=== PATIENT | female | born 1965 | race African-American/Black ===

== ENCOUNTER 2017-01-23 18:49 | Inpatient (IN) | payer OTHER ==
[~2017-01-23] VITALS: Ht 157.5 cm; Wt 108.0 kg
--- NOTE | 2017-01-23 18:51 | PHYS DOC ---
Past Medical History Past Medical History: Asthma, Cancer, COPD, CVA, Diabetes-Type II, GERD, Hypertension, [place], Other Additional Past Medical Histor: Liver Cancer treated with medication Past Surgical History: Angioplasty, Other Additional Past Surgical Histo: With stent placement Alcohol Use: None Drug Use: None Adult General Chief Complaint Chief Complaint: CHEST PAIN HPI HPI Patient is a 51 year old -Swedish Swedish female who presents with sided chest pain that goes into her neck and down her left arm. She states that she started a left leg like cramping sensation and then moved up. She states she feel short of breath over the last couple days. She states the pain is been constant nothing made it better or worse. She's been taking her ulcer relaxants and has made any difference. She states she's has a history of heart failure and had a stent approximately 3 years ago at the [facility]. She states she's very compliant with all of her medications. She states she's had a yellow productive cough over the last several days. She does smoke cigarettes. Review of Systems Review of Systems Constitutional: Denies fever or chills [] Eyes: Denies change in visual acuity, redness, or eye pain [] HENT: Denies nasal congestion or sore throat [] Respiratory: Positive for productive cough and shortness of breath. Cardiovascular: No additional information not addressed in HPI [] GI: Denies abdominal pain, nausea, vomiting, bloody stools or diarrhea [] : Denies dysuria or hematuria [] Musculoskeletal: Denies back pain or joint pain [] Integument: Denies rash or skin lesions [] Neurologic: Denies headache, focal weakness or sensory changes [] Endocrine: Denies polyuria or polydipsia [] Current Medications Current Medications Current Medications Medications (Trade) Dose Ordered Sig/Luz Maria Start Time Stop Time Status Last Admin Dose Admin Acetaminophen (Tylenol) 650 mg PRN Q6HRS PRN 01/23/17 20:45 Acetaminophen/ Hydrocodone Bitart (Lortab 5/325) 2 tab PRN Q4HRS PRN 01/23/17 20:45 Al Hydroxide/Mg Hydroxide (Mylanta Plus Xs) 30 ml PRN Q3HRS PRN 01/23/17 20:45 Aspirin (Acacia Aspirin) 325 mg 1X ONCE 01/23/17 22:00 01/23/17 22:01 Bisacodyl (Dulcolax Supp) 10 mg PRN DAILY PRN 01/23/17 20:45 Calcium Carbonate/ Glycine (Tums) 500 mg PRN Q3HRS PRN 01/23/17 20:45 Dextrose (Dextrose 50%-Water Syringe) 12.5 gm PRN Q15MIN PRN 01/23/17 20:45 Docusate Sodium (Colace) 100 mg BID 01/23/17 21:00 Enoxaparin Sodium (Lovenox 40mg Syringe) 40 mg Q24H 01/23/17 21:00 Fentanyl Citrate (Fentanyl 2ml Vial) 50 mcg PRN Q2HR PRN 01/23/17 20:45 Ibuprofen (Motrin) 400 mg PRN Q6HRS PRN 01/23/17 20:45 Insulin Aspart (NovoLOG) 0-9 UNITS TIDWMEALS 01/24/17 08:00 Ketorolac Tromethamine (Toradol) 30 mg PRN Q6HRS PRN 01/23/17 20:45 01/28/17 20:44 Lactulose 20 gm PRN Q12HR PRN 01/23/17 20:45 Magnesium Hydroxide (Milk Of Magnesia) 2,400 mg PRN Q12HR PRN 01/23/17 20:45 Morphine Sulfate 2 mg PRN Q2HR PRN 01/23/17 21:30 01/24/17 21:29 UNV Ondansetron HCl (Zofran) 4 mg PRN Q6HRS PRN 01/23/17 20:45 Oxycodone HCl (Roxicodone) 5 mg PRN Q3HRS PRN 01/23/17 20:45 Potassium Chloride 100 ml @ 100 mls/hr Q1H 01/23/17 22:00 01/24/17 01:59 Prochlorperazine (Compazine) 25 mg PRN Q12HR PRN 01/23/17 20:45 Prochlorperazine Edisylate (Compazine) 10 mg PRN Q6HRS PRN 01/23/17 20:45 Zolpidem Tartrate (Ambien) 5 mg PRN QHS PRN 01/23/17 20:45 Allergies Allergies Allergies Coded Allergies Type Severity Reaction Last Updated Verified amoxicillin Allergy Severe anaphylaxis 09/19/13 Yes iodine Allergy Severe Anaphylaxis 09/19/13 Yes shellfish derived Allergy Severe Anaphylaxis 04/09/14 Yes Physical Exam Physical Exam Constitutional: Well developed, well nourished, no acute distress, non-toxic appearance. [] HENT: Normocephalic, atraumatic, bilateral external ears normal, oropharynx moist, no oral exudates, nose normal. [] Eyes: PERRLA, EOMI, conjunctiva normal, no discharge. [] Neck: Normal range of motion, no tenderness, supple, no stridor. [] Cardiovascular:Heart rate regular rhythm, no murmur [] Lungs & Thorax: Bilateral breath sounds clear to auscultation [] Abdomen: Bowel sounds normal, soft, no tenderness, no masses, no pulsatile masses. [] Skin: Warm, dry, no erythema, no rash. [] Back: No tenderness, no CVA tenderness. [] Extremities: No tenderness, no cyanosis, no clubbing, ROM intact, no edema. [] Neurologic: Alert and oriented X 3, normal motor function, normal sensory function, no focal deficits noted. [] Psychologic: Affect normal, judgement normal, mood normal. [] Current Patient Data Vital Signs Vital Signs Date Time Temp Pulse Resp B/P (MAP) Pulse Ox O2 Delivery O2 Flow Rate FiO2 01/23/17 21:00 80 133/82 (99) 98 Room Air 01/23/17 19:01 98.3 22 98.3 Lab Values Laboratory Tests Test 01/23/17 19:45 01/23/17 20:00 White Blood Count 9.0 x10^3/uL (4.0-11.0) Red Blood Count 4.95 x10^6/uL (3.50-5.40) Hemoglobin 14.6 g/dL (12.0-15.5) Hematocrit 42.5 % (36.0-47.0) Mean Corpuscular Volume 86 fL (79-100) Mean Corpuscular Hemoglobin 29 pg (25-35) Mean Corpuscular Hemoglobin Concent 34 g/dL (31-37) Red Cell Distribution Width 15.1 % (11.5-14.5) H Platelet Count 163 x10^3/uL (140-400) Neutrophils (%) (Auto) 50 % (31-73) Lymphocytes (%) (Auto) 43 % (24-48) Monocytes (%) (Auto) 5 % (0-9) Eosinophils (%) (Auto) 1 % (0-3) Basophils (%) (Auto) 1 % (0-3) Neutrophils # (Auto) 4.5 x10^3uL (1.8-7.7) Lymphocytes # (Auto) 3.8 x10^3/uL (1.0-4.8) Monocytes # (Auto) 0.4 x10^3/uL (0.0-1.1) Eosinophils # (Auto) 0.1 x10^3/uL (0.0-0.7) Basophils # (Auto) 0.1 x10^3/uL (0.0-0.2) Prothrombin Time 13.4 SEC (11.7-14.0) Prothrombin Time INR 1.1 (0.8-1.1) Sodium Level 138 mmol/L (136-145) Potassium Level 2.6 mmol/L (3.5-5.1) *L Chloride Level 100 mmol/L (98-107) Carbon Dioxide Level 29 mmol/L (21-32) Anion Gap 9 (6-14) Blood Urea Nitrogen 14 mg/dL (7-20) Creatinine 0.8 mg/dL (0.6-1.0) Estimated GFR (Cockcroft-Gault) 90.8 Glucose Level 187 mg/dL (70-99) H Calcium Level 9.7 mg/dL (8.5-10.1) Magnesium Level 2.1 mg/dL (1.8-2.4) Total Bilirubin 0.5 mg/dL (0.2-1.0) Direct Bilirubin 0.1 mg/dL (0.0-0.2) Aspartate Amino Transferase (AST) 16 U/L (15-37) Alanine Aminotransferase (ALT) 18 U/L (14-59) Alkaline Phosphatase 96 U/L (46-116) Creatine Kinase 120 U/L (26-192) Creatine Kinase MB (Mass) 0.8 ng/mL (0.0-3.6) Creatine Kinase MB Relative Index 0.7 % (0-4) Troponin I Quantitative < 0.017 ng/mL (0.000-0.055) TR-Rkw-S-Type Natriuretic Peptide 27 pg/mL (0-124) Total Protein 7.6 g/dL (6.4-8.2) Albumin 3.9 g/dL (3.4-5.0) Lipase 399 U/L (73-393) H Urine Color Yellow Urine Clarity Clear Urine pH 5.5 Urine Specific [place] 1.015 Urine Protein Negative mg/dL (NEG-TRACE) Urine Glucose (UA) Negative mg/dL (NEG) Urine Ketones (Stick) Negative mg/dL (NEG) Urine Blood Negative (NEG) Urine Nitrite Negative (NEG) Urine Bilirubin Negative (NEG) Urine Urobilinogen Dipstick 0.2 mg/dL (0.2 mg/dL) Urine Leukocyte Esterase Small (NEG) Urine RBC 0 /HPF (0-2) Urine WBC 1-4 /HPF (0-4) Urine Squamous Epithelial Cells Occ /LPF Urine Bacteria Moderate /HPF (0-FEW) Laboratory Tests 01/23/17 19:45 Laboratory Tests 01/23/17 19:45 EKG EKG EKG shows sinus rhythm rate [address] elevations or T-wave inversions, normal axis, QTC 430 ms, as interpreted by me. Radiology/Procedures Radiology/Procedures One view chest x-ray did not show any focal consolidations, bony abnormality's or pneumothorax, as interpreted by me. Impressions: Chest pain Coronary artery disease COPD Congestive heart failure Hypokalemia Course & Med Decision Making Course & Med Decision Making Pertinent Labs and Imaging studies reviewed. (See chart for details) Patient does have hypokalemia and this is being replaced. EKG is nonacute. Chest x-ray also nonacute. Initial troponin is negative. This is atypical chest pain however she does have several risk factors with stents and CHF. We'll admit for cardiac rule out and further evaluation. Patient's being admitted to the hospitalist in stable condition at this time. Potassium is being replaced with an Mcgregor complains IV 4, magnesium level is normal. Dragon Disclaimer Dragon Disclaimer This electronic medical record was generated, in whole or in part, using a voice recognition dictation system. Departure Departure Impression: Primary Impression: Chest pain Disposition: 09 ADMITTED INPATIENT Admitting Physician: Kathleen Byers Condition: STABLE Referrals: SCOTT MCKINLEY (PCP) Problem Qualifiers Primary Impression: Chest pain Chest pain type: unspecified Qualified Codes: R07.9 - Chest pain, unspecified TYSON HARDY MD Jan 23, 2017 18:51
[2017-01-23] MEDS ORDERED: MORPHINE SULFATE 4 MG/ML DISP.SYRIN. IV/SQ PRN (19:45)
[2017-01-23 19:58] LABS: BASO # 0.1 x10^3/uL (0.0-0.2); BASO % 1 % (0-3); EOS % 1 % (0-3); HEMATOCRIT 42.5 % (36.0-47.0); HEMOGLOBIN 14.6 g/dL (12.0-15.5); LYMPH # 3.8 x10^3/uL (1.0-4.8); LYMPH % 43 % (24-48); MEAN CORPUSCULAR HEMOGLOBIN 29 pg (25-35); MEAN CORPUSCULAR HGB CONC 34 g/dL (31-37); MEAN CORPUSCULAR VOLUME 86 fL (79-100); MONO % 5 % (0-9); NEUT % 50 % (31-73); PLATELET COUNT 163 x10^3/uL (140-400); RED BLOOD COUNT 4.95 x10^6/uL (3.50-5.40); RED CELL DISTRIBUTION WIDTH 15.1 % (11.5-14.5)
[2017-01-23 20:12] LABS: INR 1.1 (0.8-1.1); PROTHROMBIN TIME PATIENT 13.4 SEC (11.7-14.0)
[2017-01-23 20:17] LABS: BILIRUBIN,URINE NEGATIVE (NEG); GLUCOSE,URINE NEGATIVE (NEG); NITRITE,URINE NEGATIVE (NEG); PH,URINE 5.5; PROTEIN,URINE NEGATIVE (NEG-TRACE); UROBILINOGEN,URINE 0.2 mg/dL (0.2 mg/dL)
[2017-01-23 20:36] LABS: BACTERIA,URINE MODERATE /HPF (0-FEW); RBC,URINE 0 /HPF (0-2); SQUAMOUS EPITHELIAL CELL,UR OCC /LPF
[2017-01-23] MEDS ORDERED: DEXTROSE 50% 25 GM / 50ML DISP.SYRIN. IV PRN (20:45)
[2017-01-23] MEDS ORDERED: MORPHINE SULFATE 4 MG/ML DISP.SYRIN. IV PRN (20:45)
[2017-01-23] MEDS ORDERED: BISACODYL 10 MG SUPP.RECT. PR PRN (20:45)
[2017-01-23] MEDS ORDERED: ONDANSETRON PF 4 MG/2 ML VIAL. IV PRN (20:45)
[2017-01-23] MEDS ORDERED: PROCHLORPERAZINE 10 MG/2 ML VIAL. IV PRN (20:45)
[2017-01-23] MEDS ORDERED: IBUPROFEN 400 MG TABLET. PO PRN (20:45)
[2017-01-23] MEDS ORDERED: MAGNESIUM HYDROXIDE 2,400 MG/30 ML ORAL.SUSP. PO PRN (20:45)
[2017-01-23] MEDS ORDERED: fentaNYL PF VIAL 100 MCG/2 ML VIAL IV PRN (20:45)
[2017-01-23] MEDS ORDERED: oxyCODONE IR 5 MG TABLET PO PRN (20:45)
[2017-01-23] MEDS ORDERED: MAG HYDROX/ALUMINUM HYD/SIMETH 30 ML ORAL.SUSP PO PRN (20:45)
[2017-01-23] MEDS ORDERED: ACETAMINOPHEN 325 MG TABLET. PO PRN (20:45)
[2017-01-23] MEDS ORDERED: LACTULOSE 20 GM/30 ML SOLUTION. PO PRN (20:45)
[2017-01-23] MEDS ORDERED: CALCIUM CARBONATE 500 MG TAB.CHEW PO PRN (20:45)
[2017-01-23] MEDS ORDERED: KETOROLAC 30 MG/ML INJ. IV PRN (20:45)
[2017-01-23] MEDS ORDERED: PROCHLORPERAZINE 25 MG SUPP.RECT. PR PRN (20:45)
[2017-01-23] MEDS ORDERED: ZOLPIDEM 5 MG TABLET. PO PRN (20:45)
--- NOTE | 2017-01-23 20:46 | PDOC1 ---
History and Physical Date of Admission Date of Admission DATE: 01/23/17 TIME: 20:39 Identification/Chief Complaint Chief Complaint left sided CP, toe pain all the way to her chest Problems: Source Source: Caregiver, Chart review, Patient History of Present Illness History of Present Illness 51 y.o MOrbidly obese AA fmela with hx cAD, indwelling stents last C 3-4 yrs ago at [facility], cards is on [facility], last here [address] Sommer for CP. Comes in bec of CP started 3 days agos he claims started from her foot and moved all checo way up to her chest, she thought/described as solitario horse. EKG ok, VS ok,. CLaims complaince with meds, Does smoke 3-4 cig a day - claims whcisushila is down than her usual, prev alcohol drinker but since dx with liver CA 17 yrs ago and advised chemo, radiation but never did and claims now she is cancer free. NOt the best historian, complains of pain everywhere, ROS is positive mostly for majority of the organ systems. SHe is DM, HTN, dyslipdimeia, not working but no leg edema and ambulates with no assistive device, She is top heavy, She describes pain as left sided, at rest 10./10 not relived by morphine,claims SOA but no diaphoresis. Past Medical History Cardiovascular: HTN, Hyperlipidemia Pulmonary: Bronchitis GI: GERD Hepatobiliary: Other (liver CA) Musculoskeletal: low back pain ENT: No pertinent hx Endocrine: Diabetes Past Surgical History Past Surgical History: Other (PCI) Family History Family History: High Cholestrol, Hypertension Social History Smoke: <1 pack per day ALCOHOL: other (quit 17 yrs ago, heavy) Current Medications Current Medications Current Medications Morphine Sulfate 2 mg PRN Q15MIN PRN IV/SQ PAIN GREATER THAN 3/10 Last administered on 01/23/17t 19:47; Start 01/23/17 at 19:45; Stop 01/24/17 at 19:44 Allergies Allergies: Coded Allergies: amoxicillin (Verified Allergy, Severe, anaphylaxis, 09/19/13) iodine (Verified Allergy, Severe, Anaphylaxis, 09/19/13) Patient allergic to Seafood shellfish derived (Verified Allergy, Severe, Anaphylaxis, 04/09/14) ROS General: YES: Fatigue, Malaise PSYCHOLOGICAL ROS: YES: Anxiety, Concentration difficultie, Depression Eyes: No Blurry vision, No Decreased vision, No Double vision, No Dry eyes, No Excessive tearing, No Eye Pain, No Itchy Eyes, No Loss of vision, No Photophobia , No Scotomata, No Uses contacts, No Uses glasses, No Other HEENT: No: Heacaches, Visual Changes, Hearing change, Nasal congestion, Nasal discharge, Oral lesions, Sinus pain, Sore Throat, Epistaxis, Sneezing, Snoring, Tinnitus, Vertigo, Vocal changes, Other ALLERGY AND IMMUNOLOGY: No: Hives, Insect Bite Sensitivity, Itchy/Watery Eyes, Nasal Congestion, Post Nasal Drip, Seasonal Allergies, Other Hematological and Lymphatic: No: Bleeding Problems, Blood Clots, Blood Transfusions, Brusing, Night Sweats, Pallor, Swollen Lymph Nodes, Other ENDOCRINE: YES: Malaise/lethargy Breast: No New/Changing Breast Lumps, No Nipple changes, No Nipple discharge, No Other Respiratory: YES: Cough, Pleuritic Pain, Shortness of breath, SOB with excertion Cardiovascular: yes Chest Pain Gastrointestinal: Yes Abdominal Pain Musculoskeletal: Yes Joint Pain Neurological: No Behavorial Changes, No Bowel/Bladder ControlChng, No Confusion , No Dizziness, No Gait Disturbance, No Headaches, No Impaired Coord/balance, No Memory Loss, No Numbness/Tingling, No Seizures, No Speech Problems, No Tremors, No Visual Changes, No Weakness, No Other Skin: No Dry Skin, No Eczema, No Hair Changes, No Lumps, No Mole Changes, No Mottling, No Nail Changes, No Pruritus, No Rash, No Skin Lesion Changes, No Other, No Acne Physical Exam General: Alert, Oriented X3, Cooperative, No acute distress HEENT: Atraumatic, PERRLA, EOMI Lungs: Clear to auscultation, Normal air movement Heart: S1S2, RRR, no thrills, no rubs Cardiovascular: S1, S2 Breasts: Normal, Rt breast nml w/o mass, Lt breast nml w/o mass, Nipples normal Abdomen: Normal bowel sounds, Soft, No tenderness, No hepatosplenomegaly, No masses Extremities: No clubbing Skin: No rashes, No breakdown, No significant lesion Neuro: Normal gait, Normal speech, Strength at 5/5 X4 ext, Normal tone, Sensation intact, Cranial nerves 3-12 NL, Reflexes 2+ Psych/Mental Status: Mental status NL, Mood NL Vitals Vitals Vital Signs Date Time Temp Pulse Resp B/P (MAP) Pulse Ox O2 Delivery O2 Flow Rate FiO2 01/23/17 19:01 98.3 77 22 128/83 (98) 98 Room Air 98.3 Labs Labs Laboratory Tests Test 01/23/17 19:45 01/23/17 20:00 White Blood Count 9.0 x10^3/uL (4.0-11.0) Red Blood Count 4.95 x10^6/uL (3.50-5.40) Hemoglobin 14.6 g/dL (12.0-15.5) Hematocrit 42.5 % (36.0-47.0) Mean Corpuscular Volume 86 fL (79-100) Mean Corpuscular Hemoglobin 29 pg (25-35) Mean Corpuscular Hemoglobin Concent 34 g/dL (31-37) Red Cell Distribution Width 15.1 % (11.5-14.5) Platelet Count 163 x10^3/uL (140-400) Neutrophils (%) (Auto) 50 % (31-73) Lymphocytes (%) (Auto) 43 % (24-48) Monocytes (%) (Auto) 5 % (0-9) Eosinophils (%) (Auto) 1 % (0-3) Basophils (%) (Auto) 1 % (0-3) Neutrophils # (Auto) 4.5 x10^3uL (1.8-7.7) Lymphocytes # (Auto) 3.8 x10^3/uL (1.0-4.8) Monocytes # (Auto) 0.4 x10^3/uL (0.0-1.1) Eosinophils # (Auto) 0.1 x10^3/uL (0.0-0.7) Basophils # (Auto) 0.1 x10^3/uL (0.0-0.2) Prothrombin Time 13.4 SEC (11.7-14.0) Prothromb Time International Ratio 1.1 (0.8-1.1) Urine Color Yellow Urine Clarity Clear Urine pH 5.5 Urine Specific [place] 1.015 Urine Protein Negative mg/dL (NEG-TRACE) Urine Glucose (UA) Negative mg/dL (NEG) Urine Ketones (Stick) Negative mg/dL (NEG) Urine Blood Negative (NEG) Urine Nitrite Negative (NEG) Urine Bilirubin Negative (NEG) Urine Urobilinogen Dipstick 0.2 mg/dL (0.2 mg/dL) Urine Leukocyte Esterase Small (NEG) Urine RBC 0 /HPF (0-2) Urine WBC 1-4 /HPF (0-4) Urine Squamous Epithelial Cells Occ /LPF Urine Bacteria Moderate /HPF (0-FEW) Laboratory Tests Test 01/23/17 19:45 01/23/17 20:00 White Blood Count 9.0 x10^3/uL (4.0-11.0) Red Blood Count 4.95 x10^6/uL (3.50-5.40) Hemoglobin 14.6 g/dL (12.0-15.5) Hematocrit 42.5 % (36.0-47.0) Mean Corpuscular Volume 86 fL (79-100) Mean Corpuscular Hemoglobin 29 pg (25-35) Mean Corpuscular Hemoglobin Concent 34 g/dL (31-37) Red Cell Distribution Width 15.1 % (11.5-14.5) Platelet Count 163 x10^3/uL (140-400) Neutrophils (%) (Auto) 50 % (31-73) Lymphocytes (%) (Auto) 43 % (24-48) Monocytes (%) (Auto) 5 % (0-9) Eosinophils (%) (Auto) 1 % (0-3) Basophils (%) (Auto) 1 % (0-3) Neutrophils # (Auto) 4.5 x10^3uL (1.8-7.7) Lymphocytes # (Auto) 3.8 x10^3/uL (1.0-4.8) Monocytes # (Auto) 0.4 x10^3/uL (0.0-1.1) Eosinophils # (Auto) 0.1 x10^3/uL (0.0-0.7) Basophils # (Auto) 0.1 x10^3/uL (0.0-0.2) Prothrombin Time 13.4 SEC (11.7-14.0) Prothromb Time International Ratio 1.1 (0.8-1.1) Urine Color Yellow Urine Clarity Clear Urine pH 5.5 Urine Specific [place] 1.015 Urine Protein Negative mg/dL (NEG-TRACE) Urine Glucose (UA) Negative mg/dL (NEG) Urine Ketones (Stick) Negative mg/dL (NEG) Urine Blood Negative (NEG) Urine Nitrite Negative (NEG) Urine Bilirubin Negative (NEG) Urine Urobilinogen Dipstick 0.2 mg/dL (0.2 mg/dL) Urine Leukocyte Esterase Small (NEG) Urine RBC 0 /HPF (0-2) Urine WBC 1-4 /HPF (0-4) Urine Squamous Epithelial Cells Occ /LPF Urine Bacteria Moderate /HPF (0-FEW) VTE Prophylaxis Ordered VTE Prophylaxis Devices: Yes VTE Pharmacological Prophylaxi: Yes Assessment/Plan Assessment/Plan 1. CP in an adult at rest, atypical, hx CAD with stents 2. DM 2 , dyslipidemia, HTN 3. Liver CA by patient account - claims now CA free 4. SMoker - few cigs 5. Ex drinker 6. Metabolic syndrome Plan: Admit [facility] consult Cycle CE Check TSH Awaiting home meds Tender to palp on abd - if persists might need further eval i,.e imaging Seen at [facility] and [facility] MATTING MACHINE OPERATORJUDIE BARTHOLOMEW MD Jan 23, 2017 20:46
[2017-01-23 20:50] LABS: ALBUMIN 3.9 g/dL (3.4-5.0); CALCIUM 9.7 mg/dL (8.5-10.1); CREATININE 0.8 mg/dL (0.6-1.0); DIRECT BILIRUBIN 0.1 mg/dL (0.0-0.2); GFR 90.8; MAGNESIUM 2.1 mg/dL (1.8-2.4); TOTAL BILIRUBIN 0.5 mg/dL (0.2-1.0); TOTAL PROTEIN 7.6 g/dL (6.4-8.2)
[2017-01-23 20:59] LABS: CKMB MASS 0.8 ng/mL (0.0-3.6)
[2017-01-23] MEDS ORDERED: ENOXAPARIN 40 MG/0.4 ML SYRINGE. SQ SCH (21:00)
[2017-01-23 21:03] LABS: POTASSIUM 2.6 mmol/L (3.5-5.1)
[2017-01-23] MEDS ORDERED: MORPHINE SULFATE 2 MG/ML DISP.SYRIN. IV PRN (21:30)
[2017-01-23] MEDS ORDERED: ASPIRIN 325 MG TABLET PO ONE (22:00)
[2017-01-23] MEDS: DOCUSATE SODIUM 100 MG CAPSULE. PO SCH (22:50)
[2017-01-23] MEDS: POTASSIUM CHLORIDE 10MEQ 100 ML IV SCH (22:53)
[2017-01-23] MEDS: HYDROcodone/APAP 5/325MG 1 TAB TABLET PO PRN (23:05)
[2017-01-23] MEDS ORDERED: HYDR25TA9 PO (23:43)
[2017-01-23] MEDS ORDERED: ISOS30TA4 PO (23:43)
[2017-01-23] MEDS ORDERED: MONT10TA9 PO (23:43)
[2017-01-23] MEDS ORDERED: TRIA1TAB3 PO (23:43)
[2017-01-23] MEDS ORDERED: LORA10TA3 PO (23:43)
[2017-01-23] MEDS ORDERED: CARV25TA2 PO (23:43)
[2017-01-23] MEDS ORDERED: HYDR25TA PO (23:43)
[2017-01-23] MEDS ORDERED: CYCL10TA2 PO (23:43)
[2017-01-23] MEDS ORDERED: POTA20TA82 PO (23:43)
[2017-01-23] MEDS ORDERED: RANI150T2 PO (23:43)
[2017-01-23] MEDS ORDERED: SIMV20TA3 PO (23:43)
[2017-01-23] MEDS ORDERED: GLYB5TAB3 PO (23:43)
[2017-01-23 23:59] VITALS: BP 119/64
[2017-01-24] MEDS: POTASSIUM CHLORIDE 10MEQ 100 ML IV SCH ×3 (00:10→02:27)
[2017-01-24 03:15] VITALS: BP 105/55
[2017-01-24 05:49] LABS: BASO % 0 % (0-3); EOS % 2 % (0-3); HEMATOCRIT 41.9 % (36.0-47.0); LYMPH # 4.7 x10^3/uL (1.0-4.8); LYMPH % 53 % (24-48); MEAN CORPUSCULAR HEMOGLOBIN 29 pg (25-35); MEAN CORPUSCULAR HGB CONC 33 g/dL (31-37); MEAN CORPUSCULAR VOLUME 87 fL (79-100); MONO % 7 % (0-9); NEUT % 38 % (31-73); PLATELET COUNT 146 x10^3/uL (140-400); RED BLOOD COUNT 4.82 x10^6/uL (3.50-5.40); RED CELL DISTRIBUTION WIDTH 15.2 % (11.5-14.5)
[2017-01-24 06:06] LABS: CALCIUM 8.9 mg/dL (8.5-10.1); CREATININE 0.9 mg/dL (0.6-1.0); GFR 79.3; POTASSIUM 3.5 mmol/L (3.5-5.1)
[2017-01-24 07:00] VITALS: BP 126/70
[2017-01-24] MEDS: INSULIN ASPART 300 UNITS/3 ML INSULN.PEN SQ SCH ×3 (08:00→16:58)
[2017-01-24] MEDS: DOCUSATE SODIUM 100 MG CAPSULE. PO SCH ×2 (08:08→21:00)
[2017-01-24] MEDS: HYDROcodone/APAP 5/325MG 1 TAB TABLET PO PRN ×3 (08:09→19:56)
--- NOTE | 2017-01-24 09:03 | RAD ---
AP chest. History: Chest pain AP view was taken of the chest. There is a left lower lobe infiltrate. A pneumonia is possible. Heart is normal in size. There is no effusion. Impression: 1. Left lower lobe infiltrate.
[2017-01-24] MEDS ORDERED: guaiFENesin DM 200MG/20MG 10 ML SYRUP PO PRN (10:15)
[2017-01-24 11:00] VITALS: BP 121/66
[2017-01-24] MEDS: ALBUTEROL SULFATE 2.5 MG/3 ML NEBU. NEB PRN ×2 (11:34→20:15)
--- NOTE | 2017-01-24 12:42 | PDOC ---
PROGRESS NOTES Chief Complaint Chief Complaint 1. CP in an adult at rest, atypical, hx CAD with stents 2. DM 2 , dyslipidemia, HTN 3. Liver CA by patient account - claims now CA free 4. SMoker - few cigs 5. Ex drinker 6. Metabolic syndrome 7. CAP History of Present Illness History of Present Illness CXR now shows: Impression: 1. Left lower lobe infiltrate. Greenish phlgem per pt NO fevers, WBC normal at 9 Still some left sided CP, narcs help but no permanent relief Swollen throat from PCN Plan: Await cards rounds Start IV levaquin MAy check for sputum cx - but usually is low yield anyways Ok for cardaic diet for now Vitals Vitals Vital Signs Date Time Temp Pulse Resp B/P (MAP) Pulse Ox O2 Delivery O2 Flow Rate FiO2 01/24/17 12:16 18 Room Air 01/24/17 11:35 97 01/24/17 11:00 97.6 60 121/66 (84) 97.6 Physical Exam General: Alert, Oriented X3, Cooperative, No acute distress Abdomen: Normal bowel sounds, Soft, No tenderness, No hepatosplenomegaly, No masses Extremities: No clubbing Skin: No rashes, No breakdown, No significant lesion Labs LABS Laboratory Tests Test 01/23/17 19:45 01/23/17 20:00 01/24/17 04:30 01/24/17 04:45 White Blood Count 9.0 x10^3/uL (4.0-11.0) 9.0 x10^3/uL (4.0-11.0) Red Blood Count 4.95 x10^6/uL (3.50-5.40) 4.82 x10^6/uL (3.50-5.40) Hemoglobin 14.6 g/dL (12.0-15.5) 14.0 g/dL (12.0-15.5) Hematocrit 42.5 % (36.0-47.0) 41.9 % (36.0-47.0) Mean Corpuscular Volume 86 fL (79-100) 87 fL (79-100) Mean Corpuscular Hemoglobin 29 pg (25-35) 29 pg (25-35) Mean Corpuscular Hemoglobin Concent 34 g/dL (31-37) 33 g/dL (31-37) Red Cell Distribution Width 15.1 % (11.5-14.5) 15.2 % (11.5-14.5) Platelet Count 163 x10^3/uL (140-400) 146 x10^3/uL (140-400) Neutrophils (%) (Auto) 50 % (31-73) 38 % (31-73) Lymphocytes (%) (Auto) 43 % (24-48) 53 % (24-48) Monocytes (%) (Auto) 5 % (0-9) 7 % (0-9) Eosinophils (%) (Auto) 1 % (0-3) 2 % (0-3) Basophils (%) (Auto) 1 % (0-3) 0 % (0-3) Neutrophils # (Auto) 4.5 x10^3uL (1.8-7.7) 3.4 x10^3uL (1.8-7.7) Lymphocytes # (Auto) 3.8 x10^3/uL (1.0-4.8) 4.7 x10^3/uL (1.0-4.8) Monocytes # (Auto) 0.4 x10^3/uL (0.0-1.1) 0.6 x10^3/uL (0.0-1.1) Eosinophils # (Auto) 0.1 x10^3/uL (0.0-0.7) 0.2 x10^3/uL (0.0-0.7) Basophils # (Auto) 0.1 x10^3/uL (0.0-0.2) 0.0 x10^3/uL (0.0-0.2) Prothrombin Time 13.4 SEC (11.7-14.0) Prothromb Time International Ratio 1.1 (0.8-1.1) Sodium Level 138 mmol/L (136-145) 141 mmol/L (136-145) Potassium Level 2.6 mmol/L (3.5-5.1) 3.5 mmol/L (3.5-5.1) Chloride Level 100 mmol/L (98-107) 104 mmol/L (98-107) Carbon Dioxide Level 29 mmol/L (21-32) 28 mmol/L (21-32) Anion Gap 9 (6-14) 9 (6-14) Blood Urea Nitrogen 14 mg/dL (7-20) 14 mg/dL (7-20) Creatinine 0.8 mg/dL (0.6-1.0) 0.9 mg/dL (0.6-1.0) Estimated GFR (Cockcroft-Gault) 90.8 79.3 Glucose Level 187 mg/dL (70-99) 98 mg/dL (70-99) Calcium Level 9.7 mg/dL (8.5-10.1) 8.9 mg/dL (8.5-10.1) Magnesium Level 2.1 mg/dL (1.8-2.4) Total Bilirubin 0.5 mg/dL (0.2-1.0) Direct Bilirubin 0.1 mg/dL (0.0-0.2) Aspartate Amino Transf (AST/SGOT) 16 U/L (15-37) Alanine Aminotransferase (ALT/SGPT) 18 U/L (14-59) Alkaline Phosphatase 96 U/L (46-116) Creatine Kinase 120 U/L (26-192) Creatine Kinase MB (Mass) 0.8 ng/mL (0.0-3.6) Creatine Kinase MB Relative Index 0.7 % (0-4) Troponin I Quantitative < 0.017 ng/mL (0.000-0.055) < 0.017 ng/mL (0.000-0.055) PH-Lgx-G-Type Natriuretic Peptide 27 pg/mL (0-124) Total Protein 7.6 g/dL (6.4-8.2) Albumin 3.9 g/dL (3.4-5.0) Lipase 399 U/L (73-393) Urine Color Yellow Urine Clarity Clear Urine pH 5.5 Urine Specific [place] 1.015 Urine Protein Negative mg/dL (NEG-TRACE) Urine Glucose (UA) Negative mg/dL (NEG) Urine Ketones (Stick) Negative mg/dL (NEG) Urine Blood Negative (NEG) Urine Nitrite Negative (NEG) Urine Bilirubin Negative (NEG) Urine Urobilinogen Dipstick 0.2 mg/dL (0.2 mg/dL) Urine Leukocyte Esterase Small (NEG) Urine RBC 0 /HPF (0-2) Urine WBC 1-4 /HPF (0-4) Urine Squamous Epithelial Cells Occ /LPF Urine Bacteria Moderate /HPF (0-FEW) Test 01/24/17 08:06 01/24/17 09:15 01/24/17 11:49 Glucose (Fingerstick) 111 mg/dL (70-99) 114 mg/dL (70-99) Troponin I Quantitative < 0.017 ng/mL (0.000-0.055) Review of Systems Review of Systems cough, cp, pleuritic pain when coughs - may try phenergan with codeine Comment Review of Relevant I have reviewed the following items geovany (where applicable) has been applied. Labs Laboratory Tests Test 01/23/17 19:45 01/23/17 20:00 01/24/17 04:30 01/24/17 04:45 White Blood Count 9.0 x10^3/uL (4.0-11.0) 9.0 x10^3/uL (4.0-11.0) Red Blood Count 4.95 x10^6/uL (3.50-5.40) 4.82 x10^6/uL (3.50-5.40) Hemoglobin 14.6 g/dL (12.0-15.5) 14.0 g/dL (12.0-15.5) Hematocrit 42.5 % (36.0-47.0) 41.9 % (36.0-47.0) Mean Corpuscular Volume 86 fL (79-100) 87 fL (79-100) Mean Corpuscular Hemoglobin 29 pg (25-35) 29 pg (25-35) Mean Corpuscular Hemoglobin Concent 34 g/dL (31-37) 33 g/dL (31-37) Red Cell Distribution Width 15.1 % (11.5-14.5) 15.2 % (11.5-14.5) Platelet Count 163 x10^3/uL (140-400) 146 x10^3/uL (140-400) Neutrophils (%) (Auto) 50 % (31-73) 38 % (31-73) Lymphocytes (%) (Auto) 43 % (24-48) 53 % (24-48) Monocytes (%) (Auto) 5 % (0-9) 7 % (0-9) Eosinophils (%) (Auto) 1 % (0-3) 2 % (0-3) Basophils (%) (Auto) 1 % (0-3) 0 % (0-3) Neutrophils # (Auto) 4.5 x10^3uL (1.8-7.7) 3.4 x10^3uL (1.8-7.7) Lymphocytes # (Auto) 3.8 x10^3/uL (1.0-4.8) 4.7 x10^3/uL (1.0-4.8) Monocytes # (Auto) 0.4 x10^3/uL (0.0-1.1) 0.6 x10^3/uL (0.0-1.1) Eosinophils # (Auto) 0.1 x10^3/uL (0.0-0.7) 0.2 x10^3/uL (0.0-0.7) Basophils # (Auto) 0.1 x10^3/uL (0.0-0.2) 0.0 x10^3/uL (0.0-0.2) Prothrombin Time 13.4 SEC (11.7-14.0) Prothromb Time International Ratio 1.1 (0.8-1.1) Sodium Level 138 mmol/L (136-145) 141 mmol/L (136-145) Potassium Level 2.6 mmol/L (3.5-5.1) 3.5 mmol/L (3.5-5.1) Chloride Level 100 mmol/L (98-107) 104 mmol/L (98-107) Carbon Dioxide Level 29 mmol/L (21-32) 28 mmol/L (21-32) Anion Gap 9 (6-14) 9 (6-14) Blood Urea Nitrogen 14 mg/dL (7-20) 14 mg/dL (7-20) Creatinine 0.8 mg/dL (0.6-1.0) 0.9 mg/dL (0.6-1.0) Estimated GFR (Cockcroft-Gault) 90.8 79.3 Glucose Level 187 mg/dL (70-99) 98 mg/dL (70-99) Calcium Level 9.7 mg/dL (8.5-10.1) 8.9 mg/dL (8.5-10.1) Magnesium Level 2.1 mg/dL (1.8-2.4) Total Bilirubin 0.5 mg/dL (0.2-1.0) Direct Bilirubin 0.1 mg/dL (0.0-0.2) Aspartate Amino Transf (AST/SGOT) 16 U/L (15-37) Alanine Aminotransferase (ALT/SGPT) 18 U/L (14-59) Alkaline Phosphatase 96 U/L (46-116) Creatine Kinase 120 U/L (26-192) Creatine Kinase MB (Mass) 0.8 ng/mL (0.0-3.6) Creatine Kinase MB Relative Index 0.7 % (0-4) Troponin I Quantitative < 0.017 ng/mL (0.000-0.055) < 0.017 ng/mL (0.000-0.055) GX-Ujh-K-Type Natriuretic Peptide 27 pg/mL (0-124) Total Protein 7.6 g/dL (6.4-8.2) Albumin 3.9 g/dL (3.4-5.0) Lipase 399 U/L (73-393) Urine Color Yellow Urine Clarity Clear Urine pH 5.5 Urine Specific [place] 1.015 Urine Protein Negative mg/dL (NEG-TRACE) Urine Glucose (UA) Negative mg/dL (NEG) Urine Ketones (Stick) Negative mg/dL (NEG) Urine Blood Negative (NEG) Urine Nitrite Negative (NEG) Urine Bilirubin Negative (NEG) Urine Urobilinogen Dipstick 0.2 mg/dL (0.2 mg/dL) Urine Leukocyte Esterase Small (NEG) Urine RBC 0 /HPF (0-2) Urine WBC 1-4 /HPF (0-4) Urine Squamous Epithelial Cells Occ /LPF Urine Bacteria Moderate /HPF (0-FEW) Test 01/24/17 08:06 01/24/17 09:15 01/24/17 11:49 Glucose (Fingerstick) 111 mg/dL (70-99) 114 mg/dL (70-99) Troponin I Quantitative < 0.017 ng/mL (0.000-0.055) Laboratory Tests Test 01/23/17 19:45 01/23/17 20:00 01/24/17 04:30 01/24/17 04:45 White Blood Count 9.0 x10^3/uL (4.0-11.0) 9.0 x10^3/uL (4.0-11.0) Red Blood Count 4.95 x10^6/uL (3.50-5.40) 4.82 x10^6/uL (3.50-5.40) Hemoglobin 14.6 g/dL (12.0-15.5) 14.0 g/dL (12.0-15.5) Hematocrit 42.5 % (36.0-47.0) 41.9 % (36.0-47.0) Mean Corpuscular Volume 86 fL (79-100) 87 fL (79-100) Mean Corpuscular Hemoglobin 29 pg (25-35) 29 pg (25-35) Mean Corpuscular Hemoglobin Concent 34 g/dL (31-37) 33 g/dL (31-37) Red Cell Distribution Width 15.1 % (11.5-14.5) 15.2 % (11.5-14.5) Platelet Count 163 x10^3/uL (140-400) 146 x10^3/uL (140-400) Neutrophils (%) (Auto) 50 % (31-73) 38 % (31-73) Lymphocytes (%) (Auto) 43 % (24-48) 53 % (24-48) Monocytes (%) (Auto) 5 % (0-9) 7 % (0-9) Eosinophils (%) (Auto) 1 % (0-3) 2 % (0-3) Basophils (%) (Auto) 1 % (0-3) 0 % (0-3) Neutrophils # (Auto) 4.5 x10^3uL (1.8-7.7) 3.4 x10^3uL (1.8-7.7) Lymphocytes # (Auto) 3.8 x10^3/uL (1.0-4.8) 4.7 x10^3/uL (1.0-4.8) Monocytes # (Auto) 0.4 x10^3/uL (0.0-1.1) 0.6 x10^3/uL (0.0-1.1) Eosinophils # (Auto) 0.1 x10^3/uL (0.0-0.7) 0.2 x10^3/uL (0.0-0.7) Basophils # (Auto) 0.1 x10^3/uL (0.0-0.2) 0.0 x10^3/uL (0.0-0.2) Prothrombin Time 13.4 SEC (11.7-14.0) Prothromb Time International Ratio 1.1 (0.8-1.1) Sodium Level 138 mmol/L (136-145) 141 mmol/L (136-145) Potassium Level 2.6 mmol/L (3.5-5.1) 3.5 mmol/L (3.5-5.1) Chloride Level 100 mmol/L (98-107) 104 mmol/L (98-107) Carbon Dioxide Level 29 mmol/L (21-32) 28 mmol/L (21-32) Anion Gap 9 (6-14) 9 (6-14) Blood Urea Nitrogen 14 mg/dL (7-20) 14 mg/dL (7-20) Creatinine 0.8 mg/dL (0.6-1.0) 0.9 mg/dL (0.6-1.0) Estimated GFR (Cockcroft-Gault) 90.8 79.3 Glucose Level 187 mg/dL (70-99) 98 mg/dL (70-99) Calcium Level 9.7 mg/dL (8.5-10.1) 8.9 mg/dL (8.5-10.1) Magnesium Level 2.1 mg/dL (1.8-2.4) Total Bilirubin 0.5 mg/dL (0.2-1.0) Direct Bilirubin 0.1 mg/dL (0.0-0.2) Aspartate Amino Transf (AST/SGOT) 16 U/L (15-37) Alanine Aminotransferase (ALT/SGPT) 18 U/L (14-59) Alkaline Phosphatase 96 U/L (46-116) Creatine Kinase 120 U/L (26-192) Creatine Kinase MB (Mass) 0.8 ng/mL (0.0-3.6) Creatine Kinase MB Relative Index 0.7 % (0-4) Troponin I Quantitative < 0.017 ng/mL (0.000-0.055) < 0.017 ng/mL (0.000-0.055) CN-Rfh-L-Type Natriuretic Peptide 27 pg/mL (0-124) Total Protein 7.6 g/dL (6.4-8.2) Albumin 3.9 g/dL (3.4-5.0) Lipase 399 U/L (73-393) Urine Color Yellow Urine Clarity Clear Urine pH 5.5 Urine Specific [place] 1.015 Urine Protein Negative mg/dL (NEG-TRACE) Urine Glucose (UA) Negative mg/dL (NEG) Urine Ketones (Stick) Negative mg/dL (NEG) Urine Blood Negative (NEG) Urine Nitrite Negative (NEG) Urine Bilirubin Negative (NEG) Urine Urobilinogen Dipstick 0.2 mg/dL (0.2 mg/dL) Urine Leukocyte Esterase Small (NEG) Urine RBC 0 /HPF (0-2) Urine WBC 1-4 /HPF (0-4) Urine Squamous Epithelial Cells Occ /LPF Urine Bacteria Moderate /HPF (0-FEW) Test 01/24/17 08:06 01/24/17 09:15 01/24/17 11:49 Glucose (Fingerstick) 111 mg/dL (70-99) 114 mg/dL (70-99) Troponin I Quantitative < 0.017 ng/mL (0.000-0.055) Microbiology 01/23/17 Urine Culture - Preliminary, Resulted 01/23/17 Urine Culture Result 1 (JESUS MANUEL) - Preliminary, Resulted Medications Current Medications Morphine Sulfate 2 mg PRN Q15MIN PRN IV/SQ PAIN GREATER THAN 3/10 Last administered on 01/23/17t 19:47; Start 01/23/17 at 19:45; Stop 01/24/17 at 19:44 Ondansetron HCl (Zofran) 4 mg PRN Q6HRS PRN IV NAUSEA/VOMITING; Start 01/23/17 at 20:45 Prochlorperazine Edisylate (Compazine) 10 mg PRN Q6HRS PRN IV NAUSEA/VOMITING; Start 01/23/17 at 20:45 Prochlorperazine (Compazine) 25 mg PRN Q12HR PRN MT NAUSEA/VOMITING; Start at 20:45 Al Hydroxide/Mg Hydroxide (Mylanta Plus Xs) 30 ml PRN Q3HRS PRN PO HEARTBURN / GAS; Start 01/23/17 at 20:45 Calcium Carbonate/ Glycine (Tums) 500 mg PRN Q3HRS PRN PO UPSET STOMACH; Start 01/23/17 at 20:45 Zolpidem Tartrate (Ambien) 5 mg PRN QHS PRN PO INSOMNIA, MAY REPEAT IN 1HR; Start 01/23/17 at 20:45 Oxycodone HCl (Roxicodone) 5 mg PRN Q3HRS PRN PO BREAKTHROUGH PAIN; Start 01/23 at 20:45 Morphine Sulfate 2 mg PRN Q2HR PRN IV PAIN Last administered on 01/24/17 04:03 ; Start 01/23/17 at 20:45 Acetaminophen/ Hydrocodone Bitart (Lortab 5/325) 1 tab PRN Q4HRS PRN PO MILD PAIN, 2ND CHOICE Last administered on 01/23/17 23:05; Start 01/23/17 at 20:45 Acetaminophen/ Hydrocodone Bitart (Lortab 5/325) 2 tab PRN Q4HRS PRN PO MODERATE PAIN, SEVERE PAIN Last administered on 01/24/17 12:16; Start 01/23/17 at 20:45 Ketorolac Tromethamine (Toradol) 30 mg PRN Q6HRS PRN IV PAIN; Start 01/23/17 at 20:45; Stop 01/28/17 at 20:44 Acetaminophen (Tylenol) 650 mg PRN Q6HRS PRN PO Headaches, Temp > 101.5F; Start 01/23/17 at 20:45 Ibuprofen (Motrin) 400 mg PRN Q6HRS PRN PO MILD PAIN; Start 01/23/17 at 20:45 Docusate Sodium (Colace) 100 mg BID PO Last administered on 01/24/17 08:08; Start 01/23/17 at 21:00 Magnesium Hydroxide (Milk Of Magnesia) 2,400 mg PRN Q12HR PRN PO CONSTIPATION; Start 01/23/17 at 20:45 Lactulose 20 gm PRN Q12HR PRN PO CONSTIPATION; Start 01/23/17 at 20:45 Bisacodyl (Dulcolax Supp) 10 mg PRN DAILY PRN MT CONSTIPATION; Start 01/23/17 at 20:45 Enoxaparin Sodium (Lovenox 40mg Syringe) 40 mg Q24H SQ Last administered on 22:58; Start 01/23/17 at 21:00 Fentanyl Citrate (Fentanyl 2ml Vial) 50 mcg PRN Q2HR PRN IV SEVERE PAIN; Start 01/23/17 at 20:45 Insulin Aspart (NovoLOG) 0-9 UNITS TIDWMEALS SQ ; Start 01/24/17 at 08:00 Dextrose (Dextrose 50%-Water Syringe) 12.5 gm PRN Q15MIN PRN IV SEE COMMENTS; Start 01/23/17 at 20:45 Morphine Sulfate 2 mg PRN Q2HR PRN IV PAIN; Start 01/23/17 at 21:30; Stop 01/24 at 21:29; Status UNV Aspirin ([place] Aspirin) 325 mg 1X ONCE PO Last administered on 01/23/17 22:49 ; Start 01/23/17 at 22:00; Stop 01/23/17 at 22:01; Status DC Potassium Chloride 100 ml @ 100 mls/hr Q1H IV Last administered on 01/24/17 02:27; Start 01/23/17 at 22:00; Stop 01/24/17 at 01:59; Status DC Levofloxacin/ Dextrose 100 ml @ 100 mls/hr Q24H IV Last administered on 12:05; Start 01/24/17 at 11:00 Guaifenesin (Robitussin Dm) 10 ml PRN Q6HRS PRN PO COUGH; Start 01/24/17 at 10: 15 Albuterol Sulfate (Ventolin Neb Soln) 2.5 mg PRN Q4HRS PRN NEB SHORTNESS OF BREATH Last administered on 01/24/17 11:34; Start 01/24/17 at 10:15 Active Scripts Active Reported Triamterene-Hctz 37.5-25 Mg Tb (Triamterene/Hydrochlorothiazid) 1 Each Tablet 1 Tab PO DAILY Cyclobenzaprine Hcl 10 Mg Tablet 1 Tab PO TID PRN Hydroxyzine Hcl 25 Mg Tablet 1 Tab PO BID Isosorbide Mononitrate Er (Isosorbide Mononitrate) 30 Mg Tab.er.24h 1 Tab PO DAILY Loratadine 10 Mg Tablet 1 Tab PO DAILY Carvedilol 25 Mg Tablet 1 Tab PO DAILY Hydrochlorothiazide Tablet (Hydrochlorothiazide) 25 Mg Tablet 1 Tab PO DAILY Simvastatin 20 Mg Tablet 1 Tab PO QHS Glyburide 5 Mg Tablet 1 Tab PO BID Potassium Chloride 20 Meq Tablet.er 20 Meq PO DAILY Montelukast Sodium Tablet (Montelukast Sodium) 10 Mg Tablet 1 Tab PO DAILY Ranitidine Hcl 150 Mg Tablet 150 Mg PO DAILY PRN Vitals/I & O Vital Sign - Last 24 Hours 01/23/17 01/23/17 01/23/17 01/23/17 19:01 19:59 20:10 21:00 Temp 98.3 98.3 Pulse 77 82 80 80 Resp 22 B/P (MAP) 128/83 (98) 135/80 (98) 128/83 (98) 133/82 (99) Pulse Ox 98 97 98 98 O2 Delivery Room Air Room Air Room Air Room Air 01/23/17 01/23/17 01/23/17 01/23/17 22:00 22:30 23:05 23:59 Temp 98.3 98.3 Pulse 71 Resp 21 B/P (MAP) 119/64 (82) Pulse Ox 98 98 92 O2 Delivery Room Air Room Air Room Air Room Air 01/23/17 01/24/17 01/24/17 01/24/17 23:59 00:24 03:15 04:03 Temp 98.0 98.0 Pulse 59 55 Resp 18 B/P (MAP) 105/55 (72) Pulse Ox 92 97 92 O2 Delivery Room Air Room Air Room Air 01/24/17 01/24/17 01/24/17 01/24/17 04:40 07:00 08:00 08:09 Temp 97.6 97.6 Pulse 60 Resp 16 16 B/P (MAP) 126/70 (88) Pulse Ox 92 91 O2 Delivery Room Air Room Air Room Air Room Air 01/24/17 01/24/17 01/24/17 01/24/17 09:31 11:00 11:35 12:16 Temp 97.6 97.6 Pulse 60 Resp 16 18 18 B/P (MAP) 121/66 (84) Pulse Ox 96 97 O2 Delivery Room Air Room Air Room Air Room Air JUDIE SOUTH MD Jan 24, 2017 12:42
--- NOTE | 2017-01-24 12:48 | EKG ---
[facility] [address] [place] [address] Test Date: 2017-01-23 Test Time: 18:53:49 Pat Name: SAVAGE MONSIVAIS Department: Room: 248 1 Gender: F [employer] Worker: : 1965 Requested By: TYSON HARDY Order Number: [id number] Reading MD: Eduardo Choi Measurements Intervals [place] Rate: 79 P: 64 GA: 166 QRS: 33 QRSD: 80 T: 42 QT: 374 QTc: 430 Interpretive Statements SINUS RHYTHM QRS(T) CONTOUR ABNORMALITY CONSIDER ANTEROLATERAL MYOCARDIAL DAMAGE RI6.01 Unconfirmed report Compared to ECG 04/09/2014 13:19:25 No significant changes Electronically Signed On 02-11-2017 10:39:33 CDT by Eduardo Choi
[2017-01-24] MEDS: PROMETH/CODEINE 6.25/10MG 5 ML SYRUP. PO SCH ×2 (14:44→21:00)
[2017-01-24 15:11] VITALS: BP 107/49
--- NOTE | 2017-01-24 15:36 | PDOC2 ---
CONSULT Date of Consult Date of Consult DATE: 01/24/17 TIME: 15:29 Reason for Consult Reason for Consult: Chest pain Referring Physician Referring Physician: Dr. Byers Identification/Chief Complaint Chief Complaint Chest pain Problems: History of Present Illness Reason for Visit: Disposition is a 51-year-old lady that is obese and has a known history of hypertension, chest pains, she is a smoker and usually goes to although she has been at this institution several times. The patient is not the best of historians and states that she had been told that she had a liver cancer some years ago but she never went for any treatments. She also has a history of some EtOH abuse but denies any current use. She comes in with a pain that she states starts at her feet and then gradually worked its way up the left side of the body up to the abdomen and then into the chest and then into the left shoulder and down the left arm. The pain is a 10 out of 10 and is not related to activity. She denies any nausea, she denies any shortness of breath. After arrival the patient has had 3 sets of troponins that have been negative and no changes in her EKG. Her lipase levels have been elevated. At the time that I examine her she states that the pain is mostly to the left side of the abdomen and the left side of the chest. Past Medical History Cardiovascular: HTN, Hyperlipidemia Pulmonary: Bronchitis GI: GERD Hepatobiliary: Other (liver CA) Musculoskeletal: low back pain ENT: No pertinent hx Endocrine: Diabetes Past Surgical History Past Surgical History: Other (PCI) Family History Family History: High Cholestrol, Hypertension Social History <1 pack per day ALCOHOL: other (quit 17 yrs ago, heavy) Current Medications Current Medications Current Medications Morphine Sulfate 2 mg PRN Q15MIN PRN IV/SQ PAIN GREATER THAN 3/10 Last administered on 01/23/17t 19:47; Start 01/23/17 at 19:45; Stop 01/24/17 at 13:17 ; Status DC Ondansetron HCl (Zofran) 4 mg PRN Q6HRS PRN IV NAUSEA/VOMITING Last administered on 01/24/17 14:45; Start 01/23/17 at 20:45 Prochlorperazine Edisylate (Compazine) 10 mg PRN Q6HRS PRN IV NAUSEA/VOMITING; Start 01/23/17 at 20:45 Prochlorperazine (Compazine) 25 mg PRN Q12HR PRN MS NAUSEA/VOMITING; Start at 20:45 Al Hydroxide/Mg Hydroxide (Mylanta Plus Xs) 30 ml PRN Q3HRS PRN PO HEARTBURN / GAS; Start 01/23/17 at 20:45 Calcium Carbonate/ Glycine (Tums) 500 mg PRN Q3HRS PRN PO UPSET STOMACH; Start 01/23/17 at 20:45 Zolpidem Tartrate (Ambien) 5 mg PRN QHS PRN PO INSOMNIA, MAY REPEAT IN 1HR; Start 01/23/17 at 20:45 Oxycodone HCl (Roxicodone) 5 mg PRN Q3HRS PRN PO BREAKTHROUGH PAIN; Start 01/23 at 20:45 Morphine Sulfate 2 mg PRN Q2HR PRN IV PAIN Last administered on 01/24/17 04:03 ; Start 01/23/17 at 20:45 Acetaminophen/ Hydrocodone Bitart (Lortab 5/325) 1 tab PRN Q4HRS PRN PO MILD PAIN, 2ND CHOICE Last administered on 01/23/17 23:05; Start 01/23/17 at 20:45 Acetaminophen/ Hydrocodone Bitart (Lortab 5/325) 2 tab PRN Q4HRS PRN PO MODERATE PAIN, SEVERE PAIN Last administered on 01/24/17 12:16; Start 01/23/17 at 20:45 Ketorolac Tromethamine (Toradol) 30 mg PRN Q6HRS PRN IV PAIN; Start 01/23/17 at 20:45; Stop 01/28/17 at 20:44 Acetaminophen (Tylenol) 650 mg PRN Q6HRS PRN PO Headaches, Temp > 101.5F; Start 01/23/17 at 20:45 Ibuprofen (Motrin) 400 mg PRN Q6HRS PRN PO MILD PAIN; Start 01/23/17 at 20:45 Docusate Sodium (Colace) 100 mg BID PO Last administered on 01/24/17 08:08; Start 01/23/17 at 21:00 Magnesium Hydroxide (Milk Of Magnesia) 2,400 mg PRN Q12HR PRN PO CONSTIPATION; Start 01/23/17 at 20:45 Lactulose 20 gm PRN Q12HR PRN PO CONSTIPATION; Start 01/23/17 at 20:45 Bisacodyl (Dulcolax Supp) 10 mg PRN DAILY PRN MS CONSTIPATION; Start 01/23/17 at 20:45 Enoxaparin Sodium (Lovenox 40mg Syringe) 40 mg Q24H SQ Last administered on 22:58; Start 01/23/17 at 21:00; Stop 01/24/17 at 13:16; Status DC Fentanyl Citrate (Fentanyl 2ml Vial) 50 mcg PRN Q2HR PRN IV SEVERE PAIN; Start 01/23/17 at 20:45 Insulin Aspart (NovoLOG) 0-9 UNITS TIDWMEALS SQ ; Start 01/24/17 at 08:00 Dextrose (Dextrose 50%-Water Syringe) 12.5 gm PRN Q15MIN PRN IV SEE COMMENTS; Start 01/23/17 at 20:45 Morphine Sulfate 2 mg PRN Q2HR PRN IV PAIN; Start 01/23/17 at 21:30; Stop 01/24 at 21:29; Status UNV Aspirin (PassportParking Aspirin) 325 mg 1X ONCE PO Last administered on 01/23/17 22:49 ; Start 01/23/17 at 22:00; Stop 01/23/17 at 22:01; Status DC Potassium Chloride 100 ml @ 100 mls/hr Q1H IV Last administered on 01/24/17 02:27; Start 01/23/17 at 22:00; Stop 01/24/17 at 01:59; Status DC Levofloxacin/ Dextrose 100 ml @ 100 mls/hr Q24H IV Last administered on 12:05; Start 01/24/17 at 11:00 Guaifenesin (Robitussin Dm) 10 ml PRN Q6HRS PRN PO COUGH; Start 01/24/17 at 10: 15; Stop 01/24/17 at 12:43; Status DC Albuterol Sulfate (Ventolin Neb Soln) 2.5 mg PRN Q4HRS PRN NEB SHORTNESS OF BREATH Last administered on 01/24/17 11:34; Start 01/24/17 at 10:15 Promethazine HCl/ Codeine (Phenergan With Codeine) 5 ml TID PO Last administered on 9/30/17at 14:44; Start 01/24/17 at 14:00 Enoxaparin Sodium (Lovenox 40mg Syringe) 40 mg BID SQ ; Start 01/24/17 at 21:00 Active Scripts Active Reported Triamterene-Hctz 37.5-25 Mg Tb (Triamterene/Hydrochlorothiazid) 1 Each Tablet 1 Tab PO DAILY Cyclobenzaprine Hcl 10 Mg Tablet 1 Tab PO TID PRN Hydroxyzine Hcl 25 Mg Tablet 1 Tab PO BID Isosorbide Mononitrate Er (Isosorbide Mononitrate) 30 Mg Tab.er.24h 1 Tab PO DAILY Loratadine 10 Mg Tablet 1 Tab PO DAILY Carvedilol 25 Mg Tablet 1 Tab PO DAILY Hydrochlorothiazide Tablet (Hydrochlorothiazide) 25 Mg Tablet 1 Tab PO DAILY Simvastatin 20 Mg Tablet 1 Tab PO QHS Glyburide 5 Mg Tablet 1 Tab PO BID Potassium Chloride 20 Meq Tablet.er 20 Meq PO DAILY Montelukast Sodium Tablet (Montelukast Sodium) 10 Mg Tablet 1 Tab PO DAILY Ranitidine Hcl 150 Mg Tablet 150 Mg PO DAILY PRN Allergies Allergies: Coded Allergies: amoxicillin (Verified Allergy, Severe, anaphylaxis, 09/19/13) iodine (Verified Allergy, Severe, Anaphylaxis, 09/19/13) Patient allergic to Seafood shellfish derived (Verified Allergy, Severe, Anaphylaxis, 04/09/14) Physical Exam General: Alert, Oriented X3 HEENT: PERRLA Lungs: Normal air movement Heart: Regular rate, Normal S1, Normal S2 Abdomen: Other (bowel sounds are present. There is mild tenderness over the epigastrium and the left upper quadrant.) Extremities: No edema Vitals VITALS Vital Signs Date Time Temp Pulse Resp B/P (MAP) Pulse Ox O2 Delivery O2 Flow Rate FiO2 01/24/17 15:22 18 94 Room Air 01/24/17 15:11 97.6 50 107/49 (68) 97.6 Labs Labs Laboratory Tests Test 01/23/17 19:45 01/23/17 20:00 01/24/17 04:30 01/24/17 04:45 White Blood Count 9.0 x10^3/uL (4.0-11.0) 9.0 x10^3/uL (4.0-11.0) Red Blood Count 4.95 x10^6/uL (3.50-5.40) 4.82 x10^6/uL (3.50-5.40) Hemoglobin 14.6 g/dL (12.0-15.5) 14.0 g/dL (12.0-15.5) Hematocrit 42.5 % (36.0-47.0) 41.9 % (36.0-47.0) Mean Corpuscular Volume 86 fL (79-100) 87 fL (79-100) Mean Corpuscular Hemoglobin 29 pg (25-35) 29 pg (25-35) Mean Corpuscular Hemoglobin Concent 34 g/dL (31-37) 33 g/dL (31-37) Red Cell Distribution Width 15.1 % (11.5-14.5) 15.2 % (11.5-14.5) Platelet Count 163 x10^3/uL (140-400) 146 x10^3/uL (140-400) Neutrophils (%) (Auto) 50 % (31-73) 38 % (31-73) Lymphocytes (%) (Auto) 43 % (24-48) 53 % (24-48) Monocytes (%) (Auto) 5 % (0-9) 7 % (0-9) Eosinophils (%) (Auto) 1 % (0-3) 2 % (0-3) Basophils (%) (Auto) 1 % (0-3) 0 % (0-3) Neutrophils # (Auto) 4.5 x10^3uL (1.8-7.7) 3.4 x10^3uL (1.8-7.7) Lymphocytes # (Auto) 3.8 x10^3/uL (1.0-4.8) 4.7 x10^3/uL (1.0-4.8) Monocytes # (Auto) 0.4 x10^3/uL (0.0-1.1) 0.6 x10^3/uL (0.0-1.1) Eosinophils # (Auto) 0.1 x10^3/uL (0.0-0.7) 0.2 x10^3/uL (0.0-0.7) Basophils # (Auto) 0.1 x10^3/uL (0.0-0.2) 0.0 x10^3/uL (0.0-0.2) Prothrombin Time 13.4 SEC (11.7-14.0) Prothromb Time International Ratio 1.1 (0.8-1.1) Sodium Level 138 mmol/L (136-145) 141 mmol/L (136-145) Potassium Level 2.6 mmol/L (3.5-5.1) 3.5 mmol/L (3.5-5.1) Chloride Level 100 mmol/L (98-107) 104 mmol/L (98-107) Carbon Dioxide Level 29 mmol/L (21-32) 28 mmol/L (21-32) Anion Gap 9 (6-14) 9 (6-14) Blood Urea Nitrogen 14 mg/dL (7-20) 14 mg/dL (7-20) Creatinine 0.8 mg/dL (0.6-1.0) 0.9 mg/dL (0.6-1.0) Estimated GFR (Cockcroft-Gault) 90.8 79.3 Glucose Level 187 mg/dL (70-99) 98 mg/dL (70-99) Calcium Level 9.7 mg/dL (8.5-10.1) 8.9 mg/dL (8.5-10.1) Magnesium Level 2.1 mg/dL (1.8-2.4) Total Bilirubin 0.5 mg/dL (0.2-1.0) Direct Bilirubin 0.1 mg/dL (0.0-0.2) Aspartate Amino Transf (AST/SGOT) 16 U/L (15-37) Alanine Aminotransferase (ALT/SGPT) 18 U/L (14-59) Alkaline Phosphatase 96 U/L (46-116) Creatine Kinase 120 U/L (26-192) Creatine Kinase MB (Mass) 0.8 ng/mL (0.0-3.6) Creatine Kinase MB Relative Index 0.7 % (0-4) Troponin I Quantitative < 0.017 ng/mL (0.000-0.055) < 0.017 ng/mL (0.000-0.055) RH-Fpq-J-Type Natriuretic Peptide 27 pg/mL (0-124) Total Protein 7.6 g/dL (6.4-8.2) Albumin 3.9 g/dL (3.4-5.0) Lipase 399 U/L (73-393) Urine Color Yellow Urine Clarity Clear Urine pH 5.5 Urine Specific [place] 1.015 Urine Protein Negative mg/dL (NEG-TRACE) Urine Glucose (UA) Negative mg/dL (NEG) Urine Ketones (Stick) Negative mg/dL (NEG) Urine Blood Negative (NEG) Urine Nitrite Negative (NEG) Urine Bilirubin Negative (NEG) Urine Urobilinogen Dipstick 0.2 mg/dL (0.2 mg/dL) Urine Leukocyte Esterase Small (NEG) Urine RBC 0 /HPF (0-2) Urine WBC 1-4 /HPF (0-4) Urine Squamous Epithelial Cells Occ /LPF Urine Bacteria Moderate /HPF (0-FEW) Test 01/24/17 08:06 01/24/17 09:15 01/24/17 11:49 Glucose (Fingerstick) 111 mg/dL (70-99) 114 mg/dL (70-99) Troponin I Quantitative < 0.017 ng/mL (0.000-0.055) Laboratory Tests Test 01/23/17 19:45 01/23/17 20:00 01/24/17 04:30 01/24/17 04:45 White Blood Count 9.0 x10^3/uL (4.0-11.0) 9.0 x10^3/uL (4.0-11.0) Red Blood Count 4.95 x10^6/uL (3.50-5.40) 4.82 x10^6/uL (3.50-5.40) Hemoglobin 14.6 g/dL (12.0-15.5) 14.0 g/dL (12.0-15.5) Hematocrit 42.5 % (36.0-47.0) 41.9 % (36.0-47.0) Mean Corpuscular Volume 86 fL (79-100) 87 fL (79-100) Mean Corpuscular Hemoglobin 29 pg (25-35) 29 pg (25-35) Mean Corpuscular Hemoglobin Concent 34 g/dL (31-37) 33 g/dL (31-37) Red Cell Distribution Width 15.1 % (11.5-14.5) 15.2 % (11.5-14.5) Platelet Count 163 x10^3/uL (140-400) 146 x10^3/uL (140-400) Neutrophils (%) (Auto) 50 % (31-73) 38 % (31-73) Lymphocytes (%) (Auto) 43 % (24-48) 53 % (24-48) Monocytes (%) (Auto) 5 % (0-9) 7 % (0-9) Eosinophils (%) (Auto) 1 % (0-3) 2 % (0-3) Basophils (%) (Auto) 1 % (0-3) 0 % (0-3) Neutrophils # (Auto) 4.5 x10^3uL (1.8-7.7) 3.4 x10^3uL (1.8-7.7) Lymphocytes # (Auto) 3.8 x10^3/uL (1.0-4.8) 4.7 x10^3/uL (1.0-4.8) Monocytes # (Auto) 0.4 x10^3/uL (0.0-1.1) 0.6 x10^3/uL (0.0-1.1) Eosinophils # (Auto) 0.1 x10^3/uL (0.0-0.7) 0.2 x10^3/uL (0.0-0.7) Basophils # (Auto) 0.1 x10^3/uL (0.0-0.2) 0.0 x10^3/uL (0.0-0.2) Prothrombin Time 13.4 SEC (11.7-14.0) Prothromb Time International Ratio 1.1 (0.8-1.1) Sodium Level 138 mmol/L (136-145) 141 mmol/L (136-145) Potassium Level 2.6 mmol/L (3.5-5.1) 3.5 mmol/L (3.5-5.1) Chloride Level 100 mmol/L (98-107) 104 mmol/L (98-107) Carbon Dioxide Level 29 mmol/L (21-32) 28 mmol/L (21-32) Anion Gap 9 (6-14) 9 (6-14) Blood Urea Nitrogen 14 mg/dL (7-20) 14 mg/dL (7-20) Creatinine 0.8 mg/dL (0.6-1.0) 0.9 mg/dL (0.6-1.0) Estimated GFR (Cockcroft-Gault) 90.8 79.3 Glucose Level 187 mg/dL (70-99) 98 mg/dL (70-99) Calcium Level 9.7 mg/dL (8.5-10.1) 8.9 mg/dL (8.5-10.1) Magnesium Level 2.1 mg/dL (1.8-2.4) Total Bilirubin 0.5 mg/dL (0.2-1.0) Direct Bilirubin 0.1 mg/dL (0.0-0.2) Aspartate Amino Transf (AST/SGOT) 16 U/L (15-37) Alanine Aminotransferase (ALT/SGPT) 18 U/L (14-59) Alkaline Phosphatase 96 U/L (46-116) Creatine Kinase 120 U/L (26-192) Creatine Kinase MB (Mass) 0.8 ng/mL (0.0-3.6) Creatine Kinase MB Relative Index 0.7 % (0-4) Troponin I Quantitative < 0.017 ng/mL (0.000-0.055) < 0.017 ng/mL (0.000-0.055) NS-Kgh-V-Type Natriuretic Peptide 27 pg/mL (0-124) Total Protein 7.6 g/dL (6.4-8.2) Albumin 3.9 g/dL (3.4-5.0) Lipase 399 U/L (73-393) Urine Color Yellow Urine Clarity Clear Urine pH 5.5 Urine Specific [place] 1.015 Urine Protein Negative mg/dL (NEG-TRACE) Urine Glucose (UA) Negative mg/dL (NEG) Urine Ketones (Stick) Negative mg/dL (NEG) Urine Blood Negative (NEG) Urine Nitrite Negative (NEG) Urine Bilirubin Negative (NEG) Urine Urobilinogen Dipstick 0.2 mg/dL (0.2 mg/dL) Urine Leukocyte Esterase Small (NEG) Urine RBC 0 /HPF (0-2) Urine WBC 1-4 /HPF (0-4) Urine Squamous Epithelial Cells Occ /LPF Urine Bacteria Moderate /HPF (0-FEW) Test 01/24/17 08:06 01/24/17 09:15 01/24/17 11:49 Glucose (Fingerstick) 111 mg/dL (70-99) 114 mg/dL (70-99) Troponin I Quantitative < 0.017 ng/mL (0.000-0.055) Assessment/Plan Assessment/Plan This patient's symptoms do not appear to be cardiac in nature. She may have a pancreatitis and her history of a liver cancer may need to be reevaluated. So far all of the enzymes cardiac-posada have been negative. I think that she needs a noncardiac workup. Thank you very much for asking me to participate in the care of this patient. JASSON LOCK MD Jan 24, 2017 15:36
[2017-01-24 19:45] VITALS: BP 131/72
[2017-01-24] MEDS ORDERED: ENOXAPARIN 40 MG/0.4 ML SYRINGE. SQ SCH (21:00)
== END 2017-01-24 21:00 | disposition left against medical advice (07) | DRG 194 ==
LOC: ER 18:49 → 2 SOUTH 20:50
PROVIDERS: ADMIT Internal Medicine; ATTEND Internal Medicine
DX: J18.9 Pneumonia, unspecified organism (principal); Z68.41 Body mass index [BMI] 40.0-44.9, adult; E88.81 Metabolic syndrome and other insulin resistance; I25.2 Old myocardial infarction; J44.9 Chronic obstructive pulmonary disease, unspecified; E66.01 Morbid (severe) obesity due to excess calories; E11.9 Type 2 diabetes mellitus without complications; F17.210 Nicotine dependence, cigarettes, uncomplicated; E78.5 Hyperlipidemia, unspecified; K21.9 Gastro-esophageal reflux disease without esophagitis; I25.10 Atherosclerotic heart disease of native coronary artery without angina pectoris; F10.10 Alcohol abuse, uncomplicated; I10 Essential (primary) hypertension; Z53.21 Procedure and treatment not carried out due to patient leaving prior to being seen by health care provider; Z86.73 Personal history of transient ischemic attack (TIA), and cerebral infarction without residual deficits; Z85.05 Personal history of malignant neoplasm of liver; Z82.49 Family history of ischemic heart disease and other diseases of the circulatory system; Z88.0 Allergy status to penicillin; Z91.041 Radiographic dye allergy status; Z91.013 Allergy to seafood; Z95.5 Presence of coronary angioplasty implant and graft
CPT/HCPCS: 36415; 71010; 80048; 80076; 81001; 82553; 82962; 83690; 83735; 83880; 84132; 84484; 85025; 85610; 87086; 87186; 93005; 94640; 96374; J1650; J1815; J1956; J2270; J2405; J3480; J7613; 99285-25

== ENCOUNTER 2017-01-28 01:13 | Emergency (ER) | payer OTHER ==
[~2017-01-28] VITALS: Ht 157.5 cm; Wt 105.2 kg
[~2017-01-28 01:13] MED LIST: CARV25TA2 PO; CYCL10TA2 PO; GLYB5TAB3 PO; HYDR25TA PO; HYDR25TA9 PO; ISOS30TA4 PO; LORA10TA3 PO; MONT10TA9 PO; POTA20TA82 PO; RANI150T2 PO; SIMV20TA3 PO; TRIA1TAB3 PO
[2017-01-28 02:22] LABS: BASO % 0 % (0-3); EOS % 2 % (0-3); HEMATOCRIT 40.8 % (36.0-47.0); HEMOGLOBIN 13.8 g/dL (12.0-15.5); LYMPH # 4.6 x10^3/uL (1.0-4.8); LYMPH % 51 % (24-48); MEAN CORPUSCULAR HEMOGLOBIN 29 pg (25-35); MEAN CORPUSCULAR HGB CONC 34 g/dL (31-37); MEAN CORPUSCULAR VOLUME 87 fL (79-100); MONO % 6 % (0-9); NEUT % 40 % (31-73); PLATELET COUNT 166 x10^3/uL (140-400)
--- NOTE | 2017-01-28 02:24 | PHYS DOC ---
Past Medical History Past Medical History: Asthma, Cancer, COPD, CVA, Diabetes-Type II, GERD, Heart Disease, Hypertension, ID, Pneumonia, Other Additional Past Medical Histor: Liver Cancer treated with medication Past Surgical History: Angioplasty, Tubal ligation, Other Additional Past Surgical Histo: With stent placement Alcohol Use: None Additional Information: alcohol free for 11 years Drug Use: None Adult General Chief Complaint Chief Complaint: CHEST PAIN [facility] HPI Patient is a 51 year old female who presents with chest pain similar to previous episodes. Patient describes the pain as being diffuse and is reproducible with movement and palpation. Patient denies any radiation of pain, denies any associated symptoms. Patient denies any neck pain, back pain, abdominal pain, extremity pain or swelling of the extremities. Patient does not describe any shortness of air. Review of Systems Review of Systems Constitutional: Denies fever or chills [] Eyes: Denies change in visual acuity, redness, or eye pain [] HENT: Denies nasal congestion or sore throat. No neck pain Respiratory: Denies cough or shortness of breath [] Cardiovascular: No additional information not addressed in HPI [] GI: Denies abdominal pain, nausea, vomiting : Denies dysuria or hematuria [] Musculoskeletal: Denies back pain or joint pain. No swelling Integument: Denies rash or skin lesions [] Neurologic: Denies headache, focal weakness or sensory changes [] Current Medications Current Medications Current Medications Medications (Trade) Dose Ordered Sig/Luz Maria Start Time Stop Time Status Last Admin Dose Admin Acetaminophen/ Codeine Phosphate (Tylenol #3) 1 tab 1X ONCE 01/28/17 04:30 01/28/17 04:31 DC 01/28/17 04:28 1 TAB Allergies Allergies Allergies Coded Allergies Type Severity Reaction Last Updated Verified Penicillins Allergy Severe 01/28/17 Yes amoxicillin Allergy Severe anaphylaxis 09/19/13 Yes iodine Allergy Severe Anaphylaxis 09/19/13 Yes shellfish derived Allergy Severe Anaphylaxis 04/09/14 Yes Physical Exam Physical Exam Constitutional: Well developed, well nourished, no acute distress, non-toxic appearance. [] HENT: Normocephalic, atraumatic, oropharynx moist, no oral exudates, nose normal. [] Eyes: EOMI, conjunctiva normal, no discharge. [] Neck: Normal range of motion, no tenderness, supple, no stridor. No JVD, no LAD Cardiovascular:Heart rate regular rhythm, no murmur, equal pulses, normal perfusion. Point palpation across the chest reproduces symptoms in its entirety Lungs & Thorax: Bilateral breath sounds clear to auscultation, no tachypnea Abdomen: Bowel sounds normal, soft, no tenderness, no masses, no pulsatile masses. [] Skin: Warm, dry, no erythema, no rash. [] Back: No tenderness, no CVA tenderness. [] Extremities: No tenderness, no cyanosis, no DVT, ROM intact, no edema. [] Neurologic: Alert and oriented X 3, normal motor function, no focal deficits noted. [] Psychologic: Affect normal, judgement normal, mood normal. [] Current Patient Data Vital Signs Vital Signs Date Time Temp Pulse Resp B/P (MAP) Pulse Ox O2 Delivery O2 Flow Rate FiO2 01/28/17 04:28 16 95 01/28/17 04:19 62 110/61 (77) Room Air 01/28/17 01:25 97.6 97.6 Lab Values Laboratory Tests Test 01/28/17 01:54 White Blood Count 9.0 x10^3/uL (4.0-11.0) Red Blood Count 4.70 x10^6/uL (3.50-5.40) Hemoglobin 13.8 g/dL (12.0-15.5) Hematocrit 40.8 % (36.0-47.0) Mean Corpuscular Volume 87 fL (79-100) Mean Corpuscular Hemoglobin 29 pg (25-35) Mean Corpuscular Hemoglobin Concent 34 g/dL (31-37) Red Cell Distribution Width 15.0 % (11.5-14.5) H Platelet Count 166 x10^3/uL (140-400) Neutrophils (%) (Auto) 40 % (31-73) Lymphocytes (%) (Auto) 51 % (24-48) H Monocytes (%) (Auto) 6 % (0-9) Eosinophils (%) (Auto) 2 % (0-3) Basophils (%) (Auto) 0 % (0-3) Neutrophils # (Auto) 3.6 x10^3uL (1.8-7.7) Lymphocytes # (Auto) 4.6 x10^3/uL (1.0-4.8) Monocytes # (Auto) 0.6 x10^3/uL (0.0-1.1) Eosinophils # (Auto) 0.2 x10^3/uL (0.0-0.7) Basophils # (Auto) 0.0 x10^3/uL (0.0-0.2) Segmented Neutrophils % 49 % (35-66) Lymphocytes % 47 % (24-48) Atypical Lymphocytes % (Manual) 1 % (0-0) H Monocytes % 2 % (0-10) Eosinophils % 1 % (0-5) Platelet Estimate Adequate (ADEQUATE) Sodium Level 141 mmol/L (136-145) Potassium Level 3.3 mmol/L (3.5-5.1) L Chloride Level 105 mmol/L (98-107) Carbon Dioxide Level 28 mmol/L (21-32) Anion Gap 8 (6-14) Blood Urea Nitrogen 12 mg/dL (7-20) Creatinine 1.0 mg/dL (0.6-1.0) Estimated GFR (Cockcroft-Gault) 70.2 Glucose Level 120 mg/dL (70-99) H Calcium Level 9.1 mg/dL (8.5-10.1) Troponin I Quantitative < 0.017 ng/mL (0.000-0.055) Laboratory Tests 01/28/17 01:54 Laboratory Tests 01/28/17 01:54 EKG EKG 0122 sinus rhythm, 72, no STEMI[] Radiology/Procedures Radiology/Procedures CXR: some pulmonary congestion o/w unremarkable[] Course & Med Decision Making Course & Med Decision Making Pertinent Labs and Imaging studies reviewed. (See chart for details) 0509 istat troponin is negative, pt in nad, agrees to follow up as directed [] Dragon Disclaimer Dragon Disclaimer This electronic medical record was generated, in whole or in part, using a voice recognition dictation system. Departure Departure Impression: Primary Impression: Chest wall pain Disposition: HOME, SELF-CARE Condition: STABLE Referrals: NO PCP (PCP) Please follow-up with your doctor for recheck and reevaluation in one to 2 days , you may also follow-up at one of the clinics in the list provided to you. Patient Instructions: Chest Pain (Nonspecific), Chest Wall Pain Scripts Acetaminophen (Acetaminophen) 325 Mg Capsule 325 MG PO QID for 5 Days, #20 CAP Prov: Myra TANG MD 01/28/17 Myra TANG MD Jan 28, 2017 02:24
[2017-01-28 02:32] LABS: CALCIUM 9.1 mg/dL (8.5-10.1); GFR 70.2; POTASSIUM 3.3 mmol/L (3.5-5.1)
[2017-01-28 03:19] LABS: % EOS 1 % (0-5); PLT ESTIMATE ADEQUATE (ADEQUATE)
[2017-01-28] MEDS: ACETAMINOPHEN/CODEINE 300/30MG TABLET. PO ONE (04:28)
[2017-01-28] MEDS ORDERED: ACET325C PO (05:15)
[2017-01-28 05:35] VITALS: BP 116/64
--- NOTE | 2017-01-28 06:44 | EKG ---
[facility] [address] [place] [address] Test Date: 2017-01-28 Test Time: 01:21:19 Pat Name: SAVAGE MONSIVAIS Department: Room: Gender: F [employer] Meat: : 1965 Requested By: Myra TANG Order Number: [id number] Reading MD: Measurements Intervals [place] Rate: 72 P: 66 LA: 162 QRS: 26 QRSD: 78 T: 39 QT: 422 QTc: 464 Interpretive Statements SINUS RHYTHM LEFT ATRIAL ABNORMALITY RI6.01 Unconfirmed report No previous ECG available for comparison
--- NOTE | 2017-01-28 07:26 | RAD ---
Chest x-ray Indication: Chest pain Technique: Portable AP upright chest x-ray Comparison: Previous study from 01/23/2017 Findings: Heart is normal in size. Lungs are clear. No pneumothorax or pleural effusion. Visualized bony thorax within normal limits. Impression: No acute cardiopulmonary process.
== END 2017-01-28 05:35 | disposition home or self-care (01) ==
LOC: ER 01:13
DX: R07.89 Other chest pain (principal); I11.9 Hypertensive heart disease without heart failure; J44.9 Chronic obstructive pulmonary disease, unspecified; E11.9 Type 2 diabetes mellitus without complications; K21.9 Gastro-esophageal reflux disease without esophagitis; Z86.73 Personal history of transient ischemic attack (TIA), and cerebral infarction without residual deficits; I25.2 Old myocardial infarction; Z88.0 Allergy status to penicillin; Z95.5 Presence of coronary angioplasty implant and graft; Z98.51 Tubal ligation status; Z88.1 Allergy status to other antibiotic agents; Z91.041 Radiographic dye allergy status; Z91.013 Allergy to seafood
CPT/HCPCS: 36415; 71010; 80048; 84484; 85007; 85025; 93005; 99285-25

== ENCOUNTER 2017-06-05 16:55 | Emergency (ER) | payer OTHER | END 2017-06-05 18:29 | disposition home or self-care (01) | LOC: ER 16:55 | DX: S82.892A Other fracture of left lower leg, initial encounter for closed fracture (principal); S93.602A Unspecified sprain of left foot, initial encounter; J45.909 Unspecified asthma, uncomplicated; J44.9 Chronic obstructive pulmonary disease, unspecified; K21.9 Gastro-esophageal reflux disease without esophagitis; E11.9 Type 2 diabetes mellitus without complications; I10 Essential (primary) hypertension; Z86.73 Personal history of transient ischemic attack (TIA), and cerebral infarction without residual deficits; Z88.0 Allergy status to penicillin; Z88.1 Allergy status to other antibiotic agents; Z91.041 Radiographic dye allergy status; Z91.013 Allergy to seafood; Z85.05 Personal history of malignant neoplasm of liver; W19.XXXA Unspecified fall, initial encounter; Y93.89 Activity, other specified; Y92.89 Other specified places as the place of occurrence of the external cause; Y99.8 Other external cause status | CPT/HCPCS: 73610; 73630; 99284 ==

== ENCOUNTER 2017-10-04 13:09 | Observation (INO) | payer OTHER ==
[2017-10-04 13:33] LABS: ADD MAN DIFF? NO
[2017-10-04 13:41] LABS: BASO % 1 % (0-3); EOS # 0.1 x10^3/uL (0.0-0.7); EOS % 1 % (0-3); HEMATOCRIT 37.7 % (36.0-47.0); LYMPH # 2.5 x10^3/uL (1.0-4.8); LYMPH % 30 % (24-48); MEAN CORPUSCULAR HEMOGLOBIN 29 pg (25-35); MEAN CORPUSCULAR HGB CONC 34 g/dL (31-37); MEAN CORPUSCULAR VOLUME 84 fL (79-100); MONO # 0.4 x10^3/uL (0.0-1.1); MONO % 5 % (0-9); NEUT # 5.4 x10^3uL (1.8-7.7); NEUT % 64 % (31-73); PLATELET COUNT 198 x10^3/uL (140-400); RED BLOOD COUNT 4.49 x10^6/uL (3.50-5.40); RED CELL DISTRIBUTION WIDTH 14.4 % (11.5-14.5); WHITE BLOOD COUNT 8.5 x10^3/uL (4.0-11.0)
[2017-10-04 13:48] LABS: INR 1.1 (0.8-1.1); PARTIAL THROMBOPLASTIN TIME 28 SEC (24-38); PROTHROMBIN TIME PATIENT 13.3 SEC (11.7-14.0)
[2017-10-04] MEDS: ONDANSETRON ODT 4 MG TAB.RAPDIS. PO (13:48)
[2017-10-04] MEDS: fentaNYL PF VIAL 100 MCG/2 ML VIAL IV ×2 (13:49→14:56)
[2017-10-04 13:56] LABS: ANION GAP 10 (6-14); BLOOD UREA NITROGEN 9 mg/dL (7-20); CALCIUM 9.1 mg/dL (8.5-10.1); CARBON DIOXIDE 26 mmol/L (21-32); CHLORIDE 107 mmol/L (98-107); CREATININE 0.8 mg/dL (0.6-1.0); GFR 90.8; GLUCOSE 103 mg/dL (70-99); POTASSIUM 3.7 mmol/L (3.5-5.1); SODIUM 143 mmol/L (136-145)
[2017-10-04 14:02] LABS: ALBUMIN 3.4 g/dL (3.4-5.0); ALK PHOS 104 U/L (46-116); ALT (SGPT) 21 U/L (14-59); AST (SGOT) 15 U/L (15-37); DIRECT BILIRUBIN 0.1 mg/dL (0.0-0.2); LIPASE 94 U/L (73-393); TOTAL BILIRUBIN 0.4 mg/dL (0.2-1.0); TOTAL PROTEIN 6.9 g/dL (6.4-8.2)
[2017-10-04 14:05] LABS: NT-PRO BNP 220 pg/mL (0-124)
[2017-10-04 14:17] LABS: TROPONINI < 0.017 ng/mL (0.000-0.055)
[2017-10-04] MEDS ORDERED: MORPHINE SULFATE 2 MG/ML DISP.SYRIN. IV (14:45)
[2017-10-04] MEDS ORDERED: ONDANSETRON PF 4 MG/2 ML VIAL. IV ×2 (14:45→15:45)
[2017-10-04] MEDS ORDERED: traMADol 50 MG TABLET PO (15:45)
[2017-10-04] MEDS ORDERED: hydrALAZINE 20 MG/ML VIAL. IVP (15:45)
[2017-10-04] MEDS ORDERED: NICOTINE 14MG PATCH. TD (15:45)
[2017-10-04] MEDS ORDERED: DOCUSATE SODIUM 100 MG CAPSULE. PO (15:45)
[2017-10-04] MEDS ORDERED: ALBUTEROL SULFATE 2.5 MG/3 ML NEBU. NEB (15:45)
[2017-10-04] MEDS ORDERED: ACETAMINOPHEN 325 MG TABLET. PO (15:45)
[2017-10-04] MEDS: IV NORMAL SALINE 1000ML BAG 1,000 ML IV (16:34)
[2017-10-04 16:55] LABS: POC GLUCOSE 93 mg/dL (70-99)
[2017-10-04] MEDS: INSULIN LISPRO 300 UNITS/3 ML INSULN.PEN. SQ (17:00)
[2017-10-04] MEDS: glyBURIDE 5 MG TABLET PO (17:26)
[2017-10-04] MEDS: CETIRIZINE HCL 10 MG TABLET. PO (17:26)
[2017-10-04] MEDS: POTASSIUM CHLORIDE 20 MEQ TABLET.ER. PO (17:26)
[2017-10-04] MEDS: TRIAMTERENE/HCTZ 37.5/25MG TABLET. PO (17:26)
[2017-10-04] MEDS: CARVEDILOL 12.5 MG TABLET. PO (17:27)
[2017-10-04] MEDS: ASPIRIN ENTERIC COATED 81 MG TABLET.DR. PO (17:27)
[2017-10-04] MEDS: ISOSORBIDE MONONITRATE ER 30 MG TAB.ER.24H PO (17:27)
[2017-10-04 18:25] LABS: TROPONINI < 0.017 ng/mL (0.000-0.055)
[2017-10-04] MEDS: MORPHINE SULFATE 2 MG/ML DISP.SYRIN. IV (19:16)
[2017-10-04] MEDS: IPRATRPIUM/ALBUTEROL 0.5/2.5MG 3 ML NEBU. NEB (19:44)
[2017-10-04 20:30] LABS: POC GLUCOSE 91 mg/dL (70-99)
[2017-10-04] MEDS: SIMVASTATIN 20 MG TABLET PO (20:31)
[2017-10-04] MEDS: hydrOXYzine PAMOATE 25 MG CAPSULE PO (20:31)
[2017-10-04] MEDS: MONTELUKAST SODIUM 10 MG TABLET. PO (20:31)
[2017-10-04] MEDS: ENOXAPARIN 40 MG/0.4 ML SYRINGE. SQ (20:32)
[2017-10-04] MEDS ORDERED: FAMOTIDINE 20 MG TABLET. PO (21:00)
[2017-10-04 21:13] LABS: TROPONINI < 0.017 ng/mL (0.000-0.055)
[2017-10-04] MEDS: HYDROcodone/APAP 5/325MG 1 TAB TABLET PO (21:56)
[2017-10-04 22:32] LABS: BARBITURATES NEG (NEG); BENZODIAZEPINES NEG (NEG); CANNABINOIDS POS (NEG); COCAINE NEG (NEG); METHADONE NEG (NEG); OPIATES POS (NEG); PHENCYCLIDINE NEG (NEG)
[2017-10-04 22:39] LABS: AMPHETAMINE/METHAMPHETAMINE NEG (NEG); ETHANOL, URINE NEG (NEG)
[2017-10-05] MEDS: IV NORMAL SALINE 1000ML BAG 1,000 ML IV ×2 (02:06→13:34)
[2017-10-05 05:04] LABS: ADD MAN DIFF? NO
[2017-10-05 05:11] LABS: BASO % 0 % (0-3); EOS # 0.1 x10^3/uL (0.0-0.7); EOS % 1 % (0-3); HEMATOCRIT 36.4 % (36.0-47.0); HEMOGLOBIN 12.5 g/dL (12.0-15.5); LYMPH # 1.8 x10^3/uL (1.0-4.8); LYMPH % 16 % (24-48); MEAN CORPUSCULAR HEMOGLOBIN 29 pg (25-35); MEAN CORPUSCULAR HGB CONC 34 g/dL (31-37); MEAN CORPUSCULAR VOLUME 85 fL (79-100); MONO # 0.6 x10^3/uL (0.0-1.1); MONO % 5 % (0-9); NEUT % 78 % (31-73); PLATELET COUNT 189 x10^3/uL (140-400); RED CELL DISTRIBUTION WIDTH 14.7 % (11.5-14.5); WHITE BLOOD COUNT 11.5 x10^3/uL (4.0-11.0)
[2017-10-05 05:34] LABS: ANION GAP 7 (6-14); BLOOD UREA NITROGEN 7 mg/dL (7-20); CALCIUM 8.5 mg/dL (8.5-10.1); CARBON DIOXIDE 27 mmol/L (21-32); CHLORIDE 106 mmol/L (98-107); CHOLESTEROL 125 mg/dL (0-200); CHOLESTEROL/HDL RATIO 3.6; CREATININE 0.7 mg/dL (0.6-1.0); GFR 105.9; GLUCOSE 82 mg/dL (70-99); HDLC 35 mg/dL (40-60); LDLC 59 mg/dL (0-100); NON-HDL CHOLESTEROL 90 mg/dL (0-129); POTASSIUM 3.8 mmol/L (3.5-5.1); SODIUM 140 mmol/L (136-145); TRIGLYCERIDES 153 mg/dL (0-150); VLDLC 31 mg/dL (0-40)
[2017-10-05 05:50] LABS: THYROID STIM HORMONE (TSH) 3.045 uIU/mL (0.358-3.74)
[2017-10-05] MEDS: MORPHINE SULFATE 2 MG/ML DISP.SYRIN. IV ×2 (06:34→11:42)
[2017-10-05 07:56] LABS: POC GLUCOSE 101 mg/dL (70-99)
[2017-10-05] MEDS: IPRATRPIUM/ALBUTEROL 0.5/2.5MG 3 ML NEBU. NEB ×4 (07:59→20:04)
[2017-10-05] MEDS: INSULIN LISPRO 300 UNITS/3 ML INSULN.PEN. SQ ×3 (08:00→17:00)
[2017-10-05 12:50] LABS: POC GLUCOSE 137 mg/dL (70-99)
[2017-10-05] MEDS: TRIAMTERENE/HCTZ 37.5/25MG TABLET. PO (13:20)
[2017-10-05] MEDS: ASPIRIN ENTERIC COATED 81 MG TABLET.DR. PO (13:21)
[2017-10-05] MEDS: glyBURIDE 5 MG TABLET PO ×2 (13:22→17:46)
[2017-10-05] MEDS: POTASSIUM CHLORIDE 20 MEQ TABLET.ER. PO (13:22)
[2017-10-05] MEDS: hydrOXYzine PAMOATE 25 MG CAPSULE PO ×2 (13:24→20:07)
[2017-10-05] MEDS: ISOSORBIDE MONONITRATE ER 30 MG TAB.ER.24H PO (13:24)
[2017-10-05] MEDS: CETIRIZINE HCL 10 MG TABLET. PO (13:25)
[2017-10-05] MEDS: CARVEDILOL 12.5 MG TABLET. PO ×2 (13:26→17:46)
[2017-10-05 16:11] LABS: POC GLUCOSE 139 mg/dL (70-99)
[2017-10-05 16:16] LABS: POC GLUCOSE 84 mg/dL (70-99)
[2017-10-05 17:51] LABS: POC GLUCOSE 68 mg/dL (70-99)
[2017-10-05 18:17] LABS: POC GLUCOSE 62 mg/dL (70-99)
[2017-10-05] MEDS: DEXTROSE 50% 25 GM / 50ML DISP.SYRIN. IV (18:20)
[2017-10-05 18:37] LABS: POC GLUCOSE 175 mg/dL (70-99)
[2017-10-05] MEDS: MONTELUKAST SODIUM 10 MG TABLET. PO (20:07)
[2017-10-05] MEDS: SIMVASTATIN 20 MG TABLET PO (20:07)
[2017-10-05] MEDS: ENOXAPARIN 40 MG/0.4 ML SYRINGE. SQ (20:10)
[2017-10-05 20:36] LABS: POC GLUCOSE 107 mg/dL (70-99)
[2017-10-06] MEDS: IPRATRPIUM/ALBUTEROL 0.5/2.5MG 3 ML NEBU. NEB (08:06)
[2017-10-06] MEDS ORDERED: REGADENOSON 0.4 MG/5 ML DISP.SYRIN. IV (08:30)
== END 2017-10-06 09:11 | disposition left against medical advice (07) ==
LOC: ER 13:09 → 5 NORTH 14:18
DX: R07.89 Other chest pain (principal); I11.0 Hypertensive heart disease with heart failure; I50.9 Heart failure, unspecified; I25.10 Atherosclerotic heart disease of native coronary artery without angina pectoris; J44.9 Chronic obstructive pulmonary disease, unspecified; K21.9 Gastro-esophageal reflux disease without esophagitis; E78.5 Hyperlipidemia, unspecified; E11.9 Type 2 diabetes mellitus without complications; E78.00 Pure hypercholesterolemia, unspecified; F17.210 Nicotine dependence, cigarettes, uncomplicated; Z82.49 Family history of ischemic heart disease and other diseases of the circulatory system; Z85.05 Personal history of malignant neoplasm of liver; Z86.73 Personal history of transient ischemic attack (TIA), and cerebral infarction without residual deficits; Z95.5 Presence of coronary angioplasty implant and graft
CPT/HCPCS: 36415; 71045; 73030; 80048; 80061; 80076; 80307; 82962; 83690; 83880; 84443; 84484; 85025; 85610; 85730; 93005; 93306; 94640; 94760; 96361; 96372; 96374; 96375; 96376; 99285-25; G0378; G0379; J1650; J1815; J2270; J3010; J7030; J7042; J7620; Q0162; Q0177

== ENCOUNTER 2018-06-05 14:37 | Inpatient (IN) | payer OTHER ==
[~2018-06-05] VITALS: Ht 157.5 cm; Wt 107.0 kg
[~2018-06-05 14:37] MED LIST changes: +ACET325C PO; +HYDR-2145 PO; +HYDR-3164 PO; -HYDR25TA9 PO
[2018-06-05] MEDS ORDERED: IV NORMAL SALINE 1000ML BAG 1,000 ML IV SCH (15:11)
[2018-06-05] MEDS ORDERED: MORPHINE SULFATE 4 MG/ML VIAL. IV/SQ PRN (15:15)
[2018-06-05] MEDS ORDERED: NITROGLYCERIN SUBLINGUAL 0.4 MG BOTTLE OF 25. SL PRN ×3 (15:15→19:30)
[2018-06-05] MEDS ORDERED: ASPIRIN CHEWABLE 81 MG TABLET. PO ONE (15:15)
[2018-06-05 15:23] LABS: BASO # 0.1 x10^3/uL (0.0-0.2); BASO % 1 % (0-3); EOS # 0.1 x10^3/uL (0.0-0.7); EOS % 1 % (0-3); HEMATOCRIT 43.9 % (36.0-47.0); HEMOGLOBIN 14.5 g/dL (12.0-15.5); LYMPH # 2.5 x10^3/uL (1.0-4.8); LYMPH % 37 % (24-48); MEAN CORPUSCULAR HEMOGLOBIN 28 pg (25-35); MEAN CORPUSCULAR HGB CONC 33 g/dL (31-37); MEAN CORPUSCULAR VOLUME 84 fL (79-100); MONO # 0.4 x10^3/uL (0.0-1.1); MONO % 6 % (0-9); NEUT # 3.8 x10^3uL (1.8-7.7); NEUT % 56 % (31-73); PLATELET COUNT 184 x10^3/uL (140-400); RED BLOOD COUNT 5.21 x10^6/uL (3.50-5.40); RED CELL DISTRIBUTION WIDTH 15.1 % (11.5-14.5); WHITE BLOOD COUNT 6.8 x10^3/uL (4.0-11.0)
[2018-06-05] MEDS ORDERED: ONDANSETRON PF 4 MG/2 ML VIAL. ONE (15:31)
[2018-06-05 15:55] LABS: CALCIUM 9.9 mg/dL (8.5-10.1); CREATININE 0.6 mg/dL (0.6-1.0); GFR 126.1; POTASSIUM 3.7 mmol/L (3.5-5.1)
[2018-06-05 15:59] LABS: ALBUMIN 3.7 g/dL (3.4-5.0); MAGNESIUM 2.1 mg/dL (1.8-2.4); TOTAL BILIRUBIN 0.6 mg/dL (0.2-1.0); TOTAL PROTEIN 7.5 g/dL (6.4-8.2)
[2018-06-05] MEDS ORDERED: ONDANSETRON PF 4 MG/2 ML VIAL. IV ONE (16:00)
[2018-06-05 16:17] LABS: BILIRUBIN,URINE NEGATIVE (NEG); CLARITY,URINE CLEAR; COLOR,URINE YELLOW; NITRITE,URINE NEGATIVE (NEG); PROTEIN,URINE 30 mg/dL (NEG-TRACE); UROBILINOGEN,URINE 0.2 mg/dL (0.2 mg/dL)
[2018-06-05 16:39] LABS: BACTERIA,URINE 0 /HPF (0-FEW); RBC,URINE 0 /HPF (0-2); SQUAMOUS EPITHELIAL CELL,UR MANY /LPF; WBC,URINE 0 /HPF (0-4)
--- NOTE | 2018-06-05 17:20 | PHYS DOC ---
Past Medical History Past Medical History: Asthma, Bronchitis, Cancer, CHF, COPD, CVA, Diabetes- Type II, GERD, Heart Disease, Hypertension, MS, Pneumonia, Other Additional Past Medical Histor: Liver Cancer treated with medication Past Surgical History: Angioplasty, Tubal ligation, Other Additional Past Surgical Histo: With stent placement Alcohol Use: None Drug Use: None Adult General Chief Complaint Chief Complaint: CHEST PAIN HPI HPI Patient is a 52-year-old female who presents via EMS with report of left-sided substernal chest pain that started at about 3:00 this morning. Patient states that pain has been intermittent but has gotten worse over the last couple of hours. She states that she took some nitroglycerin at home and that did help a little bit. She states the pain has returned however. She denies any nausea, vomiting or diaphoresis. Patient does indicate that she does have a history of cardiac disease. She states that otherwise nothing else improves the pain. She rates pain at a 6 out of 10. Review of Systems Review of Systems Constitutional: Denies fever or chills [] Respiratory: Denies cough or shortness of breath [] Cardiovascular: No additional information not addressed in HPI [] GI: Denies abdominal pain, nausea, vomiting or diarrhea [] Integument: Denies rash or skin lesions [] Neurologic: Denies headache, focal weakness or sensory changes [] All other systems were reviewed and found to be within normal limits, except as documented in this note. Current Medications Current Medications Current Medications Medications (Trade) Dose Ordered Sig/Luz Maria Start Time Stop Time Status Last Admin Dose Admin Aspirin (Children'S Aspirin) 324 mg 1X ONCE 06/05/18 15:15 06/05/18 15:16 DC Morphine Sulfate (Morphine Sulfate) 2 mg PRN Q15MIN PRN 06/05/18 15:15 06/06/18 00:49 DC 06/05/18 15:58 2 MG Nitroglycerin (Nitrostat) 0.4 mg PRN Q5MIN PRN 06/05/18 15:15 06/06/18 00:48 DC Ondansetron HCl (Zofran) 4 mg 1X ONCE 06/05/18 16:00 06/05/18 16:01 DC 06/05/18 15:56 4 MG Sodium Chloride 1,000 ml @ 100 mls/hr Q10H 06/05/18 15:11 06/06/18 01:11 DC 06/05/18 15:53 100 MLS/HR Allergies Allergies Allergies Coded Allergies Type Severity Reaction Last Updated Verified Penicillins Allergy Severe 01/28/17 Yes amoxicillin Allergy Severe anaphylaxis 09/19/13 Yes iodine Allergy Severe Anaphylaxis 09/19/13 Yes shellfish derived Allergy Severe Anaphylaxis 04/09/14 Yes Physical Exam Physical Exam Constitutional: Well developed, well nourished, no acute distress, non-toxic appearance. [] HENT: Normocephalic, atraumatic, bilateral external ears normal, oropharynx moist, no oral exudates, nose normal. [] Eyes: PERRLA, EOMI, conjunctiva normal, no discharge. [] Neck: Normal range of motion, no tenderness, supple, no stridor. [] Cardiovascular: Regular rate and rhythm [] Lungs & Thorax: Bilateral breath sounds clear to auscultation [] Abdomen: Bowel sounds normal, soft, no tenderness. [] Skin: Warm, dry, no erythema, no rash. [] Extremities: No tenderness, no cyanosis, no clubbing, ROM intact. [] Neurologic: Alert and oriented X 3, no focal deficits noted. [] Current Patient Data Vital Signs Vital Signs Date Time Temp Pulse Resp B/P (MAP) Pulse Ox O2 Delivery O2 Flow Rate FiO2 06/05/18 16:56 74 18 170/79 (109) 92 Room Air 06/05/18 14:37 98.4 98.4 Lab Values Laboratory Tests Test 06/05/18 15:02 06/05/18 15:47 White Blood Count 6.8 x10^3/uL (4.0-11.0) Red Blood Count 5.21 x10^6/uL (3.50-5.40) Hemoglobin 14.5 g/dL (12.0-15.5) Hematocrit 43.9 % (36.0-47.0) Mean Corpuscular Volume 84 fL (79-100) Mean Corpuscular Hemoglobin 28 pg (25-35) Mean Corpuscular Hemoglobin Concent 33 g/dL (31-37) Red Cell Distribution Width 15.1 % (11.5-14.5) H Platelet Count 184 x10^3/uL (140-400) Neutrophils (%) (Auto) 56 % (31-73) Lymphocytes (%) (Auto) 37 % (24-48) Monocytes (%) (Auto) 6 % (0-9) Eosinophils (%) (Auto) 1 % (0-3) Basophils (%) (Auto) 1 % (0-3) Neutrophils # (Auto) 3.8 x10^3uL (1.8-7.7) Lymphocytes # (Auto) 2.5 x10^3/uL (1.0-4.8) Monocytes # (Auto) 0.4 x10^3/uL (0.0-1.1) Eosinophils # (Auto) 0.1 x10^3/uL (0.0-0.7) Basophils # (Auto) 0.1 x10^3/uL (0.0-0.2) Sodium Level 142 mmol/L (136-145) Potassium Level 3.7 mmol/L (3.5-5.1) Chloride Level 107 mmol/L (98-107) Carbon Dioxide Level 30 mmol/L (21-32) Anion Gap 5 (6-14) L Blood Urea Nitrogen 10 mg/dL (7-20) Creatinine 0.6 mg/dL (0.6-1.0) Estimated GFR (Cockcroft-Gault) 126.1 BUN/Creatinine Ratio 17 (6-20) Glucose Level 105 mg/dL (70-99) H Calcium Level 9.9 mg/dL (8.5-10.1) Magnesium Level 2.1 mg/dL (1.8-2.4) Total Bilirubin 0.6 mg/dL (0.2-1.0) Aspartate Amino Transferase (AST) 21 U/L (15-37) Alanine Aminotransferase (ALT) 44 U/L (14-59) Alkaline Phosphatase 132 U/L (46-116) H Troponin I Quantitative 0.026 ng/mL (0.000-0.055) ZJ-Hml-L-Type Natriuretic Peptide 113 pg/mL (0-124) Total Protein 7.5 g/dL (6.4-8.2) Albumin 3.7 g/dL (3.4-5.0) Albumin/Globulin Ratio 1.0 (1.0-1.7) Lipase 186 U/L (73-393) Urine Collection Type Void Urine Color Yellow Urine Clarity Clear Urine pH 6.0 Urine Specific [place] 1.015 Urine Protein 30 mg/dL (NEG-TRACE) Urine Glucose (UA) Negative mg/dL (NEG) Urine Ketones (Stick) Negative mg/dL (NEG) Urine Blood Negative (NEG) Urine Nitrite Negative (NEG) Urine Bilirubin Negative (NEG) Urine Urobilinogen Dipstick 0.2 mg/dL (0.2 mg/dL) Urine Leukocyte Esterase Negative (NEG) Urine RBC 0 /HPF (0-2) Urine WBC 0 /HPF (0-4) Urine Squamous Epithelial Cells Many /LPF Urine Bacteria 0 /HPF (0-FEW) Urine Mucus Slight /LPF Laboratory Tests 06/05/18 15:02 Laboratory Tests 06/05/18 15:02 EKG EKG [] Radiology/Procedures Radiology/Procedures [] Impressions: Chest x-ray demonstrates no acute process. Course & Med Decision Making Course & Med Decision Making Pertinent Labs and Imaging studies reviewed. (See chart for details) [] Dragon Disclaimer Dragon Disclaimer This electronic medical record was generated, in whole or in part, using a voice recognition dictation system. Departure Departure Impression: Primary Impression: Chest pain Disposition: ADMITTED INPATIENT Admitting Physician: Other (Dr. Fernando) Condition: IMPROVED Referrals: ANETTE WELCH (PCP) Problem Qualifiers Primary Impression: Chest pain Chest pain type: unspecified Qualified Codes: R07.9 - Chest pain, unspecified ROSA MILTON Jr. DO Jun 05, 2018 17:20
[2018-06-05] MEDS ORDERED: ONDANSETRON PF 4 MG/2 ML VIAL. IV PRN ×2 (17:30→19:30)
[2018-06-05] MEDS ORDERED: MORPHINE SULFATE 4 MG/ML VIAL. IV PRN ×2 (17:30→19:30)
[2018-06-05] MEDS ORDERED: 0.9 % SODIUM CHLORIDE 10 ML DISP.SYRIN. IV PRN (19:30)
[2018-06-05] MEDS ORDERED: LACTULOSE 20 GM/30 ML SOLUTION. PO PRN (19:30)
[2018-06-05] MEDS ORDERED: ACETAMINOPHEN 325 MG TABLET. PO PRN (19:30)
[2018-06-05] MEDS ORDERED: ZOLPIDEM 5 MG TABLET. PO PRN (19:30)
[2018-06-05] MEDS ORDERED: CYCLOBENZAPRINE 10 MG TABLET. PO PRN (19:30)
[2018-06-05 20:20] VITALS: BP 168/84
[2018-06-05] MEDS ORDERED: FAMOTIDINE 20 MG TABLET. PO PRN (21:00)
[2018-06-05 23:10] VITALS: BP 133/65
[2018-06-05] MEDS: SIMVASTATIN 20 MG TABLET PO SCH (23:56)
[2018-06-05] MEDS: ACETAMINOPHEN 325 MG TABLET. PO SCH (23:57)
[2018-06-05] MEDS: SENNOSIDES/DOCUSATE 8.6/50MG TABLET. PO SCH (23:57)
[2018-06-05] MEDS: hydrOXYzine PAMOATE 25 MG CAPSULE PO SCH (23:58)
[2018-06-05] MEDS: MONTELUKAST SODIUM 10 MG TABLET. PO SCH (23:58)
[2018-06-06] MEDS: ENOXAPARIN 40 MG/0.4 ML SYRINGE. SQ SCH ×2 (00:05→21:00)
[2018-06-06] MEDS ORDERED: FAMOTIDINE 20 MG TABLET. PO PRN (00:30)
[2018-06-06] MEDS ORDERED: RANI300T PO (00:31)
[2018-06-06] MEDS ORDERED: OXYC-411 PO (00:31)
[2018-06-06] MEDS ORDERED: IPRA3AMP29 INH (00:31)
[2018-06-06] MEDS ORDERED: TEMA30CA PO (00:31)
[2018-06-06] MEDS ORDERED: HYDR25TA10 PO (00:31)
[2018-06-06] MEDS ORDERED: ALPR2TAB5 PO (00:31)
[2018-06-06] MEDS ORDERED: ASPI-618 PO (00:31)
[2018-06-06 03:00] VITALS: BP 129/67
[2018-06-06 07:30] VITALS: BP 164/77
[2018-06-06] MEDS: glyBURIDE 5 MG TABLET PO SCH ×2 (08:00→16:27)
[2018-06-06] MEDS: ACETAMINOPHEN 325 MG TABLET. PO SCH ×4 (09:00→22:37)
[2018-06-06 11:40] VITALS: BP 168/74
[2018-06-06] MEDS: CARVEDILOL 12.5 MG TABLET. PO SCH (12:17)
[2018-06-06] MEDS: CETIRIZINE HCL 10 MG TABLET. PO SCH (12:18)
[2018-06-06] MEDS: ISOSORBIDE MONONITRATE ER 30 MG TAB.ER.24H PO SCH (12:18)
[2018-06-06] MEDS: SENNOSIDES/DOCUSATE 8.6/50MG TABLET. PO SCH ×2 (12:18→22:35)
[2018-06-06] MEDS: TRIAMTERENE/HCTZ 37.5/25MG TABLET. PO SCH (12:18)
[2018-06-06] MEDS: hydrOXYzine PAMOATE 25 MG CAPSULE PO SCH ×2 (12:18→22:35)
[2018-06-06] MEDS: POTASSIUM CHLORIDE 20 MEQ TABLET.ER. PO SCH (12:19)
[2018-06-06] MEDS: hydroCHLOROthiazide 25 MG TABLET PO SCH (12:19)
--- NOTE | 2018-06-06 14:01 | PDOC2 ---
CONSULT Date of Consult Date of Consult DATE: 06/06/18 TIME: 13:55 Reason for Consult Reason for Consult: Chest pain, CAD Referring Physician Referring Physician: Dr. Fernando Identification/Chief Complaint Chief Complaint Chest pain Source Source: Chart review, Patient History of Present Illness Reason for Visit: The patient is a 52-year-old female who was admitted through the emergency room for several episodes of chest pain over the previous day. She describes as a pressure-like sensation. It was sometimes increased with exertion. Initial troponin has shown minimal elevation at 0.032. EKG shows no acute ischemic changes. The patient is resting more comfortably this morning. She has multiple risk factors including hypertension, hyperlipidemia and diabetes mellitus. Past Medical History Cardiovascular: CAD, HTN, Hyperlipidemia Pulmonary: Bronchitis GI: GERD Hepatobiliary: Other Musculoskeletal: low back pain, Osteoarthritis Endocrine: Diabetes Past Surgical History Past Surgical History: Other (coronary stent) Family History Family History: High Cholestrol, Hypertension Social History No ALCOHOL: social Drugs: None Current Medications Current Medications Current Medications Aspirin (Children'S Aspirin) 324 mg 1X ONCE PO ; Start 06/05/18 at 15:15; Stop 06/05/18 at 15:16; Status DC Nitroglycerin (Nitrostat) 0.4 mg PRN Q5MIN PRN SL CP RATING > 1/10; Start at 15:15; Stop 06/06/18 at 00:48; Status DC Morphine Sulfate (Morphine Sulfate) 2 mg PRN Q15MIN PRN IV/SQ PAIN GREATER THAN 3/10 Last administered on 06/05/18at 15:58; Start 06/05/18 at 15:15; Stop 02/12 at 00:49; Status DC Sodium Chloride 1,000 ml @ 100 mls/hr Q10H IV Last administered on 06/05/18at 15 :53; Start 06/05/18 at 15:11; Stop 06/06/18 at 01:11; Status DC Ondansetron HCl (Zofran) 4 mg STK-MED ONCE .ROUTE ; Start 06/05/18 at 15:31; Stop 06/05/18 at 15:33; Status DC Ondansetron HCl (Zofran) 4 mg 1X ONCE IV Last administered on 06/05/18at 15:56; Start 06/05/18 at 16:00; Stop 06/05/18 at 16:01; Status DC Ondansetron HCl (Zofran) 4 mg PRN Q8HRS PRN IV NAUSEA/VOMITING; Start 06/05/18 at 17:30; Stop 06/06/18 at 00:49; Status DC Morphine Sulfate (Morphine Sulfate) 2 mg PRN Q2HR PRN IV PAIN Last administered on 06/05/18at 19:29; Start 06/05/18 at 17:30; Stop 06/06/18 at 17:29 Nitroglycerin (Nitrostat) 0.4 mg PRN Q5MIN PRN SL CHEST PAIN; Start 06/05/18 at 17:30; Stop 06/06/18 at 00:50; Status DC Nitroglycerin (Nitrostat) 0.4 mg PRN Q5MIN PRN SL CHEST PAIN; Start 06/05/18 at 19:30 Morphine Sulfate (Morphine Sulfate) 1 mg PRN Q10MIN PRN IV CHEST PAIN; Start at 19:30 Acetaminophen (Tylenol) 650 mg PRN Q6HRS PRN PO MILD PAIN / TEMP; Start at 19:30 Ondansetron HCl (Zofran) 4 mg PRN Q6HRS PRN IV NAUSEA/VOMITING; Start 06/05/18 at 19:30 Zolpidem Tartrate (Ambien) 5 mg PRN QHS PRN PO INSOMNIA; Start 06/05/18 at 19:30 Enoxaparin Sodium (Lovenox 40mg Syringe) 40 mg Q24H SQ Last administered on 02/12at 00:05; Start 06/05/18 at 21:00 Sodium Chloride (Normal Saline Flush) 3 ml QSHIFT PRN IV AFTER MEDS AND BLOOD DRAWS; Start 06/05/18 at 19:30 Senna/Docusate Sodium (Senna Plus) 1 tab BID PO Last administered on 06/06/18at 12:18; Start 06/05/18 at 21:00 Lactulose (Lactulose) 20 gm PRN Q12HR PRN PO CONSTIPATION; Start 06/05/18 at 19: 30 Cyclobenzaprine HCl (Flexeril) 10 mg PRN TID PRN PO MUSCLE SPASMS; Start at 19:30 Glyburide (Diabeta) 5 mg BIDWMEALS PO ; Start 06/06/18 at 08:00 Hydrochlorothiazide (Hydrodiuril) 25 mg DAILY PO Last administered on 12:19; Start 06/06/18 at 09:00 Isosorbide Mononitrate (Imdur) 30 mg DAILY PO Last administered on 06/06/18 12 :18; Start 06/06/18 at 09:00 Triamterene/HCTZ (Maxzide 37.5/ 25mg) 1 tab DAILY PO Last administered on 12:18; Start 06/06/18 at 09:00 Acetaminophen (Tylenol) 325 mg QID PO Last administered on 06/06/18 12:18; Start 06/05/18 at 21:00 Carvedilol (Coreg) 25 mg DAILY PO Last administered on 06/06/18 12:17; Start 06/06/18 at 09:00 Hydroxyzine Pamoate (Vistaril) 25 mg BID PO Last administered on 06/06/18 12: 18; Start 06/05/18 at 21:00 Cetirizine HCl (ZyrTEC) 10 mg DAILY PO Last administered on 06/06/18 12:18; Start 06/06/18 at 09:00 Montelukast Sodium (Singulair) 10 mg QHS PO Last administered on 06/05/18 23:58 ; Start 06/05/18 at 21:00 Potassium Chloride (Klor-Con) 20 meq DAILYWBKFT PO Last administered on 12:19; Start 06/06/18 at 08:00 Famotidine (Pepcid) 20 mg PRN DAILY PRN PO HEARTBURN / GAS; Start 06/05/18 at 21 :00; Status Cancel Simvastatin (Zocor) 20 mg HS PO Last administered on 06/05/18 23:56; Start 06/05 at 21:00 Famotidine (Pepcid) 40 mg PRN DAILY PRN PO HEARTBURN / GAS; Start 06/06/18 at 00:30 Active Scripts Active Acetaminophen 325 Mg Capsule 325 Mg PO QID 5 Days Reported Ranitidine Hcl 300 Mg Tablet 300 Mg PO PRN DAILY PRN Duoneb 0.5-3(2.5) Mg/3 Ml (Albuterol/Ipratropium) 3 Ml Ampul.neb 3 Ml INH [id number] Lo-Dose Aspirin Ec (Aspirin) 81 Mg Tablet.dr 81 Mg PO DAILY Hydrochlorothiazide 25 Mg Tablet 1 Tab PO DAILY Alprazolam 2 Mg Tablet 1 Tab PO PRN Q8HRS PRN Temazepam 30 Mg Capsule 1 Tab PO HS Oxycodone-Acetaminophen 10-325 (Oxycodone Hcl/Acetaminophen) 1 Each Tablet 1 Tab PO PRN Q6HRS PRN Triamterene-Hctz 37.5-25 Mg Tb (Triamterene/Hydrochlorothiazid) 1 Each Tablet 1 Tab PO DAILY Cyclobenzaprine Hcl 10 Mg Tablet 1 Tab PO TID PRN Hydroxyzine Hcl 25 Mg Tablet 1 Tab PO BID Isosorbide Mononitrate Er (Isosorbide Mononitrate) 30 Mg Tab.er.24h 1 Tab PO DAILY Loratadine 10 Mg Tablet 1 Tab PO DAILY Carvedilol 25 Mg Tablet 1 Tab PO DAILY Hydrochlorothiazide Tablet (Hydrochlorothiazide) 25 Mg Tablet 1 Tab PO DAILY Simvastatin 20 Mg Tablet 1 Tab PO QHS Glyburide 5 Mg Tablet 1 Tab PO BID Potassium Chloride 20 Meq Tablet.er 20 Meq PO DAILY Montelukast Sodium Tablet (Montelukast Sodium) 10 Mg Tablet 1 Tab PO DAILY Allergies Allergies: Coded Allergies: Penicillins (Verified Allergy, Severe, 01/28/17) amoxicillin (Verified Allergy, Severe, anaphylaxis, 09/19/13) iodine (Verified Allergy, Severe, Anaphylaxis, 09/19/13) Patient allergic to Seafood shellfish derived (Verified Allergy, Severe, Anaphylaxis, 04/09/14) ROS Respiratory: YES: SOB with excertion Cardiovascular: yes Chest Pain Physical Exam General: No acute distress HEENT: Atraumatic Lungs: Clear to auscultation Heart: Regular rate Abdomen: Normal bowel sounds Vitals VITALS Vital Signs Date Time Temp Pulse Resp B/P (MAP) Pulse Ox O2 Delivery O2 Flow Rate FiO2 06/06/18 12:18 77 168/74 06/06/18 11:40 98.1 18 98 Room Air 98.1 Labs Labs Laboratory Tests Test 06/05/18 15:02 06/05/18 15:47 06/05/18 20:30 06/05/18 20:56 White Blood Count 6.8 x10^3/uL (4.0-11.0) Red Blood Count 5.21 x10^6/uL (3.50-5.40) Hemoglobin 14.5 g/dL (12.0-15.5) Hematocrit 43.9 % (36.0-47.0) Mean Corpuscular Volume 84 fL (79-100) Mean Corpuscular Hemoglobin 28 pg (25-35) Mean Corpuscular Hemoglobin Concent 33 g/dL (31-37) Red Cell Distribution Width 15.1 % (11.5-14.5) Platelet Count 184 x10^3/uL (140-400) Neutrophils (%) (Auto) 56 % (31-73) Lymphocytes (%) (Auto) 37 % (24-48) Monocytes (%) (Auto) 6 % (0-9) Eosinophils (%) (Auto) 1 % (0-3) Basophils (%) (Auto) 1 % (0-3) Neutrophils # (Auto) 3.8 x10^3uL (1.8-7.7) Lymphocytes # (Auto) 2.5 x10^3/uL (1.0-4.8) Monocytes # (Auto) 0.4 x10^3/uL (0.0-1.1) Eosinophils # (Auto) 0.1 x10^3/uL (0.0-0.7) Basophils # (Auto) 0.1 x10^3/uL (0.0-0.2) Sodium Level 142 mmol/L (136-145) Potassium Level 3.7 mmol/L (3.5-5.1) Chloride Level 107 mmol/L (98-107) Carbon Dioxide Level 30 mmol/L (21-32) Anion Gap 5 (6-14) Blood Urea Nitrogen 10 mg/dL (7-20) Creatinine 0.6 mg/dL (0.6-1.0) Estimated GFR (Cockcroft-Gault) 126.1 BUN/Creatinine Ratio 17 (6-20) Glucose Level 105 mg/dL (70-99) Calcium Level 9.9 mg/dL (8.5-10.1) Magnesium Level 2.1 mg/dL (1.8-2.4) Total Bilirubin 0.6 mg/dL (0.2-1.0) Aspartate Amino Transf (AST/SGOT) 21 U/L (15-37) Alanine Aminotransferase (ALT/SGPT) 44 U/L (14-59) Alkaline Phosphatase 132 U/L (46-116) Troponin I Quantitative 0.026 ng/mL (0.000-0.055) 0.025 ng/mL (0.000-0.055) OA-Sev-U-Type Natriuretic Peptide 113 pg/mL (0-124) Total Protein 7.5 g/dL (6.4-8.2) Albumin 3.7 g/dL (3.4-5.0) Albumin/Globulin Ratio 1.0 (1.0-1.7) Lipase 186 U/L (73-393) Urine Collection Type Void Urine Color Yellow Urine Clarity Clear Urine pH 6.0 Urine Specific [place] 1.015 Urine Protein 30 mg/dL (NEG-TRACE) Urine Glucose (UA) Negative mg/dL (NEG) Urine Ketones (Stick) Negative mg/dL (NEG) Urine Blood Negative (NEG) Urine Nitrite Negative (NEG) Urine Bilirubin Negative (NEG) Urine Urobilinogen Dipstick 0.2 mg/dL (0.2 mg/dL) Urine Leukocyte Esterase Negative (NEG) Urine RBC 0 /HPF (0-2) Urine WBC 0 /HPF (0-4) Urine Squamous Epithelial Cells Many /LPF Urine Bacteria 0 /HPF (0-FEW) Urine Mucus Slight /LPF Glucose (Fingerstick) 94 mg/dL (70-99) Test 06/05/18 23:25 Troponin I Quantitative 0.032 ng/mL (0.000-0.055) Laboratory Tests Test 06/05/18 15:02 06/05/18 15:47 06/05/18 20:30 06/05/18 20:56 White Blood Count 6.8 x10^3/uL (4.0-11.0) Red Blood Count 5.21 x10^6/uL (3.50-5.40) Hemoglobin 14.5 g/dL (12.0-15.5) Hematocrit 43.9 % (36.0-47.0) Mean Corpuscular Volume 84 fL (79-100) Mean Corpuscular Hemoglobin 28 pg (25-35) Mean Corpuscular Hemoglobin Concent 33 g/dL (31-37) Red Cell Distribution Width 15.1 % (11.5-14.5) Platelet Count 184 x10^3/uL (140-400) Neutrophils (%) (Auto) 56 % (31-73) Lymphocytes (%) (Auto) 37 % (24-48) Monocytes (%) (Auto) 6 % (0-9) Eosinophils (%) (Auto) 1 % (0-3) Basophils (%) (Auto) 1 % (0-3) Neutrophils # (Auto) 3.8 x10^3uL (1.8-7.7) Lymphocytes # (Auto) 2.5 x10^3/uL (1.0-4.8) Monocytes # (Auto) 0.4 x10^3/uL (0.0-1.1) Eosinophils # (Auto) 0.1 x10^3/uL (0.0-0.7) Basophils # (Auto) 0.1 x10^3/uL (0.0-0.2) Sodium Level 142 mmol/L (136-145) Potassium Level 3.7 mmol/L (3.5-5.1) Chloride Level 107 mmol/L (98-107) Carbon Dioxide Level 30 mmol/L (21-32) Anion Gap 5 (6-14) Blood Urea Nitrogen 10 mg/dL (7-20) Creatinine 0.6 mg/dL (0.6-1.0) Estimated GFR (Cockcroft-Gault) 126.1 BUN/Creatinine Ratio 17 (6-20) Glucose Level 105 mg/dL (70-99) Calcium Level 9.9 mg/dL (8.5-10.1) Magnesium Level 2.1 mg/dL (1.8-2.4) Total Bilirubin 0.6 mg/dL (0.2-1.0) Aspartate Amino Transf (AST/SGOT) 21 U/L (15-37) Alanine Aminotransferase (ALT/SGPT) 44 U/L (14-59) Alkaline Phosphatase 132 U/L (46-116) Troponin I Quantitative 0.026 ng/mL (0.000-0.055) 0.025 ng/mL (0.000-0.055) ZE-Toa-E-Type Natriuretic Peptide 113 pg/mL (0-124) Total Protein 7.5 g/dL (6.4-8.2) Albumin 3.7 g/dL (3.4-5.0) Albumin/Globulin Ratio 1.0 (1.0-1.7) Lipase 186 U/L (73-393) Urine Collection Type Void Urine Color Yellow Urine Clarity Clear Urine pH 6.0 Urine Specific [place] 1.015 Urine Protein 30 mg/dL (NEG-TRACE) Urine Glucose (UA) Negative mg/dL (NEG) Urine Ketones (Stick) Negative mg/dL (NEG) Urine Blood Negative (NEG) Urine Nitrite Negative (NEG) Urine Bilirubin Negative (NEG) Urine Urobilinogen Dipstick 0.2 mg/dL (0.2 mg/dL) Urine Leukocyte Esterase Negative (NEG) Urine RBC 0 /HPF (0-2) Urine WBC 0 /HPF (0-4) Urine Squamous Epithelial Cells Many /LPF Urine Bacteria 0 /HPF (0-FEW) Urine Mucus Slight /LPF Glucose (Fingerstick) 94 mg/dL (70-99) Test 06/05/18 23:25 Troponin I Quantitative 0.032 ng/mL (0.000-0.055) Assessment/Plan Assessment/Plan 1. Chest pain. Patient's pain has resolved. She has no acute ischemic EKG changes but troponins are minimally elevated at 0.032. Will continue baseline medications percent. Will proceed with MPI testing tomorrow to exclude underlying significant coronary lesions. 2. Hypertension. Blood pressures under better control. Continue present treatment. 3. Hyperlipidemia. Continue statin medications. 4. Diabetes mellitus. As per the primary service. Thank you for allowing us to participate in the care of your patient. ANGELA BEAUCHAMP MD Jun 06, 2018 14:01
[2018-06-06 15:40] VITALS: BP 133/75
--- NOTE | 2018-06-06 15:57 | PDOC1 ---
History and Physical Date of Admission Date of Admission DATE: 06/06/18 TIME: 15:45 Identification/Chief Complaint Chief Complaint Chest pain Source Source: Chart review, Patient History of Present Illness History of Present Illness 52-year-old female who was admitted through the emergency room for several episodes of chest pain over the previous day. She describes as a pressure-like sensation. It was sometimes increased with exertion. Initial troponin has shown minimal elevation at 0.032. EKG shows no acute ischemic changes. The patient is resting more comfortably this morning. She has multiple risk factors including hypertension, hyperlipidemia and diabetes mellitus. Past Medical History Cardiovascular: CAD, HTN, Hyperlipidemia Pulmonary: Bronchitis GI: GERD Hepatobiliary: Other Musculoskeletal: low back pain, Osteoarthritis Endocrine: Diabetes Past Surgical History Past Surgical History: Other (coronary stent) Family History Family History: High Cholestrol, Hypertension Social History Smoke: No ALCOHOL: social Drugs: None Current Medications Current Medications Current Medications Aspirin (Children'S Aspirin) 324 mg 1X ONCE PO ; Start 06/05/18 at 15:15; Stop 06/05/18 at 15:16; Status DC Nitroglycerin (Nitrostat) 0.4 mg PRN Q5MIN PRN SL CP RATING > 1/10; Start at 15:15; Stop 06/06/18 at 00:48; Status DC Morphine Sulfate (Morphine Sulfate) 2 mg PRN Q15MIN PRN IV/SQ PAIN GREATER THAN 3/10 Last administered on 06/05/18at 15:58; Start 06/05/18 at 15:15; Stop 02/12 at 00:49; Status DC Sodium Chloride 1,000 ml @ 100 mls/hr Q10H IV Last administered on 06/05/18at 15 :53; Start 06/05/18 at 15:11; Stop 06/06/18 at 01:11; Status DC Ondansetron HCl (Zofran) 4 mg STK-MED ONCE .ROUTE ; Start 06/05/18 at 15:31; Stop 06/05/18 at 15:33; Status DC Ondansetron HCl (Zofran) 4 mg 1X ONCE IV Last administered on 06/05/18at 15:56; Start 06/05/18 at 16:00; Stop 06/05/18 at 16:01; Status DC Ondansetron HCl (Zofran) 4 mg PRN Q8HRS PRN IV NAUSEA/VOMITING; Start 06/05/18 at 17:30; Stop 06/06/18 at 00:49; Status DC Morphine Sulfate (Morphine Sulfate) 2 mg PRN Q2HR PRN IV PAIN Last administered on 06/05/18at 19:29; Start 06/05/18 at 17:30; Stop 06/06/18 at 17:29 Nitroglycerin (Nitrostat) 0.4 mg PRN Q5MIN PRN SL CHEST PAIN; Start 06/05/18 at 17:30; Stop 06/06/18 at 00:50; Status DC Nitroglycerin (Nitrostat) 0.4 mg PRN Q5MIN PRN SL CHEST PAIN; Start 06/05/18 at 19:30 Morphine Sulfate (Morphine Sulfate) 1 mg PRN Q10MIN PRN IV CHEST PAIN; Start at 19:30 Acetaminophen (Tylenol) 650 mg PRN Q6HRS PRN PO MILD PAIN / TEMP; Start at 19:30 Ondansetron HCl (Zofran) 4 mg PRN Q6HRS PRN IV NAUSEA/VOMITING; Start 06/05/18 at 19:30 Zolpidem Tartrate (Ambien) 5 mg PRN QHS PRN PO INSOMNIA; Start 06/05/18 at 19:30 Enoxaparin Sodium (Lovenox 40mg Syringe) 40 mg Q24H SQ Last administered on 02/12at 00:05; Start 06/05/18 at 21:00 Sodium Chloride (Normal Saline Flush) 3 ml QSHIFT PRN IV AFTER MEDS AND BLOOD DRAWS; Start 06/05/18 at 19:30 Senna/Docusate Sodium (Senna Plus) 1 tab BID PO Last administered on 06/06/18at 12:18; Start 06/05/18 at 21:00 Lactulose (Lactulose) 20 gm PRN Q12HR PRN PO CONSTIPATION; Start 06/05/18 at 19: 30 Cyclobenzaprine HCl (Flexeril) 10 mg PRN TID PRN PO MUSCLE SPASMS; Start at 19:30 Glyburide (Diabeta) 5 mg BIDWMEALS PO ; Start 06/06/18 at 08:00 Hydrochlorothiazide (Hydrodiuril) 25 mg DAILY PO Last administered on 12:19; Start 06/06/18 at 09:00 Isosorbide Mononitrate (Imdur) 30 mg DAILY PO Last administered on 06/06/18 12 :18; Start 06/06/18 at 09:00 Triamterene/HCTZ (Maxzide 37.5/ 25mg) 1 tab DAILY PO Last administered on 12:18; Start 06/06/18 at 09:00 Acetaminophen (Tylenol) 325 mg QID PO Last administered on 06/06/18 12:18; Start 06/05/18 at 21:00 Carvedilol (Coreg) 25 mg DAILY PO Last administered on 06/06/18 12:17; Start 06/06/18 at 09:00 Hydroxyzine Pamoate (Vistaril) 25 mg BID PO Last administered on 06/06/18 12: 18; Start 06/05/18 at 21:00 Cetirizine HCl (ZyrTEC) 10 mg DAILY PO Last administered on 06/06/18 12:18; Start 06/06/18 at 09:00 Montelukast Sodium (Singulair) 10 mg QHS PO Last administered on 06/05/18 23:58 ; Start 06/05/18 at 21:00 Potassium Chloride (Klor-Con) 20 meq DAILYWBKFT PO Last administered on 12:19; Start 06/06/18 at 08:00 Famotidine (Pepcid) 20 mg PRN DAILY PRN PO HEARTBURN / GAS; Start 06/05/18 at 21 :00; Status Cancel Simvastatin (Zocor) 20 mg HS PO Last administered on 06/05/18 23:56; Start 06/05 at 21:00 Famotidine (Pepcid) 40 mg PRN DAILY PRN PO HEARTBURN / GAS; Start 06/06/18 at 00:30 Active Scripts Active Acetaminophen 325 Mg Capsule 325 Mg PO QID 5 Days Reported Ranitidine Hcl 300 Mg Tablet 300 Mg PO PRN DAILY PRN Duoneb 0.5-3(2.5) Mg/3 Ml (Albuterol/Ipratropium) 3 Ml Ampul.neb 3 Ml INH [id number] Lo-Dose Aspirin Ec (Aspirin) 81 Mg Tablet.dr 81 Mg PO DAILY Hydrochlorothiazide 25 Mg Tablet 1 Tab PO DAILY Alprazolam 2 Mg Tablet 1 Tab PO PRN Q8HRS PRN Temazepam 30 Mg Capsule 1 Tab PO HS Oxycodone-Acetaminophen 10-325 (Oxycodone Hcl/Acetaminophen) 1 Each Tablet 1 Tab PO PRN Q6HRS PRN Triamterene-Hctz 37.5-25 Mg Tb (Triamterene/Hydrochlorothiazid) 1 Each Tablet 1 Tab PO DAILY Cyclobenzaprine Hcl 10 Mg Tablet 1 Tab PO TID PRN Hydroxyzine Hcl 25 Mg Tablet 1 Tab PO BID Isosorbide Mononitrate Er (Isosorbide Mononitrate) 30 Mg Tab.er.24h 1 Tab PO DAILY Loratadine 10 Mg Tablet 1 Tab PO DAILY Carvedilol 25 Mg Tablet 1 Tab PO DAILY Hydrochlorothiazide Tablet (Hydrochlorothiazide) 25 Mg Tablet 1 Tab PO DAILY Simvastatin 20 Mg Tablet 1 Tab PO QHS Glyburide 5 Mg Tablet 1 Tab PO BID Potassium Chloride 20 Meq Tablet.er 20 Meq PO DAILY Montelukast Sodium Tablet (Montelukast Sodium) 10 Mg Tablet 1 Tab PO DAILY Allergies Allergies: Coded Allergies: Penicillins (Verified Allergy, Severe, 01/28/17) amoxicillin (Verified Allergy, Severe, anaphylaxis, 09/19/13) iodine (Verified Allergy, Severe, Anaphylaxis, 09/19/13) Patient allergic to Seafood shellfish derived (Verified Allergy, Severe, Anaphylaxis, 04/09/14) ROS General: YES: Fatigue, Malaise; No: Chills, Night Sweats, Appetite, Other PSYCHOLOGICAL ROS: No: Anxiety, Behavioral Disorder, Concentration difficultie , Decreased libido, Depression, Disorientation, Hallucinations, Hostility, Irritablity, Memory difficulties, Mood Swings, Obsessive thoughts, Physical abuse, Sexual abuse, Sleep disturbances, Suicidal ideation, Other Eyes: No Blurry vision, No Decreased vision, No Double vision, No Dry eyes, No Excessive tearing, No Eye Pain, No Itchy Eyes, No Loss of vision, No Photophobia , No Scotomata, No Uses contacts, No Uses glasses, No Other HEENT: No: Heacaches, Visual Changes, Hearing change, Nasal congestion, Nasal discharge, Oral lesions, Sinus pain, Sore Throat, Epistaxis, Sneezing, Snoring, Tinnitus, Vertigo, Vocal changes, Other ALLERGY AND IMMUNOLOGY: No: Hives, Insect Bite Sensitivity, Itchy/Watery Eyes, Nasal Congestion, Post Nasal Drip, Seasonal Allergies, Other Hematological and Lymphatic: No: Bleeding Problems, Blood Clots, Blood Transfusions, Brusing, Night Sweats, Pallor, Swollen Lymph Nodes, Other ENDOCRINE: No: Breast Changes, Galactorrhea, Hair Pattern Changes, Hot Flashes , Malaise/lethargy, Mood Swings, Palpitations, Polydipsia/polyuria, Skin Changes , Temperature Intolerance, Unexpected Weight Changes, Other Breast: No New/Changing Breast Lumps, No Nipple changes, No Nipple discharge, No Other Respiratory: YES: Shortness of breath; No: Cough, Hemoptysis, Orthopnea, Pleuritic Pain, SOB with excertion, Sputum Changes, Stridor, Tachypnea, Wheezing, Other Cardiovascular: yes Chest Pain; No Palpitations, No Orthopnea, No Paroxysmal Noc. Dyspnea, No Edema, No Lt Headedness, No Other Gastrointestinal: Yes Nausea; No Vomiting, No Abdominal Pain, No Diarrhea, No Constipation, No Melena, No Hematochezia, No Other Genitourinary: No Dysuria, No Frequency, No Incontinence, No Hematuria, No Retention, No Discharge, No Urgency, No Pain, No Flank Pain, No Other, No , No , No , No , No , No , No Musculoskeletal: No Gait Disturbance, No Joint Pain, No Joint Stiffness, No Joint Swelling, No Muscle Pain, No Muscular Weakness, No Pain In:, No Swelling In:, No Other Neurological: No Behavorial Changes, No Bowel/Bladder ControlChng, No Confusion , No Dizziness, No Gait Disturbance, No Headaches, No Impaired Coord/balance, No Memory Loss, No Numbness/Tingling, No Seizures, No Speech Problems, No Tremors, No Visual Changes, No Weakness, No Other Skin: No Dry Skin, No Eczema, No Hair Changes, No Lumps, No Mole Changes, No Mottling, No Nail Changes, No Pruritus, No Rash, No Skin Lesion Changes, No Other, No Acne Physical Exam General: Alert, Oriented X3, Cooperative, No acute distress HEENT: Atraumatic, PERRLA, EOMI, Mucous membr. moist/pink Heart: S1S2, RRR, no gallops, no murmurs Abdomen: Normal bowel sounds, Soft, No tenderness, No hepatosplenomegaly, No masses Rectal Exam: not examined Extremities: No clubbing, No cyanosis, No edema, Normal pulses, No tenderness/ swelling Skin: No rashes, No breakdown, No significant lesion Neuro: Normal gait, Normal speech, Strength at 5/5 X4 ext, Normal tone, Sensation intact, Cranial nerves 3-12 NL, Reflexes 2+ Psych/Mental Status: Mental status NL, Mood NL Vitals Vitals Vital Signs Date Time Temp Pulse Resp B/P (MAP) Pulse Ox O2 Delivery O2 Flow Rate FiO2 06/06/18 12:18 77 168/74 06/06/18 11:40 98.1 18 98 Room Air 98.1 Labs Labs Laboratory Tests Test 06/05/18 15:02 06/05/18 15:47 06/05/18 20:30 06/05/18 20:56 White Blood Count 6.8 x10^3/uL (4.0-11.0) Red Blood Count 5.21 x10^6/uL (3.50-5.40) Hemoglobin 14.5 g/dL (12.0-15.5) Hematocrit 43.9 % (36.0-47.0) Mean Corpuscular Volume 84 fL (79-100) Mean Corpuscular Hemoglobin 28 pg (25-35) Mean Corpuscular Hemoglobin Concent 33 g/dL (31-37) Red Cell Distribution Width 15.1 % (11.5-14.5) Platelet Count 184 x10^3/uL (140-400) Neutrophils (%) (Auto) 56 % (31-73) Lymphocytes (%) (Auto) 37 % (24-48) Monocytes (%) (Auto) 6 % (0-9) Eosinophils (%) (Auto) 1 % (0-3) Basophils (%) (Auto) 1 % (0-3) Neutrophils # (Auto) 3.8 x10^3uL (1.8-7.7) Lymphocytes # (Auto) 2.5 x10^3/uL (1.0-4.8) Monocytes # (Auto) 0.4 x10^3/uL (0.0-1.1) Eosinophils # (Auto) 0.1 x10^3/uL (0.0-0.7) Basophils # (Auto) 0.1 x10^3/uL (0.0-0.2) Sodium Level 142 mmol/L (136-145) Potassium Level 3.7 mmol/L (3.5-5.1) Chloride Level 107 mmol/L (98-107) Carbon Dioxide Level 30 mmol/L (21-32) Anion Gap 5 (6-14) Blood Urea Nitrogen 10 mg/dL (7-20) Creatinine 0.6 mg/dL (0.6-1.0) Estimated GFR (Cockcroft-Gault) 126.1 BUN/Creatinine Ratio 17 (6-20) Glucose Level 105 mg/dL (70-99) Calcium Level 9.9 mg/dL (8.5-10.1) Magnesium Level 2.1 mg/dL (1.8-2.4) Total Bilirubin 0.6 mg/dL (0.2-1.0) Aspartate Amino Transf (AST/SGOT) 21 U/L (15-37) Alanine Aminotransferase (ALT/SGPT) 44 U/L (14-59) Alkaline Phosphatase 132 U/L (46-116) Troponin I Quantitative 0.026 ng/mL (0.000-0.055) 0.025 ng/mL (0.000-0.055) BH-Aql-K-Type Natriuretic Peptide 113 pg/mL (0-124) Total Protein 7.5 g/dL (6.4-8.2) Albumin 3.7 g/dL (3.4-5.0) Albumin/Globulin Ratio 1.0 (1.0-1.7) Lipase 186 U/L (73-393) Urine Collection Type Void Urine Color Yellow Urine Clarity Clear Urine pH 6.0 Urine Specific [place] 1.015 Urine Protein 30 mg/dL (NEG-TRACE) Urine Glucose (UA) Negative mg/dL (NEG) Urine Ketones (Stick) Negative mg/dL (NEG) Urine Blood Negative (NEG) Urine Nitrite Negative (NEG) Urine Bilirubin Negative (NEG) Urine Urobilinogen Dipstick 0.2 mg/dL (0.2 mg/dL) Urine Leukocyte Esterase Negative (NEG) Urine RBC 0 /HPF (0-2) Urine WBC 0 /HPF (0-4) Urine Squamous Epithelial Cells Many /LPF Urine Bacteria 0 /HPF (0-FEW) Urine Mucus Slight /LPF Glucose (Fingerstick) 94 mg/dL (70-99) Test 06/05/18 23:25 Troponin I Quantitative 0.032 ng/mL (0.000-0.055) Laboratory Tests Test 06/05/18 15:47 06/05/18 20:30 06/05/18 20:56 06/05/18 23:25 Urine Collection Type Void Urine Color Yellow Urine Clarity Clear Urine pH 6.0 Urine Specific [place] 1.015 Urine Protein 30 mg/dL (NEG-TRACE) Urine Glucose (UA) Negative mg/dL (NEG) Urine Ketones (Stick) Negative mg/dL (NEG) Urine Blood Negative (NEG) Urine Nitrite Negative (NEG) Urine Bilirubin Negative (NEG) Urine Urobilinogen Dipstick 0.2 mg/dL (0.2 mg/dL) Urine Leukocyte Esterase Negative (NEG) Urine RBC 0 /HPF (0-2) Urine WBC 0 /HPF (0-4) Urine Squamous Epithelial Cells Many /LPF Urine Bacteria 0 /HPF (0-FEW) Urine Mucus Slight /LPF Troponin I Quantitative 0.025 ng/mL (0.000-0.055) 0.032 ng/mL (0.000-0.055) Glucose (Fingerstick) 94 mg/dL (70-99) VTE Prophylaxis Ordered VTE Prophylaxis Devices: Yes VTE Pharmacological Prophylaxi: Yes Assessment/Plan Assessment/Plan A/P: Chest pain - with multiple ACS risk factors - DM, HTN, HLD, Morbid obesity. ASA and NTG helped, gave headache Headache - likely 2/2 NTG, will treat Accelerated Hypertension - very elevated, given PRNs and restarted her home meds with some improvement Hyperlipidemia - cont statin Diabetes mellitus - sliding scale plus home glyburide Morbid obesity - counseled on weight loss, lifestyle FEN - ADA diet, npo after midnight PPX - SCDs FULL CODE Inpatient for high risk chest pain with HTN urgency HARPER SEO MD Jun 06, 2018 15:57
[2018-06-06] MEDS ORDERED: PROCHLORPERAZINE 10 MG/2 ML VIAL. IV ONE (16:15)
[2018-06-06] MEDS ORDERED: DEXTROSE 50% 25 GM / 50ML DISP.SYRIN. IV PRN (18:30)
[2018-06-06 19:27] VITALS: BP 117/45
[2018-06-06] MEDS: INSULIN LISPRO 300 UNITS/3 ML INSULN.PEN. SQ SCH (21:00)
[2018-06-06 22:08] VITALS: BP 142/74
[2018-06-06] MEDS: MONTELUKAST SODIUM 10 MG TABLET. PO SCH (22:35)
[2018-06-06] MEDS: SIMVASTATIN 20 MG TABLET PO SCH (22:36)
[2018-06-07 02:59] VITALS: BP 142/73
[2018-06-07 04:16] LABS: BASO % 0 % (0-3); EOS # 0.1 x10^3/uL (0.0-0.7); EOS % 2 % (0-3); HEMATOCRIT 41.4 % (36.0-47.0); HEMOGLOBIN 13.7 g/dL (12.0-15.5); LYMPH # 3.2 x10^3/uL (1.0-4.8); LYMPH % 45 % (24-48); MEAN CORPUSCULAR HEMOGLOBIN 28 pg (25-35); MEAN CORPUSCULAR HGB CONC 33 g/dL (31-37); MEAN CORPUSCULAR VOLUME 85 fL (79-100); MONO # 0.4 x10^3/uL (0.0-1.1); MONO % 6 % (0-9); NEUT # 3.4 x10^3uL (1.8-7.7); NEUT % 47 % (31-73); PLATELET COUNT 181 x10^3/uL (140-400); RED BLOOD COUNT 4.88 x10^6/uL (3.50-5.40); RED CELL DISTRIBUTION WIDTH 15.3 % (11.5-14.5); WHITE BLOOD COUNT 7.1 x10^3/uL (4.0-11.0)
[2018-06-07 04:38] LABS: CALCIUM 9.6 mg/dL (8.5-10.1); CREATININE 0.8 mg/dL (0.6-1.0); GFR 90.4; POTASSIUM 3.5 mmol/L (3.5-5.1)
[2018-06-07 07:00] VITALS: BP 142/76
[2018-06-07] MEDS: INSULIN LISPRO 300 UNITS/3 ML INSULN.PEN. SQ SCH ×3 (07:30→16:30)
[2018-06-07] MEDS: glyBURIDE 5 MG TABLET PO SCH (07:54)
[2018-06-07] MEDS ORDERED: REGADENOSON 0.4 MG/5 ML DISP.SYRIN. IV ONE (08:45)
[2018-06-07] MEDS: SENNOSIDES/DOCUSATE 8.6/50MG TABLET. PO SCH (09:00)
[2018-06-07 10:54] VITALS: BP 188/96
[2018-06-07] MEDS: CARVEDILOL 12.5 MG TABLET. PO SCH (11:29)
[2018-06-07] MEDS: hydroCHLOROthiazide 25 MG TABLET PO SCH (11:29)
[2018-06-07] MEDS: TRIAMTERENE/HCTZ 37.5/25MG TABLET. PO SCH (11:29)
[2018-06-07] MEDS: CETIRIZINE HCL 10 MG TABLET. PO SCH (11:29)
[2018-06-07] MEDS: POTASSIUM CHLORIDE 20 MEQ TABLET.ER. PO SCH (11:29)
[2018-06-07] MEDS: ACETAMINOPHEN 325 MG TABLET. PO SCH ×2 (11:30→12:01)
[2018-06-07] MEDS: hydrOXYzine PAMOATE 25 MG CAPSULE PO SCH (11:32)
[2018-06-07] MEDS: ISOSORBIDE MONONITRATE ER 30 MG TAB.ER.24H PO SCH (11:32)
--- NOTE | 2018-06-07 12:07 | NUR ---
SS following for discharge planning. Pt is from home with room air. No discharge needs noted at this time. SS will continue to follow for pending discharge needs.
--- NOTE | 2018-06-07 14:12 | PDOC ---
PROGRESS NOTES Chief Complaint Chief Complaint .Chest pain with hx of CAD and prior stent placement HTN Hyperlipidemia Diabetes mellitus Morbid obesity YA History of Present Illness History of Present Illness Pt is a 52 y/o female who presented with CP. She has a PMHx of CAD and 1 stent placement, DM, HTN, HLD, obesity. Today she is doing better. She has no new complaints. She states she is going for a stress test today. We discussed possible D/C if the results of the MPI are negative. She is being followed by cardiology. I discussed the pt with her RN. Vitals Vitals Vital Signs Date Time Temp Pulse Resp B/P (MAP) Pulse Ox O2 Delivery O2 Flow Rate FiO2 06/07/18 11:32 74 188/96 06/07/18 10:54 98.0 16 96 Room Air 98.0 Physical Exam General: Alert, Oriented X3, Cooperative, No acute distress Heart: Regular rate, No murmurs Lungs: Clear, Other (No wheezing or crackles) Abdomen: Normal bowel sounds, Soft, No tenderness, No hepatosplenomegaly, No masses Extremities: No clubbing, No cyanosis, No edema, Normal pulses, No tenderness/ swelling Skin: No rashes, No breakdown, No significant lesion Labs LABS Laboratory Tests Test 06/06/18 21:29 06/06/18 21:52 06/07/18 03:00 06/07/18 07:50 Glucose (Fingerstick) 61 mg/dL (70-99) 77 mg/dL (70-99) 81 mg/dL (70-99) White Blood Count 7.1 x10^3/uL (4.0-11.0) Red Blood Count 4.88 x10^6/uL (3.50-5.40) Hemoglobin 13.7 g/dL (12.0-15.5) Hematocrit 41.4 % (36.0-47.0) Mean Corpuscular Volume 85 fL (79-100) Mean Corpuscular Hemoglobin 28 pg (25-35) Mean Corpuscular Hemoglobin Concent 33 g/dL (31-37) Red Cell Distribution Width 15.3 % (11.5-14.5) Platelet Count 181 x10^3/uL (140-400) Neutrophils (%) (Auto) 47 % (31-73) Lymphocytes (%) (Auto) 45 % (24-48) Monocytes (%) (Auto) 6 % (0-9) Eosinophils (%) (Auto) 2 % (0-3) Basophils (%) (Auto) 0 % (0-3) Neutrophils # (Auto) 3.4 x10^3uL (1.8-7.7) Lymphocytes # (Auto) 3.2 x10^3/uL (1.0-4.8) Monocytes # (Auto) 0.4 x10^3/uL (0.0-1.1) Eosinophils # (Auto) 0.1 x10^3/uL (0.0-0.7) Basophils # (Auto) 0.0 x10^3/uL (0.0-0.2) Sodium Level 143 mmol/L (136-145) Potassium Level 3.5 mmol/L (3.5-5.1) Chloride Level 107 mmol/L (98-107) Carbon Dioxide Level 26 mmol/L (21-32) Anion Gap 10 (6-14) Blood Urea Nitrogen 13 mg/dL (7-20) Creatinine 0.8 mg/dL (0.6-1.0) Estimated GFR (Cockcroft-Gault) 90.4 Glucose Level 67 mg/dL (70-99) Calcium Level 9.6 mg/dL (8.5-10.1) Test 06/07/18 11:40 Glucose (Fingerstick) 143 mg/dL (70-99) Review of Systems Review of Systems Gen: denies fever or chills HEENT: denies sore throat, rhinorrhea Heart: denies current CP, palpitations Lung: denies cough, SOA Abd: denies pain, diarrhea Assessment and Plan Assessmemt and Plan Assessment: Chest pain, multiple risk factors CAD with hx of 1 prior stent placement Headache HTN Hyperlipidemia Diabetes mellitus Morbid obesity Plan: Continue cardiac monitoring Awaiting MPI results Consider D/C if MPI is negative , if + consider cath Labs PT/OT Home meds Appreciate subspecialist input Comment Review of Relevant I have reviewed the following items geovany (where applicable) has been applied. Labs Laboratory Tests Test 06/05/18 15:02 06/05/18 15:47 06/05/18 20:30 06/05/18 20:56 White Blood Count 6.8 x10^3/uL (4.0-11.0) Red Blood Count 5.21 x10^6/uL (3.50-5.40) Hemoglobin 14.5 g/dL (12.0-15.5) Hematocrit 43.9 % (36.0-47.0) Mean Corpuscular Volume 84 fL (79-100) Mean Corpuscular Hemoglobin 28 pg (25-35) Mean Corpuscular Hemoglobin Concent 33 g/dL (31-37) Red Cell Distribution Width 15.1 % (11.5-14.5) Platelet Count 184 x10^3/uL (140-400) Neutrophils (%) (Auto) 56 % (31-73) Lymphocytes (%) (Auto) 37 % (24-48) Monocytes (%) (Auto) 6 % (0-9) Eosinophils (%) (Auto) 1 % (0-3) Basophils (%) (Auto) 1 % (0-3) Neutrophils # (Auto) 3.8 x10^3uL (1.8-7.7) Lymphocytes # (Auto) 2.5 x10^3/uL (1.0-4.8) Monocytes # (Auto) 0.4 x10^3/uL (0.0-1.1) Eosinophils # (Auto) 0.1 x10^3/uL (0.0-0.7) Basophils # (Auto) 0.1 x10^3/uL (0.0-0.2) Sodium Level 142 mmol/L (136-145) Potassium Level 3.7 mmol/L (3.5-5.1) Chloride Level 107 mmol/L (98-107) Carbon Dioxide Level 30 mmol/L (21-32) Anion Gap 5 (6-14) Blood Urea Nitrogen 10 mg/dL (7-20) Creatinine 0.6 mg/dL (0.6-1.0) Estimated GFR (Cockcroft-Gault) 126.1 BUN/Creatinine Ratio 17 (6-20) Glucose Level 105 mg/dL (70-99) Calcium Level 9.9 mg/dL (8.5-10.1) Magnesium Level 2.1 mg/dL (1.8-2.4) Total Bilirubin 0.6 mg/dL (0.2-1.0) Aspartate Amino Transf (AST/SGOT) 21 U/L (15-37) Alanine Aminotransferase (ALT/SGPT) 44 U/L (14-59) Alkaline Phosphatase 132 U/L (46-116) Troponin I Quantitative 0.026 ng/mL (0.000-0.055) 0.025 ng/mL (0.000-0.055) RU-Wsw-D-Type Natriuretic Peptide 113 pg/mL (0-124) Total Protein 7.5 g/dL (6.4-8.2) Albumin 3.7 g/dL (3.4-5.0) Albumin/Globulin Ratio 1.0 (1.0-1.7) Lipase 186 U/L (73-393) Urine Collection Type Void Urine Color Yellow Urine Clarity Clear Urine pH 6.0 Urine Specific [place] 1.015 Urine Protein 30 mg/dL (NEG-TRACE) Urine Glucose (UA) Negative mg/dL (NEG) Urine Ketones (Stick) Negative mg/dL (NEG) Urine Blood Negative (NEG) Urine Nitrite Negative (NEG) Urine Bilirubin Negative (NEG) Urine Urobilinogen Dipstick 0.2 mg/dL (0.2 mg/dL) Urine Leukocyte Esterase Negative (NEG) Urine RBC 0 /HPF (0-2) Urine WBC 0 /HPF (0-4) Urine Squamous Epithelial Cells Many /LPF Urine Bacteria 0 /HPF (0-FEW) Urine Mucus Slight /LPF Glucose (Fingerstick) 94 mg/dL (70-99) Test 06/05/18 23:25 06/06/18 21:29 06/06/18 21:52 06/07/18 03:00 Troponin I Quantitative 0.032 ng/mL (0.000-0.055) Glucose (Fingerstick) 61 mg/dL (70-99) 77 mg/dL (70-99) White Blood Count 7.1 x10^3/uL (4.0-11.0) Red Blood Count 4.88 x10^6/uL (3.50-5.40) Hemoglobin 13.7 g/dL (12.0-15.5) Hematocrit 41.4 % (36.0-47.0) Mean Corpuscular Volume 85 fL (79-100) Mean Corpuscular Hemoglobin 28 pg (25-35) Mean Corpuscular Hemoglobin Concent 33 g/dL (31-37) Red Cell Distribution Width 15.3 % (11.5-14.5) Platelet Count 181 x10^3/uL (140-400) Neutrophils (%) (Auto) 47 % (31-73) Lymphocytes (%) (Auto) 45 % (24-48) Monocytes (%) (Auto) 6 % (0-9) Eosinophils (%) (Auto) 2 % (0-3) Basophils (%) (Auto) 0 % (0-3) Neutrophils # (Auto) 3.4 x10^3uL (1.8-7.7) Lymphocytes # (Auto) 3.2 x10^3/uL (1.0-4.8) Monocytes # (Auto) 0.4 x10^3/uL (0.0-1.1) Eosinophils # (Auto) 0.1 x10^3/uL (0.0-0.7) Basophils # (Auto) 0.0 x10^3/uL (0.0-0.2) Sodium Level 143 mmol/L (136-145) Potassium Level 3.5 mmol/L (3.5-5.1) Chloride Level 107 mmol/L (98-107) Carbon Dioxide Level 26 mmol/L (21-32) Anion Gap 10 (6-14) Blood Urea Nitrogen 13 mg/dL (7-20) Creatinine 0.8 mg/dL (0.6-1.0) Estimated GFR (Cockcroft-Gault) 90.4 Glucose Level 67 mg/dL (70-99) Calcium Level 9.6 mg/dL (8.5-10.1) Test 06/07/18 07:50 06/07/18 11:40 Glucose (Fingerstick) 81 mg/dL (70-99) 143 mg/dL (70-99) Laboratory Tests Test 06/06/18 21:29 06/06/18 21:52 06/07/18 03:00 06/07/18 07:50 Glucose (Fingerstick) 61 mg/dL (70-99) 77 mg/dL (70-99) 81 mg/dL (70-99) White Blood Count 7.1 x10^3/uL (4.0-11.0) Red Blood Count 4.88 x10^6/uL (3.50-5.40) Hemoglobin 13.7 g/dL (12.0-15.5) Hematocrit 41.4 % (36.0-47.0) Mean Corpuscular Volume 85 fL (79-100) Mean Corpuscular Hemoglobin 28 pg (25-35) Mean Corpuscular Hemoglobin Concent 33 g/dL (31-37) Red Cell Distribution Width 15.3 % (11.5-14.5) Platelet Count 181 x10^3/uL (140-400) Neutrophils (%) (Auto) 47 % (31-73) Lymphocytes (%) (Auto) 45 % (24-48) Monocytes (%) (Auto) 6 % (0-9) Eosinophils (%) (Auto) 2 % (0-3) Basophils (%) (Auto) 0 % (0-3) Neutrophils # (Auto) 3.4 x10^3uL (1.8-7.7) Lymphocytes # (Auto) 3.2 x10^3/uL (1.0-4.8) Monocytes # (Auto) 0.4 x10^3/uL (0.0-1.1) Eosinophils # (Auto) 0.1 x10^3/uL (0.0-0.7) Basophils # (Auto) 0.0 x10^3/uL (0.0-0.2) Sodium Level 143 mmol/L (136-145) Potassium Level 3.5 mmol/L (3.5-5.1) Chloride Level 107 mmol/L (98-107) Carbon Dioxide Level 26 mmol/L (21-32) Anion Gap 10 (6-14) Blood Urea Nitrogen 13 mg/dL (7-20) Creatinine 0.8 mg/dL (0.6-1.0) Estimated GFR (Cockcroft-Gault) 90.4 Glucose Level 67 mg/dL (70-99) Calcium Level 9.6 mg/dL (8.5-10.1) Test 06/07/18 11:40 Glucose (Fingerstick) 143 mg/dL (70-99) Medications Current Medications Aspirin (Children'S Aspirin) 324 mg 1X ONCE PO ; Start 06/05/18 at 15:15; Stop 06/05/18 at 15:16; Status DC Nitroglycerin (Nitrostat) 0.4 mg PRN Q5MIN PRN SL CP RATING > 1/10; Start at 15:15; Stop 06/06/18 at 00:48; Status DC Morphine Sulfate (Morphine Sulfate) 2 mg PRN Q15MIN PRN IV/SQ PAIN GREATER THAN 3/10 Last administered on 06/05/18at 15:58; Start 06/05/18 at 15:15; Stop 02/12 at 00:49; Status DC Sodium Chloride 1,000 ml @ 100 mls/hr Q10H IV Last administered on 06/05/18at 15 :53; Start 06/05/18 at 15:11; Stop 06/06/18 at 01:11; Status DC Ondansetron HCl (Zofran) 4 mg STK-MED ONCE .ROUTE ; Start 06/05/18 at 15:31; Stop 06/05/18 at 15:33; Status DC Ondansetron HCl (Zofran) 4 mg 1X ONCE IV Last administered on 06/05/18at 15:56; Start 06/05/18 at 16:00; Stop 06/05/18 at 16:01; Status DC Ondansetron HCl (Zofran) 4 mg PRN Q8HRS PRN IV NAUSEA/VOMITING; Start 06/05/18 at 17:30; Stop 06/06/18 at 00:49; Status DC Morphine Sulfate (Morphine Sulfate) 2 mg PRN Q2HR PRN IV PAIN Last administered on 06/05/18at 19:29; Start 06/05/18 at 17:30; Stop 06/06/18 at 17:29; Status DC Nitroglycerin (Nitrostat) 0.4 mg PRN Q5MIN PRN SL CHEST PAIN; Start 06/05/18 at 17:30; Stop 06/06/18 at 00:50; Status DC Nitroglycerin (Nitrostat) 0.4 mg PRN Q5MIN PRN SL CHEST PAIN; Start 06/05/18 at 19:30 Morphine Sulfate (Morphine Sulfate) 1 mg PRN Q10MIN PRN IV CHEST PAIN Last administered on 06/07/18at 08:01; Start 06/05/18 at 19:30 Acetaminophen (Tylenol) 650 mg PRN Q6HRS PRN PO MILD PAIN / TEMP; Start at 19:30 Ondansetron HCl (Zofran) 4 mg PRN Q6HRS PRN IV NAUSEA/VOMITING; Start 06/05/18 at 19:30 Zolpidem Tartrate (Ambien) 5 mg PRN QHS PRN PO INSOMNIA; Start 06/05/18 at 19:30 Enoxaparin Sodium (Lovenox 40mg Syringe) 40 mg Q24H SQ Last administered on 02/12at 21:00; Start 06/05/18 at 21:00 Sodium Chloride (Normal Saline Flush) 3 ml QSHIFT PRN IV AFTER MEDS AND BLOOD DRAWS; Start 06/05/18 at 19:30 Senna/Docusate Sodium (Senna Plus) 1 tab BID PO Last administered on 06/06/18 22:35; Start 06/05/18 at 21:00 Lactulose (Lactulose) 20 gm PRN Q12HR PRN PO CONSTIPATION; Start 06/05/18 at 19: 30 Cyclobenzaprine HCl (Flexeril) 10 mg PRN TID PRN PO MUSCLE SPASMS; Start at 19:30 Glyburide (Diabeta) 5 mg BIDWMEALS PO Last administered on 06/06/18 16:27; Start 06/06/18 at 08:00 Hydrochlorothiazide (Hydrodiuril) 25 mg DAILY PO Last administered on 11:29; Start 06/06/18 at 09:00 Isosorbide Mononitrate (Imdur) 30 mg DAILY PO Last administered on 06/07/18 11 :32; Start 06/06/18 at 09:00 Triamterene/HCTZ (Maxzide 37.5/ 25mg) 1 tab DAILY PO Last administered on 11:29; Start 06/06/18 at 09:00 Acetaminophen (Tylenol) 325 mg QID PO Last administered on 06/07/18 11:30; Start 06/05/18 at 21:00 Carvedilol (Coreg) 25 mg DAILY PO Last administered on 06/07/18 11:29; Start 06/06/18 at 09:00 Hydroxyzine Pamoate (Vistaril) 25 mg BID PO Last administered on 06/07/18 11: 32; Start 06/05/18 at 21:00 Cetirizine HCl (ZyrTEC) 10 mg DAILY PO Last administered on 06/07/18at 11:29; Start 06/06/18 at 09:00 Montelukast Sodium (Singulair) 10 mg QHS PO Last administered on 06/06/18at 22: 35; Start 06/05/18 at 21:00 Potassium Chloride (Klor-Con) 20 meq DAILYWBKFT PO Last administered on at 11:29; Start 06/06/18 at 08:00 Famotidine (Pepcid) 20 mg PRN DAILY PRN PO HEARTBURN / GAS; Start 06/05/18 at 21 :00; Status Cancel Simvastatin (Zocor) 20 mg HS PO Last administered on 06/06/18at 22:36; Start 06/05/18 at 21:00 Famotidine (Pepcid) 40 mg PRN DAILY PRN PO HEARTBURN / GAS Last administered on 06/06/18at 22:36; Start 06/06/18 at 00:30 Prochlorperazine Edisylate (Compazine) 10 mg 1X ONCE IV Last administered on at 16:21; Start 06/06/18 at 16:15; Stop 06/06/18 at 16:16; Status DC Insulin Human Lispro (HumaLOG) 0-5 UNITS QIDACHS SQ ; Start 06/06/18 at 21:00 Dextrose (Dextrose 50%-Water Syringe) 12.5 gm PRN Q15MIN PRN IV SEE COMMENTS; Start 06/06/18 at 18:30 Regadenoson (Lexiscan) 0.4 mg 1X ONCE IV Last administered on 06/07/18at 09:17 ; Start 06/07/18 at 08:45; Stop 06/07/18 at 08:46; Status DC Enoxaparin Sodium (Lovenox 40mg Syringe) 40 mg BID SQ ; Start 06/07/18 at 21:00 Active Scripts Active Acetaminophen 325 Mg Capsule 325 Mg PO QID 5 Days Reported Ranitidine Hcl 300 Mg Tablet 300 Mg PO PRN DAILY PRN Duoneb 0.5-3(2.5) Mg/3 Ml (Albuterol/Ipratropium) 3 Ml Ampul.neb 3 Ml INH [id number] Lo-Dose Aspirin Ec (Aspirin) 81 Mg Tablet.dr 81 Mg PO DAILY Hydrochlorothiazide 25 Mg Tablet 1 Tab PO DAILY Alprazolam 2 Mg Tablet 1 Tab PO PRN Q8HRS PRN Temazepam 30 Mg Capsule 1 Tab PO HS Oxycodone-Acetaminophen 10-325 (Oxycodone Hcl/Acetaminophen) 1 Each Tablet 1 Tab PO PRN Q6HRS PRN Triamterene-Hctz 37.5-25 Mg Tb (Triamterene/Hydrochlorothiazid) 1 Each Tablet 1 Tab PO DAILY Cyclobenzaprine Hcl 10 Mg Tablet 1 Tab PO TID PRN Hydroxyzine Hcl 25 Mg Tablet 1 Tab PO BID Isosorbide Mononitrate Er (Isosorbide Mononitrate) 30 Mg Tab.er.24h 1 Tab PO DAILY Loratadine 10 Mg Tablet 1 Tab PO DAILY Carvedilol 25 Mg Tablet 1 Tab PO DAILY Hydrochlorothiazide Tablet (Hydrochlorothiazide) 25 Mg Tablet 1 Tab PO DAILY Simvastatin 20 Mg Tablet 1 Tab PO QHS Glyburide 5 Mg Tablet 1 Tab PO BID Potassium Chloride 20 Meq Tablet.er 20 Meq PO DAILY Montelukast Sodium Tablet (Montelukast Sodium) 10 Mg Tablet 1 Tab PO DAILY Vitals/I & O Vital Sign - Last 24 Hours 06/06/18 06/06/18 06/06/18 06/06/18 15:40 19:27 20:00 22:08 Temp 98.1 98.3 97.4 98.1 98.3 97.4 Pulse 65 66 64 Resp 16 16 16 B/P (MAP) 133/75 (94) 117/45 (69) 142/74 (96) Pulse Ox 99 93 96 O2 Delivery Room Air Room Air Room Air Room Air 06/07/18 06/07/18 06/07/18 06/07/18 02:59 07:00 08:00 08:01 Temp 98.2 97.8 98.2 97.8 Pulse 69 63 Resp 16 16 16 B/P (MAP) 142/73 (96) 142/76 (98) Pulse Ox 93 97 O2 Delivery Room Air Room Air Room Air Room Air 06/07/18 06/07/18 06/07/18 06/07/18 08:30 10:54 11:29 11:32 Temp 98.0 98.0 Pulse 74 74 74 Resp 16 16 B/P (MAP) 188/96 (126) 188/96 188/96 Pulse Ox 96 O2 Delivery Room Air Room Air Intake and Output 06/06/18 06/06/18 06/07/18 15:01 23:01 07:01 Intake Total 1180 ml 300 ml Output Total 250 ml Balance 930 ml 300 ml ANDREA NAVARRO III DO Jun 07, 2018 14:12
--- NOTE | 2018-06-07 14:14 | RAD ---
EXAM: Chest, single view. HISTORY: Chest pain COMPARISON: 10/05/2007 FINDINGS: A frontal view of the chest is obtained. There is no infiltrate, pleural effusion or pneumothorax. The heart is normal in size. IMPRESSION: No acute pulmonary finding. Electronically signed by: Shahla Montelongo MD (06/07/2018 2:09 PM) [id number]
[2018-06-07 14:53] VITALS: BP 148/68
--- NOTE | 2018-06-07 15:23 | RAD ---
MR#: [id number] Date of Study: 06/07/2018 Ordering Physician: ANGELA BEAUCHAMP, Referring Physician: BRADEN PAREDES Tech: YADIRA Pena APPROVED REPORT Test Type: Pharmacological Stress Nurse/Tech: Krystal SCHMITT Test Indications: CP Cardiac History: CAD? Stents?, smoker, cva Medications: See EMR Medical History: Liver CA 20yrs ago, COPD, DM, Sickle cell trait Resting ECG: SR Resting Heart Rate: 60 bpm Resting Blood Pressure: 160/90mmHg Pretest Chest Pain: No chest pain Nurse/Tech Notes Lungs CTA, Heart tones regular Consent: The procedure was explained to the patient in lay terms. Informed consent was witnessed. Tee eout was entered into [employer]. History and Stress Test performed by RIGOBERTO Nieves, TRINA (R) (N) Pharm. Details Pharmacologic stress testing was performed using 0.4mg per 5ml of regadenoson given intravenously ove r 7-10 seconds. Stress Symptoms No chest pain or symptoms. POST EXERCISE Reason for Termination: Infusion complete Max HR: 90 bpm Max Blood Pressure: 158/79mmHg Chest Pain: No. Arrhythmia: No. ST Change: No. INTERPRETATION Stress EKG Conclusion: No evidence of stress induced EKG changes. Imaging Protocol IMAGE PROTOCOL: Stress Tc-99m/rest Tc-99m 2 days Rest: Stress: Viability: Radiopharm.Tc99m Sestamibi [id number] Duration 16min. Img Date 06/07/2018 Inj-Img [id number]. Stress Admin Site: IV - Right AntecubitalAdministrator: RIGOBERTO Nieves, TRINA (R)(N) STRESS DATA End Diast. Vol.109.0mlAv. Heart Rate69.0bpm LVEDV index BSA53.0mlCardiac Output2.2L/min End Syst. Vol.43.0mlCO Index BSA4.5L/min LVESV index BSA21.0mlMyocardial Ghmp354.0g Eject. Occfekbp06.0% Stress Scores Regional WT0.00Summed WT3.00 Regional WM0.00Summed WM2.00 LV Perfusion Normal perfusion at stress Wall Motion Normal wall motion. LV Perf. Quant 17 Seg. SSS0.00 Stress Defect Extent (% LAD)3.10Rest Defect Extent (% LAD)Rev. Defect Extent (% LAD)0.00 Stress Defect Extent (% LCX) 0.00Rest Defect Extent (% LCX)Rev. Defect Extent (% LCX)0.00 Stress Defect Extent (% RCA)0.00Rest Defect Extent (% RCA)Rev. Defect Extent (% RCA)0.00 Stress Defect Extent (% QUINTON)1.10Rest Defect Extent (% QUINTON)Rev. Defect Extent (% QUINTON)0.00 Other Information Quality:Good Risk Assessment: Low Risk Conclusion 1. No evidence of stress induced EKG changes. 2. Normal perfusion at stress. Rest images not obtained. 3. Normal EF at > 61% 4. Low risk study Signed by : Jonathan Ash, Electronically Approved : 06/07/2018 15:21:25
--- NOTE | 2018-06-07 16:16 | PDOC ---
CARDIO Progress Notes Date and Time Date of Service 06/07/18 Time of Evaluation 1405 Subjective Subjective: No Chest Pain, No shortness of breath Vitals Vitals Vital Signs Date Time Temp Pulse Resp B/P (MAP) Pulse Ox O2 Delivery O2 Flow Rate FiO2 06/07/18 14:53 97.9 62 16 148/68 (94) 95 Room Air 97.9 Weight Weight [ ] Input and Output Intake and Output Intake and Output 06/07/18 07:01 Intake Total 1480 ml Output Total 250 ml Balance 1230 ml Intake Oral 1480 ml Output Urine Total 250 ml # Voids 2 Laboratory Labs Laboratory Tests Test 06/06/18 21:29 06/06/18 21:52 06/07/18 03:00 06/07/18 07:50 Glucose (Fingerstick) 61 mg/dL (70-99) 77 mg/dL (70-99) 81 mg/dL (70-99) White Blood Count 7.1 x10^3/uL (4.0-11.0) Red Blood Count 4.88 x10^6/uL (3.50-5.40) Hemoglobin 13.7 g/dL (12.0-15.5) Hematocrit 41.4 % (36.0-47.0) Mean Corpuscular Volume 85 fL (79-100) Mean Corpuscular Hemoglobin 28 pg (25-35) Mean Corpuscular Hemoglobin Concent 33 g/dL (31-37) Red Cell Distribution Width 15.3 % (11.5-14.5) Platelet Count 181 x10^3/uL (140-400) Neutrophils (%) (Auto) 47 % (31-73) Lymphocytes (%) (Auto) 45 % (24-48) Monocytes (%) (Auto) 6 % (0-9) Eosinophils (%) (Auto) 2 % (0-3) Basophils (%) (Auto) 0 % (0-3) Neutrophils # (Auto) 3.4 x10^3uL (1.8-7.7) Lymphocytes # (Auto) 3.2 x10^3/uL (1.0-4.8) Monocytes # (Auto) 0.4 x10^3/uL (0.0-1.1) Eosinophils # (Auto) 0.1 x10^3/uL (0.0-0.7) Basophils # (Auto) 0.0 x10^3/uL (0.0-0.2) Sodium Level 143 mmol/L (136-145) Potassium Level 3.5 mmol/L (3.5-5.1) Chloride Level 107 mmol/L (98-107) Carbon Dioxide Level 26 mmol/L (21-32) Anion Gap 10 (6-14) Blood Urea Nitrogen 13 mg/dL (7-20) Creatinine 0.8 mg/dL (0.6-1.0) Estimated GFR (Cockcroft-Gault) 90.4 Glucose Level 67 mg/dL (70-99) Calcium Level 9.6 mg/dL (8.5-10.1) Test 06/07/18 11:40 Glucose (Fingerstick) 143 mg/dL (70-99) Physical Exam HEENT: Neck Supple W Full Motion Chest: Symmetric LUNGS: Clear to Auscultation Heart: S1S2, RRR, no murmurs Abdomen: Soft N/T Extremities: No Edema Neurology: alert, oriented, follow commands Assessment Assessment 1. Chest pain, atypical. Trop series WNL- AMI ruled out. MPI today to r/o underlying ischemia. If WNL, may discharge from a CV standpoint. 2. Accelerated hypertension; labile; BP meds held this am due to MPI. Monitor to assess need for therapy titration 3. Hyperlipidemia; statin 4. Diabetes, II; as per PCP FELICITAS LEAL APRN Jun 07, 2018 16:16
--- NOTE | 2018-06-07 16:27 | DS ---
DATE OF DISCHARGE: 06/07/2018 ADMISSION DIAGNOSIS: Chest pain. DISCHARGE DIAGNOSIS: Atypical chest pain. CONSULTS: Cardiology. PROCEDURES: Cardiac stress test, which was negative. HOSPITAL COURSE: The patient is a pleasant 52-year-old female who presented to the ER with chest pain. She was admitted. We checked serial enzymes, serial EKGs. We consulted Cardiology. This morning I saw and examined her. She was doing well. We did a stress test, is negative. I just discussed the case with the nurse. We are going to let the patient go home and have her follow up closely with her primary care doctor. DISPOSITION: Home. ACTIVITY: As tolerated. DIET: Low sodium. MEDICATIONS: Please see the MRAD. TOTAL TIME: 32 minutes. ANDREA NAVARRO DO DR: ROBBIN/maggy JOB#: [id number] / [id number]
--- NOTE | 2018-06-07 16:59 | NUR ---
Discharge instructions reviewed with patient including follow ups. Patient verbalized understanding. Patient discharging home with self care.
[2018-06-07] MEDS ORDERED: ENOXAPARIN 40 MG/0.4 ML SYRINGE. SQ SCH (21:00)
--- NOTE | 2018-06-08 10:38 | EKG ---
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
== END 2018-06-07 17:04 | disposition home or self-care (01) | DRG 305 ==
LOC: ER 14:37 → 2 NORTH 17:08
PROVIDERS: ADMIT Internal Medicine; ATTEND Internal Medicine
DX: I16.0 Hypertensive urgency (principal); Z68.41 Body mass index [BMI] 40.0-44.9, adult; R07.89 Other chest pain; E11.9 Type 2 diabetes mellitus without complications; E66.01 Morbid (severe) obesity due to excess calories; E78.5 Hyperlipidemia, unspecified; I11.0 Hypertensive heart disease with heart failure; I25.10 Atherosclerotic heart disease of native coronary artery without angina pectoris; J44.9 Chronic obstructive pulmonary disease, unspecified; I50.9 Heart failure, unspecified; M19.90 Unspecified osteoarthritis, unspecified site; K21.9 Gastro-esophageal reflux disease without esophagitis; Z82.49 Family history of ischemic heart disease and other diseases of the circulatory system; Z86.73 Personal history of transient ischemic attack (TIA), and cerebral infarction without residual deficits; Z95.5 Presence of coronary angioplasty implant and graft; Z85.05 Personal history of malignant neoplasm of liver; Z87.01 Personal history of pneumonia (recurrent); Z98.51 Tubal ligation status; I25.2 Old myocardial infarction; Z88.8 Allergy status to other drugs, medicaments and biological substances; Z88.0 Allergy status to penicillin; Z91.013 Allergy to seafood
CPT/HCPCS: 36415; 71045; 78452; 80048; 80053; 81001; 82962; 83690; 83735; 83880; 84484; 85025; 93005; 93017; 96361; 96374; 96375; 96376; A9500; J0780; J1650; J1815; J2270; J2405; J2785; J7030; Q0177; 99285-25

== ENCOUNTER 2018-07-27 12:46 | Emergency (ER) | payer OTHER ==
[~2018-07-27] VITALS: Ht 157.5 cm; Wt 107.5 kg
[~2018-07-27 12:46] MED LIST changes: +ALPR2TAB5 PO; +ASPI-861 PO; +HYDR25TA10 PO; +IPRA3AMP29 INH; +OXYC-411 PO; +RANI300T PO; +TEMA30CA PO
[2018-07-27] MEDS ORDERED: LIDO:MAALOX 1:1 20 ML SINGLE DOSE. SWSW ONE (13:30)
[2018-07-27] MEDS ORDERED: ASPIRIN 325 MG TABLET PO ONE (13:30)
[2018-07-27] MEDS ORDERED: ONDANSETRON PF 4 MG/2 ML VIAL. IV ONE (13:30)
--- NOTE | 2018-07-27 13:37 | EKG ---
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
[2018-07-27 13:39] LABS: BASO % 0 % (0-3); EOS # 0.1 x10^3/uL (0.0-0.7); EOS % 1 % (0-3); HEMATOCRIT 45.2 % (36.0-47.0); HEMOGLOBIN 15.5 g/dL (12.0-15.5); LYMPH # 2.7 x10^3/uL (1.0-4.8); LYMPH % 40 % (24-48); MEAN CORPUSCULAR HEMOGLOBIN 29 pg (25-35); MEAN CORPUSCULAR HGB CONC 34 g/dL (31-37); MEAN CORPUSCULAR VOLUME 84 fL (79-100); MONO # 0.5 x10^3/uL (0.0-1.1); MONO % 7 % (0-9); NEUT # 3.4 x10^3uL (1.8-7.7); NEUT % 51 % (31-73); PLATELET COUNT 180 x10^3/uL (140-400); RED BLOOD COUNT 5.39 x10^6/uL (3.50-5.40); RED CELL DISTRIBUTION WIDTH 14.8 % (11.5-14.5); WHITE BLOOD COUNT 6.7 x10^3/uL (4.0-11.0)
[2018-07-27 13:43] LABS: PROTHROMBIN TIME PATIENT 12.6 SEC (11.7-14.0)
[2018-07-27 13:50] LABS: CALCIUM 9.4 mg/dL (8.5-10.1); CREATININE 0.8 mg/dL (0.6-1.0); GFR 90.4; POTASSIUM 3.6 mmol/L (3.5-5.1)
[2018-07-27 14:02] LABS: ALBUMIN 3.6 g/dL (3.4-5.0); ALBUMIN/GLOBULIN RATIO 0.9 (1.0-1.7); TOTAL BILIRUBIN 0.7 mg/dL (0.2-1.0); TOTAL PROTEIN 7.8 g/dL (6.4-8.2)
--- NOTE | 2018-07-27 14:12 | RAD ---
Single view of the chest. 07/27/2018 1:25 PM Indication: CHEST PAIN X 1 WEEK Comparison: Chest radiograph June 05, 2018 Findings: There is no focal consolidation. There is no pleural effusion or pneumothorax. The cardiomediastinal silhouette and pulmonary vasculature are within normal limits. No acute osseous abnormalities are seen. Impression: No evidence of acute cardiopulmonary process. Electronically signed by: Tony Piper MD (07/27/2018 2:07 PM) [id number]
--- NOTE | 2018-07-27 15:33 | PHYS DOC ---
Past Medical History Past Medical History: Asthma, Bronchitis, Cancer, CHF, COPD, CVA, Diabetes- Type II, GERD, Heart Disease, Hypertension, [place], Pancreatitis, Pneumonia, Other Additional Past Medical Histor: Liver Cancer treated with medication Past Surgical History: Angioplasty, Tubal ligation, Other Additional Past Surgical Histo: CARDIAC STENT Alcohol Use: None Drug Use: None Adult General Chief Complaint Chief Complaint: CHEST PAIN-CARDIAC NATURE HPI HPI Patient is a 52 year old female with a history of diabetes type 2, hypertension , asthma, COPD, acid reflex, CVA who presents to the ED today with multiple complaints. Patient states his had coughing for 3 days. She is also complaining of blood when she wiped herself after voiding. She is also complaining of 8 out of 10 substernal chest discomfort, patient states she believes it's a heart set reflex, she states she has taken her acid reflex for 3 days but symptoms are not going away. She states she feels like something is burning in the substernal region. She also states she was at work today and had an episode of dizziness. Patient denies anything specifically relieving any of her symptoms. Denies any fever. Denies any nausea vomiting. Denies any diarrhea. She is also complaining of generalized abdominal pain. Review of Systems Review of Systems Constitutional: Denies fever or chills [] Eyes: Denies change in visual acuity, redness, or eye pain [] HENT: Denies nasal congestion or sore throat [] Respiratory: Reports cough, denies shortness of breath [] Cardiovascular: Reports chest discomfort GI: Reports generalized abdominal pain, denies nausea vomiting or diarrhea : Denies dysuria or hematuria [] Musculoskeletal: Denies back pain or joint pain [] Integument: Denies rash or skin lesions [] Neurologic: Reports dizziness. Denies headache, focal weakness or sensory changes [] All other systems were reviewed and found to be within normal limits, except as documented in this note. Current Medications Current Medications Current Medications Medications (Trade) Dose Ordered Sig/Luz Maria Start Time Stop Time Status Last Admin Dose Admin Aspirin (Acacia Aspirin) 325 mg 1X ONCE 07/27/18 13:30 07/27/18 13:44 DC 07/27/18 14:32 325 MG Morphine Sulfate (Morphine Sulfate) 5 mg 1X ONCE 07/27/18 16:45 07/27/18 16:46 DC 07/27/18 17:00 5 MG Multi-Ingredient Mouthwash/Gargle (Gi Cocktail) 20 ml 1X ONCE 07/27/18 13:30 07/27/18 13:44 DC 07/27/18 14:32 20 ML Ondansetron HCl (Zofran) 4 mg 1X ONCE 07/27/18 13:30 07/27/18 13:44 DC 07/27/18 14:32 4 MG Allergies Allergies Allergies Coded Allergies Type Severity Reaction Last Updated Verified Penicillins Allergy Severe 01/28/17 Yes amoxicillin Allergy Severe anaphylaxis 09/19/13 Yes iodine Allergy Severe Anaphylaxis 09/19/13 Yes shellfish derived Allergy Severe Anaphylaxis 04/09/14 Yes Physical Exam Physical Exam Constitutional: Well developed, well nourished, no acute distress, non-toxic appearance. [] HENT: Normocephalic, atraumatic, bilateral external ears normal, oropharynx moist, no oral exudates, nose normal. [] Eyes: PERRLA, EOMI, conjunctiva normal, no discharge. [] Neck: Normal range of motion, no tenderness, supple, no stridor. [] Cardiovascular:Heart rate regular rhythm, no murmur [] Lungs & Thorax: Bilateral breath sounds clear to auscultation [] Abdomen: Bowel sounds normal, soft, no tenderness, no masses, no pulsatile masses. [] Skin: Warm, dry, no erythema, no rash. [] Back: No tenderness, no CVA tenderness. [] Extremities: No tenderness, no cyanosis, no clubbing, ROM intact, no edema. [] Neurologic: Alert and oriented X 3, normal motor function, normal sensory function, no focal deficits noted. Cranial nerves II through XII intact Psychologic: Affect normal, judgement normal, mood normal. [] Current Patient Data Vital Signs Vital Signs Date Time Temp Pulse Resp B/P (MAP) Pulse Ox O2 Delivery O2 Flow Rate FiO2 07/27/18 17:00 18 98 Room Air 07/27/18 14:34 96 134/85 (101) 07/27/18 12:50 98.1 98.1 Lab Values Laboratory Tests Test 07/27/18 13:12 07/27/18 15:13 White Blood Count 6.7 x10^3/uL (4.0-11.0) Red Blood Count 5.39 x10^6/uL (3.50-5.40) Hemoglobin 15.5 g/dL (12.0-15.5) Hematocrit 45.2 % (36.0-47.0) Mean Corpuscular Volume 84 fL (79-100) Mean Corpuscular Hemoglobin 29 pg (25-35) Mean Corpuscular Hemoglobin Concent 34 g/dL (31-37) Red Cell Distribution Width 14.8 % (11.5-14.5) H Platelet Count 180 x10^3/uL (140-400) Neutrophils (%) (Auto) 51 % (31-73) Lymphocytes (%) (Auto) 40 % (24-48) Monocytes (%) (Auto) 7 % (0-9) Eosinophils (%) (Auto) 1 % (0-3) Basophils (%) (Auto) 0 % (0-3) Neutrophils # (Auto) 3.4 x10^3uL (1.8-7.7) Lymphocytes # (Auto) 2.7 x10^3/uL (1.0-4.8) Monocytes # (Auto) 0.5 x10^3/uL (0.0-1.1) Eosinophils # (Auto) 0.1 x10^3/uL (0.0-0.7) Basophils # (Auto) 0.0 x10^3/uL (0.0-0.2) Prothrombin Time 12.6 SEC (11.7-14.0) Prothrombin Time INR 1.0 (0.8-1.1) Sodium Level 139 mmol/L (136-145) Potassium Level 3.6 mmol/L (3.5-5.1) Chloride Level 99 mmol/L (98-107) Carbon Dioxide Level 27 mmol/L (21-32) Anion Gap 13 (6-14) Blood Urea Nitrogen 14 mg/dL (7-20) Creatinine 0.8 mg/dL (0.6-1.0) Estimated GFR (Cockcroft-Gault) 90.4 BUN/Creatinine Ratio 18 (6-20) Glucose Level 148 mg/dL (70-99) H Calcium Level 9.4 mg/dL (8.5-10.1) Magnesium Level 2.0 mg/dL (1.8-2.4) Total Bilirubin 0.7 mg/dL (0.2-1.0) Aspartate Amino Transferase (AST) 28 U/L (15-37) Alanine Aminotransferase (ALT) 38 U/L (14-59) Alkaline Phosphatase 140 U/L (46-116) H Creatine Kinase 101 U/L (26-192) Creatine Kinase MB (Mass) 0.9 ng/mL (0.0-3.6) Creatine Kinase MB Relative Index 0.9 % (0-4) Troponin I Quantitative < 0.017 ng/mL (0.000-0.055) SL-Lbc-L-Type Natriuretic Peptide 24 pg/mL (0-124) Total Protein 7.8 g/dL (6.4-8.2) Albumin 3.6 g/dL (3.4-5.0) Albumin/Globulin Ratio 0.9 (1.0-1.7) L Lipase 76 U/L (73-393) Thyroid Stimulating Hormone (TSH) 3.214 uIU/mL (0.358-3.74) Urine Collection Type Unknown Urine Color Yellow Urine Clarity Clear Urine pH 6.0 Urine Specific Monson 1.010 Urine Protein Negative mg/dL (NEG-TRACE) Urine Glucose (UA) Negative mg/dL (NEG) Urine Ketones (Stick) Negative mg/dL (NEG) Urine Blood Negative (NEG) Urine Nitrite Negative (NEG) Urine Bilirubin Negative (NEG) Urine Urobilinogen Dipstick 1.0 mg/dL (0.2 mg/dL) Urine Leukocyte Esterase Trace (NEG) Urine RBC 0 /HPF (0-2) Urine WBC Occ /HPF (0-4) Urine Squamous Epithelial Cells Mod /LPF Urine Bacteria Mod /HPF (0-FEW) Urine Opiates Screen Neg (NEG) Urine Methadone Screen Neg (NEG) Urine Barbiturates Neg (NEG) Urine Phencyclidine Screen Neg (NEG) Urine Amphetamine/Methamphetamine Neg (NEG) Urine Benzodiazepines Screen Pos (NEG) Urine Cocaine Screen Neg (NEG) Urine Cannabinoids Screen Neg (NEG) Urine Ethyl Alcohol Neg (NEG) Laboratory Tests 07/27/18 13:12 Laboratory Tests 07/27/18 13:12 EKG EKG EKG interpreted by Dr. Workman sinus rhythm heart rate 96 no STEMI Radiology/Procedures Radiology/Procedures []PROCEDURE: PORTABLE CHEST 1V Single view of the chest. 07/27/2018 1:25 PM Indication: CHEST PAIN X 1 WEEK Comparison: Chest radiograph June 05, 2018 Findings: There is no focal consolidation. There is no pleural effusion or pneumothorax. The cardiomediastinal silhouette and pulmonary vasculature are within normal limits. No acute osseous abnormalities are seen. Impression: No evidence of acute cardiopulmonary process. Electronically signed by: Tony Mcmahon MD (07/27/2018 2:07 PM) [id number] DICTATED and SIGNED BY: TONY MCMAHON MD DATE: 07/27/18 1407 Course & Med Decision Making Course & Med Decision Making Pertinent Labs and Imaging studies reviewed. (See chart for details) This is a 52-year-old female patient presenting to the ED today with multiple complaints including dizziness, cough, abdominal pain, blood when she wiped herself, chest discomfort. EKG was negative. Patient's labs including cardiac workup are negative, CT of the head, CT of the abdomen is negative. Chest x-ray is negative. She states her chest discomfort is actually acid reflex. She states the symptoms are in line with her normal acid reflex. She states she is already on medicine for rate. I communicated results to patient, she states she was at work today and needed a note so she doesn't have to work for the next 3 days. She states all her symptoms are gone and she would like to go home and rest. She states she also has a PCP for follow-up. Patient was discharged to home. Provided a note for work for 3 days. Dragon Disclaimer Dragon Disclaimer This electronic medical record was generated, in whole or in part, using a voice recognition dictation system. Departure Departure Impression: Primary Impression: Dizziness Additional Impressions: Bronchitis GERD (gastroesophageal reflux disease) Disposition: HOME, SELF-CARE Condition: STABLE Referrals: ANETTE WELCH (PCP) follow up in 1 week Patient Instructions: Acute Bronchitis, Dizziness, [id number] Additional Instructions: You were evaluated in the emergency room with multiple complaints. Please continue taking your medications at home as previously prescribed by your own doctor. Please come back to the ED at any point symptoms worsen. Problem Qualifiers Additional Impressions: GERD (gastroesophageal reflux disease) Esophagitis presence: esophagitis presence not specified Qualified Codes: K21.9 - Gastro-esophageal reflux disease without esophagitis RICKY SANTIAGO [employer] Jul 27, 2018 15:33
[2018-07-27 15:47] LABS: BILIRUBIN,URINE NEGATIVE (NEG); CLARITY,URINE CLEAR; COLOR,URINE YELLOW; NITRITE,URINE NEGATIVE (NEG); PROTEIN,URINE NEGATIVE (NEG-TRACE)
[2018-07-27 16:03] LABS: AMPHETAMINE/METHAMPHETAMINE NEG (NEG); BARBITURATES NEG (NEG); BENZODIAZEPINES POS (NEG); CANNABINOIDS NEG (NEG); COCAINE NEG (NEG); METHADONE NEG (NEG); OPIATES NEG (NEG); PHENCYCLIDINE NEG (NEG)
[2018-07-27 16:10] LABS: RBC,URINE 0 /HPF (0-2); WBC,URINE OCC /HPF (0-4)
[2018-07-27 16:11] LABS: BACTERIA,URINE MOD /HPF (0-FEW); SQUAMOUS EPITHELIAL CELL,UR MOD /LPF
[2018-07-27] MEDS ORDERED: MORPHINE SULFATE 10 MG/ML VIAL. IV ONE (16:45)
--- NOTE | 2018-07-27 16:49 | RAD ---
CT HEAD WO CONTRAST Indication: DIZZINESS, PRIOR SENT Exposure: One or more of the following individualized dose reduction techniques were utilized for this examination: 1. Automated exposure control 2. Adjustment of the mA and/or kV according to patient size 3. Use of iterative reconstruction technique. Technique: Standard imaging without intravenous contrast. Comparison with prior images from 04/09/2014, report not available. Posterior fossa unremarkable. No acute intracranial hemorrhage, mass effect, midline shift or abnormal extra-axial fluid collection. Ventricles and sulci are symmetric. Garvin-white matter distinction is maintained. Orbits are grossly unremarkable. No evidence of large scalp hematoma. Partially included sinuses are clear. No acute bone abnormality. IMPRESSION: No evidence of acute intracranial hemorrhage or mass effect. Electronically signed by: Abdullahi Lennon MD (07/27/2018 4:46 PM) [id number]
--- NOTE | 2018-07-27 16:51 | RAD ---
PQRS Compliance statement: One or more of the following individualized dose reduction techniques were utilized for this examination: 1. Automated exposure control. 2. Adjustment of the mA and/or kV according to patient size. 3. Use of iterative reconstruction technique. Indication:ABD PAIN X 1 WEEK, NO PRIORS, IODINE ALLERGY TECHNIQUE: CT abdomen and pelvis without IV contrast with multiplanar reformats. COMPARISON: None FINDINGS: Limited evaluation of solid abdominal and pelvic organs due to lack of IV contrast. Heart is normal in size. No pericardial or pleural effusion. Bibasilar dependent atelectasis. Diffuse hepatic steatosis. Noncontrast appearance of the spleen, pancreas, adrenals within normal limits. Concentrated bile or sludge is seen in the gallbladder. No pericholecystic inflammatory changes or fluid. No nephrolithiasis or hydronephrosis. 1.6 cm partially exophytic lesion is seen in the posterior interpolar left kidney. No enlarged retroperitoneal or pelvic adenopathy. Mild diffuse atherosclerotic disease of the abdominal aorta and bilateral iliac arteries. No free pelvic fluid or ascites. No bowel obstruction. Normal appendix. Uterus is present. Urinary bladder demonstrates no radiopaque stones. No suspicious bony lesion. IMPRESSION: Limited evaluation of solid abdominal and pelvic organs due to lack of IV contrast. 1. No bowel obstruction. Normal appendix. 2. No nephrolithiasis or hydronephrosis. 3. Couple of left renal lesion, indeterminate. Nonemergent ultrasound of the left kidney recommended. Electronically signed by: Daryl López DO (07/27/2018 4:49 PM) [facility]
[2018-07-27 17:52] VITALS: BP 165/77
== END 2018-07-27 18:03 | disposition home or self-care (01) ==
LOC: ER 12:46
DX: J44.9 Chronic obstructive pulmonary disease, unspecified (principal); R42 Dizziness and giddiness; K21.9 Gastro-esophageal reflux disease without esophagitis; R07.2 Precordial pain; I11.0 Hypertensive heart disease with heart failure; I50.9 Heart failure, unspecified; I25.2 Old myocardial infarction; Z86.73 Personal history of transient ischemic attack (TIA), and cerebral infarction without residual deficits; Z98.51 Tubal ligation status; Z95.5 Presence of coronary angioplasty implant and graft; Z88.0 Allergy status to penicillin; Z88.1 Allergy status to other antibiotic agents; Z88.8 Allergy status to other drugs, medicaments and biological substances; Z91.013 Allergy to seafood
CPT/HCPCS: 36415; 70450; 71045; 74176; 80053; 80307; 81001; 82553; 83690; 83735; 83880; 84443; 84484; 85025; 85610; 93005; 96374; 96375; 99284; J2270; J2405

== ENCOUNTER 2018-08-11 11:18 | Inpatient (IN) | payer OTHER ==
[~2018-08-11] VITALS: Ht 157.5 cm; Wt 86.2 kg
--- NOTE | 2018-08-11 11:59 | PHYS DOC ---
Past Medical History Past Medical History: Asthma, Bronchitis, Cancer, CHF, COPD, CVA, Diabetes- Type II, GERD, Heart Disease, Hypertension, [place], Pancreatitis, Pneumonia, Other Additional Past Medical Histor: Liver Cancer treated with medication Past Surgical History: Angioplasty, Tubal ligation, Other Additional Past Surgical Histo: CARDIAC STENT Smoking: Cigarettes Alcohol Use: None Drug Use: None Adult General Chief Complaint Chief Complaint: MULTIPLE COMPLAINTS HPI HPI Patient is a 52 year old female who presents with chest pain. Patient states the chest pain started 3 days ago and is located substernally. She describes pain as a pressure sensation that radiates into her left arm. She rates the pain as a 10 out of 10. She states she took her medicine and when she woke up it was 3 days later. Nothing seems to make her pain better or worse. She states that she had similar chest pain 3 weeks ago when she was admitted and worked up. However, this chest pain is worse than the incident 3 weeks ago. She denies any unilateral leg swelling, hemoptysis, diaphoresis, lightheadedness, or dizziness. Review of Systems Review of Systems Constitutional: Denies fever or chills Eyes: Denies change in visual acuity, or eye pain. HENT: Denies nasal congestion or sore throat Respiratory: Denies cough or shortness of breath Cardiovascular: Reports chest pain. Denies palpitations. GI: Reports abdominal pain, nausea. Denies vomiting. : Denies dysuria or hematuria Musculoskeletal: Reports lower back pain. Denies joint pain Integument: Denies rash or skin lesions Neurologic: Denies headache or focal weakness Complete systems were reviewed and found to be within normal limits, except as documented in this note. Current Medications Current Medications Current Medications Medications (Trade) Dose Ordered Sig/[facility] Start Time Stop Time Status Last Admin Dose Admin Aspirin (Acacia Aspirin) 325 mg 1X ONCE 08/11/18 12:00 08/11/18 12:01 DC Dextrose (Dextrose 50%-Water Syringe) 12.5 gm PRN Q15MIN PRN 08/11/18 13:30 Fentanyl Citrate (Fentanyl 2ml Vial) 50 mcg PRN Q2HRS PRN 08/11/18 13:30 Ondansetron HCl (Zofran) 4 mg PRN Q8HRS PRN 08/11/18 13:30 08/12/18 13:29 Allergies Allergies Allergies Coded Allergies Type Severity Reaction Last Updated Verified Penicillins Allergy Severe 01/28/17 Yes amoxicillin Allergy Severe anaphylaxis 09/19/13 Yes iodine Allergy Severe Anaphylaxis 09/19/13 Yes shellfish derived Allergy Severe Anaphylaxis 04/09/14 Yes Physical Exam Physical Exam Constitutional: Well developed, well nourished, no acute distress, non-toxic appearance. HENT: Normocephalic, atraumatic, oropharynx moist. Eyes: EOMI, conjunctiva normal, no discharge. Neck: Normal range of motion, supple, no stridor. Cardiovascular:Heart rate regular rhythm, no murmur, no tenderness to palpation of sternum Lungs & Thorax: Bilateral breath sounds clear to auscultation Abdomen: Bowel sounds normal, soft, epigastric tenderness, no peritoneal sings, no rebound, rigidity, or guarding. Skin: No erythema, no rash. Back: No tenderness, no CVA tenderness. Extremities: No cyanosis, no clubbing, no edema. Neurologic: Alert and oriented X 3, normal motor function, no focal deficits noted. Psychologic: Affect normal, mood normal. Current Patient Data Vital Signs Vital Signs Date Time Temp Pulse Resp B/P (MAP) Pulse Ox O2 Delivery O2 Flow Rate FiO2 08/11/18 11:22 98.1 73 20 123/79 (94) 97 Room Air 98.1 Lab Values Laboratory Tests Test 08/11/18 12:00 White Blood Count 6.6 x10^3/uL (4.0-11.0) Red Blood Count 5.17 x10^6/uL (3.50-5.40) Hemoglobin 14.4 g/dL (12.0-15.5) Hematocrit 42.9 % (36.0-47.0) Mean Corpuscular Volume 83 fL (79-100) Mean Corpuscular Hemoglobin 28 pg (25-35) Mean Corpuscular Hemoglobin Concent 34 g/dL (31-37) Red Cell Distribution Width 14.6 % (11.5-14.5) H Platelet Count 177 x10^3/uL (140-400) Neutrophils (%) (Auto) 56 % (31-73) Lymphocytes (%) (Auto) 36 % (24-48) Monocytes (%) (Auto) 6 % (0-9) Eosinophils (%) (Auto) 1 % (0-3) Basophils (%) (Auto) 1 % (0-3) Neutrophils # (Auto) 3.7 x10^3uL (1.8-7.7) Lymphocytes # (Auto) 2.4 x10^3/uL (1.0-4.8) Monocytes # (Auto) 0.4 x10^3/uL (0.0-1.1) Eosinophils # (Auto) 0.1 x10^3/uL (0.0-0.7) Basophils # (Auto) 0.0 x10^3/uL (0.0-0.2) Prothrombin Time 13.8 SEC (11.7-14.0) Prothrombin Time INR 1.1 (0.8-1.1) PTT 28 SEC (24-38) D-Dimer (Nalini) 0.55 ug/mlFEU (0.00-0.50) H Sodium Level 139 mmol/L (136-145) Potassium Level 3.4 mmol/L (3.5-5.1) L Chloride Level 101 mmol/L (98-107) Carbon Dioxide Level 29 mmol/L (21-32) Anion Gap 9 (6-14) Blood Urea Nitrogen 13 mg/dL (7-20) Creatinine 0.8 mg/dL (0.6-1.0) Estimated GFR (Cockcroft-Gault) 90.4 BUN/Creatinine Ratio 16 (6-20) Glucose Level 96 mg/dL (70-99) Calcium Level 9.3 mg/dL (8.5-10.1) Magnesium Level 2.2 mg/dL (1.8-2.4) Total Bilirubin 0.7 mg/dL (0.2-1.0) Aspartate Amino Transferase (AST) 18 U/L (15-37) Alanine Aminotransferase (ALT) 20 U/L (14-59) Alkaline Phosphatase 126 U/L (46-116) H Creatine Kinase 121 U/L (26-192) Creatine Kinase MB (Mass) 0.6 ng/mL (0.0-3.6) Creatine Kinase MB Relative Index 0.5 % (0-4) Troponin I Quantitative < 0.017 ng/mL (0.000-0.055) CM-Gml-I-Type Natriuretic Peptide 24 pg/mL (0-124) Total Protein 7.7 g/dL (6.4-8.2) Albumin 3.9 g/dL (3.4-5.0) Albumin/Globulin Ratio 1.0 (1.0-1.7) Lipase 70 U/L (73-393) L Laboratory Tests 08/11/18 12:00 Laboratory Tests 08/11/18 12:00 EKG EKG EKG performed at 1128 had a heart rate of 66 bpm, no ST elevation or signs of ischemia. Due to underlying artifact A flutter cannot be completely ruled out. Radiology/Procedures Radiology/Procedures PROCEDURE: CHEST PA & LATERAL AP and Lateral Views of the Chest 08/11/2018 11:48 AM Indication: CHEST PAIN X 4 DAYS Comparison: Chest radiograph July 27, 2018 Findings: Mild opacity left lung base could represent mild atelectasis or infiltrate. Lungs are otherwise grossly clear. No pneumothorax or pleural effusion is seen. Bony thorax is intact. Heart size is normal. IMPRESSION: Very mild left basilar atelectasis or infiltrate . Radiographic follow-up to ensure complete resolution recommended Electronically signed by: Tony Piper MD (08/11/2018 12:16 PM) [facility] Course & Med Decision Making Course & Med Decision Making 52-year-old female presents emergency Department due to substernal chest pain that started 3 days ago that she describes as a pressure/crushing sensation. Per patient does have history of coronary artery disease and previous stents. She was seen 2 months ago for similar pain and was admitted at this time. During her admission she underwent MPI did not show any signs of ischemia. Labs and imaging were obtained and posted to chart. Initial troponin was negative. D-dimer was elevated. Patient has contrast allergy so scheduled a VQ scan. Patient's heart score is a 5. DTRs score, elevated d-dimer, and history of heart disease patient will be admitted for further evaluation. Patient requiring admission for further evaluation and treatment. Discussed with ( hospitalist) who is in agreement with admission. Discussed findings and plan with patient and family, who acknowledge understanding and agreement. Dragon Disclaimer Dragon Disclaimer This electronic medical record was generated, in whole or in part, using a voice recognition dictation system. Departure Departure Referrals: ANETTE WELCH (PCP) LUDA VANESSA DO Aug 11, 2018 11:59
[2018-08-11] MEDS ORDERED: ASPIRIN 325 MG TABLET PO ONE (12:00)
[2018-08-11 12:07] LABS: BASO % 1 % (0-3); EOS # 0.1 x10^3/uL (0.0-0.7); EOS % 1 % (0-3); HEMATOCRIT 42.9 % (36.0-47.0); HEMOGLOBIN 14.4 g/dL (12.0-15.5); LYMPH # 2.4 x10^3/uL (1.0-4.8); LYMPH % 36 % (24-48); MEAN CORPUSCULAR HEMOGLOBIN 28 pg (25-35); MEAN CORPUSCULAR HGB CONC 34 g/dL (31-37); MEAN CORPUSCULAR VOLUME 83 fL (79-100); MONO # 0.4 x10^3/uL (0.0-1.1); MONO % 6 % (0-9); NEUT # 3.7 x10^3uL (1.8-7.7); NEUT % 56 % (31-73); PLATELET COUNT 177 x10^3/uL (140-400); RED BLOOD COUNT 5.17 x10^6/uL (3.50-5.40); RED CELL DISTRIBUTION WIDTH 14.6 % (11.5-14.5); WHITE BLOOD COUNT 6.6 x10^3/uL (4.0-11.0)
[2018-08-11 12:17] LABS: CALCIUM 9.3 mg/dL (8.5-10.1); CREATININE 0.8 mg/dL (0.6-1.0); GFR 90.4; POTASSIUM 3.4 mmol/L (3.5-5.1)
[2018-08-11 12:18] LABS: PROTHROMBIN TIME PATIENT 13.8 SEC (11.7-14.0)
--- NOTE | 2018-08-11 12:18 | RAD ---
AP and Lateral Views of the Chest 08/11/2018 11:48 AM Indication: CHEST PAIN X 4 DAYS Comparison: Chest radiograph July 27, 2018 Findings: Mild opacity left lung base could represent mild atelectasis or infiltrate. Lungs are otherwise grossly clear. No pneumothorax or pleural effusion is seen. Bony thorax is intact. Heart size is normal. IMPRESSION: Very mild left basilar atelectasis or infiltrate . Radiographic follow-up to ensure complete resolution recommended Electronically signed by: Tony Piper MD (08/11/2018 12:16 PM) [facility]
[2018-08-11 12:25] LABS: ALBUMIN 3.9 g/dL (3.4-5.0); MAGNESIUM 2.2 mg/dL (1.8-2.4); TOTAL BILIRUBIN 0.7 mg/dL (0.2-1.0); TOTAL PROTEIN 7.7 g/dL (6.4-8.2)
--- NOTE | 2018-08-11 12:25 | EKG ---
[facility] [address] [place] [address] Test Date: 2018-08-11 Test Time: 11:28:30 Pat Name: SAVAGE MONSIVAIS Department: Room: Gender: F [employer]er: : 1965 Requested By: LUDA VANESSA Order Number: [id number] Reading MD: Feliciano Ovalle Measurements Intervals Rupert Rate: 66 P: HI: QRS: 18 QRSD: 74 T: 20 QT: 402 QTc: 423 Interpretive Statements SINUS RHYTHM Electronically Signed On 08-16-2018 13:22:17 CDT by Feliciano Ovalle
[2018-08-11] MEDS ORDERED: fentaNYL PF VIAL 100 MCG/2 ML VIAL IV PRN (13:30)
[2018-08-11] MEDS ORDERED: fentaNYL PF VIAL 100 MCG/2 ML VIAL IV ONE (13:30)
[2018-08-11] MEDS ORDERED: DEXTROSE 50% 25 GM / 50ML DISP.SYRIN. IV PRN (13:30)
[2018-08-11] MEDS ORDERED: ONDANSETRON PF 4 MG/2 ML VIAL. IV PRN (13:30)
[2018-08-11] MEDS ORDERED: CYCLOBENZAPRINE 10 MG TABLET. PO PRN (16:00)
--- NOTE | 2018-08-11 16:08 | PDOC1 ---
History and Physical Date of Admission Date of Admission DATE: 08/11/18 TIME: 15:58 Identification/Chief Complaint Chief Complaint chest pain Problems: (1) Chest pain Source Source: Chart review, Patient History of Present Illness History of Present Illness 52 year old with hx of hypertension, hyperlipidemia and diabetes mellitus who presents with 4 day hx of constant substernal CP with no alleviating or exacerbating factors. no hx of drug use, no hx of trauma. hx of GERD on H2 kate. denies hx of gastritis, etoh, PUD. no nausea or vomiting,. takes ASA daily. recently here 2 months ago for chest pain, had negative nuclear stress test. in ED patient had had negative EKG and trop. hospitalst called for admission. Past Medical History Cardiovascular: CAD, HTN, Hyperlipidemia Pulmonary: Bronchitis GI: GERD Hepatobiliary: Other Musculoskeletal: low back pain, Osteoarthritis Endocrine: Diabetes Past Surgical History Past Surgical History: Other Family History Family History: High Cholestrol, Hypertension Social History Smoke: No ALCOHOL: social Drugs: None Current Medications Current Medications Current Medications Aspirin (Acacia Aspirin) 325 mg 1X ONCE PO ; Start 08/11/18 at 12:00; Stop 08/11 at 12:01; Status DC Fentanyl Citrate (Fentanyl 2ml Vial) 50 mcg 1X ONCE IV Last administered on at 13:53; Start 08/11/18 at 13:30; Stop 08/11/18 at 13:31; Status DC Ondansetron HCl (Zofran) 4 mg PRN Q8HRS PRN IV NAUSEA/VOMITING; Start 08/11/18 at 13:30; Stop 08/12/18 at 13:29 Fentanyl Citrate (Fentanyl 2ml Vial) 50 mcg PRN Q2HRS PRN IV MILD PAIN; Start 08/11/18 at 13:30 Insulin Human Lispro (HumaLOG) 0-5 UNITS TIDWMEALS SQ ; Start 08/11/18 at 17:00 Dextrose (Dextrose 50%-Water Syringe) 12.5 gm PRN Q15MIN PRN IV SEE COMMENTS; Start 08/11/18 at 13:30 Active Scripts Active Acetaminophen 325 Mg Capsule 325 Mg PO QID 5 Days Reported Ranitidine Hcl 300 Mg Tablet 300 Mg PO PRN DAILY PRN Duoneb 0.5-3(2.5) Mg/3 Ml (Albuterol/Ipratropium) 3 Ml Ampul.neb 3 Ml INH [id number] Lo-Dose Aspirin Ec (Aspirin) 81 Mg Tablet.dr 81 Mg PO DAILY Hydrochlorothiazide 25 Mg Tablet 1 Tab PO DAILY Alprazolam 2 Mg Tablet 1 Tab PO PRN Q8HRS PRN Temazepam 30 Mg Capsule 1 Tab PO HS Oxycodone-Acetaminophen 10-325 (Oxycodone Hcl/Acetaminophen) 1 Each Tablet 1 Tab PO PRN Q6HRS PRN Triamterene-Hctz 37.5-25 Mg Tb (Triamterene/Hydrochlorothiazid) 1 Each Tablet 1 Tab PO DAILY Cyclobenzaprine Hcl 10 Mg Tablet 1 Tab PO TID PRN Hydroxyzine Hcl 25 Mg Tablet 1 Tab PO BID Isosorbide Mononitrate Er (Isosorbide Mononitrate) 30 Mg Tab.er.24h 1 Tab PO DAILY Loratadine 10 Mg Tablet 1 Tab PO DAILY Carvedilol 25 Mg Tablet 1 Tab PO DAILY Hydrochlorothiazide Tablet (Hydrochlorothiazide) 25 Mg Tablet 1 Tab PO DAILY Simvastatin 20 Mg Tablet 1 Tab PO QHS Glyburide 5 Mg Tablet 1 Tab PO BID Potassium Chloride 20 Meq Tablet.er 20 Meq PO DAILY Montelukast Sodium Tablet (Montelukast Sodium) 10 Mg Tablet 1 Tab PO DAILY Allergies Allergies: Coded Allergies: Penicillins (Verified Allergy, Severe, 01/28/17) amoxicillin (Verified Allergy, Severe, anaphylaxis, 09/19/13) iodine (Verified Allergy, Severe, Anaphylaxis, 09/19/13) Patient allergic to Seafood shellfish derived (Verified Allergy, Severe, Anaphylaxis, 04/09/14) ROS Review of System CONSTITUTIONAL: No fever or chills EYES: No recent changes SKIN: No rash or itching CARDIOVASCULAR: No chest pain, syncope, palpitations, or edema RESPIRATORY: No SOB or cough GASTROINTESTINAL: No nausea, vomiting or abdominal pain NEUROLOGICAL: No headaches or weakness ENDOCRINE: No cold or heat intolerance GENITOURINARY: No urgency or frequency of urination MUSCULOSKELETAL: No back pain or joint pain LYMPHATICS: No enlarged lymph nodes PSYCHIATRIC: No anxiety or depression Physical Exam Physical Exam GENERAL: No apparent distress. Alert and oriented. HEENT: Head normocephalic, atraumatic. NECK: Supple LUNGS: Clear to auscultation. HEART: RRR, S1, S2 present, pulses intact ABDOMEN: Soft, positive bowel sounds. EXTREMITIES: No cyanosis or edema. NEUROLOGIC: Normal speech, normal tone PSYCHIATRIC: Normal affect, normal mood. SKIN: No ulceration. Vitals Vitals Vital Signs Date Time Temp Pulse Resp B/P (MAP) Pulse Ox O2 Delivery O2 Flow Rate FiO2 08/11/18 15:38 70 93/47 (62) 92 Room Air 08/11/18 13:53 16 08/11/18 11:22 98.1 98.1 Labs Labs Laboratory Tests Test 08/11/18 12:00 White Blood Count 6.6 x10^3/uL (4.0-11.0) Red Blood Count 5.17 x10^6/uL (3.50-5.40) Hemoglobin 14.4 g/dL (12.0-15.5) Hematocrit 42.9 % (36.0-47.0) Mean Corpuscular Volume 83 fL (79-100) Mean Corpuscular Hemoglobin 28 pg (25-35) Mean Corpuscular Hemoglobin Concent 34 g/dL (31-37) Red Cell Distribution Width 14.6 % (11.5-14.5) Platelet Count 177 x10^3/uL (140-400) Neutrophils (%) (Auto) 56 % (31-73) Lymphocytes (%) (Auto) 36 % (24-48) Monocytes (%) (Auto) 6 % (0-9) Eosinophils (%) (Auto) 1 % (0-3) Basophils (%) (Auto) 1 % (0-3) Neutrophils # (Auto) 3.7 x10^3uL (1.8-7.7) Lymphocytes # (Auto) 2.4 x10^3/uL (1.0-4.8) Monocytes # (Auto) 0.4 x10^3/uL (0.0-1.1) Eosinophils # (Auto) 0.1 x10^3/uL (0.0-0.7) Basophils # (Auto) 0.0 x10^3/uL (0.0-0.2) Prothrombin Time 13.8 SEC (11.7-14.0) Prothromb Time International Ratio 1.1 (0.8-1.1) Activated Partial Thromboplast Time 28 SEC (24-38) D-Dimer (Nalini) 0.55 ug/mlFEU (0.00-0.50) Sodium Level 139 mmol/L (136-145) Potassium Level 3.4 mmol/L (3.5-5.1) Chloride Level 101 mmol/L (98-107) Carbon Dioxide Level 29 mmol/L (21-32) Anion Gap 9 (6-14) Blood Urea Nitrogen 13 mg/dL (7-20) Creatinine 0.8 mg/dL (0.6-1.0) Estimated GFR (Cockcroft-Gault) 90.4 BUN/Creatinine Ratio 16 (6-20) Glucose Level 96 mg/dL (70-99) Calcium Level 9.3 mg/dL (8.5-10.1) Magnesium Level 2.2 mg/dL (1.8-2.4) Total Bilirubin 0.7 mg/dL (0.2-1.0) Aspartate Amino Transf (AST/SGOT) 18 U/L (15-37) Alanine Aminotransferase (ALT/SGPT) 20 U/L (14-59) Alkaline Phosphatase 126 U/L (46-116) Creatine Kinase 121 U/L (26-192) Creatine Kinase MB (Mass) 0.6 ng/mL (0.0-3.6) Creatine Kinase MB Relative Index 0.5 % (0-4) Troponin I Quantitative < 0.017 ng/mL (0.000-0.055) [id number]-Type Natriuretic Peptide 24 pg/mL (0-124) Total Protein 7.7 g/dL (6.4-8.2) Albumin 3.9 g/dL (3.4-5.0) Albumin/Globulin Ratio 1.0 (1.0-1.7) Lipase 70 U/L (73-393) Laboratory Tests Test 08/11/18 12:00 White Blood Count 6.6 x10^3/uL (4.0-11.0) Red Blood Count 5.17 x10^6/uL (3.50-5.40) Hemoglobin 14.4 g/dL (12.0-15.5) Hematocrit 42.9 % (36.0-47.0) Mean Corpuscular Volume 83 fL (79-100) Mean Corpuscular Hemoglobin 28 pg (25-35) Mean Corpuscular Hemoglobin Concent 34 g/dL (31-37) Red Cell Distribution Width 14.6 % (11.5-14.5) Platelet Count 177 x10^3/uL (140-400) Neutrophils (%) (Auto) 56 % (31-73) Lymphocytes (%) (Auto) 36 % (24-48) Monocytes (%) (Auto) 6 % (0-9) Eosinophils (%) (Auto) 1 % (0-3) Basophils (%) (Auto) 1 % (0-3) Neutrophils # (Auto) 3.7 x10^3uL (1.8-7.7) Lymphocytes # (Auto) 2.4 x10^3/uL (1.0-4.8) Monocytes # (Auto) 0.4 x10^3/uL (0.0-1.1) Eosinophils # (Auto) 0.1 x10^3/uL (0.0-0.7) Basophils # (Auto) 0.0 x10^3/uL (0.0-0.2) Prothrombin Time 13.8 SEC (11.7-14.0) Prothromb Time International Ratio 1.1 (0.8-1.1) Activated Partial Thromboplast Time 28 SEC (24-38) D-Dimer (Nalini) 0.55 ug/mlFEU (0.00-0.50) Sodium Level 139 mmol/L (136-145) Potassium Level 3.4 mmol/L (3.5-5.1) Chloride Level 101 mmol/L (98-107) Carbon Dioxide Level 29 mmol/L (21-32) Anion Gap 9 (6-14) Blood Urea Nitrogen 13 mg/dL (7-20) Creatinine 0.8 mg/dL (0.6-1.0) Estimated GFR (Cockcroft-Gault) 90.4 BUN/Creatinine Ratio 16 (6-20) Glucose Level 96 mg/dL (70-99) Calcium Level 9.3 mg/dL (8.5-10.1) Magnesium Level 2.2 mg/dL (1.8-2.4) Total Bilirubin 0.7 mg/dL (0.2-1.0) Aspartate Amino Transf (AST/SGOT) 18 U/L (15-37) Alanine Aminotransferase (ALT/SGPT) 20 U/L (14-59) Alkaline Phosphatase 126 U/L (46-116) Creatine Kinase 121 U/L (26-192) Creatine Kinase MB (Mass) 0.6 ng/mL (0.0-3.6) Creatine Kinase MB Relative Index 0.5 % (0-4) Troponin I Quantitative < 0.017 ng/mL (0.000-0.055) NN-Kvf-L-Type Natriuretic Peptide 24 pg/mL (0-124) Total Protein 7.7 g/dL (6.4-8.2) Albumin 3.9 g/dL (3.4-5.0) Albumin/Globulin Ratio 1.0 (1.0-1.7) Lipase 70 U/L (73-393) VTE Prophylaxis Ordered VTE Prophylaxis Devices: Yes VTE Pharmacological Prophylaxi: Yes Assessment/Plan Assessment/Plan A/P: Chest pain, multiple ACS risk factors - DM, HTN, HLD, Morbid obesity. recent stress test negative. suspect GERD related. start PPI therapy. consult cards for further eval elevated d dimer: CTA chest pending HTN: continue home meds Hyperlipidemia - cont statin Diabetes mellitus - continue home meds Morbid obesity - counseled on weight loss, lifestyle FEN - ADA diet, npo after midnight PPX - SCDs FULL CODE await cards eval. MURTAZA MURRY MD Aug 11, 2018 16:08
[2018-08-11 16:10] VITALS: BP 133/74
[2018-08-11] MEDS ORDERED: ALPRAZolam 1 MG TABLET PO PRN (16:15)
[2018-08-11] MEDS: PANTOPRAZOLE 40 MG TABLET.DR. PO SCH (16:30)
[2018-08-11] MEDS: glyBURIDE 5 MG TABLET PO SCH (16:30)
[2018-08-11] MEDS: INSULIN LISPRO 300 UNITS/3 ML INSULN.PEN. SQ SCH (17:00)
[2018-08-11] MEDS: ACETAMINOPHEN 325 MG TABLET. PO SCH ×2 (17:00→20:48)
[2018-08-11] MEDS: IPRATRPIUM/ALBUTEROL 0.5/2.5MG 3 ML NEBU. INH SCH ×2 (17:13→19:39)
--- NOTE | 2018-08-11 17:46 | RAD ---
Nuclear medicine ventilation/perfusion scan: Reason for examination: Elevated d-dimer with chest pain. Comparison is made to chest x-ray dated 08/11/2018. Ventilation scan was performed using 18.5 mCi of xenon-133 gas. Perfusion scan was performed using 5.5 mCi of technetium 99m MAA. Ventilation scan shows normal homogeneous activity on single breath inspiration and equilibrium phase images and good washout. Perfusion scan appears to show perfusion defects posteriorly in the left upper lobe probably in the anterior superior lingular segments and in the left lower lobe density superior segment. There is also suggestion of perfusion defect involving the superior segment of the right lower lobe. IMPRESSION: Normal ventilation scan. Perfusion defects in the left upper lobe in the region of the anterior segment and superior lingular segment, in the left lower lobe superior segment and in the right lower lobe superior segment. Ventilation/perfusion mismatch consistent with high probability of pulmonary embolus. Electronically signed by: Lucy Ram MD (08/11/2018 5:43 PM) [facility]
[2018-08-11] MEDS: oxyCODONE/APAP 10/325 1 TAB TABLET PO PRN (18:36)
[2018-08-11 19:53] VITALS: BP 138/70
[2018-08-11] MEDS: hydrOXYzine PAMOATE 25 MG CAPSULE PO SCH (20:48)
[2018-08-11] MEDS ORDERED: TEMAZEPAM 15 MG CAPSULE PO SCH (21:00)
[2018-08-11] MEDS ORDERED: SIMVASTATIN 20 MG TABLET PO SCH (21:00)
[2018-08-11] MEDS ORDERED: MONTELUKAST SODIUM 10 MG TABLET. PO SCH (21:00)
[2018-08-11 23:40] VITALS: BP 132/68
[2018-08-12 03:40] VITALS: BP 126/60
--- NOTE | 2018-08-12 05:57 | NUR ---
Paged Dr Dent to report VQ scan report states high probability for PE. Waiting for call back.
--- NOTE | 2018-08-12 06:09 | NUR ---
Dr Dent returned call with orders for Xaralto and bilpenny LE Ultrsound.
[2018-08-12] MEDS: oxyCODONE/APAP 10/325 1 TAB TABLET PO PRN ×2 (06:32→15:18)
[2018-08-12 07:00] VITALS: BP 113/56
[2018-08-12] MEDS: RIVAROXABAN 15 MG TABLET. PO SCH ×2 (07:07→17:20)
[2018-08-12] MEDS: IPRATRPIUM/ALBUTEROL 0.5/2.5MG 3 ML NEBU. INH SCH ×3 (07:20→16:12)
[2018-08-12] MEDS ORDERED: CARVEDILOL 12.5 MG TABLET. PO SCH (08:00)
[2018-08-12] MEDS: INSULIN LISPRO 300 UNITS/3 ML INSULN.PEN. SQ SCH ×3 (08:00→17:00)
[2018-08-12] MEDS ORDERED: POTASSIUM CHLORIDE 20 MEQ TABLET.ER. PO SCH (08:00)
--- NOTE | 2018-08-12 08:26 | RAD ---
Bilateral lower extremity venous ultrasound, 08/12/2018: History: Leg pain, positive VQ scan Duplex evaluation of the deep veins in the lower extremities was performed including grayscale, color-flow and spectral Doppler analysis. The femoral and popliteal veins demonstrate normal compressibility and normal responses to distal augmentation maneuvers. Color imaging of those vessels shows no evidence of intraluminal clot. Patent posterior tibial veins are present in the calves. The peroneal veins were not adequately visualized in this patient. IMPRESSION: There is no sonographic evidence of deep vein thrombosis in either lower extremity. Electronically signed by: Lucinao Neff MD (08/12/2018 8:23 AM) [facility]
[2018-08-12] MEDS ORDERED: ASPIRIN ENTERIC COATED 81 MG TABLET.DR. PO SCH (09:00)
[2018-08-12] MEDS: ACETAMINOPHEN 325 MG TABLET. PO SCH (09:00)
[2018-08-12] MEDS ORDERED: ISOSORBIDE MONONITRATE ER 30 MG TAB.ER.24H PO SCH (09:00)
[2018-08-12] MEDS ORDERED: CETIRIZINE HCL 10 MG TABLET. PO SCH (09:00)
[2018-08-12] MEDS ORDERED: TRIAMTERENE/HCTZ 37.5/25MG TABLET. PO SCH (09:00)
--- NOTE | 2018-08-12 09:06 | PDOC2 ---
CARDIAC CONSULT DATE OF CONSULT Date of Consult DATE: 08/12/18 TIME: 09:00 REASON FOR CONSULT Reason for Consult: Chest pain REFERRING PHYSICIAN Referring Physician: Dr. Bridges SOURCE Source: Chart review, Patient HISTORY OF PRESENT ILLNESS HISTORY OF PRESENT ILLNESS This is a 52 yo female who presented secondary to chest pain. Patient reports pain has been present for the last 4 days. Located in her central chest. Describes as a constant heaviness/stabbing pain. Worse with deep breathing and with twisting her torso. Associated with diaphoresis, SOA, and nausea. No palpitations, dizziness, or LE edema. No recent fevers/illness or travel. Is somewhat of a poor historian. Reports h/o CAD s/p stent placement. Initially said this was 3-4 months ago, then changed to 1 year ago, and then reports this was around 5 years ago. Follows with [facility]. PAST MEDICAL HISTORY Cardiovascular: CAD, CHF, HTN, Hyperlipidemia (0) Pulmonary: Pneumonia, Other (ADÁN) CENTRAL NERVOUS SYSTEM: Other (no pertinent hx) GI: GERD Heme/Onc: Cancer (liver/kidney) Hepatobiliary: Other (pancreatitis ) Psych: Anxiety, Depression Musculoskeletal: Osteoarthritis Rheumatologic: No pertinent hx Infectious disease: No pertinent hx ENT: No pertinent hx Renal/: No pertinent hx Endocrine: Diabetes Dermatology: No pertinent hx PAST SURGICAL HISTORY Past Surgical History: Tubal Ligation FAMILY HISTORY Family History: Diabetes, Heart Disease, Hypertension, Stroke SOCIAL HISTORY Smoke: <1 pack per day ALCOHOL: none Drugs: None Lives: Alone CURRENT MEDICATIONS CURRENT MEDICATIONS Current Medications Medications (Trade) Dose Ordered Sig/Luz Maria Route PRN Reason Start Time Stop Time Status Last Admin Dose Admin Fentanyl Citrate (Fentanyl 2ml Vial) 50 mcg 1X ONCE IV 08/11/18 13:30 08/11/18 13:31 DC 08/11/18 13:53 Albuterol/ Ipratropium (Duoneb) 3 ml RTQID INH 08/11/18 17:00 08/12/18 07:20 Oxycodone/ Acetaminophen (Percocet 10/325) 1 tab PRN Q6HRS PRN PO MODERATE TO SEVERE PAIN 08/11/18 16:00 08/12/18 06:32 Temazepam (Restoril) 30 mg HS PO 08/11/18 21:00 08/11/18 20:48 Acetaminophen (Tylenol) 325 mg QID PO 08/11/18 17:00 08/11/18 20:48 Hydroxyzine Pamoate (Vistaril) 25 mg BID PO 08/11/18 21:00 08/11/18 20:48 Montelukast Sodium (Singulair) 10 mg QHS PO 08/11/18 21:00 08/11/18 20:48 Simvastatin (Zocor) 20 mg HS PO 08/11/18 21:00 08/11/18 20:48 Rivaroxaban (Xarelto) 15 mg BIDWMEALS PO 08/12/18 08:00 08/12/18 07:07 ALLERGIES ALLERGIES: Coded Allergies: Penicillins (Verified Allergy, Severe, 01/28/17) amoxicillin (Verified Allergy, Severe, anaphylaxis, 09/19/13) iodine (Verified Allergy, Severe, Anaphylaxis, 09/19/13) Patient allergic to Seafood shellfish derived (Verified Allergy, Severe, Anaphylaxis, 04/09/14) ROS Review of System 14 point ROS conducted with pertinent positives noted above in HPI PHYSICAL EXAM General: Alert, Oriented X3, Cooperative, No acute distress HEENT: Atraumatic Lungs: Clear to auscultation Heart: Regular rate, Normal S1, Normal S2, No murmurs Abdomen: Soft, Other (obese) Extremities: No edema, Normal pulses Neuro: Normal speech, Sensation intact Psych/Mental Status: Mental status NL, Mood NL MUSCULOSKELETAL: Osteoarthritic changes both hands VITALS VITALS Vital Signs Date Time Temp Pulse Resp B/P (MAP) Pulse Ox O2 Delivery O2 Flow Rate FiO2 08/12/18 07:21 Room Air 08/12/18 07:00 97.5 75 18 113/56 (75) 95 97.5 LABS Lab: Laboratory Tests Test 08/11/18 12:00 08/11/18 16:20 08/11/18 17:26 08/11/18 19:40 White Blood Count 6.6 x10^3/uL (4.0-11.0) Red Blood Count 5.17 x10^6/uL (3.50-5.40) Hemoglobin 14.4 g/dL (12.0-15.5) Hematocrit 42.9 % (36.0-47.0) Mean Corpuscular Volume 83 fL (79-100) Mean Corpuscular Hemoglobin 28 pg (25-35) Mean Corpuscular Hemoglobin Concent 34 g/dL (31-37) Red Cell Distribution Width 14.6 % (11.5-14.5) Platelet Count 177 x10^3/uL (140-400) Neutrophils (%) (Auto) 56 % (31-73) Lymphocytes (%) (Auto) 36 % (24-48) Monocytes (%) (Auto) 6 % (0-9) Eosinophils (%) (Auto) 1 % (0-3) Basophils (%) (Auto) 1 % (0-3) Neutrophils # (Auto) 3.7 x10^3uL (1.8-7.7) Lymphocytes # (Auto) 2.4 x10^3/uL (1.0-4.8) Monocytes # (Auto) 0.4 x10^3/uL (0.0-1.1) Eosinophils # (Auto) 0.1 x10^3/uL (0.0-0.7) Basophils # (Auto) 0.0 x10^3/uL (0.0-0.2) Prothrombin Time 13.8 SEC (11.7-14.0) Prothromb Time International Ratio 1.1 (0.8-1.1) Activated Partial Thromboplast Time 28 SEC (24-38) D-Dimer (Nalini) 0.55 ug/mlFEU (0.00-0.50) Sodium Level 139 mmol/L (136-145) Potassium Level 3.4 mmol/L (3.5-5.1) Chloride Level 101 mmol/L (98-107) Carbon Dioxide Level 29 mmol/L (21-32) Anion Gap 9 (6-14) Blood Urea Nitrogen 13 mg/dL (7-20) Creatinine 0.8 mg/dL (0.6-1.0) Estimated GFR (Cockcroft-Gault) 90.4 BUN/Creatinine Ratio 16 (6-20) Glucose Level 96 mg/dL (70-99) Calcium Level 9.3 mg/dL (8.5-10.1) Magnesium Level 2.2 mg/dL (1.8-2.4) Total Bilirubin 0.7 mg/dL (0.2-1.0) Aspartate Amino Transf (AST/SGOT) 18 U/L (15-37) Alanine Aminotransferase (ALT/SGPT) 20 U/L (14-59) Alkaline Phosphatase 126 U/L (46-116) Creatine Kinase 121 U/L (26-192) Creatine Kinase MB (Mass) 0.6 ng/mL (0.0-3.6) Creatine Kinase MB Relative Index 0.5 % (0-4) Troponin I Quantitative < 0.017 ng/mL (0.000-0.055) < 0.017 ng/mL (0.000-0.055) < 0.017 ng/mL (0.000-0.055) NK-Vwm-C-Type Natriuretic Peptide 24 pg/mL (0-124) Total Protein 7.7 g/dL (6.4-8.2) Albumin 3.9 g/dL (3.4-5.0) Albumin/Globulin Ratio 1.0 (1.0-1.7) Lipase 70 U/L (73-393) Glucose (Fingerstick) 80 mg/dL (70-99) Test 08/11/18 20:31 08/12/18 07:35 Glucose (Fingerstick) 118 mg/dL (70-99) 97 mg/dL (70-99) ECHOCARDIOGRAM ECHOCARDIOGRAM <Conclusion> The left ventricular systolic function is normal and the ejection fraction is within normal range. The Ejection Fraction is 55-60%. There is normal LV segmental wall motion. DATE: 10/05/17 1340 STRESS TEST STRESS TEST Conclusion 1. No evidence of stress induced EKG changes. 2. Normal perfusion at stress. Rest images not obtained. 3. Normal EF at > 61% 4. Low risk study DATE: 06/07/18 1521 ASSESSMENT/PLAN ASSESSMENT/PLAN 1. Chest pain, atypical. AMI ruled out. Recent MPI without any evidence of ischemia or infarct as noted above. Echo showed preserved LV systolic function. No WMA 2. CAD s/p previous PCI/stent. Follows with [facility] 3. Elevated D-dimer; VQ with high probability PE. Xarelto initiated. 4. Hypertension; controlled 5. Hyperlipidemia; statin 6. Diabetes, II; as per PCP Recommendations Continue ASA, statin, BB Xarelto for probable PE May discharge from a CV standpoint and f/u with primary lay out worker at . FELICITAS LEAL APRN Aug 12, 2018 09:06
[2018-08-12 09:25] LABS: CHOLESTEROL/HDL RATIO 4.7
[2018-08-12 10:49] VITALS: BP 114/57
[2018-08-12] MEDS: glyBURIDE 5 MG TABLET PO SCH ×2 (11:01→17:20)
[2018-08-12] MEDS: hydrOXYzine PAMOATE 25 MG CAPSULE PO SCH (11:03)
[2018-08-12] MEDS: PANTOPRAZOLE 40 MG TABLET.DR. PO SCH (11:04)
[2018-08-12] MEDS ORDERED: ACETAMINOPHEN 325 MG TABLET. PO PRN (12:00)
--- NOTE | 2018-08-12 12:10 | NUR ---
SS following for discharge planning. SS reviewed pt chart. Pt is from home and is currently on room air. No discharge needs noted at this time. SS will continue to follow for pending discharge needs.
--- NOTE | 2018-08-12 12:17 | PDOC ---
PROGRESS NOTES Chief Complaint Chief Complaint A/P: Chest pain, multiple ACS risk factors - DM, HTN, HLD, Morbid obesity. recent stress test negative. suspect GERD related. start PPI therapy. consult cards for further eval elevated d dimer: CTA chest unable to perform 2/2 iodine allergy, VQ scan shows high probability of left sided PE, started xarelto HTN: continue home meds Hyperlipidemia - cont statin Diabetes mellitus - continue home meds Morbid obesity - counseled on weight loss, lifestyle FEN - ADA diet, npo after midnight PPX - SCDs FULL CODE await cards eval. History of Present Illness History of Present Illness 52 year old with hx of hypertension, hyperlipidemia and diabetes mellitus who presents with 4 day hx of constant substernal CP with no alleviating or exacerbating factors. no hx of drug use, no hx of trauma. hx of GERD on H2 kate. denies hx of gastritis, etoh, PUD. no nausea or vomiting,. takes ASA daily. recently here 2 months ago for chest pain, had negative nuclear stress test. in ED patient had had negative EKG and trop, but had a VQ scan high probability PE, started on xarelto. She is drowsy today and states her pain improved, shortness of breath improved. No GI sx today Vitals Vitals Vital Signs Date Time Temp Pulse Resp B/P (MAP) Pulse Ox O2 Delivery O2 Flow Rate FiO2 08/12/18 11:32 Room Air 08/12/18 11:05 61 126/60 08/12/18 10:49 97.8 16 91 97.8 Physical Exam Lungs: Clear, Other Labs LABS Laboratory Tests Test 08/11/18 16:20 08/11/18 17:26 08/11/18 19:40 08/11/18 20:31 Troponin I Quantitative < 0.017 ng/mL (0.000-0.055) < 0.017 ng/mL (0.000-0.055) Glucose (Fingerstick) 80 mg/dL (70-99) 118 mg/dL (70-99) Test 08/12/18 07:35 08/12/18 08:45 08/12/18 11:39 Glucose (Fingerstick) 97 mg/dL (70-99) 113 mg/dL (70-99) Triglycerides Level 232 mg/dL (0-150) Cholesterol Level 191 mg/dL (0-200) LDL Cholesterol, Calculated 104 mg/dL (0-100) VLDL Cholesterol, Calculated 46 mg/dL (0-40) Non-HDL Cholesterol Calculated 150 mg/dL (0-129) HDL Cholesterol 41 mg/dL (40-60) Cholesterol/HDL Ratio 4.7 Comment Review of Relevant I have reviewed the following items geovany (where applicable) has been applied. Labs Laboratory Tests Test 08/11/18 12:00 08/11/18 16:20 08/11/18 17:26 08/11/18 19:40 White Blood Count 6.6 x10^3/uL (4.0-11.0) Red Blood Count 5.17 x10^6/uL (3.50-5.40) Hemoglobin 14.4 g/dL (12.0-15.5) Hematocrit 42.9 % (36.0-47.0) Mean Corpuscular Volume 83 fL (79-100) Mean Corpuscular Hemoglobin 28 pg (25-35) Mean Corpuscular Hemoglobin Concent 34 g/dL (31-37) Red Cell Distribution Width 14.6 % (11.5-14.5) Platelet Count 177 x10^3/uL (140-400) Neutrophils (%) (Auto) 56 % (31-73) Lymphocytes (%) (Auto) 36 % (24-48) Monocytes (%) (Auto) 6 % (0-9) Eosinophils (%) (Auto) 1 % (0-3) Basophils (%) (Auto) 1 % (0-3) Neutrophils # (Auto) 3.7 x10^3uL (1.8-7.7) Lymphocytes # (Auto) 2.4 x10^3/uL (1.0-4.8) Monocytes # (Auto) 0.4 x10^3/uL (0.0-1.1) Eosinophils # (Auto) 0.1 x10^3/uL (0.0-0.7) Basophils # (Auto) 0.0 x10^3/uL (0.0-0.2) Prothrombin Time 13.8 SEC (11.7-14.0) Prothromb Time International Ratio 1.1 (0.8-1.1) Activated Partial Thromboplast Time 28 SEC (24-38) D-Dimer (Nalini) 0.55 ug/mlFEU (0.00-0.50) Sodium Level 139 mmol/L (136-145) Potassium Level 3.4 mmol/L (3.5-5.1) Chloride Level 101 mmol/L (98-107) Carbon Dioxide Level 29 mmol/L (21-32) Anion Gap 9 (6-14) Blood Urea Nitrogen 13 mg/dL (7-20) Creatinine 0.8 mg/dL (0.6-1.0) Estimated GFR (Cockcroft-Gault) 90.4 BUN/Creatinine Ratio 16 (6-20) Glucose Level 96 mg/dL (70-99) Calcium Level 9.3 mg/dL (8.5-10.1) Magnesium Level 2.2 mg/dL (1.8-2.4) Total Bilirubin 0.7 mg/dL (0.2-1.0) Aspartate Amino Transf (AST/SGOT) 18 U/L (15-37) Alanine Aminotransferase (ALT/SGPT) 20 U/L (14-59) Alkaline Phosphatase 126 U/L (46-116) Creatine Kinase 121 U/L (26-192) Creatine Kinase MB (Mass) 0.6 ng/mL (0.0-3.6) Creatine Kinase MB Relative Index 0.5 % (0-4) Troponin I Quantitative < 0.017 ng/mL (0.000-0.055) < 0.017 ng/mL (0.000-0.055) < 0.017 ng/mL (0.000-0.055) HQ-Ptf-F-Type Natriuretic Peptide 24 pg/mL (0-124) Total Protein 7.7 g/dL (6.4-8.2) Albumin 3.9 g/dL (3.4-5.0) Albumin/Globulin Ratio 1.0 (1.0-1.7) Lipase 70 U/L (73-393) Glucose (Fingerstick) 80 mg/dL (70-99) Test 08/11/18 20:31 08/12/18 07:35 08/12/18 08:45 08/12/18 11:39 Glucose (Fingerstick) 118 mg/dL (70-99) 97 mg/dL (70-99) 113 mg/dL (70-99) Triglycerides Level 232 mg/dL (0-150) Cholesterol Level 191 mg/dL (0-200) LDL Cholesterol, Calculated 104 mg/dL (0-100) VLDL Cholesterol, Calculated 46 mg/dL (0-40) Non-HDL Cholesterol Calculated 150 mg/dL (0-129) HDL Cholesterol 41 mg/dL (40-60) Cholesterol/HDL Ratio 4.7 Laboratory Tests Test 08/11/18 16:20 08/11/18 17:26 08/11/18 19:40 08/11/18 20:31 Troponin I Quantitative < 0.017 ng/mL (0.000-0.055) < 0.017 ng/mL (0.000-0.055) Glucose (Fingerstick) 80 mg/dL (70-99) 118 mg/dL (70-99) Test 08/12/18 07:35 08/12/18 08:45 08/12/18 11:39 Glucose (Fingerstick) 97 mg/dL (70-99) 113 mg/dL (70-99) Triglycerides Level 232 mg/dL (0-150) Cholesterol Level 191 mg/dL (0-200) LDL Cholesterol, Calculated 104 mg/dL (0-100) VLDL Cholesterol, Calculated 46 mg/dL (0-40) Non-HDL Cholesterol Calculated 150 mg/dL (0-129) HDL Cholesterol 41 mg/dL (40-60) Cholesterol/HDL Ratio 4.7 Medications Current Medications Aspirin (Acacia Aspirin) 325 mg 1X ONCE PO ; Start 08/11/18 at 12:00; Stop 08/11 at 12:01; Status DC Fentanyl Citrate (Fentanyl 2ml Vial) 50 mcg 1X ONCE IV Last administered on at 13:53; Start 08/11/18 at 13:30; Stop 08/11/18 at 13:31; Status DC Ondansetron HCl (Zofran) 4 mg PRN Q8HRS PRN IV NAUSEA/VOMITING; Start 08/11/18 at 13:30; Stop 08/12/18 at 13:29 Fentanyl Citrate (Fentanyl 2ml Vial) 50 mcg PRN Q2HRS PRN IV MILD PAIN; Start 08/11/18 at 13:30 Insulin Human Lispro (HumaLOG) 0-5 UNITS TIDWMEALS SQ ; Start 08/11/18 at 17:00 Dextrose (Dextrose 50%-Water Syringe) 12.5 gm PRN Q15MIN PRN IV SEE COMMENTS; Start 08/11/18 at 13:30 Aspirin (Ecotrin) 81 mg DAILY PO Last administered on 08/12/18 11:02; Start at 09:00 Cyclobenzaprine HCl (Flexeril) 10 mg PRN TID PRN PO MUSCLE SPASMS; Start at 16:00 Glyburide (Diabeta) 5 mg BIDAC PO Last administered on 08/12/18 11:01; Start 08/11/18 at 16:30 Albuterol/ Ipratropium (Duoneb) 3 ml RTQID INH Last administered on 08/12/18 11:31; Start 08/11/18 at 17:00 Isosorbide Mononitrate (Imdur) 30 mg DAILY PO Last administered on 08/12/18 11 :02; Start 08/12/18 at 09:00 Oxycodone/ Acetaminophen (Percocet 10/325) 1 tab PRN Q6HRS PRN PO MODERATE TO SEVERE PAIN Last administered on 08/12/18 06:32; Start 08/11/18 at 16:00 Temazepam (Restoril) 30 mg HS PO Last administered on 08/11/18 20:48; Start at 21:00 Triamterene/HCTZ (Maxzide 37.5/ 25mg) 1 tab DAILY PO Last administered on 11:02; Start 08/12/18 at 09:00 Acetaminophen (Tylenol) 325 mg QID PO Last administered on 08/11/18 20:48; Start 08/11/18 at 17:00; Stop 08/12/18 at 11:52; Status DC Alprazolam (Xanax) 2 mg PRN Q8HRS PRN PO ANXIETY / AGITATION; Start 08/11/18 at 16:15 Carvedilol (Coreg) 25 mg DAILYWBKFT PO Last administered on 08/12/18 11:05; Start 08/12/18 at 08:00 Hydroxyzine Pamoate (Vistaril) 25 mg BID PO Last administered on 08/12/18 11: 03; Start 08/11/18 at 21:00 Cetirizine HCl (ZyrTEC) 10 mg DAILY PO Last administered on 08/12/18 11:01; Start 08/12/18 at 09:00 Montelukast Sodium (Singulair) 10 mg QHS PO Last administered on 08/11/18at 20: 48; Start 08/11/18 at 21:00 Potassium Chloride (Klor-Con) 20 meq DAILYWBKFT PO Last administered on at 11:03; Start 08/12/18 at 08:00 Simvastatin (Zocor) 20 mg HS PO Last administered on 08/11/18 20:48; Start at 21:00 Pantoprazole Sodium (Protonix) 40 mg DAILYAC PO Last administered on 08/12/18 11:04; Start 08/11/18 at 16:30 Rivaroxaban (Xarelto) 15 mg BIDWMEALS PO Last administered on 08/12/18at 07:07; Start 08/12/18 at 08:00 Acetaminophen (Tylenol) 325 mg PRN QID PRN PO HEADACHE/TEMP; Start 08/12/18 at 12:00 Active Scripts Active Acetaminophen 325 Mg Capsule 325 Mg PO QID 5 Days Reported Ranitidine Hcl 300 Mg Tablet 300 Mg PO PRN DAILY PRN Duoneb 0.5-3(2.5) Mg/3 Ml (Albuterol/Ipratropium) 3 Ml Ampul.neb 3 Ml INH [id number] Lo-Dose Aspirin Ec (Aspirin) 81 Mg Tablet.dr 81 Mg PO DAILY Hydrochlorothiazide 25 Mg Tablet 1 Tab PO DAILY Alprazolam 2 Mg Tablet 1 Tab PO PRN Q8HRS PRN Temazepam 30 Mg Capsule 1 Tab PO HS Oxycodone-Acetaminophen 10-325 (Oxycodone Hcl/Acetaminophen) 1 Each Tablet 1 Tab PO PRN Q6HRS PRN Triamterene-Hctz 37.5-25 Mg Tb (Triamterene/Hydrochlorothiazid) 1 Each Tablet 1 Tab PO DAILY Cyclobenzaprine Hcl 10 Mg Tablet 1 Tab PO TID PRN Hydroxyzine Hcl 25 Mg Tablet 1 Tab PO BID Isosorbide Mononitrate Er (Isosorbide Mononitrate) 30 Mg Tab.er.24h 1 Tab PO DAILY Loratadine 10 Mg Tablet 1 Tab PO DAILY Carvedilol 25 Mg Tablet 1 Tab PO DAILY Hydrochlorothiazide Tablet (Hydrochlorothiazide) 25 Mg Tablet 1 Tab PO DAILY Simvastatin 20 Mg Tablet 1 Tab PO QHS Glyburide 5 Mg Tablet 1 Tab PO BID Potassium Chloride 20 Meq Tablet.er 20 Meq PO DAILY Montelukast Sodium Tablet (Montelukast Sodium) 10 Mg Tablet 1 Tab PO DAILY Vitals/I & O Vital Sign - Last 24 Hours 08/11/18 08/11/18 08/11/18 08/11/18 12:38 13:08 13:38 13:53 Pulse 61 70 70 Resp 16 B/P (MAP) 143/87 (105) 172/90 (117) 168/94 (118) Pulse Ox 92 O2 Delivery Room Air Room Air 08/11/18 08/11/18 08/11/18 08/11/18 14:08 14:38 15:08 15:38 Pulse 58 67 60 70 B/P (MAP) 160/66 (97) 157/76 (103) 171/75 (107) 93/47 (62) Pulse Ox 94 99 92 O2 Delivery Room Air Room Air Room Air 08/11/18 08/11/18 08/11/18 08/11/18 15:54 15:59 16:10 17:13 Temp 97.0 97.0 Pulse 60 70 Resp 18 12 B/P (MAP) 121/66 (84) 133/74 (93) Pulse Ox 95 95 O2 Delivery Room Air Room Air Room Air 08/11/18 08/11/18 08/11/18 08/11/18 18:36 19:36 19:41 19:53 Temp 98.8 98.8 Pulse 64 Resp 20 18 18 B/P (MAP) 138/70 (92) Pulse Ox 100 96 100 O2 Delivery Room Air Room Air 08/11/18 08/11/18 08/12/18 08/12/18 20:00 23:40 03:40 06:32 Temp 98.4 98.0 98.4 98.0 Pulse 75 77 Resp 17 18 18 B/P (MAP) 132/68 (89) 126/60 (82) Pulse Ox 93 94 94 O2 Delivery Room Air Room Air Room Air Room Air 08/12/18 08/12/18 08/12/18 08/12/18 07:00 07:21 07:40 07:40 Temp 97.5 97.5 Pulse 75 Resp 18 B/P (MAP) 113/56 (75) Pulse Ox 95 O2 Delivery Room Air Room Air Room Air Room Air 08/12/18 08/12/18 08/12/18 08/12/18 10:49 11:02 11:05 11:32 Temp 97.8 97.8 Pulse 70 70 61 Resp 16 B/P (MAP) 114/57 (76) 114/57 126/60 Pulse Ox 91 O2 Delivery Room Air Room Air Intake and Output 08/11/18 08/11/18 08/12/18 15:00 23:00 07:00 Intake Total 100 ml Output Total 500 ml Balance -400 ml Images VQ - Perfusion defects in the left upper lobe in the region of the anterior segment and superior lingular segment, in the left lower lobe superior segment and in the right lower lobe superior segment. Ventilation/perfusion mismatch consistent with high probability of pulmonary embolus. LE doppler - There is no sonographic evidence of deep vein thrombosis in either lower extremity. HARPER SEO MD Aug 12, 2018 12:17
[2018-08-12 15:05] VITALS: BP 139/75
[2018-08-12] MEDS ORDERED: RIVA20TA2 PO (15:43)
[2018-08-12] MEDS ORDERED: RIVA15TA PO (15:43)
--- NOTE | 2018-08-12 15:46 | PDOC3 ---
Discharge Summary Visit Information Date of Admission: Aug 11, 2018 Date of Discharge: Aug 12, 2018 Admitting Diagnosis: Chest pain Final Diagnosis Acute pulmonary embolus Brief Hospital Course Allergies Allergies Coded Allergies Type Severity Reaction Last Updated Verified Penicillins Allergy Severe 01/28/17 Yes amoxicillin Allergy Severe anaphylaxis 09/19/13 Yes iodine Allergy Severe Anaphylaxis 09/19/13 Yes shellfish derived Allergy Severe Anaphylaxis 04/09/14 Yes Vital Signs Vital Signs Date Time Temp Pulse Resp B/P (MAP) Pulse Ox O2 Delivery O2 Flow Rate FiO2 08/12/18 15:18 Room Air 08/12/18 15:05 98.1 65 18 139/75 (96) 90 98.1 Lab Results Laboratory Tests Test 08/11/18 12:00 08/11/18 16:20 08/11/18 17:26 08/11/18 19:40 White Blood Count 6.6 x10^3/uL (4.0-11.0) Red Blood Count 5.17 x10^6/uL (3.50-5.40) Hemoglobin 14.4 g/dL (12.0-15.5) Hematocrit 42.9 % (36.0-47.0) Mean Corpuscular Volume 83 fL (79-100) Mean Corpuscular Hemoglobin 28 pg (25-35) Mean Corpuscular Hemoglobin Concent 34 g/dL (31-37) Red Cell Distribution Width 14.6 % (11.5-14.5) Platelet Count 177 x10^3/uL (140-400) Neutrophils (%) (Auto) 56 % (31-73) Lymphocytes (%) (Auto) 36 % (24-48) Monocytes (%) (Auto) 6 % (0-9) Eosinophils (%) (Auto) 1 % (0-3) Basophils (%) (Auto) 1 % (0-3) Neutrophils # (Auto) 3.7 x10^3uL (1.8-7.7) Lymphocytes # (Auto) 2.4 x10^3/uL (1.0-4.8) Monocytes # (Auto) 0.4 x10^3/uL (0.0-1.1) Eosinophils # (Auto) 0.1 x10^3/uL (0.0-0.7) Basophils # (Auto) 0.0 x10^3/uL (0.0-0.2) Prothrombin Time 13.8 SEC (11.7-14.0) Prothromb Time International Ratio 1.1 (0.8-1.1) Activated Partial Thromboplast Time 28 SEC (24-38) D-Dimer (Nalini) 0.55 ug/mlFEU (0.00-0.50) Sodium Level 139 mmol/L (136-145) Potassium Level 3.4 mmol/L (3.5-5.1) Chloride Level 101 mmol/L (98-107) Carbon Dioxide Level 29 mmol/L (21-32) Anion Gap 9 (6-14) Blood Urea Nitrogen 13 mg/dL (7-20) Creatinine 0.8 mg/dL (0.6-1.0) Estimated GFR (Cockcroft-Gault) 90.4 BUN/Creatinine Ratio 16 (6-20) Glucose Level 96 mg/dL (70-99) Calcium Level 9.3 mg/dL (8.5-10.1) Magnesium Level 2.2 mg/dL (1.8-2.4) Total Bilirubin 0.7 mg/dL (0.2-1.0) Aspartate Amino Transf (AST/SGOT) 18 U/L (15-37) Alanine Aminotransferase (ALT/SGPT) 20 U/L (14-59) Alkaline Phosphatase 126 U/L (46-116) Creatine Kinase 121 U/L (26-192) Creatine Kinase MB (Mass) 0.6 ng/mL (0.0-3.6) Creatine Kinase MB Relative Index 0.5 % (0-4) Troponin I Quantitative < 0.017 ng/mL (0.000-0.055) < 0.017 ng/mL (0.000-0.055) < 0.017 ng/mL (0.000-0.055) AN-Wgy-N-Type Natriuretic Peptide 24 pg/mL (0-124) Total Protein 7.7 g/dL (6.4-8.2) Albumin 3.9 g/dL (3.4-5.0) Albumin/Globulin Ratio 1.0 (1.0-1.7) Lipase 70 U/L (73-393) Glucose (Fingerstick) 80 mg/dL (70-99) Test 08/11/18 20:31 08/12/18 07:35 08/12/18 08:45 08/12/18 11:39 Glucose (Fingerstick) 118 mg/dL (70-99) 97 mg/dL (70-99) 113 mg/dL (70-99) Triglycerides Level 232 mg/dL (0-150) Cholesterol Level 191 mg/dL (0-200) LDL Cholesterol, Calculated 104 mg/dL (0-100) VLDL Cholesterol, Calculated 46 mg/dL (0-40) Non-HDL Cholesterol Calculated 150 mg/dL (0-129) HDL Cholesterol 41 mg/dL (40-60) Cholesterol/HDL Ratio 4.7 Laboratory Tests Test 08/11/18 16:20 08/11/18 17:26 08/11/18 19:40 08/11/18 20:31 Troponin I Quantitative < 0.017 ng/mL (0.000-0.055) < 0.017 ng/mL (0.000-0.055) Glucose (Fingerstick) 80 mg/dL (70-99) 118 mg/dL (70-99) Test 08/12/18 07:35 08/12/18 08:45 08/12/18 11:39 Glucose (Fingerstick) 97 mg/dL (70-99) 113 mg/dL (70-99) Triglycerides Level 232 mg/dL (0-150) Cholesterol Level 191 mg/dL (0-200) LDL Cholesterol, Calculated 104 mg/dL (0-100) VLDL Cholesterol, Calculated 46 mg/dL (0-40) Non-HDL Cholesterol Calculated 150 mg/dL (0-129) HDL Cholesterol 41 mg/dL (40-60) Cholesterol/HDL Ratio 4.7 Brief Hospital Course Ms Barney is a 52 year old with hx of hypertension, hyperlipidemia and diabetes mellitus who presents with 4 day hx of constant substernal CP with no alleviating or exacerbating factors. no hx of drug use, no hx of trauma. hx of GERD on H2 kate. denies hx of gastritis, etoh, PUD. no nausea or vomiting,. takes ASA daily. recently here 2 months ago for chest pain, had negative nuclear stress test. in ED patient had had negative EKG and trop, but had a VQ scan high probability PE, started on xarelto. She is drowsy today and states her pain improved, shortness of breath improved. No GI sx today. Seen by cardiology, had echocardiogram. Started on xarelto 15mg BID for 21 days and 20mg thereafter. A/P: Chest pain, multiple ACS risk factors - DM, HTN, HLD, Morbid obesity. recent stress test negative. suspect GERD related. start PPI therapy. consult cards for further eval elevated d dimer: CTA chest unable to perform 2/2 iodine allergy, VQ scan shows high probability of left sided PE, started xarelto HTN: continue home meds Hyperlipidemia - cont statin Diabetes mellitus - continue home meds Morbid obesity - counseled on weight loss, lifestyle Discharge Information Condition at Discharge: Improved Follow Up: Weeks (2) Disposition/Orders: D/C to Home Scheduled Acetaminophen (Acetaminophen) 325 Mg Capsule, 325 MG PO QID for 5 Days, #20 Prescribed by: Myra TANG MD on 01/28/17514 Last Action: Converted on 08/11/181557 by MURTAZA MURRY MD Aspirin (Lo-Dose Aspirin Ec) 81 Mg Tablet.dr, 81 MG PO DAILY for prevents heartattacks, (Reported) Entered as Reported by: KAYLA LEHMAN on 06/06/1830 Last Action: Continued on 08/11/181557 by MURTAZA MURRY MD Carvedilol (Carvedilol) 25 Mg Tablet, 1 TAB PO DAILY, #180 Ref 1 (Reported) Entered as Reported by: Luis Aguiar on 01/23/172342 Last Action: Converted on 08/11/181557 by MURTAZA MURRY MD Glyburide (Glyburide) 5 Mg Tablet, 1 TAB PO BID, #60 Ref 5 (Reported) Entered as Reported by: uLis Aguiar on 01/23/172342 Last Action: Continued on 08/11/181556 by MURTAZA MURRY MD Hydrochlorothiazide (Hydrochlorothiazide Tablet ) 25 Mg Tablet, 1 TAB PO DAILY, #30 Ref 5 (Reported) Entered as Reported by: Luis Aguiar on 01/23/172342 Last Action: HELD on 08/11/181557 by MURTAZA MURRY MD Hydrochlorothiazide (Hydrochlorothiazide) 25 Mg Tablet, 1 TAB PO DAILY for HTN, (Reported) Entered as Reported by: KAYLA LEHMAN on 06/06/1830 Last Action: HELD on 08/11/181557 by MURTAZA MURRY MD Hydroxyzine Hcl (Hydroxyzine Hcl) 25 Mg Tablet, 1 TAB PO BID, #60 (Reported) Entered as Reported by: Luis Aguiar on 01/23/172342 Last Action: Converted on 08/11/181557 by MURTAZA MURRY MD Ipratropium/Albuterol Sulfate (Duoneb 0.5-3(2.5) Mg/3 Ml) 3 Ml Ampul.neb, 3 ML INH [id number] for asthma, (Reported) Entered as Reported by: KAYLA LEHMAN on 06/06/1830 Last Action: Continued on 08/11/181557 by MURTAZA MURRY MD Isosorbide Mononitrate (Isosorbide Mononitrate Er) 30 Mg Tab.er.24h, 1 TAB PO DAILY, #30 Ref 5 (Reported) Entered as Reported by: Luis Aguiar on 01/23/172342 Last Action: Continued on 08/11/181557 by MURTAZA MURRY MD Loratadine (Loratadine) 10 Mg Tablet, 1 TAB PO DAILY, #30 Ref 5 (Reported) Entered as Reported by: Luis Aguiar on 01/23/172342 Last Action: Converted on 08/11/181557 by MURTAZA MURRY MD Montelukast Sodium (Montelukast Sodium Tablet) 10 Mg Tablet, 1 TAB PO DAILY, # 30 Ref 5 (Reported) Entered as Reported by: Luis Aguiar on 01/23/172342 Last Action: Converted on 08/11/181556 by MURTAZA MURRY MD Potassium Chloride (Potassium Chloride) 20 Meq Tablet.er, 20 MEQ PO DAILY, ( Reported) Entered as Reported by: Luis Aguiar on 01/23/172342 Last Action: Converted on 08/11/181556 by MURTAZA MURRY MD Rivaroxaban (Xarelto) 15 Mg Tablet, 15 MG PO BIDWMEALS for PE for 21 Days, #42 Prescribed by: HARPER SEO MD on 08/12/181542 Rivaroxaban (Xarelto) 20 Mg Tablet, 20 MG PO DAILY for Pulmonary embolus for 30 Days, #30 Ref 5 Start daily with food after 21 days of 15mg BID dosing Prescribed by: HARPER SEO MD on 08/12/181542 Simvastatin (Simvastatin) 20 Mg Tablet, 1 TAB PO QHS, #30 Ref 5 (Reported) Entered as Reported by: Luis Aguiar on 01/23/172342 Last Action: Converted on 08/11/181557 by MURTAZA MURRY MD Temazepam (Temazepam) 30 Mg Capsule, 1 TAB PO HS for insomnia, (Reported) Entered as Reported by: KAYLA LEHMAN on 06/06/1830 Last Action: Continued on 08/11/181557 by MURTAZA MURRY MD Triamterene/Hydrochlorothiazid (Triamterene-Hctz 37.5-25 Mg Tb) 1 Each Tablet, 1 TAB PO DAILY, #30 Ref 5 (Reported) Entered as Reported by: Luis Aguiar on 01/23/172342 Last Action: Continued on 08/11/181557 by MURTAZA MURRY MD Scheduled PRN Alprazolam (Alprazolam) 2 Mg Tablet, 1 TAB PO PRN Q8HRS PRN for ANXIETY / AGITATION, (Reported) Entered as Reported by: KAYLA LEHMAN on 06/06/1830 Last Action: Converted on 08/11/181557 by MURTAZA MURRY MD Cyclobenzaprine Hcl (Cyclobenzaprine Hcl) 10 Mg Tablet, 1 TAB PO TID PRN for MUSCLE SPASMS, #90 (Reported) Entered as Reported by: Luis Aguiar on 01/23/172342 Last Action: Continued on 08/11/181557 by MURTAZA MURRY MD Oxycodone Hcl/Acetaminophen (Oxycodone-Acetaminophen 10-325) 1 Each Tablet, 1 TAB PO PRN Q6HRS PRN for PAIN, (Reported) Entered as Reported by: KAYLA LEHMAN on 06/06/1830 Last Action: Continued on 08/11/181557 by MURTAZA MURRY MD Ranitidine Hcl (Ranitidine Hcl) 300 Mg Tablet, 300 MG PO PRN DAILY PRN for HEARTBURN / GAS, (Reported) Entered as Reported by: KAYLA LEHMAN on 06/06/18 0031 HARPER SEO MD Aug 12, 2018 15:46
--- NOTE | 2018-08-12 16:07 | CARD ---
MR#: [id number] Date of Study: 08/12/2018 Ordering Physician: FELICITAS LEAL, Referring Physician: MURTAZA MURRY Tech: Latisha Canela APPROVED REPORT EXAM: Two-dimensional and M-mode echocardiogram with Doppler and color Doppler. Other Information Quality : AverageHR: 66bpm INDICATION COPD Chest Pain RISK FACTORS Hypertension Hyperlipidemia Diabetes Smoking 2D DIMENSIONS RVDd2.4 (2.9-3.5cm)Left Atrium(2D)3.6 (1.6-4.0cm) IVSd1.5 (0.7-1.1cm)Aortic Root(2D)2.7 (2.0-3.7cm) LVDd4.5 (3.9-5.9cm)LVOT Diameter2.1 (1.8-2.4cm) PWd1.1 (0.7-1.1cm)LVDs2.3 (2.5-4.0cm) FS (%) 49.5 %SV73.8 ml LVEF(%)81.0 (>50%) Aortic Valve AoV Peak Willian.140.5cm/sAoV VTI26.1cm AO Peak GR.7.9mmHgLVOT VTI 25.14cm AO Mean GR.5mmHg Mitral Valve MV E Wsplfogu70.5cm/sMV DECEL [id number] MV A Knbaxguo97.7cm/sE/A Ratio0.8 TDI Lateral E' P. V7.40cm/sMedial E' P. V6.50cm/s E/Lateral E'9.5E/Medial E'10.8 Pulmonary Vein S1 Velocity1.2cm/sS2 Hacfxlel97.92cm/s D2 Qckmsowb72.9cm/sPVa [id number] LEFT VENTRICLE The left ventricle is normal size. There is mild to moderate concentric left ventricular hypertrophy. The left ventricular systolic function is normal and the ejection fraction is within normal range. T he Ejection Fraction is >55%. There is normal LV segmental wall motion. Transmitral Doppler flow roberta kvng is Grade I-abnormal relaxation pattern. RIGHT VENTRICLE The right ventricle is normal size. There is normal right ventricular wall thickness. The right ventr icular systolic function is normal. ATRIA The left atrium size is normal. The right atrium size is normal. The interatrial septum is intact wit h no evidence for an atrial septal defect or patent foramen ovale as noted on 2-D or Doppler imaging. AORTIC VALVE The aortic valve is normal in structure and function. Doppler and Color Flow revealed no significant aortic regurgitation. There is no significant aortic valvular stenosis. MITRAL VALVE The mitral valve is normal in structure and function. There is no evidence of mitral valve prolapse. There is no mitral valve stenosis. Doppler and Color Flow revealed no mitral valve regurgitation note d. TRICUSPID VALVE The tricuspid valve is normal in structure and function. Doppler and Color Flow revealed trace tricus pid regurgitation. There is no tricuspid valve stenosis. PULMONIC VALVE Doppler and Color Flow revealed trace pulmonic valvular regurgitation. There is no pulmonic valvular stenosis. GREAT VESSELS The aortic root is normal in size. The IVC is normal in size and collapses >50% with inspiration. PERICARDIAL EFFUSION There is no evidence of significant pericardial effusion. Critical Notification Critical Value: No <Conclusion> The left ventricular systolic function is normal and the ejection fraction is within normal range. Th e Ejection Fraction is >55%. There is normal LV segmental wall motion. Technically difficult study. Signed by : Jonathan Ash, Electronically Approved : 08/12/2018 16:07:15
--- NOTE | 2018-08-12 18:19 | NUR ---
Discharge Note: [facility] Discharge instructions and discharge home medications reviewed with Patient and a copy given. All questions have been answered and understanding verbalized. The following instructions and handouts were given: diet, chest pain, discussed bleeding, follow up with her primary and her conveyor feeder. Discontinued lines and drains: IV removed, no lines present. Patient discharged to home, left via wheelchair with her sister to private vehicle.
== END 2018-08-12 17:45 | disposition home or self-care (01) | DRG 176 ==
LOC: ER 11:18 → ED HOLD 13:39 → 2 SOUTH 16:35
PROVIDERS: ADMIT Internal Medicine; ATTEND Internal Medicine
DX: I26.99 Other pulmonary embolism without acute cor pulmonale (principal); E11.9 Type 2 diabetes mellitus without complications; E66.01 Morbid (severe) obesity due to excess calories; E78.5 Hyperlipidemia, unspecified; F17.210 Nicotine dependence, cigarettes, uncomplicated; G47.33 Obstructive sleep apnea (adult) (pediatric); K21.9 Gastro-esophageal reflux disease without esophagitis; R79.1 Abnormal coagulation profile; I25.10 Atherosclerotic heart disease of native coronary artery without angina pectoris; I11.0 Hypertensive heart disease with heart failure; I50.9 Heart failure, unspecified; F32.9 Major depressive disorder, single episode, unspecified; F41.9 Anxiety disorder, unspecified; M19.90 Unspecified osteoarthritis, unspecified site; J44.9 Chronic obstructive pulmonary disease, unspecified; Z68.34 Body mass index [BMI] 34.0-34.9, adult; Z87.01 Personal history of pneumonia (recurrent); Z79.82 Long term (current) use of aspirin; Z82.3 Family history of stroke; Z82.49 Family history of ischemic heart disease and other diseases of the circulatory system; Z83.3 Family history of diabetes mellitus; Z85.05 Personal history of malignant neoplasm of liver; Z86.73 Personal history of transient ischemic attack (TIA), and cerebral infarction without residual deficits; Z95.5 Presence of coronary angioplasty implant and graft; Z88.1 Allergy status to other antibiotic agents; Z91.041 Radiographic dye allergy status; Z88.0 Allergy status to penicillin; Z91.013 Allergy to seafood; Z79.899 Other long term (current) drug therapy
CPT/HCPCS: 36415; 71046; 78582; 80053; 80061; 82553; 82962; 83690; 83735; 83880; 84484; 85025; 85379; 85610; 85730; 93005; 93306; 93970; 94640; 94760; 96374; A9540; A9558; J1815; J3010; J7620; Q0177; 99285-25

== ENCOUNTER 2018-12-13 09:53 | Emergency (ER) | payer OTHER ==
[~2018-12-13] VITALS: Ht 157.5 cm; Wt 95.3 kg
[~2018-12-13 09:53] MED LIST changes: +MONT10TA49 PO; -MONT10TA9 PO; +RIVA15TA PO; +RIVA20TA2 PO
[2018-12-13] MEDS ORDERED: FAMOTIDINE 20 MG/2 ML VIAL IVP ONE (10:15)
[2018-12-13] MEDS ORDERED: ONDANSETRON PF 4 MG/2 ML VIAL. IV ONE (10:15)
[2018-12-13] MEDS ORDERED: fentaNYL PF VIAL 100 MCG/2 ML VIAL IV ONE (10:15)
--- NOTE | 2018-12-13 10:30 | PHYS DOC ---
Past Medical History Past Medical History: Asthma, Bronchitis, Cancer, CHF, COPD, CVA, Diabetes-Type II, GERD, Heart Disease, Hypertension, [place], Pancreatitis, Pneumonia, Other Additional Past Medical Histor: Liver Cancer treated with medication Past Surgical History: Angioplasty, Tubal ligation, Other Additional Past Surgical Histo: CARDIAC STENT Alcohol Use: None Drug Use: None Adult General Chief Complaint Chief Complaint: ABDOMINAL PAIN HPI HPI Patient is a 53 year old female who presents with complaining of abdominal pain. Patient complaining of right upper quadrant pain since this morning as a constant and sharp pain with radiation to her back associated with nausea. Patient states that she had 2 episodes of diarrhea this morning and denies chest pain and shortness of breath. Patient rated her pain 10 over 10 and denies history of the same pain. Patient was diagnosed with pancreatitis 4 months ago and currently taking medication. She denies drug and alcohol abuse and states that she is sober for the last 16years. Review of Systems Review of Systems Constitutional: Denies fever or chills [] Eyes: Denies change in visual acuity, redness, or eye pain [] HENT: Denies nasal congestion or sore throat [] Respiratory: Denies cough or shortness of breath [] Cardiovascular: No additional information not addressed in HPI [] GI: Reports abdominal pain, nausea, diarrhea [] : Denies dysuria or hematuria [] Musculoskeletal: Denies back pain or joint pain [] Integument: Denies rash or skin lesions [] Neurologic: Denies headache, focal weakness or sensory changes [] Endocrine: Denies polyuria or polydipsia [] All other systems were reviewed and found to be within normal limits, except as documented in this note. Current Medications Current Medications Current Medications Medications (Trade) Dose Ordered Sig/Luz Maria Start Time Stop Time Status Last Admin Dose Admin Famotidine (Pepcid Vial) 20 mg 1X ONCE 12/13/18 10:15 12/13/18 10:18 DC 12/13/18 10:43 20 MG Fentanyl Citrate (Fentanyl 2ml Vial) 50 mcg 1X ONCE 12/13/18 10:15 12/13/18 10:18 DC 12/13/18 10:43 50 MCG Ondansetron HCl (Zofran) 4 mg 1X ONCE 12/13/18 10:15 12/13/18 10:18 DC 12/13/18 10:43 4 MG Allergies Allergies Allergies Coded Allergies Type Severity Reaction Last Updated Verified Penicillins Allergy Severe 01/28/17 Yes amoxicillin Allergy Severe anaphylaxis 09/19/13 Yes iodine Allergy Severe Anaphylaxis 09/19/13 Yes shellfish derived Allergy Severe Anaphylaxis 04/09/14 Yes Physical Exam Physical Exam Constitutional: Well developed, well nourished, mild distress, non-toxic appearance. [] HENT: Normocephalic, atraumatic. Eyes: PERRLA, EOMI, conjunctiva normal, no discharge. [] Neck: Normal range of motion, no tenderness, supple, no stridor. [] Cardiovascular:Heart rate regular rhythm, no murmur [] Lungs & Thorax: Bilateral breath sounds clear to auscultation [] Abdomen: Bowel sounds normal, soft, right upper quadrant tenderness and positive Guardado sign, no masses, no pulsatile masses. [] Skin: Warm, dry, no erythema, no rash. [] Back: No tenderness, no CVA tenderness. [] Extremities: No tenderness, no cyanosis, no clubbing, ROM intact, no edema. [] Neurologic: Alert and oriented X 3, no focal deficits noted. [] Psychologic: Affect anxious, judgement normal, mood normal. [] Current Patient Data Vital Signs Vital Signs Date Time Temp Pulse Resp B/P (MAP) Pulse Ox O2 Delivery O2 Flow Rate FiO2 12/13/18 10:14 98.7 71 18 146/97 (113) 99 Room Air 98.7 Lab Values Laboratory Tests Test 12/13/18 10:35 12/13/18 11:10 White Blood Count 6.6 x10^3/uL (4.0-11.0) Red Blood Count 4.81 x10^6/uL (3.50-5.40) Hemoglobin 13.8 g/dL (12.0-15.5) Hematocrit 40.8 % (36.0-47.0) Mean Corpuscular Volume 85 fL (79-100) Mean Corpuscular Hemoglobin 29 pg (25-35) Mean Corpuscular Hemoglobin Concent 34 g/dL (31-37) Red Cell Distribution Width 14.7 % (11.5-14.5) H Platelet Count 166 x10^3/uL (140-400) Neutrophils (%) (Auto) 58 % (31-73) Lymphocytes (%) (Auto) 35 % (24-48) Monocytes (%) (Auto) 6 % (0-9) Eosinophils (%) (Auto) 1 % (0-3) Basophils (%) (Auto) 0 % (0-3) Neutrophils # (Auto) 3.8 x10^3/uL (1.8-7.7) Lymphocytes # (Auto) 2.3 x10^3/uL (1.0-4.8) Monocytes # (Auto) 0.4 x10^3/uL (0.0-1.1) Eosinophils # (Auto) 0.1 x10^3/uL (0.0-0.7) Basophils # (Auto) 0.0 x10^3/uL (0.0-0.2) Prothrombin Time 12.8 SEC (11.7-14.0) Prothrombin Time INR 1.0 (0.8-1.1) Sodium Level 142 mmol/L (136-145) Potassium Level 3.6 mmol/L (3.5-5.1) Chloride Level 106 mmol/L (98-107) Carbon Dioxide Level 31 mmol/L (21-32) Anion Gap 5 (6-14) L Blood Urea Nitrogen 14 mg/dL (7-20) Creatinine 0.8 mg/dL (0.6-1.0) Estimated GFR (Cockcroft-Gault) 90.1 BUN/Creatinine Ratio 18 (6-20) Glucose Level 107 mg/dL (70-99) H Calcium Level 8.9 mg/dL (8.5-10.1) Total Bilirubin 0.4 mg/dL (0.2-1.0) Aspartate Amino Transferase (AST) 16 U/L (15-37) Alanine Aminotransferase (ALT) 22 U/L (14-59) Alkaline Phosphatase 120 U/L (46-116) H Creatine Kinase 91 U/L (26-192) Troponin I Quantitative < 0.017 ng/mL (0.000-0.055) Total Protein 7.0 g/dL (6.4-8.2) Albumin 3.6 g/dL (3.4-5.0) Albumin/Globulin Ratio 1.1 (1.0-1.7) Lipase 439 U/L (73-393) H Urine Opiates Screen Neg (NEG) Urine Methadone Screen Neg (NEG) Urine Barbiturates Neg (NEG) Urine Phencyclidine Screen Neg (NEG) Urine Amphetamine/Methamphetamine Neg (NEG) Urine Benzodiazepines Screen Neg (NEG) Urine Cocaine Screen Neg (NEG) Urine Cannabinoids Screen Pos (NEG) Urine Ethyl Alcohol Neg (NEG) Laboratory Tests 12/13/18 10:35 Laboratory Tests 12/13/18 10:35 EKG EKG EKG interpreted by me. EKG at 1004 showed normal sinus rhythm at rate of 71, normal HI and QT intervals, no acute ST and T-wave elevation. Radiology/Procedures Radiology/Procedures [facility] [address] [place] [address] IMAGING REPORT Signed PATIENT: SAVAGE MONSIVAIS ACCOUNT: [id number] : 1965 LOCATION: ER AGE: 53 SEX: F EXAM STATUS: PRE ER ORD. PHYSICIAN: MARTIN CHACON MD REASON: upper quadrant pain PROCEDURE: ABDOMEN LTD Indication:Upper quadrant pain. TECHNIQUE: Grayscale, color Doppler and spectral waveform is of the abdomen obtained. COMPARISON:None FINDINGS: Visualized pancreas within normal limits. No cholelithiasis. No pericholecystic fluid or gallbladder wall thickening. IVC is within normal limits. Liver measures 20 cm in longest dimension and is mildly enlarged with diffuse increased echogenicity. Main portal vein is patent. CBD measures 3 mm in diameter and is within normal limits. Right kidney measures 12.5 cm in length without hydronephrosis. Mid and distal aortic segments are obscured by overlying bowel gas. IMPRESSION: Mild hepatomegaly with hepatic steatosis. No cholelithiasis. Electronically signed by: Daryl López DO (12/13/2018 10:54 AM) [facility] DICTATED and SIGNED BY: DARYL LÓPEZ DO DATE: 12/13/18 5701 Course & Med Decision Making Course & Med Decision Making Pertinent Labs and Imaging studies reviewed. (See chart for details) Evaluation of patient in ER showed 53-year-old female patient with complaining of right upper quadrant pain. Patient had right upper quadrant tenderness and guarding. Labs and ultrasound of gallbladder was unremarkable for mild elevation of lipase and patient has previous history of pancreatitis. Patient was advised to avoid of his foot and follow up with her primary care physician and GI specialist. Patient treated with IV fluid and fentanyl and felt better. Dragon Disclaimer Dragon Disclaimer This electronic medical record was generated, in whole or in part, using a voice recognition dictation system. Departure Departure Impression: Primary Impression: Right upper quadrant pain Additional Impressions: Pancreatitis Marijuana abuse Disposition: HOME, SELF-CARE (at 1137) Condition: IMPROVED Referrals: ANETTE WELCH (PCP) Patient Instructions: Acute Pancreatitis Additional Instructions: Drink plenty of liquids Follow-up with your primary care physician in 3-5 days Return to ER if not getting better Continue home medication Problem Qualifiers Additional Impressions: Pancreatitis Chronicity: chronic Pancreatitis type: unspecified pancreatitis type Qualified Codes: K86.1 - Other chronic pancreatitis MARTIN CHACON MD Dec 13, 2018 10:30
[2018-12-13 10:52] LABS: CALCIUM 8.9 mg/dL (8.5-10.1); CREATININE 0.8 mg/dL (0.6-1.0); GFR 90.1; POTASSIUM 3.6 mmol/L (3.5-5.1)
--- NOTE | 2018-12-13 10:57 | RAD ---
Indication:Upper quadrant pain. TECHNIQUE: Grayscale, color Doppler and spectral waveform is of the abdomen obtained. COMPARISON:None FINDINGS: Visualized pancreas within normal limits. No cholelithiasis. No pericholecystic fluid or gallbladder wall thickening. IVC is within normal limits. Liver measures 20 cm in longest dimension and is mildly enlarged with diffuse increased echogenicity. Main portal vein is patent. CBD measures 3 mm in diameter and is within normal limits. Right kidney measures 12.5 cm in length without hydronephrosis. Mid and distal aortic segments are obscured by overlying bowel gas. IMPRESSION: Mild hepatomegaly with hepatic steatosis. No cholelithiasis. Electronically signed by: Daryl López DO (12/13/2018 10:54 AM) [facility]
[2018-12-13 11:00] LABS: ALBUMIN 3.6 g/dL (3.4-5.0); ALBUMIN/GLOBULIN RATIO 1.1 (1.0-1.7); TOTAL BILIRUBIN 0.4 mg/dL (0.2-1.0)
[2018-12-13 11:09] VITALS: BP 157/89
[2018-12-13 11:10] LABS: BASO % 0 % (0-3); EOS # 0.1 x10^3/uL (0.0-0.7); EOS % 1 % (0-3); HEMATOCRIT 40.8 % (36.0-47.0); HEMOGLOBIN 13.8 g/dL (12.0-15.5); LYMPH # 2.3 x10^3/uL (1.0-4.8); LYMPH % 35 % (24-48); MEAN CORPUSCULAR HEMOGLOBIN 29 pg (25-35); MEAN CORPUSCULAR HGB CONC 34 g/dL (31-37); MEAN CORPUSCULAR VOLUME 85 fL (79-100); MONO # 0.4 x10^3/uL (0.0-1.1); MONO % 6 % (0-9); NEUT # 3.8 x10^3/uL (1.8-7.7); NEUT % 58 % (31-73); PLATELET COUNT 166 x10^3/uL (140-400); RED BLOOD COUNT 4.81 x10^6/uL (3.50-5.40); RED CELL DISTRIBUTION WIDTH 14.7 % (11.5-14.5); WHITE BLOOD COUNT 6.6 x10^3/uL (4.0-11.0)
[2018-12-13 11:21] LABS: PROTHROMBIN TIME PATIENT 12.8 SEC (11.7-14.0)
[2018-12-13 11:25] LABS: BILIRUBIN,URINE NEGATIVE (NEG); CLARITY,URINE CLEAR; COLOR,URINE YELLOW; NITRITE,URINE NEGATIVE (NEG); PH,URINE 7.5; PROTEIN,URINE NEGATIVE (NEG-TRACE)
[2018-12-13 11:27] LABS: BARBITURATES NEG (NEG); BENZODIAZEPINES NEG (NEG); CANNABINOIDS POS (NEG); COCAINE NEG (NEG); METHADONE NEG (NEG); OPIATES NEG (NEG); PHENCYCLIDINE NEG (NEG)
[2018-12-13 11:29] LABS: AMPHETAMINE/METHAMPHETAMINE NEG (NEG)
[2018-12-13 12:10] LABS: BACTERIA,URINE 0 /HPF (0-FEW); RBC,URINE 0 /HPF (0-2); SQUAMOUS EPITHELIAL CELL,UR FEW /LPF
--- NOTE | 2018-12-13 14:16 | EKG ---
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
== END 2018-12-13 11:51 | disposition home or self-care (01) ==
LOC: ER 09:53
DX: K86.1 Other chronic pancreatitis (principal); F12.10 Cannabis abuse, uncomplicated; R19.7 Diarrhea, unspecified; K21.9 Gastro-esophageal reflux disease without esophagitis; E11.9 Type 2 diabetes mellitus without complications; I25.2 Old myocardial infarction; J44.9 Chronic obstructive pulmonary disease, unspecified; I11.0 Hypertensive heart disease with heart failure; I50.9 Heart failure, unspecified; Z86.73 Personal history of transient ischemic attack (TIA), and cerebral infarction without residual deficits; Z98.51 Tubal ligation status; Z95.5 Presence of coronary angioplasty implant and graft; Z88.0 Allergy status to penicillin; Z88.1 Allergy status to other antibiotic agents; Z91.041 Radiographic dye allergy status; Z91.013 Allergy to seafood
CPT/HCPCS: 36415; 76705; 80053; 80307; 81001; 82550; 83690; 84484; 85025; 85610; 93005; 96374; 96375; 99285; J2405; J3010; J3490

== ENCOUNTER 2019-03-17 12:19 | Emergency (ER) | payer OTHER ==
[~2019-03-17] VITALS: Ht 157.5 cm; Wt 86.2 kg
[~2019-03-17 12:19] MED LIST changes: -ASPI-861 PO; +ASPI-964 PO; +SIMV20TA18 PO; -SIMV20TA3 PO
[2019-03-17] MEDS ORDERED: NITROGLYCERIN SUBLINGUAL 0.4 MG BOTTLE OF 25. SL PRN (12:45)
[2019-03-17] MEDS ORDERED: ONDANSETRON PF 4 MG/2 ML VIAL. IV ONE (12:45)
--- NOTE | 2019-03-17 12:57 | RAD ---
Single view of the chest. 03/17/2019 12:45 PM Indication: Chest pain Comparison: Chest radiograph August 11, 2018 Findings: There is no focal consolidation. There is no pleural effusion or pneumothorax. The cardiomediastinal silhouette and pulmonary vasculature are within normal limits. No acute osseous abnormalities are seen. Impression: No evidence of acute cardiopulmonary process. Electronically signed by: Toyn Piper MD (03/17/2019 12:54 PM) [facility]
--- NOTE | 2019-03-17 13:16 | EKG ---
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
[2019-03-17 13:48] LABS: BASO % 0 % (0-3); EOS # 0.1 x10^3/uL (0.0-0.7); EOS % 2 % (0-3); HEMATOCRIT 43.5 % (36.0-47.0); HEMOGLOBIN 14.8 g/dL (12.0-15.5); LYMPH # 2.8 x10^3/uL (1.0-4.8); LYMPH % 35 % (24-48); MEAN CORPUSCULAR HEMOGLOBIN 28 pg (25-35); MEAN CORPUSCULAR HGB CONC 34 g/dL (31-37); MEAN CORPUSCULAR VOLUME 84 fL (79-100); MONO # 0.6 x10^3/uL (0.0-1.1); MONO % 8 % (0-9); NEUT # 4.3 x10^3/uL (1.8-7.7); NEUT % 55 % (31-73); PLATELET COUNT 194 x10^3/uL (140-400); RED BLOOD COUNT 5.21 x10^6/uL (3.50-5.40); WHITE BLOOD COUNT 7.9 x10^3/uL (4.0-11.0)
[2019-03-17 13:52] LABS: BILIRUBIN,URINE NEGATIVE (NEG); CLARITY,URINE CLEAR; COLOR,URINE YELLOW; NITRITE,URINE NEGATIVE (NEG); PH,URINE 5.5; PROTEIN,URINE NEGATIVE (NEG-TRACE); UROBILINOGEN,URINE 0.2 mg/dL (0.2 mg/dL)
[2019-03-17 13:59] LABS: CALCIUM 9.5 mg/dL (8.5-10.1); CREATININE 1.6 mg/dL (0.6-1.0); GFR 40.5; POTASSIUM 3.7 mmol/L (3.5-5.1)
[2019-03-17 14:05] LABS: BARBITURATES NEG (NEG); BENZODIAZEPINES NEG (NEG); CANNABINOIDS POS (NEG); COCAINE NEG (NEG); METHADONE NEG (NEG); OPIATES NEG (NEG); PHENCYCLIDINE NEG (NEG)
[2019-03-17 14:07] LABS: ALBUMIN 3.8 g/dL (3.4-5.0); MAGNESIUM 2.1 mg/dL (1.8-2.4); TOTAL BILIRUBIN 0.5 mg/dL (0.2-1.0); TOTAL PROTEIN 7.7 g/dL (6.4-8.2)
[2019-03-17 14:08] LABS: BACTERIA,URINE MODERATE /HPF (0-FEW); RBC,URINE 0 /HPF (0-2); SQUAMOUS EPITHELIAL CELL,UR FEW /LPF; WBC,URINE OCC /HPF (0-4)
--- NOTE | 2019-03-17 14:15 | PHYS DOC ---
Past Medical History Past Medical History: Asthma, Bronchitis, Cancer, CHF, COPD, CVA, Diabetes-Type II, GERD, Heart Disease, Hypertension, [place], Pancreatitis, Pneumonia, Other Additional Past Medical Histor: Liver Cancer treated with medication Past Surgical History: Angioplasty, Tubal ligation, Other Additional Past Surgical Histo: CARDIAC STENT Additional Information: 04/30 ppd Alcohol Use: None Drug Use: None Adult General Chief Complaint Chief Complaint: CHEST PAIN HPI HPI Patient is a 53 year old female with history of hypertension, dyslipidemia, diabetes mellitus, coronary artery disease and status post stent placement, pancreatitis, PE on Xarelto who presents with complaining of chest pain. Patient complaining of stabbing pain in epigastric and substernal area that woke her up at 4 AM as a constant pain with radiation to bilateral lower extremity. Patient rated her pain 10 over 10 and complaining of shortness of breath, nausea, 4 epis odes of vomiting and generalized weakness and lightheadedness. Patient states she has had episodes of nonbloody diarrhea for the last 4 days. Is also complaining of a" knot" in right leg with pain and concern for possible blood clot. Patient states she took 324 mg of aspirin today. Patient denies fever and chills, focal neuro deficit, urinary symptom, history of the same pain, using alcohol or drugs. Patient currently is a smoker. Review of Systems Review of Systems Constitutional: Denies fever or chills [] Eyes: Denies change in visual acuity, redness, or eye pain [] HENT: Denies nasal congestion or sore throat [] Respiratory: Denies cough, reports shortness of breath [] Cardiovascular: No additional information not addressed in HPI [] GI: Denies abdominal pain, reports nausea, vomiting, diarrhea [] : Denies dysuria or hematuria [] Musculoskeletal: Denies back pain, reports joint pain [] Integument: Denies rash or skin lesions [] Neurologic: Denies headache, focal weakness or sensory changes [] Endocrine: Denies polyuria or polydipsia [] All other systems were reviewed and found to be within normal limits, except as documented in this note. Current Medications Current Medications Current Medications Medications (Trade) Dose Ordered Sig/Luz Maria Start Time Stop Time Status Last Admin Dose Admin Nitroglycerin (Nitrostat) 0.4 mg PRN Q5MIN PRN 03/17/19 12:45 03/17/19 15:32 DC 03/17/19 13:55 0.4 MG Ondansetron HCl (Zofran) 4 mg 1X ONCE 03/17/19 12:45 03/17/19 12:46 DC 03/17/19 13:54 4 MG Allergies Allergies Allergies Coded Allergies Type Severity Reaction Last Updated Verified Penicillins Allergy Severe 01/28/17 Yes amoxicillin Allergy Severe anaphylaxis 09/19/13 Yes iodine Allergy Severe Anaphylaxis 09/19/13 Yes shellfish derived Allergy Severe Anaphylaxis 04/09/14 Yes Physical Exam Physical Exam Constitutional: Well developed, well nourished, mild distress, non-toxic appearance. [] HENT: Normocephalic, atraumatic. Eyes: PERRLA, EOMI, conjunctiva normal, no discharge. [] Neck: Normal range of motion, no tenderness, supple, no stridor. [] Cardiovascular:Heart rate regular rhythm, no murmur [] Lungs & Thorax: Bilateral breath sounds clear to auscultation , reproducible epigastric and substernal pain[] Abdomen: Bowel sounds normal, soft, no tenderness, no masses, no pulsatile masses. [] Skin: Warm, dry, no erythema, no rash. [] Back: No tenderness, no CVA tenderness. [] Extremities: No tenderness, no cyanosis, no clubbing, ROM intact, extremities 1+ edema, right lateral lower leg marked contusion without tenderness. [] Neurologic: Alert and oriented X 3, no focal deficits noted. [] Psychologic: Affect anxious, judgement normal, mood normal. [] Current Patient Data Vital Signs Vital Signs Date Time Temp Pulse Resp B/P (MAP) Pulse Ox O2 Delivery O2 Flow Rate FiO2 03/17/19 15:04 66 16 152/77 (102) 96 Room Air 03/17/19 12:25 98.1 98.1 Lab Values Laboratory Tests Test 03/17/19 12:43 03/17/19 13:10 03/17/19 13:28 Glucose (Fingerstick) 159 mg/dL (70-99) H Urine Collection Type Unknown Urine Color Yellow Urine Clarity Clear Urine pH 5.5 Urine Specific [place] <=1.005 Urine Protein Negative mg/dL (NEG-TRACE) Urine Glucose (UA) Negative mg/dL (NEG) Urine Ketones (Stick) Negative mg/dL (NEG) Urine Blood Negative (NEG) Urine Nitrite Negative (NEG) Urine Bilirubin Negative (NEG) Urine Urobilinogen Dipstick 0.2 mg/dL (0.2 mg/dL) Urine Leukocyte Esterase Negative (NEG) Urine RBC 0 /HPF (0-2) Urine WBC Occ /HPF (0-4) Urine Squamous Epithelial Cells Few /LPF Urine Bacteria Moderate /HPF (0-FEW) Urine Opiates Screen Neg (NEG) Urine Methadone Screen Neg (NEG) Urine Barbiturates Neg (NEG) Urine Phencyclidine Screen Neg (NEG) Urine Amphetamine/Methamphetamine Neg (NEG) Urine Benzodiazepines Screen Neg (NEG) Urine Cocaine Screen Neg (NEG) Urine Cannabinoids Screen Pos (NEG) Urine Ethyl Alcohol Neg (NEG) White Blood Count 7.9 x10^3/uL (4.0-11.0) Red Blood Count 5.21 x10^6/uL (3.50-5.40) Hemoglobin 14.8 g/dL (12.0-15.5) Hematocrit 43.5 % (36.0-47.0) Mean Corpuscular Volume 84 fL (79-100) Mean Corpuscular Hemoglobin 28 pg (25-35) Mean Corpuscular Hemoglobin Concent 34 g/dL (31-37) Red Cell Distribution Width 15.0 % (11.5-14.5) H Platelet Count 194 x10^3/uL (140-400) Neutrophils (%) (Auto) 55 % (31-73) Lymphocytes (%) (Auto) 35 % (24-48) Monocytes (%) (Auto) 8 % (0-9) Eosinophils (%) (Auto) 2 % (0-3) Basophils (%) (Auto) 0 % (0-3) Neutrophils # (Auto) 4.3 x10^3/uL (1.8-7.7) Lymphocytes # (Auto) 2.8 x10^3/uL (1.0-4.8) Monocytes # (Auto) 0.6 x10^3/uL (0.0-1.1) Eosinophils # (Auto) 0.1 x10^3/uL (0.0-0.7) Basophils # (Auto) 0.0 x10^3/uL (0.0-0.2) D-Dimer (Nalini) 0.31 ug/mlFEU (0.00-0.50) Sodium Level 139 mmol/L (136-145) Potassium Level 3.7 mmol/L (3.5-5.1) Chloride Level 101 mmol/L (98-107) Carbon Dioxide Level 29 mmol/L (21-32) Anion Gap 9 (6-14) Blood Urea Nitrogen 10 mg/dL (7-20) Creatinine 1.6 mg/dL (0.6-1.0) H Estimated GFR (Cockcroft-Gault) 40.5 BUN/Creatinine Ratio 6 (6-20) Glucose Level 80 mg/dL (70-99) Calcium Level 9.5 mg/dL (8.5-10.1) Magnesium Level 2.1 mg/dL (1.8-2.4) Total Bilirubin 0.5 mg/dL (0.2-1.0) Aspartate Amino Transferase (AST) 22 U/L (15-37) Alanine Aminotransferase (ALT) 27 U/L (14-59) Alkaline Phosphatase 137 U/L (46-116) H Creatine Kinase 122 U/L (26-192) Troponin I Quantitative < 0.017 ng/mL (0.000-0.055) FT-Pxb-W-Type Natriuretic Peptide 35 pg/mL (0-124) Total Protein 7.7 g/dL (6.4-8.2) Albumin 3.8 g/dL (3.4-5.0) Albumin/Globulin Ratio 1.0 (1.0-1.7) Lipase 78 U/L (73-393) Laboratory Tests 03/17/19 13:28 Laboratory Tests 03/17/19 13:28 EKG EKG EKG interpreted by me. EKG at 1229 showed normal sinus rhythm at rate of 78, normal NC and QT intervals, left atrial abnormality, poor R-wave progress in anteroseptal leads, no acute ST and T-wave elevation. Radiology/Procedures Radiology/Procedures [][facility] [address] [place], [place] [id number] IMAGING REPORT Signed PATIENT: SAVAGE MONSIVAIS ACCOUNT: [id number] : 1965 LOCATION: ER AGE: 53 SEX: F EXAM STATUS: REG ER ORD. PHYSICIAN: MARTIN CHACON MD REASON: chest pain PROCEDURE: PORTABLE CHEST 1V Single view of the chest. 03/17/2019 12:45 PM Indication: Chest pain Comparison: Chest radiograph August 11, 2018 Findings: There is no focal consolidation. There is no pleural effusion or pneumothorax. The cardiomediastinal silhouette and pulmonary vasculature are within normal limits. No acute osseous abnormalities are seen. Impression: No evidence of acute cardiopulmonary process. Electronically signed by: Tony Mcmahon MD (03/17/2019 12:54 PM) [facility] DICTATED and SIGNED BY: TONY MCMAHON MD DATE: 03/17/19 1254 Course & Med Decision Making Course & Med Decision Making Pertinent Labs and Imaging studies reviewed. (See chart for details) Evaluation of patient in ER showed 63-year-old female patient with complaining of chest pain with radiation bilaterally. Nausea and vomiting. Patient had unremarkable physical exam and felt better with Zofran and nitroglycerin 1. Patient was able to fall sleep without any vomiting while she was in ER. Patient was advised to follow with her primary care physician and take liquid diet today. I've spoken with the patient and/or caregivers. I've explained the patient's condition, diagnosis and treatment plan based on information available to me at this time. I've answered the patient's and/or caregivers questions and addressed any concerns. The patient and/or caregivers have a good understanding the patient's diagnosis, condition and treatment plan as can be expected at this point. Vital signs have been stabilized. The patient's condition is stable for discharge from the emergency department. The patient will pursue further outpatient evaluation with her primary care provider or other designated consulting physician as outlined in the discharge instructions. Patient and/or caregivers are agreeable to this plan of care and follow-up instructions have been explained in detail. The patient and/or careg zuleyka have received these instructions in written format and expressed understanding of these discharge instructions. The patient and her caregivers are aware that if any significant change in condition or worsening of symptoms should prompt him to immediately return to this of the closest emergency department. If an emergent department is not readily available I would encourage him to call 911. Anabel Disclaimer Dragon Disclaimer This electronic medical record was generated, in whole or in part, using a voice recognition dictation system. Departure Departure Impression: Primary Impression: Epigastric pain Additional Impressions: Gastroenteritis Musculoskeletal pain Anxiety about health Disposition: HOME, SELF-CARE (at 1449) Condition: IMPROVED Referrals: ANETTE WELCH (PCP) Patient Instructions: Abdominal Pain, Musculoskeletal Pain, Viral Gastroenteritis Additional Instructions: Drink plenty of liquids Follow-up with your primary care physician in 3-5 days Return to ER if not getting better Do not eat solid food today Scripts Ondansetron Hcl (ZOFRAN) 4 Mg Tablet 1 TAB PO PRN Q6-8HRS for nausea, #12 TAB Prov: MARTIN CHACON MD 03/17/19 The HEART Score for CP Pts HEART Score for Chest Pain: HEART Score for Chest Pain Response (Comments) Value History Slighlty/Non-Suspicious 0 ECG Nonspecific Repolarizatio 1 Age >45 - < 65 1 Risk Factors >3 Risk Factors or Hx CAD 2 Troponin < Normal Limit 0 Total 4 Risk Factors: Risk Factors: DM, Current or recent (<one month) smoker, HTN, HLP, family history of CAD, obesity. Risk Scores: Score 0 - 3: 2.5% MACE over next 6 weeks - Discharge Home Score 4 - 6: 20.3% MACE over next 6 weeks - Admit for Clinical Observation Score 7 - 10: 72.7% MACE over next 6 weeks - Early Invasive Strategies Problem Qualifiers MARTIN CHACON MD Mar 17, 2019 14:15
[2019-03-17 14:19] LABS: AMPHETAMINE/METHAMPHETAMINE NEG (NEG)
[2019-03-17] MEDS ORDERED: ONDA4TAB7 PO (14:51)
[2019-03-17 15:04] VITALS: BP 152/77
== END 2019-03-17 15:32 | disposition home or self-care (01) ==
LOC: ER 12:19
DX: K52.9 Noninfective gastroenteritis and colitis, unspecified (principal); R07.2 Precordial pain; F41.9 Anxiety disorder, unspecified; J44.9 Chronic obstructive pulmonary disease, unspecified; I11.0 Hypertensive heart disease with heart failure; I50.9 Heart failure, unspecified; E11.9 Type 2 diabetes mellitus without complications; K21.9 Gastro-esophageal reflux disease without esophagitis; I25.2 Old myocardial infarction; Z98.51 Tubal ligation status; Z98.61 Coronary angioplasty status; Z86.73 Personal history of transient ischemic attack (TIA), and cerebral infarction without residual deficits; F17.200 Nicotine dependence, unspecified, uncomplicated; Z88.0 Allergy status to penicillin; Z88.1 Allergy status to other antibiotic agents; Z91.013 Allergy to seafood; Z88.8 Allergy status to other drugs, medicaments and biological substances
CPT/HCPCS: 36415; 71045; 80053; 80307; 81001; 82550; 82962; 83690; 83735; 83880; 84484; 85025; 85379; 87086; 93005; 96374; 99285; J2405

== ENCOUNTER 2019-11-08 12:02 | Observation (INO) | payer OTHER ==
[~2019-11-08] VITALS: Ht 157.5 cm; Wt 108.0 kg
[~2019-11-08 12:02] MED LIST changes: +ONDA4TAB7 PO; +POTA20TA4 PO; -POTA20TA82 PO
[2019-11-08] MEDS ORDERED: fentaNYL PF VIAL 100 MCG/2 ML VIAL IV ONE ×2 (12:30→15:00)
[2019-11-08 12:39] LABS: BASO % 0 % (0-3); EOS # 0.1 x10^3/uL (0.0-0.7); EOS % 1 % (0-3); HEMATOCRIT 41.7 % (36.0-47.0); HEMOGLOBIN 14.6 g/dL (12.0-15.5); LYMPH # 2.9 x10^3/uL (1.0-4.8); LYMPH % 34 % (24-48); MEAN CORPUSCULAR HEMOGLOBIN 30 pg (25-35); MEAN CORPUSCULAR HGB CONC 35 g/dL (31-37); MEAN CORPUSCULAR VOLUME 85 fL (79-100); MONO # 0.5 x10^3/uL (0.0-1.1); MONO % 6 % (0-9); NEUT # 4.9 x10^3/uL (1.8-7.7); NEUT % 58 % (31-73); PLATELET COUNT 179 x10^3/uL (140-400); RED BLOOD COUNT 4.91 x10^6/uL (3.50-5.40); RED CELL DISTRIBUTION WIDTH 15.2 % (11.5-14.5); WHITE BLOOD COUNT 8.4 x10^3/uL (4.0-11.0)
--- NOTE | 2019-11-08 12:41 | PHYS DOC ---
Past Medical History Past Medical History: Asthma, Bronchitis, Cancer, CHF, COPD, CVA, Diabetes-Type II, GERD, Heart Disease, Hypertension, [place], Pancreatitis, Pneumonia, Other Additional Past Medical Histor: Liver Cancer treated with medication Past Surgical History: Angioplasty, Tubal ligation, Other Additional Past Surgical Histo: CARDIAC STENT Smoking Status: Current Every Day Smoker Alcohol Use: None Drug Use: None General Adult EDM: Chief Complaint: CHEST PAIN HPI: HPI: Patient is a 53 year old AA female who presents to the emergency department via EMS with complaints of chest pain that is been constant for the last month but has increased in severity since last night. EMS reports that they gave patient 324 mg of aspirin and 2 sublingual nitro. The patient reports that she took 1 sublingual nitro at home prior to their arrival. She reports no decrease in her chest pain after taking the nitroglycerin. She states that with the onset of the pain a month ago she felt the pain in her left shoulder, as of last night she also has pain in her right shoulder. She states that she becomes sweaty with any increased activity. She denies any fever, cough, body aches, nausea, vomiting, diarrhea, abdominal pain, or rash. She denies any shortness of breath. Patient reports she has had a decreased appetite for several weeks and states that she is only been able to eat and drink water and juice because of the decreased appetite. She currently rates her pain a 10 out of 10 on the pain scale, there are no alleviating factors, the pain radiates to both of her shoulders, she denies any exacerbating factors. Review of Systems: Review of Systems: Constitutional: Denies fever or chills. [] Eyes: Denies change in visual acuity. [] HENT: Denies nasal congestion or sore throat. [] Respiratory: Denies cough or shortness of breath. [] Cardiovascular: See HPI GI: Denies abdominal pain, nausea, vomiting, or diarrhea; see HPI. [] : Denies dysuria. [] Musculoskeletal: See HPI Integument: Denies rash. [] Neurologic: Denies headache, focal weakness or sensory changes. [] Endocrine: Denies polyuria or polydipsia. [] Psychiatric: Denies depression or anxiety. [] Heart Score: HEART Score for Chest Pain: HEART Score for Chest Pain Response (Comments) Value History Slighlty/Non-Suspicious 0 ECG Normal 0 Age >45 - < 65 1 Risk Factors >3 Risk Factors or Hx CAD 2 Total 3 Risk Factors: Risk Factors: DM, Current or recent (<one month) smoker, HTN, HLP, family history of CAD, obesity. Risk Scores: Score 0 - 3: 2.5% MACE over next 6 weeks - Discharge Home Score 4 - 6: 20.3% MACE over next 6 weeks - Admit for Clinical Observation Score 7 - 10: 72.7% MACE over next 6 weeks - Early Invasive Strategies Current Medications: Current Medications Medications (Trade) Dose Ordered Sig/Luz Maria Start Time Stop Time Status Last Admin Dose Admin Fentanyl Citrate (Fentanyl 2ml Vial) 50 mcg 1X ONCE 11/08/19 12:30 11/08/19 12:31 DC Allergies: Allergies: Allergies Coded Allergies Type Severity Reaction Last Updated Verified Penicillins Allergy Severe 01/28/17 Yes amoxicillin Allergy Severe anaphylaxis 09/19/13 Yes iodine Allergy Severe Anaphylaxis 09/19/13 Yes shellfish derived Allergy Severe Anaphylaxis 04/09/14 Yes Physical Exam: PE: Constitutional: Well developed, well nourished, no acute distress, non-toxic appearance, obese. [] HENT: Normocephalic, atraumatic, bilateral external ears normal, oropharynx moist, nose normal. [] Eyes: PERRLA, EOMI, conjunctiva normal, no discharge. [] Neck: Normal range of motion, no stridor. [] Cardiovascular:Heart rate regular rhythm, no murmur [] Lungs & Thorax: Bilateral breath sounds coarse throughout with expiratory wheezing wheezing in the right, regular rate Abdomen: soft, no tenderness Skin: Warm, dry, no erythema, no rash. [] Back: No tenderness Extremities: No cyanosis, no clubbing, ROM intact, no edema. [] Neurologic: Alert and oriented X 3, no focal deficits noted. [] Psychologic: Affect normal, judgement normal, mood normal. [] EKG: EK-sinus rhythm rate of 70, no STEMI read by Dr. Workman[] 1458-sinus bradycardia rate of 55, no STEMI read by Dr. Workman Radiology/Procedures: Radiology/Procedures: PROCEDURE: CHEST AP ONLY CHEST AP ONLY History: Reason: chest pain / Spl. Instructions: / History: Comparison: March 17, 2019 Findings: Mild bibasilar linear atelectasis. No consolidation or pleural effusion. Normal heart size. No pneumothorax. Impression: 1. Mild bibasilar linear atelectasis.[] Course & Med Decision Making: Course & Med Decision Making Pertinent Labs and Imaging studies reviewed. (See chart for details) [id number] with Dr. Dent who is the admitting physician, and care was assumed following discussion of patient. Will admit patient for chest pain observation and initiate CP order set, will consult cardiology Patient's vital signs stable. Patient remains afebrile, appears nontoxic, respirations even and unlabored. Patient will be admitted to the CVC floor. [] Dragon Disclaimer: Dragon Disclaimer: This electronic medical record was generated, in whole or in part, using a voice recognition dictation system. Departure Departure Impression: Primary Impression: Chest pain Qualified Codes: R07.9 - Chest pain, unspecified Disposition: ADMITTED INPATIENT Admitting Physician: TIM (Jailene) Condition: STABLE Referrals: ANETTE WELCH (PCP) Justicifation of Admission Dx: Justifications for Admission: Justification of Admission Dx: N/A JIMENEZ PANTOJA CONTAINERS SALES REPRESENTATIVE Nov 08, 2019 12:41
[2019-11-08 12:48] LABS: CALCIUM 8.7 mg/dL (8.5-10.1); GFR 69.7; POTASSIUM 3.9 mmol/L (3.5-5.1)
[2019-11-08 13:05] LABS: ALBUMIN 3.5 g/dL (3.4-5.0); MAGNESIUM 2.1 mg/dL (1.8-2.4); TOTAL BILIRUBIN 0.4 mg/dL (0.2-1.0)
--- NOTE | 2019-11-08 13:10 | RAD ---
CHEST AP ONLY History: Reason: chest pain / Spl. Instructions: / History: Comparison: March 17, 2019 Findings: Mild bibasilar linear atelectasis. No consolidation or pleural effusion. Normal heart size. No pneumothorax. Impression: 1. Mild bibasilar linear atelectasis. Electronically signed by: Donald Lopez DO (11/08/2019 1:07 PM) [id number]
[2019-11-08 13:15] LABS: D-DIMER 0.28 ug/mlFEU (0.00-0.50)
[2019-11-08 13:45] LABS: BILIRUBIN,URINE NEGATIVE (NEG); CLARITY,URINE CLEAR; COLOR,URINE YELLOW; NITRITE,URINE NEGATIVE (NEG); PH,URINE 6.5 (<5.0-8.0); PROTEIN,URINE NEGATIVE (NEG-TRACE)
[2019-11-08 13:57] LABS: SQUAMOUS EPITHELIAL CELL,UR MOD /LPF
[2019-11-08 13:58] LABS: BACTERIA,URINE 0 /HPF (0-FEW)
[2019-11-08 18:05] VITALS: BP 165/93
[2019-11-08 19:39] VITALS: BP 155/78
[2019-11-08] MEDS ORDERED: oxyCODONE/APAP 5/325 1 TAB TABLET PO PRN (19:45)
[2019-11-08] MEDS ORDERED: ACETAMINOPHEN 325 MG TABLET. PO PRN (19:45)
[2019-11-08] MEDS: NITROGLYCERIN SUBLINGUAL 0.4 MG BOTTLE OF 25. SL PRN ×3 (20:00→20:42)
[2019-11-08 23:31] VITALS: BP 148/69
[2019-11-09 03:47] VITALS: BP 139/77
--- NOTE | 2019-11-09 05:01 | EKG ---
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
--- NOTE | 2019-11-09 05:04 | EKG ---
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
[2019-11-09 07:00] VITALS: BP 148/70
[2019-11-09 07:16] LABS: CHOLESTEROL/HDL RATIO 4.4
--- NOTE | 2019-11-09 08:27 | EKG ---
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
--- NOTE | 2019-11-09 08:30 | PDOC2 ---
FELICITAS LEAL APRN 11/09/19 0830: CARDIAC CONSULT DATE OF CONSULT Date of Consult DATE: 11/09/19 TIME: 08:20 REASON FOR CONSULT Reason for Consult: Chest pain REFERRING PHYSICIAN Referring Physician: Tammie Kent APRN SOURCE Source: Chart review, Patient HISTORY OF PRESENT ILLNESS HISTORY OF PRESENT ILLNESS This is a 53 yo female who presented secondary to chest pain. Patient reports pain has been intermittent for the last month. Pain located in her central chest. Describes as tightness. Associated with diaphoresis. Seems to be worse with deep breathing. Pain not relieved with nitro. No associated dizziness, palpitations, or nausea/vomiting. PAST MEDICAL HISTORY Past Medical History Cardiovascular: CAD, CHF, HTN, Hyperlipidemia (0) Pulmonary: Pneumonia, Other (ADÁN), PE CENTRAL NERVOUS SYSTEM: Other (no pertinent hx) GI: GERD Heme/Onc: Cancer (liver/kidney) Hepatobiliary: Other (pancreatitis ) Psych: Anxiety, Depression Musculoskeletal: Osteoarthritis Rheumatologic: No pertinent hx Infectious disease: No pertinent hx ENT: No pertinent hx Renal/: No pertinent hx Endocrine: Diabetes Dermatology: No pertinent hx PAST SURGICAL HISTORY Past Surgical History: Tubal Ligation FAMILY HISTORY Family History Diabetes, Heart Disease, Hypertension, Stroke SOCIAL HISTORY Social History Smoke: <1 pack per day ALCOHOL: none Drugs: None Lives: Alone CURRENT MEDICATIONS CURRENT MEDICATIONS Current Medications Medications (Trade) Dose Ordered Sig/Luz Maria Route PRN Reason Start Time Stop Time Status Last Admin Dose Admin Fentanyl Citrate (Fentanyl 2ml Vial) 50 mcg 1X ONCE IV 11/08/19 12:30 11/08/19 12:31 DC 11/08/19 12:48 Fentanyl Citrate (Fentanyl 2ml Vial) 50 mcg 1X ONCE IV 11/08/19 15:00 11/08/19 15:01 DC 11/08/19 14:55 Nitroglycerin (Nitrostat) 0.4 mg PRN Q5MIN PRN SL CHEST PAIN 11/08/19 19:45 11/08/19 20:42 Acetaminophen (Tylenol) 650 mg PRN Q6HRS PRN PO MILD PAIN 1-3 11/08/19 19:45 11/08/19 20:00 ALLERGIES ALLERGIES: Coded Allergies: Penicillins (Verified Allergy, Severe, 01/28/17) amoxicillin (Verified Allergy, Severe, anaphylaxis, 09/19/13) iodine (Verified Allergy, Severe, Anaphylaxis, 09/19/13) Patient allergic to Seafood shellfish derived (Verified Allergy, Severe, Anaphylaxis, 04/09/14) ROS Review of System 14 point ROS conducted with pertinent positives noted above in hPI PHYSICAL EXAM PHYSICAL EXAM General: Alert, Oriented X3, Cooperative, No acute distress HEENT: Atraumatic Lungs: Clear to auscultation Heart: Regular rate, Normal S1, Normal S2, No murmurs Abdomen: Soft, Other (obese) Extremities: No edema, Normal pulses Neuro: Normal speech, Sensation intact Psych/Mental Status: Mental status NL, Mood NL MUSCULOSKELETAL: Osteoarthritic changes both hands VITALS/I&O VITALS/I&O: Vital Signs Date Time Temp Pulse Resp B/P (MAP) Pulse Ox O2 Delivery O2 Flow Rate FiO2 11/09/19 03:47 97.8 61 16 139/77 (97) 95 Room Air 97.8 I & O 11/08/19 11/08/19 11/09/19 15:00 23:00 07:00 Intake Total 240 ml 1000 ml Output Total 600 ml Balance -360 ml 1000 ml LABS Lab: Laboratory Tests Test 11/08/19 12:30 11/08/19 13:20 11/08/19 21:18 11/09/19 00:30 White Blood Count 8.4 x10^3/uL (4.0-11.0) Red Blood Count 4.91 x10^6/uL (3.50-5.40) Hemoglobin 14.6 g/dL (12.0-15.5) Hematocrit 41.7 % (36.0-47.0) Mean Corpuscular Volume 85 fL (79-100) Mean Corpuscular Hemoglobin 30 pg (25-35) Mean Corpuscular Hemoglobin Concent 35 g/dL (31-37) Red Cell Distribution Width 15.2 % (11.5-14.5) H Platelet Count 179 x10^3/uL (140-400) Neutrophils (%) (Auto) 58 % (31-73) Lymphocytes (%) (Auto) 34 % (24-48) Monocytes (%) (Auto) 6 % (0-9) Eosinophils (%) (Auto) 1 % (0-3) Basophils (%) (Auto) 0 % (0-3) Neutrophils # (Auto) 4.9 x10^3/uL (1.8-7.7) Lymphocytes # (Auto) 2.9 x10^3/uL (1.0-4.8) Monocytes # (Auto) 0.5 x10^3/uL (0.0-1.1) Eosinophils # (Auto) 0.1 x10^3/uL (0.0-0.7) Basophils # (Auto) 0.0 x10^3/uL (0.0-0.2) Prothrombin Time 19.0 SEC (11.7-14.0) H Prothrombin Time INR 1.6 (0.8-1.1) H Activated Partial Thromboplast Time 34 SEC (24-38) D-Dimer (Nalini) 0.28 ug/mlFEU (0.00-0.50) Sodium Level 141 mmol/L (136-145) Potassium Level 3.9 mmol/L (3.5-5.1) Chloride Level 105 mmol/L (98-107) Carbon Dioxide Level 26 mmol/L (21-32) Anion Gap 10 (6-14) Blood Urea Nitrogen 15 mg/dL (7-20) Creatinine 1.0 mg/dL (0.6-1.0) Estimated GFR (Cockcroft-Gault) 69.7 BUN/Creatinine Ratio 15 (6-20) Glucose Level 117 mg/dL (70-99) H Calcium Level 8.7 mg/dL (8.5-10.1) Magnesium Level 2.1 mg/dL (1.8-2.4) Total Bilirubin 0.4 mg/dL (0.2-1.0) Aspartate Amino Transferase (AST) 28 U/L (15-37) Alanine Aminotransferase (ALT) 26 U/L (14-59) Alkaline Phosphatase 113 U/L (46-116) Creatine Kinase 179 U/L (26-192) Creatine Kinase MB (Mass) 1.6 ng/mL (0.0-3.6) Creatine Kinase MB Relative Index 0.9 % (0-4) Troponin I Quantitative < 0.017 ng/mL (0.000-0.055) < 0.017 ng/mL (0.000-0.055) ID-Tdu-H-Type Natriuretic Peptide 102 pg/mL (0-124) Total Protein 7.0 g/dL (6.4-8.2) Albumin 3.5 g/dL (3.4-5.0) Albumin/Globulin Ratio 1.0 (1.0-1.7) Lipase 106 U/L (73-393) Urine Collection Type Unknown Urine Color Yellow Urine Clarity Clear Urine pH 6.5 (<5.0-8.0) Urine Specific [place] 1.010 (1.000-1.030) Urine Protein Negative mg/dL (NEG-TRACE) Urine Glucose (UA) Negative mg/dL (NEG) Urine Ketones (Stick) Negative mg/dL (NEG) Urine Blood Negative (NEG) Urine Nitrite Negative (NEG) Urine Bilirubin Negative (NEG) Urine Urobilinogen Dipstick 1.0 mg/dL (0.2 mg/dL) Urine Leukocyte Esterase Negative (NEG) Urine RBC 1-2 /HPF (0-2) Urine WBC 1-4 /HPF (0-4) Urine Squamous Epithelial Cells Mod /LPF Urine Bacteria 0 /HPF (0-FEW) Urine Mucus Slight /LPF Glucose (Fingerstick) 114 mg/dL (70-99) H Test 11/09/19 06:14 11/09/19 07:49 Troponin I Quantitative 0.024 ng/mL (0.000-0.055) Triglycerides Level 178 mg/dL (0-150) H Cholesterol Level 161 mg/dL (0-200) LDL Cholesterol, Calculated 88 mg/dL (0-100) VLDL Cholesterol, Calculated 36 mg/dL (0-40) Non-HDL Cholesterol Calculated 124 mg/dL (0-129) HDL Cholesterol 37 mg/dL (40-60) L Cholesterol/HDL Ratio 4.4 Glucose (Fingerstick) 105 mg/dL (70-99) H Laboratory Tests 11/08/19 12:30 Laboratory Tests 11/08/19 12:30 ECHOCARDIOGRAM ECHOCARDIOGRAM <Conclusion> The left ventricular systolic function is normal and the ejection fraction is within normal range. The Ejection Fraction is >55%. There is normal LV segmental wall motion. Technically difficult study. DATE: 08/12/18 1607 STRESS TEST STRESS TEST Conclusion 1. No evidence of stress induced EKG changes. 2. Normal perfusion at stress. Rest images not obtained. 3. Normal EF at > 61% 4. Low risk study DATE: 06/07/18 1521 HEART CATH HEART CATH SELECTIVE CORONARY ARTERIOGRAM: Left main: The left main coronary artery arises normally from the left coronary sinus. The left main artery is patent with no significant disease. Distally, the left main artery trifurcates into a left circumflex artery, the ramus intermedius, and a left anterior descending artery. Left anterior descending: The left anterior descending artery arises normally from the left main. The left anterior descending artery shows no significant disease in its proximal, mid or distal part. It gives off a high diagonal branch which is patent. This is followed by small other diagonal branches which all appear to be patent. Ramus intermedius. This is a large vessel which arises directly from the left main. It bifurcates soon after its origin. The ramus intermedius appears to be patent with no significant disease. Left circumflex artery: The left circumflex artery arises normally from the left main. The left circumflex artery appears to be a codominant-type vessel. It shows no significant disease. It gives off 2 obtuse marginal branches, both of which appear to be patent with no significant disease. These branches appear to be quite distal. Right coronary artery: This appears to be a small, codominant vessel, arising from close to the left coronary sinus. It also has a kind of an anterior origin. The right coronary artery appears to be patent with no significant disease. Small posterolateral posterior descending arterial branches are patent . FINAL IMPRESSION: A codominant right and left system with no significant coronary artery disease. Normal left ventricular function. No evidence of any significant mitral regurgitation. Normal left ventricular end-diastolic pressures. No evidence of any significant gradient across the aortic valve. RECOMMENDATION: Continue optimized medical treatment. [facility] DATE: 12/30/2012 1:41 PM ASSESSMENT/PLAN ASSESSMENT/PLAN 1. Chest pain, mixed features. AMI ruled out. Cath 2012 without CAD. MPI 06/15 without evidence of ischemia. Echo 08/13 with preserved LV systolic function. AMI ruled out. 2. Hypertension; controlled 3. Hyperlipidemia; statin 4. Diabetes, II; as per PCP 5. Tobaccoism; discussed/encourage cessation 6. H/o PE on Xarelto Recommendations ASA, statin therapy Resume home antiHTN therapy Outpatient echo. If pain recurrent, consider further ischemic evaluation on an outpatient basis Supportive care Follow up in our office with Dr. Ovalle as scheduled. JAMI OVALLE MD 7/15/20 2128: CARDIAC CONSULT ASSESSMENT/PLAN ASSESSMENT/PLAN Patient seen and examined. Agree with COLLABORATING SUPERVISING PHYSICIAN's assessment and plan. CP with atypical features [place] ruled out MPI and echo from last year noted above Doubt cardiac etiology We will consider repeating stress test as outpatient Thank you for your consultation FELICITAS LEAL APRN Nov 09, 2019 08:30 JAMI OVALLE MD Nov 09, 2019 21:28
[2019-11-09 11:00] VITALS: BP 128/62
--- NOTE | 2019-11-09 11:25 | NUR ---
SS following for discharge planning. SS reviewed pt chart and discussed with pt RN. Pt is from home and is currently on room air. Possible discharge to home today. SS will continue to follow for discharge planning.
[2019-11-09 15:00] VITALS: BP 155/83
--- NOTE | 2019-11-09 15:11 | EKG ---
[facility] [address] [place] [address] Test Date: 2019-11-09 Test Time: 12:03:36 Pat Name: SAVAGE MONSIVAIS Department: Room: Gender: F Expediter: DEX : 1965 Requested By: JIMENEZ PANTOJA Order Number: [id number] Reading MD: Measurements Intervals [place] Rate: 51 P: 51 [place]: 156 QRS: 32 QRSD: 80 T: 39 QT: 462 QTc: 428 Interpretive Statements SINUS RHYTHM OTHERWISE NORMAL ECG RI6.02 No previous ECG available for comparison
[2019-11-09] MEDS ORDERED: ALPRAZOLAM PO PRN (15:30)
[2019-11-09] MEDS ORDERED: oxyCODONE/APAP 10/325 1 TAB TABLET PO PRN (15:30)
[2019-11-09] MEDS ORDERED: CYCLOBENZAPRINE 10 MG TABLET. PO PRN (15:30)
--- NOTE | 2019-11-09 15:30 | PDOC1 ---
History and Physical Date of Admission Date of Admission DATE: 11/09/19 TIME: 15:21 Identification/Chief Complaint Chief Complaint chest pain Source Source: Chart review, Patient History of Present Illness History of Present Illness 53 year old AA female hx of CAD, CHF, DM, HTN who presents with constant chest pain for 1 month more severe last night so came to ED. given ASA and NTG. reports improvement in chest pain since given NTG. reports pain "all over" including her left shoulder, right shoulder, pain in her legs. denies any fever, cough, body aches, nausea, vomiting, diarrhea, abdominal pain, or rash. decreas ed appetite for several days. admitted for acs rule out. trops and ekg in ED stable. hospitalist called for admission. cardiac workup in past below STRESS TEST Conclusion 1. No evidence of stress induced EKG changes. 2. Normal perfusion at stress. Rest images not obtained. 3. Normal EF at > 61% 4. Low risk study DATE: 06/07/18 1521 HEART CATH SELECTIVE CORONARY ARTERIOGRAM: Left main: The left main coronary artery arises normally from the left coronary sinus. The left main artery is patent with no significant disease. Distally, the left main artery trifurcates into a left circumflex artery, the ramus intermedius, and a left anterior descending artery. Left anterior descending: The left anterior descending artery arises normally from the left main. The left anterior descending artery shows no significant disease in its proximal, mid or distal part. It gives off a high diagonal branch which is patent. This is followed by small other diagonal branches which all appear to be patent. Ramus intermedius. This is a large vessel which arises directly from the left main. It bifurcates soon after its origin. The ramus intermedius appears to be patent with no significant disease. Left circumflex artery: The left circumflex artery arises normally from the left main. The left circumflex artery appears to be a codominant-type vessel. It shows no significant disease. It gives off 2 obtuse marginal branches, both of which appear to be patent with no significant disease. These branches appear to be quite distal. Right coronary artery: This appears to be a small, codominant vessel, arising from close to the left coronary sinus. It also has a kind of an anterior origin. The right coronary artery appears to be patent with no significant disease. Small posterolateral posterior descending arterial branches are patent. FINAL IMPRESSION: A codominant right and left system with no significant coronary artery disease. Normal left ventricular function. No evidence of any significant mitral regurgitation. Normal left ventricular end-diastolic pressures. No evidence of any significant gradient across the aortic valve. RECOMMENDATION: Continue optimized medical treatment. [facility] Cardiology at [facility] DATE: 12/30/2012 1:41 PM Past Medical History Cardiovascular: CAD, CHF, HTN, Hyperlipidemia Pulmonary: Pneumonia, Other CENTRAL NERVOUS SYSTEM: Other GI: GERD Heme/Onc: Cancer Hepatobiliary: Other Psych: Anxiety, Depression Musculoskeletal: Osteoarthritis Rheumatologic: No pertinent hx Infectious disease: No pertinent hx Renal/: No pertinent hx Endocrine: Diabetes Past Surgical History Past Surgical History: Tubal Ligation Family History Family History: Diabetes, Heart Disease, Hypertension, Stroke Social History ALCOHOL: none Drugs: None Current Medications Current Medications Current Medications Fentanyl Citrate (Fentanyl 2ml Vial) 50 mcg 1X ONCE IV Last administered on 11/08/19at 12:48; Start 11/08/19 at 12:30; Stop 11/08/19 at 12:31; Status DC Fentanyl Citrate (Fentanyl 2ml Vial) 50 mcg 1X ONCE IV Last administered on 11/08/19at 14:55; Start 11/08/19 at 15:00; Stop 11/08/19 at 15:01; Status DC Nitroglycerin (Nitrostat) 0.4 mg PRN Q5MIN PRN SL CHEST PAIN Last administered on 11/08/19at 20:42; Start 11/08/19 at 19:45 Acetaminophen (Tylenol) 650 mg PRN Q6HRS PRN PO MILD PAIN 1-3 Last administered on 11/08/19at 20:00; Start 11/08/19 at 19:45 Oxycodone/ Acetaminophen (Percocet 5/325) 1 tab PRN Q4HRS PRN PO MODERATE - SEVERE PAIN Last administered on 11/09/19at 10:40; Start 11/08/19 at 19:45 Active Scripts Active Zofran (Ondansetron Hcl) 4 Mg Tablet 1 Tab PO PRN Q6-8HRS Xarelto (Rivaroxaban) 20 Mg Tablet 20 Mg PO DAILY 30 Days Start daily with food after 21 days of 15mg BID dosing Xarelto (Rivaroxaban) 15 Mg Tablet 15 Mg PO BIDWMEALS 21 Days Acetaminophen 325 Mg Capsule 325 Mg PO QID 5 Days Reported Ranitidine Hcl 300 Mg Tablet 300 Mg PO PRN DAILY PRN Duoneb 0.5-3(2.5) Mg/3 Ml (Albuterol/Ipratropium) 3 Ml Ampul.neb 3 Ml INH [id number] Lo-Dose Aspirin Ec (Aspirin) 81 Mg Tablet.dr 81 Mg PO DAILY Hydrochlorothiazide 25 Mg Tablet 1 Tab PO DAILY Alprazolam 2 Mg Tablet 1 Tab PO PRN Q8HRS PRN Temazepam 30 Mg Capsule 1 Tab PO HS Oxycodone-Acetaminophen 10-325 (Oxycodone Hcl/Acetaminophen) 1 Each Tablet 1 Tab PO PRN Q6HRS PRN Triamterene-Hctz 37.5-25 Mg Tb (Triamterene/Hydrochlorothiazid) 1 Each Tablet 1 Tab PO DAILY Cyclobenzaprine Hcl 10 Mg Tablet 1 Tab PO TID PRN Hydroxyzine Hcl 25 Mg Tablet 1 Tab PO BID Isosorbide Mononitrate Er (Isosorbide Mononitrate) 30 Mg Tab.er.24h 1 Tab PO DAILY Loratadine 10 Mg Tablet 1 Tab PO DAILY Carvedilol 25 Mg Tablet 1 Tab PO DAILY Hydrochlorothiazide Tablet (Hydrochlorothiazide) 25 Mg Tablet 1 Tab PO DAILY Simvastatin 20 Mg Tablet 1 Tab PO QHS Glyburide 5 Mg Tablet 1 Tab PO BID Potassium Chloride 20 Meq Tablet.er 20 Meq PO DAILY Montelukast Sodium Tablet (Montelukast Sodium) 10 Mg Tablet 1 Tab PO DAILY Allergies Allergies: Coded Allergies: Penicillins (Verified Allergy, Severe, 01/28/17) amoxicillin (Verified Allergy, Severe, anaphylaxis, 09/19/13) iodine (Verified Allergy, Severe, Anaphylaxis, 09/19/13) Patient allergic to Seafood shellfish derived (Verified Allergy, Severe, Anaphylaxis, 04/09/14) ROS Review of System CONSTITUTIONAL: No fever or chills EYES: No recent changes SKIN: No rash or itching CARDIOVASCULAR: No chest pain, syncope, palpitations, or edema RESPIRATORY: No SOB or cough GASTROINTESTINAL: No nausea, vomiting or abdominal pain NEUROLOGICAL: No headaches or weakness ENDOCRINE: No cold or heat intolerance GENITOURINARY: No urgency or frequency of urination MUSCULOSKELETAL: No back pain or joint pain LYMPHATICS: No enlarged lymph nodes PSYCHIATRIC: No anxiety or depression Physical Exam Physical Exam GENERAL: No apparent distress. Alert and oriented. HEENT: Head normocephalic, atraumatic. NECK: Supple LUNGS: Clear to auscultation. HEART: RRR, S1, S2 present, pulses intact ABDOMEN: Soft, positive bowel sounds. EXTREMITIES: No cyanosis or edema. NEUROLOGIC: Normal speech, normal tone PSYCHIATRIC: Normal affect, normal mood. SKIN: No ulceration. Vitals Vitals Vital Signs Date Time Temp Pulse Resp B/P (MAP) Pulse Ox O2 Delivery O2 Flow Rate FiO2 11/09/19 11:40 18 97 Room Air 11/09/19 11:00 98.0 60 128/62 (84) 98.0 Labs Labs Laboratory Tests Test 11/08/19 12:30 11/08/19 13:20 11/08/19 21:18 11/09/19 00:30 White Blood Count 8.4 x10^3/uL (4.0-11.0) Red Blood Count 4.91 x10^6/uL (3.50-5.40) Hemoglobin 14.6 g/dL (12.0-15.5) Hematocrit 41.7 % (36.0-47.0) Mean Corpuscular Volume 85 fL (79-100) Mean Corpuscular Hemoglobin 30 pg (25-35) Mean Corpuscular Hemoglobin Concent 35 g/dL (31-37) Red Cell Distribution Width 15.2 % (11.5-14.5) Platelet Count 179 x10^3/uL (140-400) Neutrophils (%) (Auto) 58 % (31-73) Lymphocytes (%) (Auto) 34 % (24-48) Monocytes (%) (Auto) 6 % (0-9) Eosinophils (%) (Auto) 1 % (0-3) Basophils (%) (Auto) 0 % (0-3) Neutrophils # (Auto) 4.9 x10^3/uL (1.8-7.7) Lymphocytes # (Auto) 2.9 x10^3/uL (1.0-4.8) Monocytes # (Auto) 0.5 x10^3/uL (0.0-1.1) Eosinophils # (Auto) 0.1 x10^3/uL (0.0-0.7) Basophils # (Auto) 0.0 x10^3/uL (0.0-0.2) Prothrombin Time 19.0 SEC (11.7-14.0) Prothromb Time International Ratio 1.6 (0.8-1.1) Activated Partial Thromboplast Time 34 SEC (24-38) D-Dimer (Nalini) 0.28 ug/mlFEU (0.00-0.50) Sodium Level 141 mmol/L (136-145) Potassium Level 3.9 mmol/L (3.5-5.1) Chloride Level 105 mmol/L (98-107) Carbon Dioxide Level 26 mmol/L (21-32) Anion Gap 10 (6-14) Blood Urea Nitrogen 15 mg/dL (7-20) Creatinine 1.0 mg/dL (0.6-1.0) Estimated GFR (Cockcroft-Gault) 69.7 BUN/Creatinine Ratio 15 (6-20) Glucose Level 117 mg/dL (70-99) Calcium Level 8.7 mg/dL (8.5-10.1) Magnesium Level 2.1 mg/dL (1.8-2.4) Total Bilirubin 0.4 mg/dL (0.2-1.0) Aspartate Amino Transf (AST/SGOT) 28 U/L (15-37) Alanine Aminotransferase (ALT/SGPT) 26 U/L (14-59) Alkaline Phosphatase 113 U/L (46-116) Creatine Kinase 179 U/L (26-192) Creatine Kinase MB (Mass) 1.6 ng/mL (0.0-3.6) Creatine Kinase MB Relative Index 0.9 % (0-4) Troponin I Quantitative < 0.017 ng/mL (0.000-0.055) < 0.017 ng/mL (0.000-0.055) EZ-Rfo-Z-Type Natriuretic Peptide 102 pg/mL (0-124) Total Protein 7.0 g/dL (6.4-8.2) Albumin 3.5 g/dL (3.4-5.0) Albumin/Globulin Ratio 1.0 (1.0-1.7) Lipase 106 U/L (73-393) Urine Collection Type Unknown Urine Color Yellow Urine Clarity Clear Urine pH 6.5 (<5.0-8.0) Urine Specific [place] 1.010 (1.000-1.030) Urine Protein Negative mg/dL (NEG-TRACE) Urine Glucose (UA) Negative mg/dL (NEG) Urine Ketones (Stick) Negative mg/dL (NEG) Urine Blood Negative (NEG) Urine Nitrite Negative (NEG) Urine Bilirubin Negative (NEG) Urine Urobilinogen Dipstick 1.0 mg/dL (0.2 mg/dL) Urine Leukocyte Esterase Negative (NEG) Urine RBC 1-2 /HPF (0-2) Urine WBC 1-4 /HPF (0-4) Urine Squamous Epithelial Cells Mod /LPF Urine Bacteria 0 /HPF (0-FEW) Urine Mucus Slight /LPF Glucose (Fingerstick) 114 mg/dL (70-99) Test 11/09/19 06:14 11/09/19 07:49 11/09/19 11:49 11/09/19 13:05 Troponin I Quantitative 0.024 ng/mL (0.000-0.055) < 0.017 ng/mL (0.000-0.055) Triglycerides Level 178 mg/dL (0-150) Cholesterol Level 161 mg/dL (0-200) LDL Cholesterol, Calculated 88 mg/dL (0-100) VLDL Cholesterol, Calculated 36 mg/dL (0-40) Non-HDL Cholesterol Calculated 124 mg/dL (0-129) HDL Cholesterol 37 mg/dL (40-60) Cholesterol/HDL Ratio 4.4 Glucose (Fingerstick) 105 mg/dL (70-99) 81 mg/dL (70-99) Laboratory Tests Test 11/08/19 21:18 11/09/19 00:30 11/09/19 06:14 11/09/19 07:49 Glucose (Fingerstick) 114 mg/dL (70-99) 105 mg/dL (70-99) Troponin I Quantitative < 0.017 ng/mL (0.000-0.055) 0.024 ng/mL (0.000-0.055) Triglycerides Level 178 mg/dL (0-150) Cholesterol Level 161 mg/dL (0-200) LDL Cholesterol, Calculated 88 mg/dL (0-100) VLDL Cholesterol, Calculated 36 mg/dL (0-40) Non-HDL Cholesterol Calculated 124 mg/dL (0-129) HDL Cholesterol 37 mg/dL (40-60) Cholesterol/HDL Ratio 4.4 Test 11/09/19 11:49 11/09/19 13:05 Glucose (Fingerstick) 81 mg/dL (70-99) Troponin I Quantitative < 0.017 ng/mL (0.000-0.055) VTE Prophylaxis Ordered VTE Prophylaxis Devices: Yes VTE Pharmacological Prophylaxi: Yes Assessment/Plan Assessment/Plan ASSESSMENT Chest pain, atypical. Hypertension; Hyperlipidemia Diabetes, II; as per PCP Tobacco Abuse hx of CAD, CHF per chart Obesity Plan admit to tele bed trend trop check TSH, lipids, dvt ppx cards consult full code Justicifation of Admission Dx: Justifications for Admission: Justification of Admission Dx: N/A MURTAZA MURRY MD Nov 09, 2019 15:30
--- NOTE | 2019-11-09 15:36 | PDOC3 ---
Discharge Summary Visit Information Date of Admission: Nov 09, 2019 Date of Discharge: Nov 09, 2019 Brief Hospital Course Allergies Allergies Coded Allergies Type Severity Reaction Last Updated Verified Penicillins Allergy Severe 01/28/17 Yes amoxicillin Allergy Severe anaphylaxis 09/19/13 Yes iodine Allergy Severe Anaphylaxis 09/19/13 Yes shellfish derived Allergy Severe Anaphylaxis 04/09/14 Yes Vital Signs GENERAL: No apparent distress. Alert and oriented. HEENT: Head normocephalic, atraumatic. NECK: Supple LUNGS: Clear to auscultation. HEART: RRR, S1, S2 present, pulses intact ABDOMEN: Soft, positive bowel sounds. EXTREMITIES: No cyanosis or edema. NEUROLOGIC: Normal speech, normal tone PSYCHIATRIC: Normal affect, normal mood. SKIN: No ulceration. Vital Signs Date Time Temp Pulse Resp B/P (MAP) Pulse Ox O2 Delivery O2 Flow Rate FiO2 11/09/19 11:40 18 97 Room Air 11/09/19 11:00 98.0 60 128/62 (84) 98.0 Lab Results Laboratory Tests Test 11/08/19 12:30 11/08/19 13:20 11/08/19 21:18 11/09/19 00:30 White Blood Count 8.4 x10^3/uL (4.0-11.0) Red Blood Count 4.91 x10^6/uL (3.50-5.40) Hemoglobin 14.6 g/dL (12.0-15.5) Hematocrit 41.7 % (36.0-47.0) Mean Corpuscular Volume 85 fL (79-100) Mean Corpuscular Hemoglobin 30 pg (25-35) Mean Corpuscular Hemoglobin Concent 35 g/dL (31-37) Red Cell Distribution Width 15.2 % (11.5-14.5) Platelet Count 179 x10^3/uL (140-400) Neutrophils (%) (Auto) 58 % (31-73) Lymphocytes (%) (Auto) 34 % (24-48) Monocytes (%) (Auto) 6 % (0-9) Eosinophils (%) (Auto) 1 % (0-3) Basophils (%) (Auto) 0 % (0-3) Neutrophils # (Auto) 4.9 x10^3/uL (1.8-7.7) Lymphocytes # (Auto) 2.9 x10^3/uL (1.0-4.8) Monocytes # (Auto) 0.5 x10^3/uL (0.0-1.1) Eosinophils # (Auto) 0.1 x10^3/uL (0.0-0.7) Basophils # (Auto) 0.0 x10^3/uL (0.0-0.2) Prothrombin Time 19.0 SEC (11.7-14.0) Prothromb Time International Ratio 1.6 (0.8-1.1) Activated Partial Thromboplast Time 34 SEC (24-38) D-Dimer (Nalini) 0.28 ug/mlFEU (0.00-0.50) Sodium Level 141 mmol/L (136-145) Potassium Level 3.9 mmol/L (3.5-5.1) Chloride Level 105 mmol/L (98-107) Carbon Dioxide Level 26 mmol/L (21-32) Anion Gap 10 (6-14) Blood Urea Nitrogen 15 mg/dL (7-20) Creatinine 1.0 mg/dL (0.6-1.0) Estimated GFR (Cockcroft-Gault) 69.7 BUN/Creatinine Ratio 15 (6-20) Glucose Level 117 mg/dL (70-99) Calcium Level 8.7 mg/dL (8.5-10.1) Magnesium Level 2.1 mg/dL (1.8-2.4) Total Bilirubin 0.4 mg/dL (0.2-1.0) Aspartate Amino Transf (AST/SGOT) 28 U/L (15-37) Alanine Aminotransferase (ALT/SGPT) 26 U/L (14-59) Alkaline Phosphatase 113 U/L (46-116) Creatine Kinase 179 U/L (26-192) Creatine Kinase MB (Mass) 1.6 ng/mL (0.0-3.6) Creatine Kinase MB Relative Index 0.9 % (0-4) Troponin I Quantitative < 0.017 ng/mL (0.000-0.055) < 0.017 ng/mL (0.000-0.055) WQ-Pxw-I-Type Natriuretic Peptide 102 pg/mL (0-124) Total Protein 7.0 g/dL (6.4-8.2) Albumin 3.5 g/dL (3.4-5.0) Albumin/Globulin Ratio 1.0 (1.0-1.7) Lipase 106 U/L (73-393) Urine Collection Type Unknown Urine Color Yellow Urine Clarity Clear Urine pH 6.5 (<5.0-8.0) Urine Specific [place] 1.010 (1.000-1.030) Urine Protein Negative mg/dL (NEG-TRACE) Urine Glucose (UA) Negative mg/dL (NEG) Urine Ketones (Stick) Negative mg/dL (NEG) Urine Blood Negative (NEG) Urine Nitrite Negative (NEG) Urine Bilirubin Negative (NEG) Urine Urobilinogen Dipstick 1.0 mg/dL (0.2 mg/dL) Urine Leukocyte Esterase Negative (NEG) Urine RBC 1-2 /HPF (0-2) Urine WBC 1-4 /HPF (0-4) Urine Squamous Epithelial Cells Mod /LPF Urine Bacteria 0 /HPF (0-FEW) Urine Mucus Slight /LPF Glucose (Fingerstick) 114 mg/dL (70-99) Test 11/09/19 06:14 11/09/19 07:49 11/09/19 11:49 11/09/19 13:05 Troponin I Quantitative 0.024 ng/mL (0.000-0.055) < 0.017 ng/mL (0.000-0.055) Triglycerides Level 178 mg/dL (0-150) Cholesterol Level 161 mg/dL (0-200) LDL Cholesterol, Calculated 88 mg/dL (0-100) VLDL Cholesterol, Calculated 36 mg/dL (0-40) Non-HDL Cholesterol Calculated 124 mg/dL (0-129) HDL Cholesterol 37 mg/dL (40-60) Cholesterol/HDL Ratio 4.4 Glucose (Fingerstick) 105 mg/dL (70-99) 81 mg/dL (70-99) Laboratory Tests Test 11/08/19 21:18 11/09/19 00:30 11/09/19 06:14 11/09/19 07:49 Glucose (Fingerstick) 114 mg/dL (70-99) 105 mg/dL (70-99) Troponin I Quantitative < 0.017 ng/mL (0.000-0.055) 0.024 ng/mL (0.000-0.055) Triglycerides Level 178 mg/dL (0-150) Cholesterol Level 161 mg/dL (0-200) LDL Cholesterol, Calculated 88 mg/dL (0-100) VLDL Cholesterol, Calculated 36 mg/dL (0-40) Non-HDL Cholesterol Calculated 124 mg/dL (0-129) HDL Cholesterol 37 mg/dL (40-60) Cholesterol/HDL Ratio 4.4 Test 11/09/19 11:49 11/09/19 13:05 Glucose (Fingerstick) 81 mg/dL (70-99) Troponin I Quantitative < 0.017 ng/mL (0.000-0.055) Brief Hospital Course 53 year old AA female hx of CAD, CHF, DM, HTN, hx of PE dx 08/13 on oral AC who presents with constant chest pain for 1 month more severe last night so came to ED. given ASA and NTG. reports improvement in chest pain since given NTG. reports pain "all over" including her left shoulder, right shoulder, pain in her legs. denies any fever, cough, body aches, nausea, vomiting, diarrhea, abdominal pain, or rash. decreased appetite for several days. admitted for acs rule out. trops and ekg in ED stable. hospitalist called for admission. cardiac workup in past below STRESS TEST Conclusion 1. No evidence of stress induced EKG changes. 2. Normal perfusion at stress. Rest images not obtained. 3. Normal EF at > 61% 4. Low risk study DATE: 06/07/18 1521 HEART CATH SELECTIVE CORONARY ARTERIOGRAM: Left main: The left main coronary artery arises normally from the left coronary sinus. The left main artery is patent with no significant disease. Distally, the left main artery trifurcates into a left circumflex artery, the ramus intermedius, and a left anterior descending artery. Left anterior descending: The left anterior descending artery arises normally from the left main. The left anterior descending artery shows no significant disease in its proximal, mid or distal part. It gives off a high diagonal branch which is patent. This is followed by small other diagonal branches which all appear to be patent. Ramus intermedius. This is a large vessel which arises directly from the left main. It bifurcates soon after its origin. The ramus intermedius appears to be patent with no significant disease. Left circumflex artery: The left circumflex artery arises normally from the left main. The left circumflex artery appears to be a codominant-type vessel. It shows no significant disease. It gives off 2 obtuse marginal branches, both of which appear to be patent with no significant disease. These branches appear to be quite distal. Right coronary artery: This appears to be a small, codominant vessel, arising from close to the left coronary sinus. It also has a kind of an anterior origin. The right coronary artery appears to be patent with no significant disease. Small posterolateral posterior descending arterial branches are patent. FINAL IMPRESSION: A codominant right and left system with no significant coronary artery disease. Normal left ventricular function. No evidence of any significant mitral regurgitation. Normal left ventricular end-diastolic pressures. No evidence of any significant gradient across the aortic valve. RECOMMENDATION: Continue optimized medical treatment. [facility] Cardiology at [facility] DATE: 12/30/2012 1:41 PM patient admitted to a cardiac tele bed. trops negative. labs stable. all meds co ntinued. chest pain likely msk. noted hx of PE on xarelto. continue all home meds without changes. risk factor modifications. no furthe work up per cards eval. patient to be discharged today. Discharge Information Condition at Discharge: Stable Disposition/Orders: D/C to Home Scheduled Acetaminophen (Acetaminophen) 325 Mg Capsule, 325 MG PO QID for 5 Days, #20 Prescribed by: Myra TANG MD on 01/28/17 0515 Last Action: Converted on 11/09/191521 by MURTAZA MURRY MD Aspirin (Lo-Dose Aspirin Ec) 81 Mg Tablet.dr, 81 MG PO DAILY for prevents heartattacks, (Reported) Entered as Reported by: KAYLA LEHMAN on 06/06/18 0031 Last Action: Continued on 11/09/191521 by MURTAZA MURRY MD Carvedilol (Carvedilol) 25 Mg Tablet, 1 TAB PO DAILY, #180 Ref 1 (Reported) Entered as Reported by: Luis Aguiar on 01/23/17 234 Last Action: Converted on 11/09/191521 by MURTAZA MURRY MD Glyburide (Glyburide) 5 Mg Tablet, 1 TAB PO BID, #60 Ref 5 (Reported) Entered as Reported by: Luis Aguiar on 01/23/17 2343 Last Action: Continued on 11/09/191521 by MURTAZA MURRY MD Hydrochlorothiazide (Hydrochlorothiazide Tablet ) 25 Mg Tablet, 1 TAB PO DAILY, #30 Ref 5 (Reported) Entered as Reported by: Luis Aguiar on 01/23/172342 Last Action: Continued on 11/09/191521 by MURTAZA MURRY MD Hydrochlorothiazide (Hydrochlorothiazide) 25 Mg Tablet, 1 TAB PO DAILY for HTN, (Reported) Entered as Reported by: KAYLA LEHMAN on 06/06/1830 Last Action: Continued on 11/09/191521 by MURTAZA MURRY MD Hydroxyzine Hcl (Hydroxyzine Hcl) 25 Mg Tablet, 1 TAB PO BID, #60 (Reported) Entered as Reported by: Luis Aguiar on 01/23/172342 Last Action: Continued on 11/09/191521 by MURTAZA MURRY MD Ipratropium/Albuterol Sulfate (Duoneb 0.5-3(2.5) Mg/3 Ml) 3 Ml Ampul.neb, 3 ML INH [id number] for asthma, (Reported) Entered as Reported by: KAYLA LEHMAN on 06/06/1830 Last Action: Continued on 11/09/191521 by MURTAZA MURRY MD Isosorbide Mononitrate (Isosorbide Mononitrate Er) 30 Mg Tab.er.24h, 1 TAB PO DAILY, #30 Ref 5 (Reported) Entered as Reported by: Luis Aguiar on 01/23/172342 Last Action: Continued on 11/09/191521 by MURTAZA MURRY MD Loratadine (Loratadine) 10 Mg Tablet, 1 TAB PO DAILY, #30 Ref 5 (Reported) Entered as Reported by: Luis Aguiar on 01/23/172342 Last Action: Converted on 11/09/191521 by MURTAZA MURRY MD Montelukast Sodium (Montelukast Sodium Tablet ) 10 Mg Tablet, 1 TAB PO DAILY, #30 Ref 5 (Reported) Entered as Reported by: Luis Aguiar on 01/23/172342 Last Action: Continued on 11/09/191521 by MURTAZA MURRY MD Ondansetron Hcl (Zofran) 4 Mg Tablet, 1 TAB PO PRN Q6-8HRS for nausea, #12 Prescribed by: MARTIN CHACON MD on 03/17/19 1451 Last Action: Converted on 11/09/191521 by MURTAZA MURRY MD Potassium Chloride (Potassium Chloride ) 20 Meq Tablet.er, 20 MEQ PO DAILY, (Reported) Entered as Reported by: Luis Aguiar on 01/23/17 2343 Last Action: Continued on 11/09/191521 by MURTAZA MURRY MD Rivaroxaban (Xarelto) 15 Mg Tablet, 15 MG PO BIDWMEALS for PE for 21 Days, #42 Prescribed by: HARPER SEO MD on 08/12/18 1543 Rivaroxaban (Xarelto) 20 Mg Tablet, 20 MG PO DAILY for Pulmonary embolus for 30 Days, #30 Ref 5 Start daily with food after 21 days of 15mg BID dosing Prescribed by: HARPER SEO MD on 08/12/18 1543 Last Action: Converted on 11/09/191521 by MURTAZA MURRY MD Simvastatin (Simvastatin) 20 Mg Tablet, 1 TAB PO QHS, #30 Ref 5 (Reported) Entered as Reported by: Luis Aguiar on 01/23/172342 Last Action: Continued on 11/09/191521 by MURTAZA MURRY MD Temazepam (Temazepam) 30 Mg Capsule, 1 TAB PO HS for insomnia, (Reported) Entered as Reported by: KAYLA LEHMAN on 06/06/1830 Last Action: Continued on 11/09/191521 by MURTAZA MURRY MD Triamterene/Hydrochlorothiazid (Triamterene-Hctz 37.5-25 Mg Tb) 1 Each Tablet, 1 TAB PO DAILY, #30 Ref 5 (Reported) Entered as Reported by: Luis Aguiar on 01/23/172342 Last Action: Continued on 11/09/191521 by MURTAZA MURRY MD Scheduled PRN Alprazolam (Alprazolam) 2 Mg Tablet, 1 TAB PO PRN Q8HRS PRN for ANXIETY / AGITATION, (Reported) Entered as Reported by: KAYLA LEHMAN on 06/06/1830 Last Action: Converted on 11/09/191521 by MURTAZA MURRY MD Cyclobenzaprine Hcl (Cyclobenzaprine Hcl) 10 Mg Tablet, 1 TAB PO TID PRN for MUSCLE SPASMS, #90 (Reported) Entered as Reported by: Luis Aguiar on 01/23/17 5385 Last Action: Continued on 11/09/191521 by MURTAZA MURRY MD Oxycodone Hcl/Acetaminophen (Oxycodone-Acetaminophen 10-325) 1 Each Tablet, 1 TAB PO PRN Q6HRS PRN for PAIN, (Reported) Entered as Reported by: KAYLA LEHMAN on 06/06/1830 Last Action: Continued on 11/09/191521 by MURTAZA MURRY MD Ranitidine Hcl (Ranitidine Hcl) 300 Mg Tablet, 300 MG PO PRN DAILY PRN for HEARTBURN / GAS, (Reported) Entered as Reported by: KAYLA LEHMAN on 06/06/1830 Last Action: Converted on 11/09/191521 by MURTAZA MURRY MD Justicifation of Admission Dx: Justifications for Admission: Justification of Admission Dx: N/A MURTAZA MURRY MD Nov 09, 2019 15:36
[2019-11-09] MEDS ORDERED: ONDANSETRON ODT 4 MG TAB.RAPDIS. PO PRN (15:45)
[2019-11-09] MEDS ORDERED: ACETAMINOPHEN 325 MG PO SCH (17:00)
[2019-11-09] MEDS ORDERED: IPRATRPIUM/ALBUTEROL 0.5/2.5MG 3 ML NEBU. INH SCH (17:00)
--- NOTE | 2019-11-09 17:13 | NUR ---
Discharge Note: SAVAGE MONSIVAIS Discharge instructions and discharge home medications reviewed with Patient and a copy given. All questions have been answered and understanding verbalized. The following instructions and handouts were given: Chest pain, chest wall pain and stress test. Patient called to let her about follow appointment with Dr. Ovalle on 12/14/19 at 2pm. Discontinued iv line and catheter intact. Patient discharged home with self-care via private vehicle.
[2019-11-09] MEDS ORDERED: SIMVASTATIN 20 MG TABLET PO SCH (21:00)
[2019-11-09] MEDS ORDERED: TEMAZEPAM 15 MG CAPSULE PO SCH (21:00)
[2019-11-09] MEDS ORDERED: hydrOXYzine 25 MG TABLET PO SCH (21:00)
[2019-11-09] MEDS ORDERED: glyBURIDE 5 MG TABLET PO SCH (21:00)
[2019-11-09] MEDS ORDERED: FAMOTIDINE 20 MG TABLET. PO PRN (21:00)
[2019-11-10] MEDS ORDERED: ASPIRIN ENTERIC COATED 81 MG TABLET.DR. PO SCH (09:00)
[2019-11-10] MEDS ORDERED: CETIRIZINE HCL 10 MG TABLET. PO SCH (09:00)
[2019-11-10] MEDS ORDERED: TRIAMTERENE/HCTZ 37.5/25MG TABLET. PO SCH (09:00)
[2019-11-10] MEDS ORDERED: NON FORMULARY ITEM (Carvedilol 1 TAB) PO SCH (09:00)
[2019-11-10] MEDS ORDERED: NON FORMULARY ITEM (Rivaroxaban (Xarelto) 20 MG) PO SCH (09:00)
[2019-11-10] MEDS ORDERED: ISOSORBIDE MONONITRATE ER 30 MG TAB.ER.24H PO SCH (09:00)
[2019-11-10] MEDS ORDERED: MONTELUKAST SODIUM 10 MG TABLET. PO SCH (09:00)
[2019-11-10] MEDS ORDERED: hydroCHLOROthiazide 25 MG TABLET PO SCH ×2 (09:00)
[2019-11-10] MEDS ORDERED: POTASSIUM CHLORIDE 20 MEQ TABLET.ER. PO SCH (09:00)
== END 2019-11-09 17:21 | disposition home or self-care (01) ==
LOC: ER 12:02 → ED HOLD 15:38 → 2 NORTH 17:08
PROVIDERS: ADMIT Internal Medicine; ATTEND Internal Medicine
DX: R07.9 Chest pain, unspecified (principal); J18.9 Pneumonia, unspecified organism; I11.0 Hypertensive heart disease with heart failure; I50.9 Heart failure, unspecified; I25.10 Atherosclerotic heart disease of native coronary artery without angina pectoris; E11.9 Type 2 diabetes mellitus without complications; E78.5 Hyperlipidemia, unspecified; K21.9 Gastro-esophageal reflux disease without esophagitis; F17.200 Nicotine dependence, unspecified, uncomplicated; Z86.73 Personal history of transient ischemic attack (TIA), and cerebral infarction without residual deficits; Z85.05 Personal history of malignant neoplasm of liver; Z86.711 Personal history of pulmonary embolism; Z95.5 Presence of coronary angioplasty implant and graft; Z79.01 Long term (current) use of anticoagulants; Z98.51 Tubal ligation status
CPT/HCPCS: 36415; 71045; 80053; 80061; 81001; 82553; 82962; 83690; 83735; 83880; 84484; 85025; 85379; 85610; 85730; 93005; 96374; 96376; 99285; G0378; J3010; G0379

== ENCOUNTER 2019-12-05 01:38 | Inpatient (IN) | payer OTHER ==
[~2019-12-05] VITALS: Ht 157.5 cm; Wt 108.2 kg
[2019-12-05] VITALS (23 sets, daily range): BP systolic 93–126; BP diastolic 47–82
[~2019-12-05 01:38] MED LIST changes: -OXYC-411 PO; +OXYC1TAB20 PO
--- NOTE | 2019-12-05 02:21 | PHYS DOC ---
Past Medical History Past Medical History: Asthma, Bronchitis, Cancer, CHF, COPD, CVA, Diabetes-Type II, GERD, Heart Disease, Hypertension, [place], Pancreatitis, Pneumonia, Other Additional Past Medical Histor: Liver Cancer treated with medication Past Surgical History: Angioplasty, Tubal ligation, Other Additional Past Surgical Histo: CARDIAC STENT Smoking Status: Current Every Day Smoker Alcohol Use: None Drug Use: None General Adult EDM: Chief Complaint: ITCHING HPI: HPI: Patient is a 54 year old female who presents with complaints of diffuse itching, swelling of the lips tongue throat and difficulty with swallowing. She is not short of breath at this time. She does have a history to shellfish and cut some shellfish up for her dogs. Immediately she began to have some tingling in hands and then itching. This is now followed by swelling of the tongue lips and throat. Patient otherwise been in her usual state of good health. She denies any fever, chills, sweats, cough, shortness of breath, chest pain nausea, vomiting, diarrhea. Review of Systems: Review of Systems: Constitutional: Denies fever or chills. [] Eyes: Denies change in visual acuity. [] HENT: See HPI. [] Respiratory: Denies cough or shortness of breath. [] Cardiovascular: Denies chest pain or edema. [] GI: Denies abdominal pain, nausea, vomiting, bloody stools or diarrhea. [] : Denies dysuria. [] Musculoskeletal: Denies back pain or joint pain. [] Integument: Denies rash. [] Neurologic: Denies headache, focal weakness or sensory changes. [] Endocrine: Denies polyuria or polydipsia. [] Lymphatic: Denies swollen glands. [] Psychiatric: Denies depression or anxiety. [] Heart Score: Risk Factors: Risk Factors: DM, Current or recent (<one month) smoker, HTN, HLP, family history of CAD, obesity. Risk Scores: Score 0 - 3: 2.5% MACE over next 6 weeks - Discharge Home Score 4 - 6: 20.3% MACE over next 6 weeks - Admit for Clinical Observation Score 7 - 10: 72.7% MACE over next 6 weeks - Early Invasive Strategies Allergies: Allergies: Allergies Coded Allergies Type Severity Reaction Last Updated Verified Penicillins Allergy Severe 01/28/17 Yes amoxicillin Allergy Severe anaphylaxis 09/19/13 Yes iodine Allergy Severe Anaphylaxis 09/19/13 Yes shellfish derived Allergy Severe Anaphylaxis 04/09/14 Yes Physical Exam: PE: Constitutional: Well developed, well nourished, no acute distress, non-toxic appearance. [] HENT: Normocephalic, atraumatic, bilateral external ears normal, lips upper and lower with angioedema, thickening of the tongue, thickening of the soft palate, no stridor. [] Eyes: PERRLA, EOMI, conjunctiva normal, no discharge. [] Neck: Normal range of motion, no tenderness, supple, no stridor. [] Cardiovascular:Heart rate regular rhythm, no murmur [] Lungs & Thorax: Bilateral breath sounds clear to auscultation [] Abdomen: Bowel sounds normal, soft, no tenderness, no masses, no pulsatile masses. [] Skin: Warm, dry, no erythema, no rash. [] Back: No tenderness, no CVA tenderness. [] Extremities: No tenderness, no cyanosis, no clubbing, ROM intact, no edema. [] Neurologic: Alert and oriented X 3, normal motor function, normal sensory function, no focal deficits noted. [] Psychologic: Affect normal, judgement normal, mood normal. [] EKG: EKG: [] Radiology/Procedures: Radiology/Procedures: Indication: Respiratory failure Consent: Patient gave me verbal consent Medications Used: see nursing note Procedure: The patient was placed in the appropriate position. Intubation was performed using the a Noreen #4 blade 7.0 endotracheal tube. ET secured at 26 cm. Initial confirmation of placement included bilateral breath sounds, tube fogging, adequate chest rise, adequate pulse oximetry reading. A chest x-ray to verify correct placement of the tube showed appropriate tube position. The patient required a gum bougie inserted into the trachea because of the difficult intubation. The ET was passed over the gum bougie and the cavity was then removed The patient tolerated the procedure well. Complications: none.[] 0400-the patient was seen and evaluated. After I discussed with her the possibility of her having an obstructed airway secondary to the angioedema that is occurring she did consent to elective intubation. I think this was indicated given the rapidly enlarging tongue, significant soft palate and uvula swelling and the patient's symptoms of feeling like her throat was closing. Patient denied any JABIER or ARB. The patient has done well after intubation. Patient was treated for allergic angioedema with epinephrine Pepcid Benadryl and D ecadron. Patient is currently stable. Will place in the ICU. We will discussed the case with admitting physician. Course & Med Decision Making: Course & Med Decision Making Pertinent Labs and Imaging studies reviewed. (See chart for details) [] Dragon Disclaimer: Dragon Disclaimer: This electronic medical record was generated, in whole or in part, using a voice recognition dictation system. Departure Departure Impression: Primary Impression: Acute respiratory failure, unspecified whether with hypoxia or hypercapnia Additional Impression: Allergic angioedema due to seafood Qualified Codes: T78.3XXA - Angioneurotic edema, initial encounter Disposition: ADMITTED INPATIENT Condition: CRITICAL Referrals: ANETTE WELCH (PCP) Justicifation of Admission Dx: Justifications for Admission: Justification of Admission Dx: Yes Respiratory Failure: Airway Obstruction Critical Care Note Total Time (mins): 50 Comments Critical care time of 50 minutes was billed outside of any procedure or teacher time teaching time. The critical care charge was billed secondary to impending collapse of the cardiovascular and respiratory system. JORGE VIVAS MD Dec 05, 2019 02:21
[2019-12-05] MEDS ORDERED: diphenhydrAMINE 50 MG/ML VIAL ONE (02:26)
[2019-12-05] MEDS ORDERED: FAMOTIDINE 20 MG/2 ML VIAL ONE (02:27)
[2019-12-05] MEDS ORDERED: DEXAMETHASONE SOD PHOS 20 MG/5 ML VIAL. ONE (02:27)
[2019-12-05] MEDS ORDERED: MIDAZOLAM HCL/PF 5 MG/5 ML VIAL. NS ONE (02:30)
[2019-12-05] MEDS ORDERED: diphenhydrAMINE 50 MG/ML VIAL IVP ONE (02:30)
[2019-12-05] MEDS ORDERED: ROCURONIUM 50 MG/5 ML VIAL. IV ONE (02:30)
[2019-12-05] MEDS ORDERED: DEXAMETHASONE SOD PHOS 20 MG/5 ML VIAL. IV ONE (02:30)
[2019-12-05] MEDS ORDERED: EPINEPHrine 1 MG/ML VIAL SQ ONE (02:30)
[2019-12-05] MEDS ORDERED: FAMOTIDINE 20 MG/2 ML VIAL IVP ONE (02:30)
[2019-12-05 02:31] LABS: BASO # 0.1 x10^3/uL (0.0-0.2); BASO % 1 % (0-3); EOS % 1 % (0-3); HEMATOCRIT 42.4 % (36.0-47.0); HEMOGLOBIN 14.5 g/dL (12.0-15.5); LYMPH # 3.5 x10^3/uL (1.0-4.8); LYMPH % 50 % (24-48); MEAN CORPUSCULAR HEMOGLOBIN 29 pg (25-35); MEAN CORPUSCULAR HGB CONC 34 g/dL (31-37); MEAN CORPUSCULAR VOLUME 85 fL (79-100); MONO # 0.2 x10^3/uL (0.0-1.1); MONO % 4 % (0-9); NEUT # 3.2 x10^3/uL (1.8-7.7); NEUT % 45 % (31-73); PLATELET COUNT 195 x10^3/uL (140-400); RED BLOOD COUNT 4.97 x10^6/uL (3.50-5.40)
[2019-12-05] MEDS ORDERED: PROPOFOL 50 ML IV ONE (02:35)
[2019-12-05 02:44] LABS: CALCIUM 8.9 mg/dL (8.5-10.1); CREATININE 0.8 mg/dL (0.6-1.0); GFR 89.8; POTASSIUM 3.3 mmol/L (3.5-5.1)
[2019-12-05] MEDS ORDERED: ATROPINE 0.5 MG/5 ML DISP.SYRINGE. IM ONE (02:45)
[2019-12-05 02:50] LABS: ALBUMIN 3.7 g/dL (3.4-5.0); ALBUMIN/GLOBULIN RATIO 1.1 (1.0-1.7); TOTAL BILIRUBIN 0.6 mg/dL (0.2-1.0); TOTAL PROTEIN 7.1 g/dL (6.4-8.2)
--- NOTE | 2019-12-05 03:14 | RAD ---
AP chest x-ray HISTORY: Tube placement readjustment. FINDINGS: Endotracheal tube tip 3 cm above the jacky. Nasogastric tube extends into the abdomen. Heart size normal. Probable pulmonary vascular congestion new since prior study. Hazy opacities at the lung bases may represent atelectasis versus early pulmonary edema also new. No pneumothorax. No pleural effusions. Bones are unremarkable. IMPRESSION: Lines and tubes as described above. Mild pulmonary vascular congestion and bibasilar hazy opacities representing mild atelectasis or pulmonary edema. No pleural effusions. Electronically signed by: Joesph Jackson MD (12/05/2019 3:10 AM) [facility]
[2019-12-05] MEDS ORDERED: ATROPINE 0.5 MG/5 ML DISP.SYRINGE. IV ONE (03:15)
--- NOTE | 2019-12-05 03:15 | RAD ---
AP chest x-ray HISTORY: Postintubation. FINDINGS: Endotracheal tube tip 4 cm above the jacky. Nasogastric tube extends into the left upper quadrant abdomen. Heart size upper limits normal. Mediastinum unremarkable. There may be mild pulmonary vascular congestion. Fissural thickening, and hazy opacities at the lung bases may indicate mild pulmonary edema, versus mild basilar atelectasis. No pneumothorax. No pleural effusions. Bones are unremarkable. IMPRESSION: Lines and tubes as described above. Mild pulmonary vascular congestion and hazy opacities of the lung bases may represent mild atelectasis or pulmonary edema. Electronically signed by: Joesph Jackson MD (12/05/2019 3:12 AM) [facility]
[2019-12-05] MEDS ORDERED: PROPOFOL 10 MG/ML (20ML) VIAL. IV ONE (04:15)
[2019-12-05 04:26] LABS: BASE EXCESS ABG 0 mmol/L (-3-3); HCO3 ABG 27 mmol/L (21-28); PCO2 ABG 53 mmHg (35-46); PO2 ABG 58 mmHg (75-108); SAT O2 ABG 88 % (92-99)
[2019-12-05 04:44] LABS: FIO2 ABG 40
[2019-12-05] MEDS: PROPOFOL 100 ML IV PRN ×5 (04:45→21:42)
--- NOTE | 2019-12-05 06:00 | NUR ---
Patient admitted to room 104 via cart, accompanied by ED RN and RTx2. Patient moved to ICU bed, attached to Vent (AC 20, TV 400, FiO2 50% and PEEP 5) and ICU monitor. Patient sedated on Propofol at 30MCG/KG/MIN with RASS score of 3--patient does assist with turns and shakes her head no when asked if having any pain and returns to sleep. OG to LIS and katelyn to DD. Patient unable to answer admission questions; all information obtained from ED records and previous admission in October 2019. See admission information and admission assessment
[2019-12-05] MEDS: IV NORMAL SALINE 1000ML BAG 1,000 ML IV SCH ×2 (06:10→14:38)
[2019-12-05] MEDS ORDERED: fentaNYL PF VIAL 100 MCG/2 ML VIAL ONE (07:55)
[2019-12-05 08:02] LABS: BASE EXCESS ABG -1 mmol/L (-3-3); HCO3 ABG 26 mmol/L (21-28); PCO2 ABG 48 mmHg (35-46); PO2 ABG 106 mmHg (75-108); SAT O2 ABG 97 % (92-99)
[2019-12-05] MEDS: fentaNYL PF VIAL 100 MCG/2 ML VIAL IVP PRN ×3 (08:11→19:47)
[2019-12-05 08:48] LABS: FIO2 ABG 50
--- NOTE | 2019-12-05 10:32 | NUR ---
SS following for discharge planning. SS reviewed pt chart and discussed with pt RN. Pt is from home and is currently on the vent. Pt had allergic reaction to shellfish. SS will continue to follow for discharge planning.
[2019-12-05] MEDS ORDERED: diphenhydrAMINE 50 MG/ML VIAL IVP PRN (11:00)
[2019-12-05] MEDS ORDERED: FUROSEMIDE 40 MG/4 ML VIAL. IVP ONE (11:00)
--- NOTE | 2019-12-05 11:12 | CONS ---
DATE OF CONSULTATION: 12/05/2019 PULMONARY CONSULTATION ATTENDING PHYSICIAN: Joshua Warner MD REASON FOR CONSULTATION: Respiratory failure, angioedema, abnormal chest x-ray. HISTORY OF PRESENT ILLNESS: The patient is a 54-year-old morbidly obese patient with a BMI of 44. She has history of CVA, hypertension and multiple other chronic medical problems. She was brought into the hospital ER with complaint of diffuse itching and swelling of the lips and tongue and had some difficulty with swallowing. She was not short of breath. The patient had a history of allergy to shellfish. She did get some shellfish for her dog. She immediately began to have some tingling in her hands and then itching, followed by swelling of the tongue, lips and throat. The patient was electively intubated by the ER physician. At present, she is intubated and sedated in the Emergency Room. Her chest x-ray showed slightly prominent interstitial markings. ABG showed a pH of 7.33, pCO2 of 53, pO2 of 58 on 40% FiO2 and currently on 50% FiO2, pH is 7.35, pCO2 of 40 and a pO2 of 106. I have been asked to see her for further evaluation. Per ER note, she did not ingested herself any shrimps and she is not on any JABIER inhibitors. PAST MEDICAL HISTORY: History of asthma, cancer, CHF, COPD, CVA, type 2 diabetes, GERD, heart disease, hypertension, [place], pancreatitis, pneumonia, and morbid obesity. There were cancer, treated with medication. PAST SURGICAL HISTORY: Tubal ligation and cardiac stent. SOCIAL HISTORY: Everyday smoker. ALLERGIES: PENICILLIN, AMOXICILLIN, IODINE, SHELLFISH DERIVATIVES. MEDICATIONS: Reviewed as listed in the MRAD. REVIEW OF SYSTEMS: Unable to obtain from the patient as she is on the ventilator. PHYSICAL EXAMINATION: VITAL SIGNS: Reviewed. Blood pressure is stable. Pulse ox 98% on current AC mode and FiO2 of 50%. HEENT: Sclerae nonicteric. Tongue minimally swollen. Lip minimally swollen. NECK: Supple. LUNGS: With diminished breath sounds. CARDIOVASCULAR: With a regular rate. ABDOMEN: Markedly obese. EXTREMITIES: With trace pitting edema. LABORATORY DATA: Reviewed. ABGs are discussed in my history of present illness. BUN and creatinine normal. White cell count 7.0, hemoglobin 14.5 and platelets are 195. IMPRESSION: 1. Acute hypoxic and hypercapnic respiratory failure secondary to angioedema of unclear etiology. She has allergy to shellfish, but she did not ingest shrimps herself, but instead gave it to her dog and she began to have symptoms immediately after that when she got some shellfish. The patient is not on any JABIER inhibitor. 2. History of coronary artery disease, stent and mild congestive heart failure. 3. History of tobacco use, suspect underlying chronic obstructive pulmonary disease. 4. Morbid obesity. 5. History of liver cancer, details of which not available. RECOMMENDATIONS: 1. Discussed with RN and RT. At this point, we will continue with present assist control mode. I did a cuff deflation test and she did have a cuff leak, which is encouraging finding. 2. We will continue with IV steroids, Benadryl and Pepcid. 3. Bronchodilators. 4. DVT and stress ulcer prophylaxis. 5. Anticipate continued improvement and possible weaning trial in the next 24 hours. Discussed with RN and RT. Chart reviewed, labs reviewed, imaging studies reviewed. Critical care time 38 minutes including decision making. SIMON REYES MD DR: LINH/maggy JOB#: [id number] / [id number]
[2019-12-05] MEDS ORDERED: DEXTROSE 50% 25 GM / 50ML DISP.SYRIN. IV PRN (11:45)
[2019-12-05] MEDS: POTASSIUM CHLORIDE 10MEQ 100 ML IV SCH ×8 (11:45→18:24)
[2019-12-05] MEDS: INSULIN LISPRO 300 UNITS/3 ML VIAL. SQ SCH ×2 (12:00→17:00)
--- NOTE | 2019-12-05 12:30 | PDOC1 ---
History and Physical Date of Service: DOS: DATE: 12/05/19 TIME: 12:27 Chief Complaint: Problems: (1) Strep pharyngitis (2) Viral pharyngitis (3) Sprain of left foot (4) Fall from standing (5) Avulsion fracture of left ankle (6) Dizziness (7) GERD (gastroesophageal reflux disease) (8) Bronchitis (9) Pulmonary embolism (10) Gastroenteritis (11) Epigastric pain (12) Anxiety about health (13) Chest pain (14) Musculoskeletal pain (15) Allergic angioedema due to seafood (16) Acute respiratory failure, unspecified whether with hypoxia or hypercapnia Chief Complain: Respiratory failure with allergic reaction to shellfish History of Present Illness: HPI: This is a middle-aged female who is allergic to shellfish Apparently she was not even eating the fish she just was cutting it up and developed a severe allergic reaction While in the ER she was still talking but then she had to be intubated She is now been examined in the ICU where she is on the vent Past Medical/Surgical History: PMH/PSH: Past Medical History: Asthma, Bronchitis, Cancer, CHF, COPD, CVA, Diabetes-Type II, GERD, Heart Disease, Hypertension, [place], Pancreatitis, Pneumonia, Other Additional Past Medical Histor: Liver Cancer treated with medication Past Surgical History: Angioplasty, Tubal ligation, Other Additional Past Surgical Histo: CARDIAC STENT Smoking Status: Current Every Day Smoker Allergies: Allergies: Coded Allergies: Penicillins (Verified Allergy, Severe, 01/28/17) amoxicillin (Verified Allergy, Severe, anaphylaxis, 09/19/13) iodine (Verified Allergy, Severe, Anaphylaxis, 09/19/13) Patient allergic to Seafood shellfish derived (Verified Allergy, Severe, Anaphylaxis, 04/09/14) Family History: Family History: Hypertension Social History: Social History: She does not drink smoke or take drugs Current Medications: Current Medications Current Medications Midazolam HCl (Versed) 5 mg 1X ONCE NS Last administered on 12/05/19at 02:42; Start 12/05/19 at 02:30; Stop 12/05/19 at 02:31; Status DC Rocuronium Fulda (Zemuron) 50 mg 1X ONCE IV Last administered on 12/05/19at 02:35; Start 12/05/19 at 02:30; Stop 12/05/19 at 02:31; Status DC Epinephrine HCl (Adrenalin) 0.3 mg 1X ONCE SQ Last administered on 12/05/19at 03:19; Start 12/05/19 at 02:30; Stop 12/05/19 at 02:31; Status DC Diphenhydramine HCl (Benadryl) 50 mg 1X ONCE IVP Last administered on 12/05/19at 02:38; Start 12/05/19 at 02:30; Stop 12/05/19 at 02:31; Status DC Famotidine (Pepcid Vial) 20 mg 1X ONCE IVP Last administered on 12/05/19at 02:3 9; Start 12/05/19 at 02:30; Stop 12/05/19 at 02:31; Status DC Dexamethasone Sodium Phosphate (Decadron) 10 mg 1X ONCE IV Last administered on 12/05/19at 02:36; Start 12/05/19 at 02:30; Stop 12/05/19 at 02:31; Status DC Diphenhydramine HCl (Benadryl) 50 mg STK-MED ONCE .ROUTE ; Start 12/05/19 at 02:26; Stop 12/05/19 at 02:27; Status DC Famotidine (Pepcid Vial) 20 mg STK-MED ONCE .ROUTE ; Start 12/05/19 at 02:27; Stop 12/05/19 at 02:27; Status DC Dexamethasone Sodium Phosphate (Decadron) 20 mg STK-MED ONCE .ROUTE ; Start 12/05/19 at 02:27; Stop 12/05/19 at 02:27; Status DC Propofol 50 ml @ As Directed STK-MED ONCE IV ; Start 12/05/19 at 02:35; Stop 12/05/19 at 02:35; Status DC Atropine Sulfate (ATROPINE 0.5mg SYRINGE) 0.5 mg 1X ONCE IM ; Start 12/05/19 at 02:45; Stop 12/05/19 at 02:46; Status Cancel Propofol 100 ml @ 3.309 mls/ hr CONT PRN IV SEE I/O RECORD Last administered on 12/05/19at 09:17; Start 12/05/19 at 03:15 Atropine Sulfate (ATROPINE 0.5mg SYRINGE) 0.5 mg 1X ONCE IV Last administered on 12/05/19at 03:09; Start 12/05/19 at 03:15; Stop 12/05/19 at 03:16; Status DC Sodium Chloride 1,000 ml @ 75 mls/hr [id number] IV Last administered on 12/05/19at 06:10; Start 12/05/19 at 04:15; Stop 12/06/19 at 04:14 Propofol (Diprivan) 100 mg 1X ONCE IV Last administered on 12/05/19at 04:15; Start 12/05/19 at 04:15; Stop 12/05/19 at 04:21; Status DC Fentanyl Citrate (Fentanyl 2ml Vial) 100 mcg STK-MED ONCE .ROUTE ; Start 12/05/19 at 07:55; Stop 12/05/19 at 07:55; Status DC Fentanyl Citrate (Fentanyl 2ml Vial) 50 mcg PRN Q2HRS PRN IVP MODERATE TO SEVERE PAIN Last administered on 12/05/19at 08:11; Start 12/05/19 at 08:00 Methylprednisolone Sodium Succinate (SOLU-Medrol 125MG VIAL) 60 mg Q8HRS IV ; Start 12/05/19 at 14:00 Diphenhydramine HCl (Benadryl) 25 mg PRN Q6HRS PRN IVP ITCHING; Start 12/05/19 at 11:00; Stop 12/05/19 at 11:40; Status DC Famotidine (Pepcid Vial) 20 mg QHS IVP ; Start 12/05/19 at 21:00 Furosemide (Lasix) 40 mg 1X ONCE IVP ; Start 12/05/19 at 11:00; Stop 12/05/19 at 11:01; Status DC Potassium Chloride/Water 100 ml @ 100 mls/hr Q1H IV Last administered on 12/05/19at 11:45; Start 12/05/19 at 11:30; Stop 12/05/19 at 19:29 Insulin Human Lispro (HumaLOG) 0-7 UNITS TIDWMEALS SQ ; Start 12/05/19 at 12:00 Dextrose (Dextrose 50%-Water Syringe) 12.5 gm PRN Q15MIN PRN IV SEE COMMENTS; Start 12/05/19 at 11:45 Diphenhydramine HCl (Benadryl) 25 mg Q6HRS IVP ; Start 12/05/19 at 12:00 Active Scripts Active Zofran (Ondansetron Hcl) 4 Mg Tablet 1 Tab PO PRN Q6-8HRS Xarelto (Rivaroxaban) 20 Mg Tablet 20 Mg PO DAILY 30 Days Start daily with food after 21 days of 15mg BID dosing Xarelto (Rivaroxaban) 15 Mg Tablet 15 Mg PO BIDWMEALS 21 Days Acetaminophen 325 Mg Capsule 325 Mg PO QID 5 Days Reported Ranitidine Hcl 300 Mg Tablet 300 Mg PO PRN DAILY PRN Duoneb 0.5-3(2.5) Mg/3 Ml (Albuterol/Ipratropium) 3 Ml Ampul.neb 3 Ml INH QID 7159 Lo-Dose Aspirin Ec (Aspirin) 81 Mg Tablet.dr 81 Mg PO DAILY Hydrochlorothiazide 25 Mg Tablet 1 Tab PO DAILY Alprazolam 2 Mg Tablet 1 Tab PO PRN Q8HRS PRN Temazepam 30 Mg Capsule 1 Tab PO HS Oxycodone-Acetaminophen 10-325 (Oxycodone Hcl/Acetaminophen) 1 Each Tablet 1 Tab PO PRN Q6HRS PRN Triamterene-Hctz 37.5-25 Mg Tb (Triamterene/Hydrochlorothiazid) 1 Each Tablet 1 Tab PO DAILY Cyclobenzaprine Hcl 10 Mg Tablet 1 Tab PO TID PRN Hydroxyzine Hcl 25 Mg Tablet 1 Tab PO BID Isosorbide Mononitrate Er (Isosorbide Mononitrate) 30 Mg Tab.er.24h 1 Tab PO DAILY Loratadine 10 Mg Tablet 1 Tab PO DAILY Carvedilol 25 Mg Tablet 1 Tab PO DAILY Hydrochlorothiazide Tablet (Hydrochlorothiazide) 25 Mg Tablet 1 Tab PO DAILY Simvastatin 20 Mg Tablet 1 Tab PO QHS Glyburide 5 Mg Tablet 1 Tab PO BID Potassium Chloride (Potassium Chloride) 20 Meq Tablet.er 20 Meq PO DAILY Montelukast Sodium Tablet (Montelukast Sodium) 10 Mg Tablet 1 Tab PO DAILY ROS: Review of Systems Unable to obtain she is on the formerly [facility] Physical Exam: Vital Signs: Vital Signs Date Time Temp Pulse Resp B/P (MAP) Pulse Ox O2 Delivery O2 Flow Rate FiO2 12/05/19 12:13 97 Ventilator 12/05/19 10:07 64 20 105/60 (75) 12/05/19 08:00 98.6 98.6 Physcial Exam: GEN: Sedated on the vent HEENT: Normal cephalic, atraumatic, external auditory canals are patent EYES: pupil are equally round and reactive to light and accommodation MUSCULOSKELETAL: Well developed , well nourished, good range of motion ENDOCRINE: No thyromegaly was palpated LYMPHATICS: No cervical chain or axillary nodes were noted HEMATOPOIETIC: No bruising NECK: Supple no carotid bruits she has an ET tube in place LUNGS: Clear to auscultation in all lung ritter without rhonchi or wheezing HEART: RRR, S!, S2 present. Peripheral pulses intact, no obvious murmurs noted ABDOMEN: Distended decreased bowel sounds EXTREMITIES: 1+ edema NEUROLOGIC: She is sedated on the vent PSYCHIATRIC: Normal affect, normal mood. Stable SKIN: No ulcerations or rashes, good skin turgor, no jaundice VASCULAR: Good capillary refill, neurovascular bundle appears to be intact Labs: Labs: Laboratory Tests Test 12/05/19 02:15 12/05/19 04:26 12/05/19 07:40 12/05/19 11:58 White Blood Count 7.0 x10^3/uL (4.0-11.0) Red Blood Count 4.97 x10^6/uL (3.50-5.40) Hemoglobin 14.5 g/dL (12.0-15.5) Hematocrit 42.4 % (36.0-47.0) Mean Corpuscular Volume 85 fL (79-100) Mean Corpuscular Hemoglobin 29 pg (25-35) Mean Corpuscular Hemoglobin Concent 34 g/dL (31-37) Red Cell Distribution Width 15.0 % (11.5-14.5) Platelet Count 195 x10^3/uL (140-400) Neutrophils (%) (Auto) 45 % (31-73) Lymphocytes (%) (Auto) 50 % (24-48) Monocytes (%) (Auto) 4 % (0-9) Eosinophils (%) (Auto) 1 % (0-3) Basophils (%) (Auto) 1 % (0-3) Neutrophils # (Auto) 3.2 x10^3/uL (1.8-7.7) Lymphocytes # (Auto) 3.5 x10^3/uL (1.0-4.8) Monocytes # (Auto) 0.2 x10^3/uL (0.0-1.1) Eosinophils # (Auto) 0.0 x10^3/uL (0.0-0.7) Basophils # (Auto) 0.1 x10^3/uL (0.0-0.2) Sodium Level 138 mmol/L (136-145) Potassium Level 3.3 mmol/L (3.5-5.1) Chloride Level 102 mmol/L (98-107) Carbon Dioxide Level 27 mmol/L (21-32) Anion Gap 9 (6-14) Blood Urea Nitrogen 8 mg/dL (7-20) Creatinine 0.8 mg/dL (0.6-1.0) Estimated GFR (Cockcroft-Gault) 89.8 BUN/Creatinine Ratio 10 (6-20) Glucose Level 119 mg/dL (70-99) Calcium Level 8.9 mg/dL (8.5-10.1) Total Bilirubin 0.6 mg/dL (0.2-1.0) Aspartate Amino Transf (AST/SGOT) 24 U/L (15-37) Alanine Aminotransferase (ALT/SGPT) 31 U/L (14-59) Alkaline Phosphatase 107 U/L (46-116) Total Protein 7.1 g/dL (6.4-8.2) Albumin 3.7 g/dL (3.4-5.0) Albumin/Globulin Ratio 1.1 (1.0-1.7) O2 Saturation 88 % (92-99) 97 % (92-99) Arterial Blood pH 7.33 (7.35-7.45) 7.35 (7.35-7.45) Arterial Blood pCO2 at Patient Temp 53 mmHg (35-46) 48 mmHg (35-46) Arterial Blood pO2 at Patient Temp 58 mmHg (75-108) 106 mmHg (75-108) Arterial Blood HCO3 27 mmol/L (21-28) 26 mmol/L (21-28) Arterial Blood Base Excess 0 mmol/L (-3-3) -1 mmol/L (-3-3) FiO2 40 50 Glucose (Fingerstick) 169 mg/dL (70-99) Laboratory Tests Test 12/05/19 02:15 12/05/19 04:26 12/05/19 07:40 12/05/19 11:58 White Blood Count 7.0 x10^3/uL (4.0-11.0) Red Blood Count 4.97 x10^6/uL (3.50-5.40) Hemoglobin 14.5 g/dL (12.0-15.5) Hematocrit 42.4 % (36.0-47.0) Mean Corpuscular Volume 85 fL (79-100) Mean Corpuscular Hemoglobin 29 pg (25-35) Mean Corpuscular Hemoglobin Concent 34 g/dL (31-37) Red Cell Distribution Width 15.0 % (11.5-14.5) Platelet Count 195 x10^3/uL (140-400) Neutrophils (%) (Auto) 45 % (31-73) Lymphocytes (%) (Auto) 50 % (24-48) Monocytes (%) (Auto) 4 % (0-9) Eosinophils (%) (Auto) 1 % (0-3) Basophils (%) (Auto) 1 % (0-3) Neutrophils # (Auto) 3.2 x10^3/uL (1.8-7.7) Lymphocytes # (Auto) 3.5 x10^3/uL (1.0-4.8) Monocytes # (Auto) 0.2 x10^3/uL (0.0-1.1) Eosinophils # (Auto) 0.0 x10^3/uL (0.0-0.7) Basophils # (Auto) 0.1 x10^3/uL (0.0-0.2) Sodium Level 138 mmol/L (136-145) Potassium Level 3.3 mmol/L (3.5-5.1) Chloride Level 102 mmol/L (98-107) Carbon Dioxide Level 27 mmol/L (21-32) Anion Gap 9 (6-14) Blood Urea Nitrogen 8 mg/dL (7-20) Creatinine 0.8 mg/dL (0.6-1.0) Estimated GFR (Cockcroft-Gault) 89.8 BUN/Creatinine Ratio 10 (6-20) Glucose Level 119 mg/dL (70-99) Calcium Level 8.9 mg/dL (8.5-10.1) Total Bilirubin 0.6 mg/dL (0.2-1.0) Aspartate Amino Transf (AST/SGOT) 24 U/L (15-37) Alanine Aminotransferase (ALT/SGPT) 31 U/L (14-59) Alkaline Phosphatase 107 U/L (46-116) Total Protein 7.1 g/dL (6.4-8.2) Albumin 3.7 g/dL (3.4-5.0) Albumin/Globulin Ratio 1.1 (1.0-1.7) O2 Saturation 88 % (92-99) 97 % (92-99) Arterial Blood pH 7.33 (7.35-7.45) 7.35 (7.35-7.45) Arterial Blood pCO2 at Patient Temp 53 mmHg (35-46) 48 mmHg (35-46) Arterial Blood pO2 at Patient Temp 58 mmHg (75-108) 106 mmHg (75-108) Arterial Blood HCO3 27 mmol/L (21-28) 26 mmol/L (21-28) Arterial Blood Base Excess 0 mmol/L (-3-3) -1 mmol/L (-3-3) FiO2 40 50 Glucose (Fingerstick) 169 mg/dL (70-99) Assessment/Plan Assessment/Plan Respiratory failure secondary to angioedema secondary to shellfish allergy Plan ICU monitoring Vent weaning IV steroids IV Benadryl IV Pepcid Home meds DVT prophylaxis Full code Consult pulmonary Prognosis guarded Justicifation of Admission Dx: Justifications for Admission: Justification of Admission Dx: Yes Respiratory Failure: Airway Obstruction ANDREA NAVARRO III DO Dec 05, 2019 12:30
[2019-12-05] MEDS: diphenhydrAMINE 50 MG/ML VIAL IVP SCH ×2 (12:37→17:55)
[2019-12-05] MEDS: methylPREDNISolone SOD SUCC PF 125 MG/2 ML VIAL. IV SCH ×2 (13:42→22:26)
[2019-12-05] MEDS: FAMOTIDINE 20 MG/2 ML VIAL IVP SCH (21:05)
[2019-12-05] MEDS: ENOXAPARIN 40 MG/0.4 ML SYRINGE. SQ SCH (21:05)
[2019-12-06] VITALS (24 sets, daily range): BP systolic 100–140; BP diastolic 53–80
[2019-12-06] MEDS: diphenhydrAMINE 50 MG/ML VIAL IVP SCH ×4 (00:13→17:25)
[2019-12-06] MEDS: fentaNYL PF VIAL 100 MCG/2 ML VIAL IVP PRN ×3 (00:14→07:47)
[2019-12-06] MEDS: INSULIN LISPRO 300 UNITS/3 ML VIAL. SQ SCH ×4 (01:05→17:29)
[2019-12-06] MEDS: PROPOFOL 100 ML IV PRN ×6 (02:06→22:23)
[2019-12-06 05:23] LABS: HEMATOCRIT 37.7 % (36.0-47.0); HEMOGLOBIN 12.6 g/dL (12.0-15.5); RED BLOOD COUNT 4.33 x10^6/uL (3.50-5.40); RED CELL DISTRIBUTION WIDTH 15.3 % (11.5-14.5); WHITE BLOOD COUNT 12.3 x10^3/uL (4.0-11.0)
[2019-12-06 05:41] LABS: CALCIUM 8.2 mg/dL (8.5-10.1); CREATININE 0.9 mg/dL (0.6-1.0); GFR 78.4; POTASSIUM 3.8 mmol/L (3.5-5.1)
[2019-12-06] MEDS: methylPREDNISolone SOD SUCC PF 125 MG/2 ML VIAL. IV SCH ×3 (06:17→21:38)
[2019-12-06] MEDS ORDERED: NALOXONE 0.4 MG/ML VIAL. IV PRN (08:45)
[2019-12-06 08:49] LABS: BASE EXCESS ABG -2 mmol/L (-3-3); HCO3 ABG 23 mmol/L (21-28); PCO2 ABG 39 mmHg (35-46); PO2 ABG 67 mmHg (75-108); SAT O2 ABG 93 % (92-99)
[2019-12-06] MEDS: ENOXAPARIN 40 MG/0.4 ML SYRINGE. SQ SCH ×2 (09:29→21:38)
[2019-12-06] MEDS: IV NORMAL SALINE 1000ML BAG 1,000 ML IV SCH (09:30)
--- NOTE | 2019-12-06 10:16 | PDOC ---
PULMONARY PROGRESS NOTES DATE: 12/06/19 TIME: 10:13 Subjective remains intubated/sedated AC mode Vitals Vital Signs Date Time Temp Pulse Resp B/P (MAP) Pulse Ox O2 Delivery O2 Flow Rate FiO2 12/06/19 09:36 46 20 116/65 (82) 97 Ventilator 12/06/19 07:54 97.5 97.5 Lungs: Clear Cardiovascular: S1, S2 Abdomen: Soft, Other (obese) Extremities: No Edema Skin: Warm Labs Laboratory Tests Test 12/05/19 02:15 12/05/19 04:26 12/05/19 07:40 12/05/19 11:58 White Blood Count 7.0 x10^3/uL (4.0-11.0) Red Blood Count 4.97 x10^6/uL (3.50-5.40) Hemoglobin 14.5 g/dL (12.0-15.5) Hematocrit 42.4 % (36.0-47.0) Mean Corpuscular Volume 85 fL (79-100) Mean Corpuscular Hemoglobin 29 pg (25-35) Mean Corpuscular Hemoglobin Concent 34 g/dL (31-37) Red Cell Distribution Width 15.0 % (11.5-14.5) Platelet Count 195 x10^3/uL (140-400) Neutrophils (%) (Auto) 45 % (31-73) Lymphocytes (%) (Auto) 50 % (24-48) Monocytes (%) (Auto) 4 % (0-9) Eosinophils (%) (Auto) 1 % (0-3) Basophils (%) (Auto) 1 % (0-3) Neutrophils # (Auto) 3.2 x10^3/uL (1.8-7.7) Lymphocytes # (Auto) 3.5 x10^3/uL (1.0-4.8) Monocytes # (Auto) 0.2 x10^3/uL (0.0-1.1) Eosinophils # (Auto) 0.0 x10^3/uL (0.0-0.7) Basophils # (Auto) 0.1 x10^3/uL (0.0-0.2) Sodium Level 138 mmol/L (136-145) Potassium Level 3.3 mmol/L (3.5-5.1) Chloride Level 102 mmol/L (98-107) Carbon Dioxide Level 27 mmol/L (21-32) Anion Gap 9 (6-14) Blood Urea Nitrogen 8 mg/dL (7-20) Creatinine 0.8 mg/dL (0.6-1.0) Estimated GFR (Cockcroft-Gault) 89.8 BUN/Creatinine Ratio 10 (6-20) Glucose Level 119 mg/dL (70-99) Calcium Level 8.9 mg/dL (8.5-10.1) Total Bilirubin 0.6 mg/dL (0.2-1.0) Aspartate Amino Transf (AST/SGOT) 24 U/L (15-37) Alanine Aminotransferase (ALT/SGPT) 31 U/L (14-59) Alkaline Phosphatase 107 U/L (46-116) Total Protein 7.1 g/dL (6.4-8.2) Albumin 3.7 g/dL (3.4-5.0) Albumin/Globulin Ratio 1.1 (1.0-1.7) O2 Saturation 88 % (92-99) 97 % (92-99) Arterial Blood pH 7.33 (7.35-7.45) 7.35 (7.35-7.45) Arterial Blood pCO2 at Patient Temp 53 mmHg (35-46) 48 mmHg (35-46) Arterial Blood pO2 at Patient Temp 58 mmHg (75-108) 106 mmHg (75-108) Arterial Blood HCO3 27 mmol/L (21-28) 26 mmol/L (21-28) Arterial Blood Base Excess 0 mmol/L (-3-3) -1 mmol/L (-3-3) FiO2 40 50 Glucose (Fingerstick) 169 mg/dL (70-99) Test 12/05/19 18:01 12/06/19 00:22 12/06/19 04:30 12/06/19 06:25 Glucose (Fingerstick) 148 mg/dL (70-99) 157 mg/dL (70-99) 149 mg/dL (70-99) White Blood Count 12.3 x10^3/uL (4.0-11.0) Red Blood Count 4.33 x10^6/uL (3.50-5.40) Hemoglobin 12.6 g/dL (12.0-15.5) Hematocrit 37.7 % (36.0-47.0) Mean Corpuscular Volume 87 fL (79-100) Mean Corpuscular Hemoglobin 29 pg (25-35) Mean Corpuscular Hemoglobin Concent 33 g/dL (31-37) Red Cell Distribution Width 15.3 % (11.5-14.5) Platelet Count 168 x10^3/uL (140-400) Sodium Level 139 mmol/L (136-145) Potassium Level 3.8 mmol/L (3.5-5.1) Chloride Level 105 mmol/L (98-107) Carbon Dioxide Level 26 mmol/L (21-32) Anion Gap 8 (6-14) Blood Urea Nitrogen 16 mg/dL (7-20) Creatinine 0.9 mg/dL (0.6-1.0) Estimated GFR (Cockcroft-Gault) 78.4 Glucose Level 165 mg/dL (70-99) Calcium Level 8.2 mg/dL (8.5-10.1) Test 12/06/19 08:40 O2 Saturation 93 % (92-99) Arterial Blood pH 7.39 (7.35-7.45) Arterial Blood pCO2 at Patient Temp 39 mmHg (35-46) Arterial Blood pO2 at Patient Temp 67 mmHg (75-108) Arterial Blood HCO3 23 mmol/L (21-28) Arterial Blood Base Excess -2 mmol/L (-3-3) FiO2 40% ac 20, 450, 5 Laboratory Tests Test 12/05/19 11:58 12/05/19 18:01 12/06/19 00:22 12/06/19 04:30 Glucose (Fingerstick) 169 mg/dL (70-99) 148 mg/dL (70-99) 157 mg/dL (70-99) White Blood Count 12.3 x10^3/uL (4.0-11.0) Red Blood Count 4.33 x10^6/uL (3.50-5.40) Hemoglobin 12.6 g/dL (12.0-15.5) Hematocrit 37.7 % (36.0-47.0) Mean Corpuscular Volume 87 fL (79-100) Mean Corpuscular Hemoglobin 29 pg (25-35) Mean Corpuscular Hemoglobin Concent 33 g/dL (31-37) Red Cell Distribution Width 15.3 % (11.5-14.5) Platelet Count 168 x10^3/uL (140-400) Sodium Level 139 mmol/L (136-145) Potassium Level 3.8 mmol/L (3.5-5.1) Chloride Level 105 mmol/L (98-107) Carbon Dioxide Level 26 mmol/L (21-32) Anion Gap 8 (6-14) Blood Urea Nitrogen 16 mg/dL (7-20) Creatinine 0.9 mg/dL (0.6-1.0) Estimated GFR (Cockcroft-Gault) 78.4 Glucose Level 165 mg/dL (70-99) Calcium Level 8.2 mg/dL (8.5-10.1) Test 12/06/19 06:25 12/06/19 08:40 Glucose (Fingerstick) 149 mg/dL (70-99) O2 Saturation 93 % (92-99) Arterial Blood pH 7.39 (7.35-7.45) Arterial Blood pCO2 at Patient Temp 39 mmHg (35-46) Arterial Blood pO2 at Patient Temp 67 mmHg (75-108) Arterial Blood HCO3 23 mmol/L (21-28) Arterial Blood Base Excess -2 mmol/L (-3-3) FiO2 40% ac 20, 450, 5 Medications Active Scripts Medications Dose Route/Sig Max Daily Dose Days Date Category Dose Instructions Zofran (Ondansetron Hcl) 4 Mg Tablet 1 Tab PO PRN Q6-8HRS 03/17/19 Rx Xarelto (Rivaroxaban) 20 Mg Tablet 20 Mg PO DAILY 30 08/12/18 Rx Start daily with food after 21 days of 15mg BID dosing Xarelto (Rivaroxaban) 15 Mg Tablet 15 Mg PO BIDWMEALS 21 08/12/18 Rx Ranitidine Hcl 300 Mg Tablet 300 Mg PO PRN DAILY PRN 06/06/18 Reported Duoneb 0.5-3(2.5) Mg/3 Ml (Albuterol/Ipratropium) 3 Ml Ampul.neb 3 Ml INH [id number] 06/06/18 Reported Lo-Dose Aspirin Ec (Aspirin) 81 Mg Tablet.dr 81 Mg PO DAILY 06/06/18 Reported Hydrochlorothiazide 25 Mg Tablet 1 Tab PO DAILY 06/06/18 Reported Alprazolam 2 Mg Tablet 1 Tab PO PRN Q8HRS PRN 06/06/18 Reported Temazepam 30 Mg Capsule 1 Tab PO HS 06/06/18 Reported Oxycodone-Acetaminophen 10-325 (Oxycodone Hcl/Acetaminophen) 1 Each Tablet 1 Tab PO PRN Q6HRS PRN 06/06/18 Reported Acetaminophen 325 Mg Capsule 325 Mg PO QID 5 01/28/17 Rx Triamterene-Hctz 37.5-25 Mg Tb (Triamterene/Hydrochlorothiazid) 1 Each Tablet 1 Tab PO DAILY 01/23/17 Reported Cyclobenzaprine Hcl 10 Mg Tablet 1 Tab PO TID PRN 01/23/17 Reported Hydroxyzine Hcl 25 Mg Tablet 1 Tab PO BID 01/23/17 Reported Isosorbide Mononitrate Er (Isosorbide Mononitrate) 30 Mg Tab.er.24h 1 Tab PO DAILY 01/23/17 Reported Loratadine 10 Mg Tablet 1 Tab PO DAILY 01/23/17 Reported Carvedilol 25 Mg Tablet 1 Tab PO DAILY 01/23/17 Reported Hydrochlorothiazide Tablet (Hydrochlorothiazide) 25 Mg Tablet 1 Tab PO DAILY 01/23/17 Reported Simvastatin 20 Mg Tablet 1 Tab PO QHS 01/23/17 Reported Glyburide 5 Mg Tablet 1 Tab PO BID 01/23/17 Reported Potassium Chloride (Potassium Chloride) 20 Meq Tablet.er 20 Meq PO DAILY 01/23/17 Reported Montelukast Sodium Tablet (Montelukast Sodium) 10 Mg Tablet 1 Tab PO DAILY 01/23/17 Reported Impression . 1. Acute hypoxic and hypercapnic respiratory failure secondary to angioedema of unclear etiology. She has allergy to shellfish, but she did not ingest shrimps herself, but instead gave it to her dog and she began to have symptoms immediately after that when she got some shellfish. The patient is not on any JABIER inhibitor. 2. History of coronary artery disease, stent and mild congestive heart failure. 3. History of tobacco use, suspect underlying chronic obstructive pulmonary disease. 4. Morbid obesity. 5. History of liver cancer, details of which not available. Plan . 1. Discussed with RN and RT. At this point, we will continue with present assist control mode. I did a cuff deflation test and she did not have a cuff leak, 2. We will continue with IV steroids, Benadryl and Pepcid. 3. Bronchodilators. 4. DVT and stress ulcer prophylaxis. 5. weaning trial once VC edema improved. Discussed with RN and RT. Chart reviewed, labs reviewed, imaging studies reviewed. Critical care time 30 minutes including decision making. SIMON REYES MD Dec 06, 2019 10:16
--- NOTE | 2019-12-06 12:00 | NUR ---
SS following for discharge planning. SS reviewed pt chart and discussed with pt RN. Pt remains on the vent at this time. Pt had allergic reaction to shellfish. Not ready for extubation at this time. SS will continue to follow for discharge planning.
--- NOTE | 2019-12-06 12:07 | PDOC ---
[facility] PROGRESS NOTE Date of Service DOS: DATE: 12/06/19 TIME: 11:58 Chief Complaint Chief Complaint Acute respiratory failure Allergic angioedema History of Present Illness History of Present Illness 12/06/19 Patient seen and examined in ICU Chart reviewed Discussed with RN Patient seems to be doing a little worse today AC 20/450/40% PEEP: 5 Vitals/I&O Vitals/I&O: Vital Signs Date Time Temp Pulse Resp B/P (MAP) Pulse Ox O2 Delivery O2 Flow Rate FiO2 12/06/19 11:18 96 Ventilator 12/06/19 11:06 46 20 123/68 (86) 12/06/19 07:54 97.5 97.5 I & O 12/05/19 12/05/19 12/06/19 15:00 23:00 07:00 Intake Total 300 ml 1745 ml 1587 ml Output Total 355 ml 1125 ml 640 ml Balance -55 ml 620 ml 947 ml Physical Exam General: No acute distress Heart: Regular rate Lungs: Clear Extremities: No cyanosis Skin: No breakdown Labs Labs: Laboratory Tests Test 12/05/19 18:01 12/06/19 00:22 12/06/19 04:30 12/06/19 06:25 Glucose (Fingerstick) 148 mg/dL (70-99) 157 mg/dL (70-99) 149 mg/dL (70-99) White Blood Count 12.3 x10^3/uL (4.0-11.0) Red Blood Count 4.33 x10^6/uL (3.50-5.40) Hemoglobin 12.6 g/dL (12.0-15.5) Hematocrit 37.7 % (36.0-47.0) Mean Corpuscular Volume 87 fL (79-100) Mean Corpuscular Hemoglobin 29 pg (25-35) Mean Corpuscular Hemoglobin Concent 33 g/dL (31-37) Red Cell Distribution Width 15.3 % (11.5-14.5) Platelet Count 168 x10^3/uL (140-400) Sodium Level 139 mmol/L (136-145) Potassium Level 3.8 mmol/L (3.5-5.1) Chloride Level 105 mmol/L (98-107) Carbon Dioxide Level 26 mmol/L (21-32) Anion Gap 8 (6-14) Blood Urea Nitrogen 16 mg/dL (7-20) Creatinine 0.9 mg/dL (0.6-1.0) Estimated GFR (Cockcroft-Gault) 78.4 Glucose Level 165 mg/dL (70-99) Calcium Level 8.2 mg/dL (8.5-10.1) Test 12/06/19 08:40 12/06/19 11:12 O2 Saturation 93 % (92-99) Arterial Blood pH 7.39 (7.35-7.45) Arterial Blood pCO2 at Patient Temp 39 mmHg (35-46) Arterial Blood pO2 at Patient Temp 67 mmHg (75-108) Arterial Blood HCO3 23 mmol/L (21-28) Arterial Blood Base Excess -2 mmol/L (-3-3) FiO2 40% ac 20, 450, 5 Glucose (Fingerstick) 161 mg/dL (70-99) Assessment and Plan Assessmemt and Plan Problems Medical Problems: (1) Acute respiratory failure, unspecified whether with hypoxia or hypercapnia Status: Acute (2) Allergic angioedema due to seafood Status: Acute Assessment: Acute respiratory failure Allergic Angioedema due to seafood Plan: ICU monitoring Vent weaning Full code Continue IV steroids IV Benadryl IV Pepcid DVT prophylaxis Sedation with propofol Appreciate subspecialist input Total time 32-minute Comment Review of Relevant I have reviewed the following items geovany (where applicable) has been applied. Medications: Current Medications Medications (Trade) Dose Ordered Sig/Luz Maria Route PRN Reason Start Time Stop Time Status Last Admin Dose Admin Methylprednisolone Sodium Succinate (SOLU-Medrol 125MG VIAL) 60 mg Q8HRS IV 12/05/19 14:00 12/06/19 06:17 Famotidine (Pepcid Vial) 20 mg QHS IVP 12/05/19 21:00 12/05/19 21:05 Diphenhydramine HCl (Benadryl) 25 mg Q6HRS IVP 12/05/19 12:00 12/06/19 11:45 Enoxaparin Sodium (Lovenox 40mg Syringe) 40 mg Q12HR SQ 12/05/19 21:00 12/06/19 09:29 Insulin Human Lispro (HumaLOG) 0-7 UNITS Q6HRS SQ 12/06/19 00:00 12/06/19 11:16 Fentanyl Citrate 30 ml @ 0 mls/hr CONT PRN PRN IV PER PROTOCOL 12/06/19 08:45 12/06/19 09:27 Sodium Chloride 1,000 ml @ 25 mls/hr Q24H IV 12/06/19 08:39 12/06/19 09:30 Justicifation of Admission Dx: Justifications for Admission: Justification of Admission Dx: Yes Respiratory Failure: Airway Obstruction ANDREA NAVARRO III DO Dec 06, 2019 12:07
[2019-12-06] MEDS: FAMOTIDINE 20 MG/2 ML VIAL IVP SCH (21:38)
[2019-12-07] VITALS (24 sets, daily range): BP systolic 113–154; BP diastolic 62–76
[2019-12-07] MEDS: diphenhydrAMINE 50 MG/ML VIAL IVP SCH ×4 (00:05→17:50)
[2019-12-07] MEDS: INSULIN LISPRO 300 UNITS/3 ML VIAL. SQ SCH ×4 (00:12→17:55)
[2019-12-07] MEDS: PROPOFOL 100 ML IV PRN ×4 (04:55→20:42)
[2019-12-07] MEDS: methylPREDNISolone SOD SUCC PF 125 MG/2 ML VIAL. IV SCH ×3 (05:46→22:49)
[2019-12-07 06:00] LABS: BASO % 0 % (0-3); EOS % 0 % (0-3); HEMATOCRIT 37.6 % (36.0-47.0); HEMOGLOBIN 12.7 g/dL (12.0-15.5); LYMPH # 1.4 x10^3/uL (1.0-4.8); LYMPH % 10 % (24-48); MEAN CORPUSCULAR HEMOGLOBIN 29 pg (25-35); MEAN CORPUSCULAR HGB CONC 34 g/dL (31-37); MEAN CORPUSCULAR VOLUME 86 fL (79-100); MONO # 0.6 x10^3/uL (0.0-1.1); MONO % 4 % (0-9); NEUT # 12.3 x10^3/uL (1.8-7.7); NEUT % 86 % (31-73); PLATELET COUNT 159 x10^3/uL (140-400); RED BLOOD COUNT 4.38 x10^6/uL (3.50-5.40); RED CELL DISTRIBUTION WIDTH 15.1 % (11.5-14.5); WHITE BLOOD COUNT 14.3 x10^3/uL (4.0-11.0)
[2019-12-07 06:18] LABS: CALCIUM 8.5 mg/dL (8.5-10.1); GFR 69.4; POTASSIUM 4.1 mmol/L (3.5-5.1)
[2019-12-07] MEDS: ENOXAPARIN 40 MG/0.4 ML SYRINGE. SQ SCH ×2 (07:55→20:42)
--- NOTE | 2019-12-07 08:36 | RAD ---
EXAM: CHEST 1 VIEW History: Respiratory failure COMPARISON: 12/05/2019 TECHNIQUE: Single portable radiograph of the chest FINDINGS: The cardiac silhouette is unremarkable. ET tube, feeding tube in place. Minimal bibasilar lung airspace opacities likely improved since prior exam. IMPRESSION: Minimal bibasilar lung airspace opacities slightly improved since prior exam. Electronically signed by: Casey Wilson MD (12/07/2019 8:33 AM) [id number]
--- NOTE | 2019-12-07 08:42 | PDOC ---
[facility] PROGRESS NOTE Date of Service DOS: DATE: 12/07/19 TIME: 08:37 Chief Complaint Chief Complaint Acute respiratory failure Allergic angioedema History of Present Illness History of Present Illness 12/07/19 Patient seen and examined in ICU Chart reviewed Discussed with RN Patient doing better today Air leak present today around cuff, yesterday there was no leak AC//450/40% PEEP: 5 12/06/19 Patient seen and examined in ICU Chart reviewed Discussed with RN Patient seems to be doing a little worse today AC 20/450/40% PEEP: 5 Vitals/I&O Vitals/I&O: Vital Signs Date Time Temp Pulse Resp B/P (MAP) Pulse Ox O2 Delivery O2 Flow Rate FiO2 12/07/19 08:09 98 Ventilator 12/07/19 08:00 97.5 41 20 127/62 (83) 97.5 I & O 12/06/19 12/06/19 12/07/19 15:00 23:00 07:00 Intake Total 250 ml 1502 ml 1463 ml Output Total 560 ml 1000 ml 420 ml Balance -310 ml 502 ml 1043 ml Physical Exam General: No acute distress Heart: Regular rate Lungs: Clear Extremities: No cyanosis, Normal pulses Skin: No breakdown Labs Labs: Laboratory Tests Test 12/06/19 08:40 12/06/19 11:12 12/06/19 17:27 12/07/19 00:11 O2 Saturation 93 % (92-99) Arterial Blood pH 7.39 (7.35-7.45) Arterial Blood pCO2 at Patient Temp 39 mmHg (35-46) Arterial Blood pO2 at Patient Temp 67 mmHg (75-108) Arterial Blood HCO3 23 mmol/L (21-28) Arterial Blood Base Excess -2 mmol/L (-3-3) FiO2 40% ac 20, 450, 5 Glucose (Fingerstick) 161 mg/dL (70-99) 163 mg/dL (70-99) 173 mg/dL (70-99) Test 12/07/19 05:15 12/07/19 05:50 White Blood Count 14.3 x10^3/uL (4.0-11.0) Red Blood Count 4.38 x10^6/uL (3.50-5.40) Hemoglobin 12.7 g/dL (12.0-15.5) Hematocrit 37.6 % (36.0-47.0) Mean Corpuscular Volume 86 fL (79-100) Mean Corpuscular Hemoglobin 29 pg (25-35) Mean Corpuscular Hemoglobin Concent 34 g/dL (31-37) Red Cell Distribution Width 15.1 % (11.5-14.5) Platelet Count 159 x10^3/uL (140-400) Neutrophils (%) (Auto) 86 % (31-73) Lymphocytes (%) (Auto) 10 % (24-48) Monocytes (%) (Auto) 4 % (0-9) Eosinophils (%) (Auto) 0 % (0-3) Basophils (%) (Auto) 0 % (0-3) Neutrophils # (Auto) 12.3 x10^3/uL (1.8-7.7) Lymphocytes # (Auto) 1.4 x10^3/uL (1.0-4.8) Monocytes # (Auto) 0.6 x10^3/uL (0.0-1.1) Eosinophils # (Auto) 0.0 x10^3/uL (0.0-0.7) Basophils # (Auto) 0.0 x10^3/uL (0.0-0.2) Sodium Level 140 mmol/L (136-145) Potassium Level 4.1 mmol/L (3.5-5.1) Chloride Level 106 mmol/L (98-107) Carbon Dioxide Level 26 mmol/L (21-32) Anion Gap 8 (6-14) Blood Urea Nitrogen 19 mg/dL (7-20) Creatinine 1.0 mg/dL (0.6-1.0) Estimated GFR (Cockcroft-Gault) 69.4 Glucose Level 186 mg/dL (70-99) Calcium Level 8.5 mg/dL (8.5-10.1) Glucose (Fingerstick) 182 mg/dL (70-99) Assessment and Plan Assessmemt and Plan Problems Medical Problems: (1) Acute respiratory failure, unspecified whether with hypoxia or hypercapnia Status: Acute (2) Allergic angioedema due to seafood Status: Acute Assessment: Acute respiratory failure Allergic angioedema Plan: ICU monitoring Vent weaning DVT prophylaxis Continue IV steroids IV Pepcid Continue Benadryl OG feed Propofol sedation Full code Appreciate subspecialist input Total time 32 Comment Review of Relevant I have reviewed the following items geovany (where applicable) has been applied. Medications: Current Medications Medications (Trade) Dose Ordered Sig/Luz Maria Route PRN Reason Start Time Stop Time Status Last Admin Dose Admin Fentanyl Citrate 30 ml @ 0 mls/hr CONT PRN PRN IV PER PROTOCOL 12/06/19 08:45 12/06/19 20:19 Sodium Chloride 1,000 ml @ 25 mls/hr Q24H IV 12/06/19 08:39 12/06/19 09:30 Justicifation of Admission Dx: Justifications for Admission: Justification of Admission Dx: Yes Respiratory Failure: Airway Obstruction ANDREA NAVARRO III DO Dec 07, 2019 08:42
[2019-12-07 09:06] LABS: BASE EXCESS ABG -5 mmol/L (-3-3); HCO3 ABG 20 mmol/L (21-28); PCO2 ABG 37 mmHg (35-46); PO2 ABG 102 mmHg (75-108); SAT O2 ABG 97 % (92-99)
[2019-12-07 09:57] LABS: FIO2 ABG 40
[2019-12-07 10:02] LABS: % BANDS 2 % (0-9); % LYMPHS 7 % (24-48); % SEGS 91 % (35-66); PLT ESTIMATE ADEQUATE (ADEQUATE)
--- NOTE | 2019-12-07 10:54 | PDOC ---
PULMONARY PROGRESS NOTES DATE: 12/07/19 TIME: 10:52 Subjective remains intubated/sedated AC mode Vitals Vital Signs Date Time Temp Pulse Resp B/P (MAP) Pulse Ox O2 Delivery O2 Flow Rate FiO2 12/07/19 10:00 42 20 113/64 (80) 96 Ventilator 12/07/19 08:00 97.5 97.5 Lungs: Clear Cardiovascular: S1, S2 Abdomen: Soft, Other (obese) Extremities: No Edema Skin: Warm Labs Laboratory Tests Test 12/05/19 11:58 12/05/19 18:01 12/06/19 00:22 12/06/19 04:30 Glucose (Fingerstick) 169 mg/dL (70-99) 148 mg/dL (70-99) 157 mg/dL (70-99) White Blood Count 12.3 x10^3/uL (4.0-11.0) Red Blood Count 4.33 x10^6/uL (3.50-5.40) Hemoglobin 12.6 g/dL (12.0-15.5) Hematocrit 37.7 % (36.0-47.0) Mean Corpuscular Volume 87 fL (79-100) Mean Corpuscular Hemoglobin 29 pg (25-35) Mean Corpuscular Hemoglobin Concent 33 g/dL (31-37) Red Cell Distribution Width 15.3 % (11.5-14.5) Platelet Count 168 x10^3/uL (140-400) Sodium Level 139 mmol/L (136-145) Potassium Level 3.8 mmol/L (3.5-5.1) Chloride Level 105 mmol/L (98-107) Carbon Dioxide Level 26 mmol/L (21-32) Anion Gap 8 (6-14) Blood Urea Nitrogen 16 mg/dL (7-20) Creatinine 0.9 mg/dL (0.6-1.0) Estimated GFR (Cockcroft-Gault) 78.4 Glucose Level 165 mg/dL (70-99) Calcium Level 8.2 mg/dL (8.5-10.1) Test 12/06/19 06:25 12/06/19 08:40 12/06/19 11:12 12/06/19 17:27 Glucose (Fingerstick) 149 mg/dL (70-99) 161 mg/dL (70-99) 163 mg/dL (70-99) O2 Saturation 93 % (92-99) Arterial Blood pH 7.39 (7.35-7.45) Arterial Blood pCO2 at Patient Temp 39 mmHg (35-46) Arterial Blood pO2 at Patient Temp 67 mmHg (75-108) Arterial Blood HCO3 23 mmol/L (21-28) Arterial Blood Base Excess -2 mmol/L (-3-3) FiO2 40% ac 20, 450, 5 Test 12/07/19 00:11 12/07/19 05:15 12/07/19 05:50 12/07/19 08:00 Glucose (Fingerstick) 173 mg/dL (70-99) 182 mg/dL (70-99) White Blood Count 14.3 x10^3/uL (4.0-11.0) Red Blood Count 4.38 x10^6/uL (3.50-5.40) Hemoglobin 12.7 g/dL (12.0-15.5) Hematocrit 37.6 % (36.0-47.0) Mean Corpuscular Volume 86 fL (79-100) Mean Corpuscular Hemoglobin 29 pg (25-35) Mean Corpuscular Hemoglobin Concent 34 g/dL (31-37) Red Cell Distribution Width 15.1 % (11.5-14.5) Platelet Count 159 x10^3/uL (140-400) Neutrophils (%) (Auto) 86 % (31-73) Lymphocytes (%) (Auto) 10 % (24-48) Monocytes (%) (Auto) 4 % (0-9) Eosinophils (%) (Auto) 0 % (0-3) Basophils (%) (Auto) 0 % (0-3) Neutrophils # (Auto) 12.3 x10^3/uL (1.8-7.7) Lymphocytes # (Auto) 1.4 x10^3/uL (1.0-4.8) Monocytes # (Auto) 0.6 x10^3/uL (0.0-1.1) Eosinophils # (Auto) 0.0 x10^3/uL (0.0-0.7) Basophils # (Auto) 0.0 x10^3/uL (0.0-0.2) Segmented Neutrophils % 91 % (35-66) Band Neutrophils % 2 % (0-9) Lymphocytes % 7 % (24-48) Platelet Estimate Adequate (ADEQUATE) Sodium Level 140 mmol/L (136-145) Potassium Level 4.1 mmol/L (3.5-5.1) Chloride Level 106 mmol/L (98-107) Carbon Dioxide Level 26 mmol/L (21-32) Anion Gap 8 (6-14) Blood Urea Nitrogen 19 mg/dL (7-20) Creatinine 1.0 mg/dL (0.6-1.0) Estimated GFR (Cockcroft-Gault) 69.4 Glucose Level 186 mg/dL (70-99) Calcium Level 8.5 mg/dL (8.5-10.1) O2 Saturation 97 % (92-99) Arterial Blood pH 7.35 (7.35-7.45) Arterial Blood pCO2 at Patient Temp 37 mmHg (35-46) Arterial Blood pO2 at Patient Temp 102 mmHg (75-108) Arterial Blood HCO3 20 mmol/L (21-28) Arterial Blood Base Excess -5 mmol/L (-3-3) FiO2 40 Laboratory Tests Test 12/06/19 11:12 12/06/19 17:27 12/07/19 00:11 12/07/19 05:15 Glucose (Fingerstick) 161 mg/dL (70-99) 163 mg/dL (70-99) 173 mg/dL (70-99) White Blood Count 14.3 x10^3/uL (4.0-11.0) Red Blood Count 4.38 x10^6/uL (3.50-5.40) Hemoglobin 12.7 g/dL (12.0-15.5) Hematocrit 37.6 % (36.0-47.0) Mean Corpuscular Volume 86 fL (79-100) Mean Corpuscular Hemoglobin 29 pg (25-35) Mean Corpuscular Hemoglobin Concent 34 g/dL (31-37) Red Cell Distribution Width 15.1 % (11.5-14.5) Platelet Count 159 x10^3/uL (140-400) Neutrophils (%) (Auto) 86 % (31-73) Lymphocytes (%) (Auto) 10 % (24-48) Monocytes (%) (Auto) 4 % (0-9) Eosinophils (%) (Auto) 0 % (0-3) Basophils (%) (Auto) 0 % (0-3) Neutrophils # (Auto) 12.3 x10^3/uL (1.8-7.7) Lymphocytes # (Auto) 1.4 x10^3/uL (1.0-4.8) Monocytes # (Auto) 0.6 x10^3/uL (0.0-1.1) Eosinophils # (Auto) 0.0 x10^3/uL (0.0-0.7) Basophils # (Auto) 0.0 x10^3/uL (0.0-0.2) Segmented Neutrophils % 91 % (35-66) Band Neutrophils % 2 % (0-9) Lymphocytes % 7 % (24-48) Platelet Estimate Adequate (ADEQUATE) Sodium Level 140 mmol/L (136-145) Potassium Level 4.1 mmol/L (3.5-5.1) Chloride Level 106 mmol/L (98-107) Carbon Dioxide Level 26 mmol/L (21-32) Anion Gap 8 (6-14) Blood Urea Nitrogen 19 mg/dL (7-20) Creatinine 1.0 mg/dL (0.6-1.0) Estimated GFR (Cockcroft-Gault) 69.4 Glucose Level 186 mg/dL (70-99) Calcium Level 8.5 mg/dL (8.5-10.1) Test 12/07/19 05:50 12/07/19 08:00 Glucose (Fingerstick) 182 mg/dL (70-99) O2 Saturation 97 % (92-99) Arterial Blood pH 7.35 (7.35-7.45) Arterial Blood pCO2 at Patient Temp 37 mmHg (35-46) Arterial Blood pO2 at Patient Temp 102 mmHg (75-108) Arterial Blood HCO3 20 mmol/L (21-28) Arterial Blood Base Excess -5 mmol/L (-3-3) FiO2 40 Medications Active Scripts Medications Dose Route/Sig Max Daily Dose Days Date Category Dose Instructions Zofran (Ondansetron Hcl) 4 Mg Tablet 1 Tab PO PRN Q6-8HRS 03/17/19 Rx Xarelto (Rivaroxaban) 20 Mg Tablet 20 Mg PO DAILY 30 08/12/18 Rx Start daily with food after 21 days of 15mg BID dosing Xarelto (Rivaroxaban) 15 Mg Tablet 15 Mg PO BIDWMEALS 21 4/18/19 Rx Ranitidine Hcl 300 Mg Tablet 300 Mg PO PRN DAILY PRN 06/06/18 Reported Duoneb 0.5-3(2.5) Mg/3 Ml (Albuterol/Ipratropium) 3 Ml Ampul.neb 3 Ml INH [id number] 06/06/18 Reported Lo-Dose Aspirin Ec (Aspirin) 81 Mg Tablet.dr 81 Mg PO DAILY 06/06/18 Reported Hydrochlorothiazide 25 Mg Tablet 1 Tab PO DAILY 06/06/18 Reported Alprazolam 2 Mg Tablet 1 Tab PO PRN Q8HRS PRN 06/06/18 Reported Temazepam 30 Mg Capsule 1 Tab PO HS 06/06/18 Reported Oxycodone-Acetaminophen 10-325 (Oxycodone Hcl/Acetaminophen) 1 Each Tablet 1 Tab PO PRN Q6HRS PRN 06/06/18 Reported Acetaminophen 325 Mg Capsule 325 Mg PO QID 5 01/28/17 Rx Triamterene-Hctz 37.5-25 Mg Tb (Triamterene/Hydrochlorothiazid) 1 Each Tablet 1 Tab PO DAILY 01/23/17 Reported Cyclobenzaprine Hcl 10 Mg Tablet 1 Tab PO TID PRN 01/23/17 Reported Hydroxyzine Hcl 25 Mg Tablet 1 Tab PO BID 01/23/17 Reported Isosorbide Mononitrate Er (Isosorbide Mononitrate) 30 Mg Tab.er.24h 1 Tab PO DAILY 01/23/17 Reported Loratadine 10 Mg Tablet 1 Tab PO DAILY 01/23/17 Reported Carvedilol 25 Mg Tablet 1 Tab PO DAILY 01/23/17 Reported Hydrochlorothiazide Tablet (Hydrochlorothiazide) 25 Mg Tablet 1 Tab PO DAILY 01/23/17 Reported Simvastatin 20 Mg Tablet 1 Tab PO QHS 01/23/17 Reported Glyburide 5 Mg Tablet 1 Tab PO BID 01/23/17 Reported Potassium Chloride (Potassium Chloride) 20 Meq Tablet.er 20 Meq PO DAILY 01/23/17 Reported Montelukast Sodium Tablet (Montelukast Sodium) 10 Mg Tablet 1 Tab PO DAILY 01/23/17 Reported Comments cxr 12/06 basal atelectasis Impression . 1. Acute hypoxic and hypercapnic respiratory failure secondary to angioedema of unclear etiology. She has allergy to shellfish, but she did not ingest shrimps herself, but instead gave it to her dog and she began to have symptoms immediately after that when she got some shellfish. The patient is not on any JABIER inhibitor. 2. History of coronary artery disease, stent and mild congestive heart failure. 3. History of tobacco use, suspect underlying chronic obstructive pulmonary disease. 4. Morbid obesity. 5. History of liver cancer, details of which not available. Plan . 1. Discussed with RN and RT. At this point, we will continue with present assist control mode. I did a cuff deflation test and she did have a cuff leak, Face and tongue still swollen. Will hold CPAP trial for 24 hrs. 2. We will continue with IV steroids, Benadryl and Pepcid. 3. Bronchodilators. 4. DVT and stress ulcer prophylaxis. 5. weaning trial once VC edema improved. Discussed with RN and RT. Chart reviewed, labs reviewed, imaging studies reviewed. 6. cxr stable Critical care time 30 minutes including decision making. SIMON REYES MD Dec 07, 2019 10:54
[2019-12-07] MEDS: IV NORMAL SALINE 1000ML BAG 1,000 ML IV SCH (14:17)
[2019-12-07] MEDS: FAMOTIDINE 20 MG/2 ML VIAL IVP SCH (20:42)
[2019-12-08] VITALS (21 sets, daily range): BP systolic 122–181; BP diastolic 60–86
[2019-12-08] MEDS: diphenhydrAMINE 50 MG/ML VIAL IVP SCH ×4 (00:06→17:54)
[2019-12-08] MEDS: INSULIN LISPRO 300 UNITS/3 ML VIAL. SQ SCH ×4 (00:12→17:56)
[2019-12-08] MEDS: PROPOFOL 100 ML IV PRN ×4 (04:23→23:31)
[2019-12-08] MEDS: methylPREDNISolone SOD SUCC PF 125 MG/2 ML VIAL. IV SCH ×3 (05:38→21:39)
[2019-12-08 08:20] LABS: BASE EXCESS ABG -5 mmol/L (-3-3); HCO3 ABG 20 mmol/L (21-28); PCO2 ABG 33 mmHg (35-46); PO2 ABG 96 mmHg (75-108); SAT O2 ABG 96 % (92-99)
[2019-12-08 08:55] LABS: FIO2 ABG 40
[2019-12-08] MEDS: ENOXAPARIN 40 MG/0.4 ML SYRINGE. SQ SCH ×2 (09:01→21:01)
--- NOTE | 2019-12-08 09:20 | PDOC ---
PULMONARY PROGRESS NOTES DATE: 12/08/19 TIME: 09:17 Subjective remains intubated/sedated AC mode no cuff leak present today no overnight concerns from nursing Vitals Vital Signs Date Time Temp Pulse Resp B/P (MAP) Pulse Ox O2 Delivery O2 Flow Rate FiO2 12/08/19 08:10 97 Ventilator 12/08/19 07:53 98.7 40 20 125/65 (85) 98.7 Comments unable to report 2/2 ROS HEENT: Other (angioedema ) Lungs: Clear Cardiovascular: S1, S2 Abdomen: Soft, Other (obese) Extremities: No Edema Skin: Warm Labs Laboratory Tests Test 12/06/19 11:12 12/06/19 17:27 12/07/19 00:11 12/07/19 05:15 Glucose (Fingerstick) 161 mg/dL (70-99) 163 mg/dL (70-99) 173 mg/dL (70-99) White Blood Count 14.3 x10^3/uL (4.0-11.0) Red Blood Count 4.38 x10^6/uL (3.50-5.40) Hemoglobin 12.7 g/dL (12.0-15.5) Hematocrit 37.6 % (36.0-47.0) Mean Corpuscular Volume 86 fL (79-100) Mean Corpuscular Hemoglobin 29 pg (25-35) Mean Corpuscular Hemoglobin Concent 34 g/dL (31-37) Red Cell Distribution Width 15.1 % (11.5-14.5) Platelet Count 159 x10^3/uL (140-400) Neutrophils (%) (Auto) 86 % (31-73) Lymphocytes (%) (Auto) 10 % (24-48) Monocytes (%) (Auto) 4 % (0-9) Eosinophils (%) (Auto) 0 % (0-3) Basophils (%) (Auto) 0 % (0-3) Neutrophils # (Auto) 12.3 x10^3/uL (1.8-7.7) Lymphocytes # (Auto) 1.4 x10^3/uL (1.0-4.8) Monocytes # (Auto) 0.6 x10^3/uL (0.0-1.1) Eosinophils # (Auto) 0.0 x10^3/uL (0.0-0.7) Basophils # (Auto) 0.0 x10^3/uL (0.0-0.2) Segmented Neutrophils % 91 % (35-66) Band Neutrophils % 2 % (0-9) Lymphocytes % 7 % (24-48) Platelet Estimate Adequate (ADEQUATE) Sodium Level 140 mmol/L (136-145) Potassium Level 4.1 mmol/L (3.5-5.1) Chloride Level 106 mmol/L (98-107) Carbon Dioxide Level 26 mmol/L (21-32) Anion Gap 8 (6-14) Blood Urea Nitrogen 19 mg/dL (7-20) Creatinine 1.0 mg/dL (0.6-1.0) Estimated GFR (Cockcroft-Gault) 69.4 Glucose Level 186 mg/dL (70-99) Calcium Level 8.5 mg/dL (8.5-10.1) Test 12/07/19 05:50 12/07/19 08:00 12/07/19 12:09 12/07/19 17:54 Glucose (Fingerstick) 182 mg/dL (70-99) 220 mg/dL (70-99) 158 mg/dL (70-99) O2 Saturation 97 % (92-99) Arterial Blood pH 7.35 (7.35-7.45) Arterial Blood pCO2 at Patient Temp 37 mmHg (35-46) Arterial Blood pO2 at Patient Temp 102 mmHg (75-108) Arterial Blood HCO3 20 mmol/L (21-28) Arterial Blood Base Excess -5 mmol/L (-3-3) FiO2 40 Test 12/08/19 00:09 12/08/19 05:42 12/08/19 08:00 Glucose (Fingerstick) 156 mg/dL (70-99) 188 mg/dL (70-99) O2 Saturation 96 % (92-99) Arterial Blood pH 7.39 (7.35-7.45) Arterial Blood pCO2 at Patient Temp 33 mmHg (35-46) Arterial Blood pO2 at Patient Temp 96 mmHg (75-108) Arterial Blood HCO3 20 mmol/L (21-28) Arterial Blood Base Excess -5 mmol/L (-3-3) FiO2 40 Laboratory Tests Test 12/07/19 12:09 12/07/19 17:54 12/08/19 00:09 12/08/19 05:42 Glucose (Fingerstick) 220 mg/dL (70-99) 158 mg/dL (70-99) 156 mg/dL (70-99) 188 mg/dL (70-99) Test 12/08/19 08:00 O2 Saturation 96 % (92-99) Arterial Blood pH 7.39 (7.35-7.45) Arterial Blood pCO2 at Patient Temp 33 mmHg (35-46) Arterial Blood pO2 at Patient Temp 96 mmHg (75-108) Arterial Blood HCO3 20 mmol/L (21-28) Arterial Blood Base Excess -5 mmol/L (-3-3) FiO2 40 Medications Active Scripts Medications Dose Route/Sig Max Daily Dose Days Date Category Dose Instructions Zofran (Ondansetron Hcl) 4 Mg Tablet 1 Tab PO PRN Q6-8HRS 03/17/19 Rx Xarelto (Rivaroxaban) 20 Mg Tablet 20 Mg PO DAILY 30 08/12/18 Rx Start daily with food after 21 days of 15mg BID dosing Xarelto (Rivaroxaban) 15 Mg Tablet 15 Mg PO BIDWMEALS 21 08/12/18 Rx Ranitidine Hcl 300 Mg Tablet 300 Mg PO PRN DAILY PRN 06/06/18 Reported Duoneb 0.5-3(2.5) Mg/3 Ml (Albuterol/Ipratropium) 3 Ml Ampul.neb 3 Ml INH [id number] 06/06/18 Reported Lo-Dose Aspirin Ec (Aspirin) 81 Mg Tablet.dr 81 Mg PO DAILY 06/06/18 Reported Hydrochlorothiazide 25 Mg Tablet 1 Tab PO DAILY 06/06/18 Reported Alprazolam 2 Mg Tablet 1 Tab PO PRN Q8HRS PRN 06/06/18 Reported Temazepam 30 Mg Capsule 1 Tab PO HS 06/06/18 Reported Oxycodone-Acetaminophen 10-325 (Oxycodone Hcl/Acetaminophen) 1 Each Tablet 1 Tab PO PRN Q6HRS PRN 06/06/18 Reported Acetaminophen 325 Mg Capsule 325 Mg PO QID 5 01/28/17 Rx Triamterene-Hctz 37.5-25 Mg Tb (Triamterene/Hydrochlorothiazid) 1 Each Tablet 1 Tab PO DAILY 01/23/17 Reported Cyclobenzaprine Hcl 10 Mg Tablet 1 Tab PO TID PRN 01/23/17 Reported Hydroxyzine Hcl 25 Mg Tablet 1 Tab PO BID 01/23/17 Reported Isosorbide Mononitrate Er (Isosorbide Mononitrate) 30 Mg Tab.er.24h 1 Tab PO DAILY 01/23/17 Reported Loratadine 10 Mg Tablet 1 Tab PO DAILY 01/23/17 Reported Carvedilol 25 Mg Tablet 1 Tab PO DAILY 01/23/17 Reported Hydrochlorothiazide Tablet (Hydrochlorothiazide) 25 Mg Tablet 1 Tab PO DAILY 01/23/17 Reported Simvastatin 20 Mg Tablet 1 Tab PO QHS 01/23/17 Reported Glyburide 5 Mg Tablet 1 Tab PO BID 01/23/17 Reported Potassium Chloride (Potassium Chloride) 20 Meq Tablet.er 20 Meq PO DAILY 01/23/17 Reported Montelukast Sodium Tablet (Montelukast Sodium) 10 Mg Tablet 1 Tab PO DAILY 01/23/17 Reported Comments cxr 12/07 IMPRESSION: Minimal bibasilar lung airspace opacities slightly improved since prior exam. Impression . 1. Acute hypoxic and hypercapnic respiratory failure secondary to angioedema of unclear etiology. She has allergy to shellfish, but she did not ingest shrimps herself, but instead gave it to her dog and she began to have symptoms immediately after that when she got some shellfish. The patient is not on any JABIER inhibitor. 2. History of coronary artery disease, stent and mild congestive heart failure. 3. History of tobacco use, suspect underlying chronic obstructive pulmonary disease. 4. Morbid obesity. 5. History of liver cancer, details of which not available. 6. leukocytosis- worsening Plan . Continue current A/C mode, follow ABG and CXR Discussed with RN and RT. At this point, we will continue with present assist control mode. I did a cuff deflation test and she doesn't have cuff leak today, Face and tongue still swollen. Will hold CPAP trial for additional 24 hrs. We will continue with IV steroids, pepcid, Benadryl will start Levaquin Bronchodilators DVT and stress ulcer prophylaxis. weaning trial once VC edema improved. Discussed with RN and RT. Chart reviewed, labs reviewed, imaging studies reviewed. Continue TF for nutritional support Critical care time 30 minutes including decision making. SIMON REYES MD Dec 08, 2019 09:20
--- NOTE | 2019-12-08 11:28 | PDOC ---
[facility] PROGRESS NOTE Date of Service DOS: DATE: 12/08/19 TIME: 11:21 Chief Complaint Chief Complaint Acute respiratory failure Allergic angioedema History of Present Illness History of Present Illness 12/08/19 Patient seen and examined in ICU Chart reviewed Discussed with RN Patient opened her eyes when she heard us come into the room Air leak present today AC//450/40% PEEP: 5 12/07/19 Patient seen and examined in ICU Chart reviewed Discussed with RN Patient doing better today Air leak present today around cuff, yesterday there was no leak AC//450/40% PEEP: 5 12/06/19 Patient seen and examined in ICU Chart reviewed Discussed with RN Patient seems to be doing a little worse today AC /450/40% PEEP: 5 Vitals/I&O Vitals/I&O: Vital Signs Date Time Temp Pulse Resp B/P (MAP) Pulse Ox O2 Delivery O2 Flow Rate FiO2 12/08/19 11:00 40 20 160/83 (108) 99 Ventilator 12/08/19 09:00 97.4 97.4 I & O 12/07/19 12/07/19 12/08/19 15:00 23:00 07:00 Intake Total 250 ml 1676.4 ml 1711 ml Output Total 865 ml 600 ml 450 ml Balance -615 ml 1076.4 ml 1261 ml Physical Exam General: No acute distress Heart: Regular rate Lungs: Clear Extremities: No cyanosis, Normal pulses Skin: No breakdown Labs Labs: Laboratory Tests Test 12/07/19 12:09 12/07/19 17:54 12/08/19 00:09 12/08/19 05:42 Glucose (Fingerstick) 220 mg/dL (70-99) 158 mg/dL (70-99) 156 mg/dL (70-99) 188 mg/dL (70-99) Test 12/08/19 08:00 O2 Saturation 96 % (92-99) Arterial Blood pH 7.39 (7.35-7.45) Arterial Blood pCO2 at Patient Temp 33 mmHg (35-46) Arterial Blood pO2 at Patient Temp 96 mmHg (75-108) Arterial Blood HCO3 20 mmol/L (21-28) Arterial Blood Base Excess -5 mmol/L (-3-3) FiO2 40 Assessment and Plan Assessmemt and Plan Problems Medical Problems: (1) Acute respiratory failure, unspecified whether with hypoxia or hypercapnia Status: Acute (2) Allergic angioedema due to seafood Status: Acute Assessment: Acute respiratory failure Allergic angioedema Plan: ICU monitoring Vent weening when ok with pulmonology Full code DVT prophylaxis OG tube Appreciate subspecialist input Comment Review of Relevant I have reviewed the following items geovany (where applicable) has been applied. Medications: Current Medications Medications (Trade) Dose Ordered Sig/Luz Maria Route PRN Reason Start Time Stop Time Status Last Admin Dose Admin Levofloxacin/ Dextrose 150 ml @ 100 mls/hr Q24H IV 12/08/19 10:00 12/08/19 10:28 Justicifation of Admission Dx: Justifications for Admission: Justification of Admission Dx: Yes Respiratory Failure: Airway Obstruction ANDREA NAVARRO III DO Dec 08, 2019 11:28
--- NOTE | 2019-12-08 13:32 | NUR ---
SS following up with discharge planning. SS reviewed pt chart and discussed with pt RN. Pt still swollen and remains on the vent at this time. Pt on IV Levaquin. Possible trial tomorrow. SS will continue to follow for discharge planning.
[2019-12-08] MEDS: IV NORMAL SALINE 1000ML BAG 1,000 ML IV SCH (17:56)
[2019-12-08] MEDS: FAMOTIDINE 20 MG/2 ML VIAL IVP SCH (21:02)
--- NOTE | 2019-12-08 23:29 | RAD ---
AP chest x-ray HISTORY: Endotracheal tube placement. FINDINGS: Endotracheal tube tip 6 cm above the jacky. Nasogastric tube extends down the lower chest outside the [id number] obscured by telemetry leads, the diaphragmatic hiatus is not within the [id number], tube position could be either in the lower esophagus or in the abdomen. Heart size normal. Aortic arch calcified plaque. Mild opacities at the lower lobes have increased. Discoid atelectasis lingula. IMPRESSION: Lines and tubes as described above. Increased lower lobe airspace Electronically signed by: Joesph Jackson MD (12/08/2019 11:26 PM) [facility]
[2019-12-09] VITALS (22 sets, daily range): BP systolic 107–185; BP diastolic 59–99
[2019-12-09] MEDS: diphenhydrAMINE 50 MG/ML VIAL IVP SCH ×4 (00:24→17:48)
[2019-12-09] MEDS: INSULIN LISPRO 300 UNITS/3 ML VIAL. SQ SCH ×4 (00:24→18:00)
[2019-12-09] MEDS: methylPREDNISolone SOD SUCC PF 125 MG/2 ML VIAL. IV SCH ×2 (06:13→17:42)
[2019-12-09 08:01] LABS: BASO % 0 % (0-3); EOS % 0 % (0-3); HEMATOCRIT 38.9 % (36.0-47.0); LYMPH # 1.6 x10^3/uL (1.0-4.8); LYMPH % 11 % (24-48); MEAN CORPUSCULAR HEMOGLOBIN 29 pg (25-35); MEAN CORPUSCULAR HGB CONC 34 g/dL (31-37); MEAN CORPUSCULAR VOLUME 86 fL (79-100); MONO # 1.2 x10^3/uL (0.0-1.1); MONO % 8 % (0-9); NEUT # 12.5 x10^3/uL (1.8-7.7); NEUT % 81 % (31-73); PLATELET COUNT 151 x10^3/uL (140-400); RED BLOOD COUNT 4.51 x10^6/uL (3.50-5.40); RED CELL DISTRIBUTION WIDTH 15.2 % (11.5-14.5); WHITE BLOOD COUNT 15.4 x10^3/uL (4.0-11.0)
[2019-12-09 08:23] LABS: CALCIUM 8.2 mg/dL (8.5-10.1); CREATININE 0.9 mg/dL (0.6-1.0); GFR 78.4; POTASSIUM 3.7 mmol/L (3.5-5.1)
[2019-12-09] MEDS: IV NORMAL SALINE 1000ML BAG 1,000 ML IV SCH (08:39)
--- NOTE | 2019-12-09 08:49 | PDOC ---
PULMONARY PROGRESS NOTES DATE: 12/09/19 TIME: 08:48 Subjective remains intubated/sedated AC mode cuff leak present today no overnight concerns from nursing Vitals Vital Signs Date Time Temp Pulse Resp B/P (MAP) Pulse Ox O2 Delivery O2 Flow Rate FiO2 12/09/19 08:00 98.4 43 20 151/76 (101) 96 Ventilator 98.4 Comments unable to report 2/2 ROS HEENT: Other (angioedema ) Lungs: Clear Cardiovascular: S1, S2 Abdomen: Soft, Other (obese) Extremities: No Edema Skin: Warm Labs Laboratory Tests Test 12/07/19 12:09 12/07/19 17:54 12/08/19 00:09 12/08/19 05:42 Glucose (Fingerstick) 220 mg/dL (70-99) 158 mg/dL (70-99) 156 mg/dL (70-99) 188 mg/dL (70-99) Test 12/08/19 08:00 12/08/19 11:52 12/09/19 00:22 12/09/19 06:16 O2 Saturation 96 % (92-99) Arterial Blood pH 7.39 (7.35-7.45) Arterial Blood pCO2 at Patient Temp 33 mmHg (35-46) Arterial Blood pO2 at Patient Temp 96 mmHg (75-108) Arterial Blood HCO3 20 mmol/L (21-28) Arterial Blood Base Excess -5 mmol/L (-3-3) FiO2 40 Glucose (Fingerstick) 169 mg/dL (70-99) 166 mg/dL (70-99) 115 mg/dL (70-99) Test 12/09/19 07:45 White Blood Count 15.4 x10^3/uL (4.0-11.0) Red Blood Count 4.51 x10^6/uL (3.50-5.40) Hemoglobin 13.0 g/dL (12.0-15.5) Hematocrit 38.9 % (36.0-47.0) Mean Corpuscular Volume 86 fL (79-100) Mean Corpuscular Hemoglobin 29 pg (25-35) Mean Corpuscular Hemoglobin Concent 34 g/dL (31-37) Red Cell Distribution Width 15.2 % (11.5-14.5) Platelet Count 151 x10^3/uL (140-400) Neutrophils (%) (Auto) 81 % (31-73) Lymphocytes (%) (Auto) 11 % (24-48) Monocytes (%) (Auto) 8 % (0-9) Eosinophils (%) (Auto) 0 % (0-3) Basophils (%) (Auto) 0 % (0-3) Neutrophils # (Auto) 12.5 x10^3/uL (1.8-7.7) Lymphocytes # (Auto) 1.6 x10^3/uL (1.0-4.8) Monocytes # (Auto) 1.2 x10^3/uL (0.0-1.1) Eosinophils # (Auto) 0.0 x10^3/uL (0.0-0.7) Basophils # (Auto) 0.0 x10^3/uL (0.0-0.2) Sodium Level 144 mmol/L (136-145) Potassium Level 3.7 mmol/L (3.5-5.1) Chloride Level 110 mmol/L (98-107) Carbon Dioxide Level 28 mmol/L (21-32) Anion Gap 6 (6-14) Blood Urea Nitrogen 22 mg/dL (7-20) Creatinine 0.9 mg/dL (0.6-1.0) Estimated GFR (Cockcroft-Gault) 78.4 Glucose Level 147 mg/dL (70-99) Calcium Level 8.2 mg/dL (8.5-10.1) Laboratory Tests Test 12/08/19 11:52 12/09/19 00:22 12/09/19 06:16 12/09/19 07:45 Glucose (Fingerstick) 169 mg/dL (70-99) 166 mg/dL (70-99) 115 mg/dL (70-99) White Blood Count 15.4 x10^3/uL (4.0-11.0) Red Blood Count 4.51 x10^6/uL (3.50-5.40) Hemoglobin 13.0 g/dL (12.0-15.5) Hematocrit 38.9 % (36.0-47.0) Mean Corpuscular Volume 86 fL (79-100) Mean Corpuscular Hemoglobin 29 pg (25-35) Mean Corpuscular Hemoglobin Concent 34 g/dL (31-37) Red Cell Distribution Width 15.2 % (11.5-14.5) Platelet Count 151 x10^3/uL (140-400) Neutrophils (%) (Auto) 81 % (31-73) Lymphocytes (%) (Auto) 11 % (24-48) Monocytes (%) (Auto) 8 % (0-9) Eosinophils (%) (Auto) 0 % (0-3) Basophils (%) (Auto) 0 % (0-3) Neutrophils # (Auto) 12.5 x10^3/uL (1.8-7.7) Lymphocytes # (Auto) 1.6 x10^3/uL (1.0-4.8) Monocytes # (Auto) 1.2 x10^3/uL (0.0-1.1) Eosinophils # (Auto) 0.0 x10^3/uL (0.0-0.7) Basophils # (Auto) 0.0 x10^3/uL (0.0-0.2) Sodium Level 144 mmol/L (136-145) Potassium Level 3.7 mmol/L (3.5-5.1) Chloride Level 110 mmol/L (98-107) Carbon Dioxide Level 28 mmol/L (21-32) Anion Gap 6 (6-14) Blood Urea Nitrogen 22 mg/dL (7-20) Creatinine 0.9 mg/dL (0.6-1.0) Estimated GFR (Cockcroft-Gault) 78.4 Glucose Level 147 mg/dL (70-99) Calcium Level 8.2 mg/dL (8.5-10.1) Medications Active Scripts Medications Dose Route/Sig Max Daily Dose Days Date Category Dose Instructions Zofran (Ondansetron Hcl) 4 Mg Tablet 1 Tab PO PRN Q6-8HRS 03/17/19 Rx Xarelto (Rivaroxaban) 20 Mg Tablet 20 Mg PO DAILY 30 08/12/18 Rx Start daily with food after 21 days of 15mg BID dosing Xarelto (Rivaroxaban) 15 Mg Tablet 15 Mg PO BIDWMEALS 21 08/12/18 Rx Ranitidine Hcl 300 Mg Tablet 300 Mg PO PRN DAILY PRN 06/06/18 Reported Duoneb 0.5-3(2.5) Mg/3 Ml (Albuterol/Ipratropium) 3 Ml Ampul.neb 3 Ml INH [id number] 06/06/18 Reported Lo-Dose Aspirin Ec (Aspirin) 81 Mg Tablet.dr 81 Mg PO DAILY 06/06/18 Reported Hydrochlorothiazide 25 Mg Tablet 1 Tab PO DAILY 06/06/18 Reported Alprazolam 2 Mg Tablet 1 Tab PO PRN Q8HRS PRN 06/06/18 Reported Temazepam 30 Mg Capsule 1 Tab PO HS 06/06/18 Reported Oxycodone-Acetaminophen 10-325 (Oxycodone Hcl/Acetaminophen) 1 Each Tablet 1 Tab PO PRN Q6HRS PRN 06/06/18 Reported Acetaminophen 325 Mg Capsule 325 Mg PO QID 5 01/28/17 Rx Triamterene-Hctz 37.5-25 Mg Tb (Triamterene/Hydrochlorothiazid) 1 Each Tablet 1 Tab PO DAILY 01/23/17 Reported Cyclobenzaprine Hcl 10 Mg Tablet 1 Tab PO TID PRN 01/23/17 Reported Hydroxyzine Hcl 25 Mg Tablet 1 Tab PO BID 01/23/17 Reported Isosorbide Mononitrate Er (Isosorbide Mononitrate) 30 Mg Tab.er.24h 1 Tab PO DAILY 01/23/17 Reported Loratadine 10 Mg Tablet 1 Tab PO DAILY 01/23/17 Reported Carvedilol 25 Mg Tablet 1 Tab PO DAILY 01/23/17 Reported Hydrochlorothiazide Tablet (Hydrochlorothiazide) 25 Mg Tablet 1 Tab PO DAILY 01/23/17 Reported Simvastatin 20 Mg Tablet 1 Tab PO QHS 01/23/17 Reported Glyburide 5 Mg Tablet 1 Tab PO BID 01/23/17 Reported Potassium Chloride (Potassium Chloride) 20 Meq Tablet.er 20 Meq PO DAILY 01/23/17 Reported Montelukast Sodium Tablet (Montelukast Sodium) 10 Mg Tablet 1 Tab PO DAILY 01/23/17 Reported Comments cxr 12/07 IMPRESSION: Minimal bibasilar lung airspace opacities slightly improved since prior exam. Impression . 1. Acute hypoxic and hypercapnic respiratory failure secondary to angioedema of unclear etiology. She has allergy to shellfish, but she did not ingest shrimps herself, but instead gave it to her dog and she began to have symptoms immediately after that when she got some shellfish. The patient is not on any JABIER inhibitor. 2. History of coronary artery disease, stent and mild congestive heart failure. 3. History of tobacco use, suspect underlying chronic obstructive pulmonary disease. 4. Morbid obesity. 5. History of liver cancer, details of which not available. 6. leukocytosis- worsening Plan . Continue current A/C mode, follow ABG and CXR, cuff leak present today will proceed with CPAP trail, possible extubation today Facial swelling improved today We will continue with IV steroids, pepcid, Benadryl Cont. Levaquin Bronchodilators DVT and stress ulcer prophylaxis. Continue TF for nutritional support Critical care time 30 minutes including decision making. SIMON REYES MD Dec 09, 2019 08:49
[2019-12-09 10:27] LABS: BASE EXCESS ABG 0 mmol/L (-3-3); HCO3 ABG 26 mmol/L (21-28); PCO2 ABG 46 mmHg (35-46); PO2 ABG 86 mmHg (75-108); SAT O2 ABG 96 % (92-99)
--- NOTE | 2019-12-09 10:28 | PDOC ---
[facility] [facility] PROGRESS NOTE Date of Service DOS: DATE: 12/09/19 TIME: 10:24 Chief Complaint Chief Complaint Acute respiratory failure Allergic angioedema History of Present Illness History of Present Illness 12/09/19 Patient seen and examined in ICU Chart reviewed Discussed with RN Air leak present on cuff deflation test Patient much better today and awake PEEP: 5 12/08/19 Patient seen and examined in ICU Chart reviewed Discussed with RN Patient opened her eyes when she heard us come into the room Vent is currently set at spontaneous respirations with 10 of pressure support 30% FiO2 Air leak present today AC//450/40% PEEP: 5 12/07/19 Patient seen and examined in ICU Chart reviewed Discussed with RN Patient doing better today Air leak present today around cuff, yesterday there was no leak AC//450/40% PEEP: 5 12/06/19 Patient seen and examined in ICU Chart reviewed Discussed with RN Patient seems to be doing a little worse today AC 20/450/40% PEEP: 5 Vitals/I&O Vitals/I&O: Vital Signs Date Time Temp Pulse Resp B/P (MAP) Pulse Ox O2 Delivery O2 Flow Rate FiO2 12/09/19 09:02 97 Ventilator 12/09/19 09:00 45 20 153/80 (104) 12/09/19 08:00 98.4 98.4 I & O 12/08/19 12/08/19 12/09/19 15:00 23:00 07:00 Intake Total 250 ml 1818 ml 1474.9 ml Output Total 750 ml 725 ml 750 ml Balance -500 ml 1093 ml 724.9 ml Physical Exam General: Alert, No acute distress Heart: Regular rate Lungs: Clear Extremities: No cyanosis, Normal pulses Skin: No breakdown Labs Labs: Laboratory Tests Test 12/08/19 11:52 12/09/19 00:22 12/09/19 06:16 12/09/19 07:45 Glucose (Fingerstick) 169 mg/dL (70-99) 166 mg/dL (70-99) 115 mg/dL (70-99) White Blood Count 15.4 x10^3/uL (4.0-11.0) Red Blood Count 4.51 x10^6/uL (3.50-5.40) Hemoglobin 13.0 g/dL (12.0-15.5) Hematocrit 38.9 % (36.0-47.0) Mean Corpuscular Volume 86 fL (79-100) Mean Corpuscular Hemoglobin 29 pg (25-35) Mean Corpuscular Hemoglobin Concent 34 g/dL (31-37) Red Cell Distribution Width 15.2 % (11.5-14.5) Platelet Count 151 x10^3/uL (140-400) Neutrophils (%) (Auto) 81 % (31-73) Lymphocytes (%) (Auto) 11 % (24-48) Monocytes (%) (Auto) 8 % (0-9) Eosinophils (%) (Auto) 0 % (0-3) Basophils (%) (Auto) 0 % (0-3) Neutrophils # (Auto) 12.5 x10^3/uL (1.8-7.7) Lymphocytes # (Auto) 1.6 x10^3/uL (1.0-4.8) Monocytes # (Auto) 1.2 x10^3/uL (0.0-1.1) Eosinophils # (Auto) 0.0 x10^3/uL (0.0-0.7) Basophils # (Auto) 0.0 x10^3/uL (0.0-0.2) Sodium Level 144 mmol/L (136-145) Potassium Level 3.7 mmol/L (3.5-5.1) Chloride Level 110 mmol/L (98-107) Carbon Dioxide Level 28 mmol/L (21-32) Anion Gap 6 (6-14) Blood Urea Nitrogen 22 mg/dL (7-20) Creatinine 0.9 mg/dL (0.6-1.0) Estimated GFR (Cockcroft-Gault) 78.4 Glucose Level 147 mg/dL (70-99) Calcium Level 8.2 mg/dL (8.5-10.1) Assessment and Plan Assessmemt and Plan Problems Medical Problems: (1) Acute respiratory failure, unspecified whether with hypoxia or hypercapnia Status: Acute (2) Allergic angioedema due to seafood Status: Acute Assessment: Acute respiratory failure Allergic angioedema Plan: ICU monitoring Probable extubation today per pulmonology Full code Mitts for patient safety DVT prophylaxis Appreciate subspecialist input Total time 31-minute Comment Review of Relevant I have reviewed the following items geovany (where applicable) has been applied. Justicifation of Admission Dx: Justifications for Admission: Justification of Admission Dx: Yes Respiratory Failure: Airway Obstruction ANDREA NAVARRO III DO Dec 09, 2019 10:28
[2019-12-09 11:06] LABS: FIO2 ABG 40% CPAP TRIAL
[2019-12-09] MEDS ORDERED: ONDANSETRON PF 4 MG/2 ML VIAL. ONE ×2 (13:50→14:00)
[2019-12-09] MEDS ORDERED: ONDANSETRON PF 4 MG/2 ML VIAL. IVP PRN (14:00)
--- NOTE | 2019-12-09 14:49 | NUR ---
SS following up with discharge planning. SS reviewed pt chart and discussed with pt RN. Pt extubated and on nasal canula oxygen. Pt on IV Levaquin. No PT/OT needs. Discharge plan is to home when medically ready. SS will continue to follow for discharge planning.
[2019-12-09] MEDS: IPRATRPIUM/ALBUTEROL 0.5/2.5MG 3 ML NEBU. NEB SCH ×2 (17:06→19:50)
[2019-12-09] MEDS: hydrALAZINE 20 MG/ML VIAL. IVP PRN ×2 (17:34→22:08)
[2019-12-09] MEDS: ENOXAPARIN 40 MG/0.4 ML SYRINGE. SQ SCH ×2 (17:39→21:00)
[2019-12-09] MEDS: FAMOTIDINE 20 MG/2 ML VIAL IVP SCH (21:11)
[2019-12-10] VITALS (17 sets, daily range): BP systolic 152–199; BP diastolic 67–95
[2019-12-10] MEDS: methylPREDNISolone SOD SUCC PF 125 MG/2 ML VIAL. IV SCH ×2 (00:03→05:49)
[2019-12-10] MEDS: diphenhydrAMINE 50 MG/ML VIAL IVP SCH ×2 (00:03→05:49)
[2019-12-10] MEDS: hydrALAZINE 20 MG/ML VIAL. IVP PRN ×2 (05:13→09:06)
[2019-12-10] MEDS: INSULIN LISPRO 300 UNITS/3 ML VIAL. SQ SCH ×4 (05:24→18:00)
[2019-12-10 05:40] LABS: BASO # 0.1 x10^3/uL (0.0-0.2); BASO % 0 % (0-3); EOS % 0 % (0-3); HEMATOCRIT 41.6 % (36.0-47.0); HEMOGLOBIN 14.1 g/dL (12.0-15.5); LYMPH % 13 % (24-48); MEAN CORPUSCULAR HEMOGLOBIN 29 pg (25-35); MEAN CORPUSCULAR HGB CONC 34 g/dL (31-37); MEAN CORPUSCULAR VOLUME 86 fL (79-100); MONO # 0.9 x10^3/uL (0.0-1.1); MONO % 6 % (0-9); NEUT # 12.4 x10^3/uL (1.8-7.7); NEUT % 81 % (31-73); PLATELET COUNT 160 x10^3/uL (140-400); RED BLOOD COUNT 4.85 x10^6/uL (3.50-5.40); RED CELL DISTRIBUTION WIDTH 15.4 % (11.5-14.5); WHITE BLOOD COUNT 15.4 x10^3/uL (4.0-11.0)
[2019-12-10 05:55] LABS: CALCIUM 8.8 mg/dL (8.5-10.1); CREATININE 0.8 mg/dL (0.6-1.0); GFR 89.8; POTASSIUM 3.7 mmol/L (3.5-5.1)
--- NOTE | 2019-12-10 06:18 | PDOC ---
PULMONARY PROGRESS NOTES DATE: 12/10/19 TIME: 05:55 Subjective ext 12/08, sob better, is hoarse, has cough, has hst 3 yrs ago, has gianna, doesnt have cpap Vitals Vital Signs Date Time Temp Pulse Resp B/P (MAP) Pulse Ox O2 Delivery O2 Flow Rate FiO2 12/10/19 05:13 62 192/89 12/10/19 05:08 18 99 Nasal Cannula 2.0 12/10/19 04:00 98.4 98.4 Comments ros as mentioned as above other sys otherwise neg General: Alert, Oriented X4 HEENT: Other (nc at perrl nose clear shallow oropharynx neck no lad no thyromegaly) Lungs: Clear Cardiovascular: S1, S2 Abdomen: Soft, Non-tender, Other (obese) Neuro Exam: Alert, Oriented Extremities: No Edema Skin: Warm Labs Laboratory Tests Test 12/08/19 08:00 12/08/19 11:52 12/09/19 00:22 12/09/19 06:16 O2 Saturation 96 % (92-99) Arterial Blood pH 7.39 (7.35-7.45) Arterial Blood pCO2 at Patient Temp 33 mmHg (35-46) Arterial Blood pO2 at Patient Temp 96 mmHg (75-108) Arterial Blood HCO3 20 mmol/L (21-28) Arterial Blood Base Excess -5 mmol/L (-3-3) FiO2 40 Glucose (Fingerstick) 169 mg/dL (70-99) 166 mg/dL (70-99) 115 mg/dL (70-99) Test 12/09/19 07:45 12/09/19 09:00 12/09/19 18:00 12/10/19 00:07 White Blood Count 15.4 x10^3/uL (4.0-11.0) Red Blood Count 4.51 x10^6/uL (3.50-5.40) Hemoglobin 13.0 g/dL (12.0-15.5) Hematocrit 38.9 % (36.0-47.0) Mean Corpuscular Volume 86 fL (79-100) Mean Corpuscular Hemoglobin 29 pg (25-35) Mean Corpuscular Hemoglobin Concent 34 g/dL (31-37) Red Cell Distribution Width 15.2 % (11.5-14.5) Platelet Count 151 x10^3/uL (140-400) Neutrophils (%) (Auto) 81 % (31-73) Lymphocytes (%) (Auto) 11 % (24-48) Monocytes (%) (Auto) 8 % (0-9) Eosinophils (%) (Auto) 0 % (0-3) Basophils (%) (Auto) 0 % (0-3) Neutrophils # (Auto) 12.5 x10^3/uL (1.8-7.7) Lymphocytes # (Auto) 1.6 x10^3/uL (1.0-4.8) Monocytes # (Auto) 1.2 x10^3/uL (0.0-1.1) Eosinophils # (Auto) 0.0 x10^3/uL (0.0-0.7) Basophils # (Auto) 0.0 x10^3/uL (0.0-0.2) Sodium Level 144 mmol/L (136-145) Potassium Level 3.7 mmol/L (3.5-5.1) Chloride Level 110 mmol/L (98-107) Carbon Dioxide Level 28 mmol/L (21-32) Anion Gap 6 (6-14) Blood Urea Nitrogen 22 mg/dL (7-20) Creatinine 0.9 mg/dL (0.6-1.0) Estimated GFR (Cockcroft-Gault) 78.4 Glucose Level 147 mg/dL (70-99) Calcium Level 8.2 mg/dL (8.5-10.1) O2 Saturation 96 % (92-99) Arterial Blood pH 7.37 (7.35-7.45) Arterial Blood pCO2 at Patient Temp 46 mmHg (35-46) Arterial Blood pO2 at Patient Temp 86 mmHg (75-108) Arterial Blood HCO3 26 mmol/L (21-28) Arterial Blood Base Excess 0 mmol/L (-3-3) FiO2 40% cpap trial Glucose (Fingerstick) 103 mg/dL (70-99) 149 mg/dL (70-99) Test 12/10/19 05:18 Glucose (Fingerstick) 144 mg/dL (70-99) Laboratory Tests Test 12/09/19 06:16 12/09/19 07:45 12/09/19 09:00 12/09/19 18:00 Glucose (Fingerstick) 115 mg/dL (70-99) 103 mg/dL (70-99) White Blood Count 15.4 x10^3/uL (4.0-11.0) Red Blood Count 4.51 x10^6/uL (3.50-5.40) Hemoglobin 13.0 g/dL (12.0-15.5) Hematocrit 38.9 % (36.0-47.0) Mean Corpuscular Volume 86 fL (79-100) Mean Corpuscular Hemoglobin 29 pg (25-35) Mean Corpuscular Hemoglobin Concent 34 g/dL (31-37) Red Cell Distribution Width 15.2 % (11.5-14.5) Platelet Count 151 x10^3/uL (140-400) Neutrophils (%) (Auto) 81 % (31-73) Lymphocytes (%) (Auto) 11 % (24-48) Monocytes (%) (Auto) 8 % (0-9) Eosinophils (%) (Auto) 0 % (0-3) Basophils (%) (Auto) 0 % (0-3) Neutrophils # (Auto) 12.5 x10^3/uL (1.8-7.7) Lymphocytes # (Auto) 1.6 x10^3/uL (1.0-4.8) Monocytes # (Auto) 1.2 x10^3/uL (0.0-1.1) Eosinophils # (Auto) 0.0 x10^3/uL (0.0-0.7) Basophils # (Auto) 0.0 x10^3/uL (0.0-0.2) Sodium Level 144 mmol/L (136-145) Potassium Level 3.7 mmol/L (3.5-5.1) Chloride Level 110 mmol/L (98-107) Carbon Dioxide Level 28 mmol/L (21-32) Anion Gap 6 (6-14) Blood Urea Nitrogen 22 mg/dL (7-20) Creatinine 0.9 mg/dL (0.6-1.0) Estimated GFR (Cockcroft-Gault) 78.4 Glucose Level 147 mg/dL (70-99) Calcium Level 8.2 mg/dL (8.5-10.1) O2 Saturation 96 % (92-99) Arterial Blood pH 7.37 (7.35-7.45) Arterial Blood pCO2 at Patient Temp 46 mmHg (35-46) Arterial Blood pO2 at Patient Temp 86 mmHg (75-108) Arterial Blood HCO3 26 mmol/L (21-28) Arterial Blood Base Excess 0 mmol/L (-3-3) FiO2 40% cpap trial Test 12/10/19 00:07 12/10/19 05:18 Glucose (Fingerstick) 149 mg/dL (70-99) 144 mg/dL (70-99) Medications Active Scripts Medications Dose Route/Sig Max Daily Dose Days Date Category Dose Instructions Zofran (Ondansetron Hcl) 4 Mg Tablet 1 Tab PO PRN Q6-8HRS 03/17/19 Rx Xarelto (Rivaroxaban) 20 Mg Tablet 20 Mg PO DAILY 30 08/12/18 Rx Start daily with food after 21 days of 15mg BID dosing Xarelto (Rivaroxaban) 15 Mg Tablet 15 Mg PO BIDWMEALS 21 08/12/18 Rx Ranitidine Hcl 300 Mg Tablet 300 Mg PO PRN DAILY PRN 06/06/18 Reported Duoneb 0.5-3(2.5) Mg/3 Ml (Albuterol/Ipratropium) 3 Ml Ampul.neb 3 Ml INH [id number] 06/06/18 Reported Lo-Dose Aspirin Ec (Aspirin) 81 Mg Tablet.dr 81 Mg PO DAILY 06/06/18 Reported Hydrochlorothiazide 25 Mg Tablet 1 Tab PO DAILY 06/06/18 Reported Alprazolam 2 Mg Tablet 1 Tab PO PRN Q8HRS PRN 06/06/18 Reported Temazepam 30 Mg Capsule 1 Tab PO HS 06/06/18 Reported Oxycodone-Acetaminophen 10-325 (Oxycodone Hcl/Acetaminophen) 1 Each Tablet 1 Tab PO PRN Q6HRS PRN 06/06/18 Reported Acetaminophen 325 Mg Capsule 325 Mg PO QID 5 01/28/17 Rx Triamterene-Hctz 37.5-25 Mg Tb (Triamterene/Hydrochlorothiazid) 1 Each Tablet 1 Tab PO DAILY 01/23/17 Reported Cyclobenzaprine Hcl 10 Mg Tablet 1 Tab PO TID PRN 01/23/17 Reported Hydroxyzine Hcl 25 Mg Tablet 1 Tab PO BID 01/23/17 Reported Isosorbide Mononitrate Er (Isosorbide Mononitrate) 30 Mg Tab.er.24h 1 Tab PO DAILY 01/23/17 Reported Loratadine 10 Mg Tablet 1 Tab PO DAILY 01/23/17 Reported Carvedilol 25 Mg Tablet 1 Tab PO DAILY 01/23/17 Reported Hydrochlorothiazide Tablet (Hydrochlorothiazide) 25 Mg Tablet 1 Tab PO DAILY 01/23/17 Reported Simvastatin 20 Mg Tablet 1 Tab PO QHS 01/23/17 Reported Glyburide 5 Mg Tablet 1 Tab PO BID 01/23/17 Reported Potassium Chloride (Potassium Chloride) 20 Meq Tablet.er 20 Meq PO DAILY 01/23/17 Reported Montelukast Sodium Tablet (Montelukast Sodium) 10 Mg Tablet 1 Tab PO DAILY 01/23/17 Reported Comments cxr 12/07 IMPRESSION: Minimal bibasilar lung airspace opacities slightly improved since prior exam. Impression . 1. Acute hypoxic and hypercapnic respiratory failure secondary to angioedema of unclear etiology. She has allergy to shellfish, but she did not ingest shrimps herself, but instead gave it to her dog and she began to have symptoms immediately after that when she got some shellfish. The patient is not on any JABIER inhibitor. 2. History of coronary artery disease, stent and mild congestive heart failure. 3. History of tobacco use, suspect underlying chronic obstructive pulmonary disease. 4. Morbid obesity. gianna 5. History of liver cancer, details of which not available. 6. leukocytosis- Plan . 02 titration start IS repeat sleep study as out pt change solumedrol to 40 bid cont pepcid, change Benadryl to prn Cont. Levaquin Bronchodilators DVT and stress ulcer prophylaxis. advised to quit smoking for ever pfts as outpt discussed w pt, rn VIK MAYERS MD Dec 10, 2019 06:18
[2019-12-10] MEDS ORDERED: diphenhydrAMINE 50 MG/ML VIAL IVP PRN (06:30)
[2019-12-10] MEDS: IPRATRPIUM/ALBUTEROL 0.5/2.5MG 3 ML NEBU. NEB SCH ×3 (07:29→19:49)
[2019-12-10] MEDS: methylPREDNISolone SOD SUCC PF 40 MG/ML VIAL. IV SCH ×2 (08:57→22:32)
[2019-12-10] MEDS: ENOXAPARIN 40 MG/0.4 ML SYRINGE. SQ SCH (08:58)
[2019-12-10] MEDS: IV NORMAL SALINE 1000ML BAG 1,000 ML IV SCH (08:59)
[2019-12-10] MEDS: IPRATRPIUM/ALBUTEROL 0.5/2.5MG 3 ML NEBU. INH SCH ×3 (11:13→19:50)
[2019-12-10] MEDS: POLYETHYLENE GLYCOL 3350 17 GM PACKET. PO SCH (11:30)
[2019-12-10] MEDS ORDERED: CYCLOBENZAPRINE 10 MG TABLET. PO PRN (11:45)
[2019-12-10] MEDS ORDERED: FAMOTIDINE 20 MG TABLET. PO PRN (11:49)
[2019-12-10] MEDS: glyBURIDE 5 MG TABLET PO SCH ×2 (11:54→21:00)
--- NOTE | 2019-12-10 11:58 | PDOC ---
[facility] PROGRESS NOTE Date of Service DOS: DATE: 12/10/19 TIME: 11:53 Chief Complaint Chief Complaint Acute respiratory failure Allergic angioedema History of Present Illness History of Present Illness 12/10/19 Patient seen and examined in ICU Chart reviewed Discussed with RN Patient has been extubated Patient was able to speak, her voice sounds a little hoarse Home meds were restarted 12/09/19 Patient seen and examined in ICU Chart reviewed Discussed with RN Air leak present on cuff deflation test Patient much better today and awake PEEP: 5 12/08/19 Patient seen and examined in ICU Chart reviewed Discussed with RN Patient opened her eyes when she heard us come into the room Vent is currently set at spontaneous respirations with 10 of pressure support 30% FiO2 Air leak present today AC//450/40% PEEP: 5 12/07/19 Patient seen and examined in ICU Chart reviewed Discussed with RN Patient doing better today Air leak present today around cuff, yesterday there was no leak AC//450/40% PEEP: 5 12/06/19 Patient seen and examined in ICU Chart reviewed Discussed with RN Patient seems to be doing a little worse today AC 20/450/40% PEEP: 5 Vitals/I&O Vitals/I&O: Vital Signs Date Time Temp Pulse Resp B/P (MAP) Pulse Ox O2 Delivery O2 Flow Rate FiO2 12/10/19 11:13 96 Room Air 12/10/19 11:00 80 21 199/95 (129) 12/10/19 08:00 98.6 1.0 98.6 I & O 12/09/19 12/09/19 12/10/19 15:00 23:00 07:00 Intake Total 200 ml 150 ml 250 ml Output Total 1785 ml 5000 ml 2100 ml Balance -1585 ml -4850 ml -1850 ml Physical Exam General: Alert, No acute distress Heart: Regular rate Lungs: Clear Extremities: No cyanosis, Normal pulses Skin: No breakdown Labs Labs: Laboratory Tests Test 12/09/19 18:00 12/10/19 00:07 12/10/19 04:30 12/10/19 05:18 Glucose (Fingerstick) 103 mg/dL (70-99) 149 mg/dL (70-99) 144 mg/dL (70-99) White Blood Count 15.4 x10^3/uL (4.0-11.0) Red Blood Count 4.85 x10^6/uL (3.50-5.40) Hemoglobin 14.1 g/dL (12.0-15.5) Hematocrit 41.6 % (36.0-47.0) Mean Corpuscular Volume 86 fL (79-100) Mean Corpuscular Hemoglobin 29 pg (25-35) Mean Corpuscular Hemoglobin Concent 34 g/dL (31-37) Red Cell Distribution Width 15.4 % (11.5-14.5) Platelet Count 160 x10^3/uL (140-400) Neutrophils (%) (Auto) 81 % (31-73) Lymphocytes (%) (Auto) 13 % (24-48) Monocytes (%) (Auto) 6 % (0-9) Eosinophils (%) (Auto) 0 % (0-3) Basophils (%) (Auto) 0 % (0-3) Neutrophils # (Auto) 12.4 x10^3/uL (1.8-7.7) Lymphocytes # (Auto) 2.0 x10^3/uL (1.0-4.8) Monocytes # (Auto) 0.9 x10^3/uL (0.0-1.1) Eosinophils # (Auto) 0.0 x10^3/uL (0.0-0.7) Basophils # (Auto) 0.1 x10^3/uL (0.0-0.2) Sodium Level 141 mmol/L (136-145) Potassium Level 3.7 mmol/L (3.5-5.1) Chloride Level 104 mmol/L (98-107) Carbon Dioxide Level 29 mmol/L (21-32) Anion Gap 8 (6-14) Blood Urea Nitrogen 18 mg/dL (7-20) Creatinine 0.8 mg/dL (0.6-1.0) Estimated GFR (Cockcroft-Gault) 89.8 Glucose Level 143 mg/dL (70-99) Calcium Level 8.8 mg/dL (8.5-10.1) Assessment and Plan Assessmemt and Plan Problems Medical Problems: (1) Acute respiratory failure, unspecified whether with hypoxia or hypercapnia Status: Acute (2) Allergic angioedema due to seafood Status: Acute Assessment: Acute respiratory failure Allergic angioedema Plan: ICU monitoring Full code DVT prophylaxis Home meds Appreciate subspecialist input Comment Review of Relevant I have reviewed the following items geovany (where applicable) has been applied. Medications: Current Medications Medications (Trade) Dose Ordered Sig/Luz Maria Route PRN Reason Start Time Stop Time Status Last Admin Dose Admin Ondansetron HCl (Zofran) 4 mg PRN Q6HRS PRN IVP NAUSEA/VOMITING 12/09/19 14:00 12/10/19 04:39 Albuterol/ Ipratropium (Duoneb) 3 ml RTQID NEB 12/09/19 17:00 12/10/19 11:12 Hydralazine HCl (Apresoline Inj) 10 mg PRN Q4HRS PRN IVP ELEVATED BP, SEE COMMENTS 12/09/19 17:00 12/10/19 09:06 Methylprednisolone Sodium Succinate (SOLU-Medrol 40MG VIAL) 40 mg Q12HR IV 12/10/19 09:00 12/10/19 08:57 Justicifation of Admission Dx: Justifications for Admission: Justification of Admission Dx: Yes Respiratory Failure: Airway Obstruction ANDREA NAVARRO III DO Dec 10, 2019 11:58
[2019-12-10] MEDS: POTASSIUM CHLORIDE 20 MEQ TABLET.ER. PO SCH (12:00)
[2019-12-10] MEDS: CETIRIZINE HCL 10 MG TABLET. PO SCH (12:00)
[2019-12-10] MEDS: TRIAMTERENE/HCTZ 37.5/25MG TABLET. PO SCH (12:00)
[2019-12-10] MEDS: ASPIRIN ENTERIC COATED 81 MG TABLET.DR. PO SCH (12:00)
[2019-12-10] MEDS: ISOSORBIDE MONONITRATE ER 30 MG TAB.ER.24H PO SCH (12:00)
[2019-12-10] MEDS ORDERED: ONDANSETRON ODT 4 MG TAB.RAPDIS. PO PRN (12:00)
[2019-12-10] MEDS: hydrOXYzine 25 MG TABLET PO SCH ×2 (12:00→22:34)
[2019-12-10] MEDS: CARVEDILOL 12.5 MG TABLET. PO SCH ×2 (12:26→17:00)
[2019-12-10] MEDS: hydroCHLOROthiazide 25 MG TABLET PO SCH (12:31)
[2019-12-10] MEDS: ACETAMINOPHEN 325 MG TABLET. PO SCH ×3 (12:37→21:00)
[2019-12-10] MEDS: oxyCODONE/APAP 10/325 1 TAB TABLET PO PRN ×2 (12:40→22:35)
[2019-12-10] MEDS ORDERED: RIVAROXABAN 15 MG TABLET. PO SCH (17:00)
[2019-12-10] MEDS: RIVAROXABAN 10 MG TABLET. PO SCH (17:00)
--- NOTE | 2019-12-10 18:31 | NUR ---
Patient is refusing all medications, food, monitoring at this time. Patient is wishing to go home and I spoke with her about the fact that she was just extubated yesterday and if she left now it would be against medical advice. She agreed to stay however, she is refusing all medication, IV therapy and monitoring with the exception of the O2 monitor an heart monitor which I explained would help her to get home sooner rather than later if we could see how well she was doing.
--- NOTE | 2019-12-10 20:30 | NUR ---
Report called to 2N RN and transferred to room 205 with all belongings. Grandsheeba Fernando called, no answer, voicemail left.
[2019-12-10] MEDS: SIMVASTATIN 20 MG TABLET PO SCH (22:32)
[2019-12-10] MEDS: FAMOTIDINE 20 MG/2 ML VIAL IVP SCH (22:32)
[2019-12-10] MEDS: MONTELUKAST SODIUM 10 MG TABLET. PO SCH (22:33)
[2019-12-10] MEDS: TEMAZEPAM 15 MG CAPSULE PO SCH (22:33)
[2019-12-10] MEDS: ALPRAZolam 1 MG TABLET PO PRN (22:35)
[2019-12-11 03:31] VITALS: BP 116/74
[2019-12-11 05:22] LABS: GFR 69.4; POTASSIUM 3.9 mmol/L (3.5-5.1)
[2019-12-11 05:37] LABS: BASO % 0 % (0-3); EOS % 0 % (0-3); HEMATOCRIT 44.9 % (36.0-47.0); HEMOGLOBIN 15.4 g/dL (12.0-15.5); LYMPH # 1.9 x10^3/uL (1.0-4.8); LYMPH % 15 % (24-48); MEAN CORPUSCULAR HEMOGLOBIN 29 pg (25-35); MEAN CORPUSCULAR HGB CONC 34 g/dL (31-37); MEAN CORPUSCULAR VOLUME 85 fL (79-100); MONO # 0.7 x10^3/uL (0.0-1.1); MONO % 6 % (0-9); NEUT # 10.2 x10^3/uL (1.8-7.7); NEUT % 79 % (31-73); PLATELET COUNT 156 x10^3/uL (140-400); RED BLOOD COUNT 5.27 x10^6/uL (3.50-5.40); RED CELL DISTRIBUTION WIDTH 15.1 % (11.5-14.5); WHITE BLOOD COUNT 12.9 x10^3/uL (4.0-11.0)
[2019-12-11] MEDS: INSULIN LISPRO 300 UNITS/3 ML VIAL. SQ SCH ×6 (06:00→21:00)
[2019-12-11 07:00] VITALS: BP 140/66
[2019-12-11] MEDS: IPRATRPIUM/ALBUTEROL 0.5/2.5MG 3 ML NEBU. NEB SCH ×4 (07:48→19:39)
[2019-12-11] MEDS ORDERED: IPRATRPIUM/ALBUTEROL 0.5/2.5MG 3 ML NEBU. NEB PRN (08:00)
[2019-12-11] MEDS: IV NORMAL SALINE 1000ML BAG 1,000 ML IV SCH (08:39)
--- NOTE | 2019-12-11 09:03 | PDOC ---
PULMONARY PROGRESS NOTES DATE: 12/11/19 TIME: 09:01 Subjective ext 12/08, denies sob, has cough, had hst 3 yrs ago, has gianna, doesnt have cpap Vitals Vital Signs Date Time Temp Pulse Resp B/P (MAP) Pulse Ox O2 Delivery O2 Flow Rate FiO2 12/11/19 07:49 95 Room Air 12/11/19 03:31 98.6 65 18 116/74 (88) 98.6 12/10/19 20:50 1.0 Comments ros as mentioned as above other sys otherwise neg ROS: No Nausea, No Chest Pain General: Alert, Oriented X4 HEENT: Other (nc at perrl nose clear shallow oropharynx neck no lad no thyromegaly) Lungs: Clear Cardiovascular: S1, S2 Abdomen: Soft, Non-tender, Other (obese) Neuro Exam: Alert, Oriented Extremities: No Edema Skin: Warm Labs Laboratory Tests Test 12/09/19 18:00 12/10/19 00:07 12/10/19 04:30 12/10/19 05:18 Glucose (Fingerstick) 103 mg/dL (70-99) 149 mg/dL (70-99) 144 mg/dL (70-99) White Blood Count 15.4 x10^3/uL (4.0-11.0) Red Blood Count 4.85 x10^6/uL (3.50-5.40) Hemoglobin 14.1 g/dL (12.0-15.5) Hematocrit 41.6 % (36.0-47.0) Mean Corpuscular Volume 86 fL (79-100) Mean Corpuscular Hemoglobin 29 pg (25-35) Mean Corpuscular Hemoglobin Concent 34 g/dL (31-37) Red Cell Distribution Width 15.4 % (11.5-14.5) Platelet Count 160 x10^3/uL (140-400) Neutrophils (%) (Auto) 81 % (31-73) Lymphocytes (%) (Auto) 13 % (24-48) Monocytes (%) (Auto) 6 % (0-9) Eosinophils (%) (Auto) 0 % (0-3) Basophils (%) (Auto) 0 % (0-3) Neutrophils # (Auto) 12.4 x10^3/uL (1.8-7.7) Lymphocytes # (Auto) 2.0 x10^3/uL (1.0-4.8) Monocytes # (Auto) 0.9 x10^3/uL (0.0-1.1) Eosinophils # (Auto) 0.0 x10^3/uL (0.0-0.7) Basophils # (Auto) 0.1 x10^3/uL (0.0-0.2) Sodium Level 141 mmol/L (136-145) Potassium Level 3.7 mmol/L (3.5-5.1) Chloride Level 104 mmol/L (98-107) Carbon Dioxide Level 29 mmol/L (21-32) Anion Gap 8 (6-14) Blood Urea Nitrogen 18 mg/dL (7-20) Creatinine 0.8 mg/dL (0.6-1.0) Estimated GFR (Cockcroft-Gault) 89.8 Glucose Level 143 mg/dL (70-99) Calcium Level 8.8 mg/dL (8.5-10.1) Test 12/10/19 12:33 12/11/19 00:25 12/11/19 04:30 Glucose (Fingerstick) 142 mg/dL (70-99) 117 mg/dL (70-99) White Blood Count 12.9 x10^3/uL (4.0-11.0) Red Blood Count 5.27 x10^6/uL (3.50-5.40) Hemoglobin 15.4 g/dL (12.0-15.5) Hematocrit 44.9 % (36.0-47.0) Mean Corpuscular Volume 85 fL (79-100) Mean Corpuscular Hemoglobin 29 pg (25-35) Mean Corpuscular Hemoglobin Concent 34 g/dL (31-37) Red Cell Distribution Width 15.1 % (11.5-14.5) Platelet Count 156 x10^3/uL (140-400) Neutrophils (%) (Auto) 79 % (31-73) Lymphocytes (%) (Auto) 15 % (24-48) Monocytes (%) (Auto) 6 % (0-9) Eosinophils (%) (Auto) 0 % (0-3) Basophils (%) (Auto) 0 % (0-3) Neutrophils # (Auto) 10.2 x10^3/uL (1.8-7.7) Lymphocytes # (Auto) 1.9 x10^3/uL (1.0-4.8) Monocytes # (Auto) 0.7 x10^3/uL (0.0-1.1) Eosinophils # (Auto) 0.0 x10^3/uL (0.0-0.7) Basophils # (Auto) 0.0 x10^3/uL (0.0-0.2) Sodium Level 138 mmol/L (136-145) Potassium Level 3.9 mmol/L (3.5-5.1) Chloride Level 100 mmol/L (98-107) Carbon Dioxide Level 30 mmol/L (21-32) Anion Gap 8 (6-14) Blood Urea Nitrogen 24 mg/dL (7-20) Creatinine 1.0 mg/dL (0.6-1.0) Estimated GFR (Cockcroft-Gault) 69.4 Glucose Level 135 mg/dL (70-99) Calcium Level 9.0 mg/dL (8.5-10.1) Laboratory Tests Test 12/10/19 12:33 12/11/19 00:25 12/11/19 04:30 Glucose (Fingerstick) 142 mg/dL (70-99) 117 mg/dL (70-99) White Blood Count 12.9 x10^3/uL (4.0-11.0) Red Blood Count 5.27 x10^6/uL (3.50-5.40) Hemoglobin 15.4 g/dL (12.0-15.5) Hematocrit 44.9 % (36.0-47.0) Mean Corpuscular Volume 85 fL (79-100) Mean Corpuscular Hemoglobin 29 pg (25-35) Mean Corpuscular Hemoglobin Concent 34 g/dL (31-37) Red Cell Distribution Width 15.1 % (11.5-14.5) Platelet Count 156 x10^3/uL (140-400) Neutrophils (%) (Auto) 79 % (31-73) Lymphocytes (%) (Auto) 15 % (24-48) Monocytes (%) (Auto) 6 % (0-9) Eosinophils (%) (Auto) 0 % (0-3) Basophils (%) (Auto) 0 % (0-3) Neutrophils # (Auto) 10.2 x10^3/uL (1.8-7.7) Lymphocytes # (Auto) 1.9 x10^3/uL (1.0-4.8) Monocytes # (Auto) 0.7 x10^3/uL (0.0-1.1) Eosinophils # (Auto) 0.0 x10^3/uL (0.0-0.7) Basophils # (Auto) 0.0 x10^3/uL (0.0-0.2) Sodium Level 138 mmol/L (136-145) Potassium Level 3.9 mmol/L (3.5-5.1) Chloride Level 100 mmol/L (98-107) Carbon Dioxide Level 30 mmol/L (21-32) Anion Gap 8 (6-14) Blood Urea Nitrogen 24 mg/dL (7-20) Creatinine 1.0 mg/dL (0.6-1.0) Estimated GFR (Cockcroft-Gault) 69.4 Glucose Level 135 mg/dL (70-99) Calcium Level 9.0 mg/dL (8.5-10.1) Medications Active Scripts Medications Dose Route/Sig Max Daily Dose Days Date Category Dose Instructions Zofran (Ondansetron Hcl) 4 Mg Tablet 1 Tab PO PRN Q6-8HRS 03/17/19 Rx Xarelto (Rivaroxaban) 20 Mg Tablet 20 Mg PO DAILY 30 08/12/18 Rx Start daily with food after 21 days of 15mg BID dosing Xarelto (Rivaroxaban) 15 Mg Tablet 15 Mg PO BIDWMEALS 21 08/12/18 Rx Ranitidine Hcl 300 Mg Tablet 300 Mg PO PRN DAILY PRN 06/06/18 Reported Duoneb 0.5-3(2.5) Mg/3 Ml (Albuterol/Ipratropium) 3 Ml Ampul.neb 3 Ml INH [id number] 06/06/18 Reported Lo-Dose Aspirin Ec (Aspirin) 81 Mg Tablet.dr 81 Mg PO DAILY 06/06/18 Reported Hydrochlorothiazide 25 Mg Tablet 1 Tab PO DAILY 06/06/18 Reported Alprazolam 2 Mg Tablet 1 Tab PO PRN Q8HRS PRN 06/06/18 Reported Temazepam 30 Mg Capsule 1 Tab PO HS 06/06/18 Reported Oxycodone-Acetaminophen 10-325 (Oxycodone Hcl/Acetaminophen) 1 Each Tablet 1 Tab PO PRN Q6HRS PRN 06/06/18 Reported Acetaminophen 325 Mg Capsule 325 Mg PO QID 5 01/28/17 Rx Triamterene-Hctz 37.5-25 Mg Tb (Triamterene/Hydrochlorothiazid) 1 Each Tablet 1 Tab PO DAILY 01/23/17 Reported Cyclobenzaprine Hcl 10 Mg Tablet 1 Tab PO TID PRN 01/23/17 Reported Hydroxyzine Hcl 25 Mg Tablet 1 Tab PO BID 01/23/17 Reported Isosorbide Mononitrate Er (Isosorbide Mononitrate) 30 Mg Tab.er.24h 1 Tab PO DAILY 01/23/17 Reported Loratadine 10 Mg Tablet 1 Tab PO DAILY 01/23/17 Reported Carvedilol 25 Mg Tablet 1 Tab PO DAILY 01/23/17 Reported Hydrochlorothiazide Tablet (Hydrochlorothiazide) 25 Mg Tablet 1 Tab PO DAILY 01/23/17 Reported Simvastatin 20 Mg Tablet 1 Tab PO QHS 01/23/17 Reported Glyburide 5 Mg Tablet 1 Tab PO BID 01/23/17 Reported Potassium Chloride (Potassium Chloride) 20 Meq Tablet.er 20 Meq PO DAILY 01/23/17 Reported Montelukast Sodium Tablet (Montelukast Sodium) 10 Mg Tablet 1 Tab PO DAILY 01/23/17 Reported Comments cxr 12/07 IMPRESSION: Minimal bibasilar lung airspace opacities slightly improved since prior exam. Impression . 1. Acute hypoxic and hypercapnic respiratory failure secondary to angioedema of unclear etiology. She has allergy to shellfish, but she did not ingest shrimps herself, but instead gave it to her dog and she began to have symptoms immediately after that when she got some shellfish. The patient is not on any JABIER inhibitor. 2. History of coronary artery disease, stent and mild congestive heart failure. 3. History of tobacco use, suspect underlying chronic obstructive pulmonary disease. 4. Morbid obesity. gianna 5. History of liver cancer, details of which not available. 6. leukocytosis- improving Plan . 02 titration IS repeat sleep study as out pt change solumedrol to prednisone 30 mg w taper by 10 q 2d cont pepcid, Benadryl to prn Cont. Levaquin, may change to po, for total abx of 5 days Bronchodilators DVT and stress ulcer prophylaxis. advised to quit smoking for ever pfts as outpt discussed w pt, rn VIK MAYERS MD Dec 11, 2019 09:03
[2019-12-11] MEDS: ASPIRIN ENTERIC COATED 81 MG TABLET.DR. PO SCH (09:26)
[2019-12-11] MEDS: POTASSIUM CHLORIDE 20 MEQ TABLET.ER. PO SCH (09:26)
[2019-12-11] MEDS: ACETAMINOPHEN 325 MG TABLET. PO SCH ×4 (09:26→21:00)
[2019-12-11] MEDS: CETIRIZINE HCL 10 MG TABLET. PO SCH (09:26)
[2019-12-11] MEDS: ISOSORBIDE MONONITRATE ER 30 MG TAB.ER.24H PO SCH (09:27)
[2019-12-11] MEDS: hydroCHLOROthiazide 25 MG TABLET PO SCH (09:27)
[2019-12-11] MEDS: hydrOXYzine 25 MG TABLET PO SCH ×2 (09:27→21:33)
[2019-12-11] MEDS: predniSONE 10 MG TABLET PO SCH (09:27)
[2019-12-11] MEDS: POLYETHYLENE GLYCOL 3350 17 GM PACKET. PO SCH (09:28)
[2019-12-11] MEDS: CARVEDILOL 12.5 MG TABLET. PO SCH ×2 (09:28→18:01)
[2019-12-11] MEDS ORDERED: ALBUTEROL SULFATE 2.5 MG/3 ML NEBU. NEB PRN (10:15)
[2019-12-11 11:00] VITALS: BP 133/82
--- NOTE | 2019-12-11 12:06 | PDOC ---
[facility] PROGRESS NOTE Date of Service DOS: DATE: 12/11/19 TIME: 12:00 Chief Complaint Chief Complaint Acute respiratory failure Allergic angioedema History of Present Illness History of Present Illness 12/11/19 Patient seen and examined Patient was extubated 12/08 Patient is awake, eating/drinking, but voice remains hoarse Home meds were restarted Discussed with RN Chart reviewed 12/10/19 Patient seen and examined in ICU Chart reviewed Discussed with RN Patient has been extubated Patient was able to speak, her voice sounds a little hoarse Home meds were restarted 12/09/19 Patient seen and examined in ICU Chart reviewed Discussed with RN Air leak present on cuff deflation test Patient much better today and awake PEEP: 5 12/08/19 Patient seen and examined in ICU Chart reviewed Discussed with RN Patient opened her eyes when she heard us come into the room Vent is currently set at spontaneous respirations with 10 of pressure support 30% FiO2 Air leak present today AC/20/450/40% PEEP: 5 12/07/19 Patient seen and examined in ICU Chart reviewed Discussed with RN Patient doing better today Air leak present today around cuff, yesterday there was no leak AC/20/450/40% PEEP: 5 12/06/19 Patient seen and examined in ICU Chart reviewed Discussed with RN Patient seems to be doing a little worse today AC 20/450/40% PEEP: 5 Vitals/I&O Vitals/I&O: Vital Signs Date Time Temp Pulse Resp B/P (MAP) Pulse Ox O2 Delivery O2 Flow Rate FiO2 12/11/19 11:00 98.0 69 22 133/82 (99) 92 Room Air 98.0 12/11/19 10:53 1.0 I & O 12/10/19 12/10/19 12/11/19 15:00 23:00 07:00 Intake Total 300 ml Output Total 975 ml 600 ml 300 ml Balance -975 ml -600 ml 0 ml Physical Exam General: Alert, Oriented X3, Cooperative, No acute distress Heart: Regular rate Lungs: Clear Abdomen: Normal bowel sounds, No tenderness, No hepatosplenomegaly Extremities: No clubbing, No cyanosis, Normal pulses Skin: No rashes, No breakdown, No significant lesion Labs Labs: Laboratory Tests Test 12/10/19 12:33 12/11/19 00:25 8/16/20 04:30 Glucose (Fingerstick) 142 mg/dL (70-99) 117 mg/dL (70-99) White Blood Count 12.9 x10^3/uL (4.0-11.0) Red Blood Count 5.27 x10^6/uL (3.50-5.40) Hemoglobin 15.4 g/dL (12.0-15.5) Hematocrit 44.9 % (36.0-47.0) Mean Corpuscular Volume 85 fL (79-100) Mean Corpuscular Hemoglobin 29 pg (25-35) Mean Corpuscular Hemoglobin Concent 34 g/dL (31-37) Red Cell Distribution Width 15.1 % (11.5-14.5) Platelet Count 156 x10^3/uL (140-400) Neutrophils (%) (Auto) 79 % (31-73) Lymphocytes (%) (Auto) 15 % (24-48) Monocytes (%) (Auto) 6 % (0-9) Eosinophils (%) (Auto) 0 % (0-3) Basophils (%) (Auto) 0 % (0-3) Neutrophils # (Auto) 10.2 x10^3/uL (1.8-7.7) Lymphocytes # (Auto) 1.9 x10^3/uL (1.0-4.8) Monocytes # (Auto) 0.7 x10^3/uL (0.0-1.1) Eosinophils # (Auto) 0.0 x10^3/uL (0.0-0.7) Basophils # (Auto) 0.0 x10^3/uL (0.0-0.2) Sodium Level 138 mmol/L (136-145) Potassium Level 3.9 mmol/L (3.5-5.1) Chloride Level 100 mmol/L (98-107) Carbon Dioxide Level 30 mmol/L (21-32) Anion Gap 8 (6-14) Blood Urea Nitrogen 24 mg/dL (7-20) Creatinine 1.0 mg/dL (0.6-1.0) Estimated GFR (Cockcroft-Gault) 69.4 Glucose Level 135 mg/dL (70-99) Calcium Level 9.0 mg/dL (8.5-10.1) Assessment and Plan Assessmemt and Plan Problems Medical Problems: (1) Acute respiratory failure, unspecified whether with hypoxia or hypercapnia Status: Acute (2) Allergic angioedema due to seafood Status: Acute ASSESSMENT Acute respiratory failure Allergic angioedema PLAN Discharge disposition pending Discharge when cleared by pulmonary Prednisone PO Albuterol MDI IV Levofloxacin Home meds DVT prophylaxis Full code Appreciate subspecialist input Comment Review of Relevant I have reviewed the following items geovany (where applicable) has been applied. Medications: Current Medications Medications (Trade) Dose Ordered Sig/Luz Maria Route PRN Reason Start Time Stop Time Status Last Admin Dose Admin Montelukast Sodium (Singulair) 10 mg QHS PO 12/10/19 21:00 12/10/19 22:33 Simvastatin (Zocor) 20 mg QHS PO 12/10/19 21:00 12/10/19 22:32 Temazepam (Restoril) 30 mg HS PO 12/10/19 21:00 12/10/19 22:33 Acetaminophen (Tylenol) 325 mg QID PO 12/10/19 13:00 12/11/19 09:26 Prednisone (Prednisone) 30 mg DAILY PO 12/11/19 09:30 12/11/19 09:27 Justicifation of Admission Dx: Justifications for Admission: Justification of Admission Dx: Yes Respiratory Failure: Airway Obstruction ANDREA NAVARRO III DO Dec 11, 2019 12:06
[2019-12-11] MEDS: TRIAMTERENE/HCTZ 37.5/25MG TABLET. PO SCH (13:01)
[2019-12-11] MEDS: glyBURIDE 5 MG TABLET PO SCH ×2 (13:02→21:34)
[2019-12-11 15:00] VITALS: BP 142/68
[2019-12-11] MEDS ORDERED: PHENOL ORAL SPRAY 177ML BOTTLE. PO PRN (16:00)
[2019-12-11] MEDS: RIVAROXABAN 10 MG TABLET. PO SCH (18:01)
[2019-12-11 19:25] VITALS: BP 133/77
[2019-12-11] MEDS: MONTELUKAST SODIUM 10 MG TABLET. PO SCH (21:33)
[2019-12-11] MEDS: SIMVASTATIN 20 MG TABLET PO SCH (21:33)
[2019-12-11] MEDS: TEMAZEPAM 15 MG CAPSULE PO SCH (21:34)
[2019-12-11] MEDS: ALPRAZolam 1 MG TABLET PO PRN (21:35)
[2019-12-11] MEDS: oxyCODONE/APAP 10/325 1 TAB TABLET PO PRN (21:35)
[2019-12-11 23:20] VITALS: BP 145/73
[2019-12-12 03:30] VITALS: BP 114/75
[2019-12-12 05:14] LABS: BASO # 0.1 x10^3/uL (0.0-0.2); BASO % 0 % (0-3); EOS % 0 % (0-3); HEMATOCRIT 48.8 % (36.0-47.0); HEMOGLOBIN 16.4 g/dL (12.0-15.5); LYMPH % 34 % (24-48); MEAN CORPUSCULAR HEMOGLOBIN 29 pg (25-35); MEAN CORPUSCULAR HGB CONC 34 g/dL (31-37); MEAN CORPUSCULAR VOLUME 86 fL (79-100); MONO # 1.3 x10^3/uL (0.0-1.1); MONO % 9 % (0-9); NEUT # 8.1 x10^3/uL (1.8-7.7); NEUT % 56 % (31-73); PLATELET COUNT 148 x10^3/uL (140-400); RED BLOOD COUNT 5.69 x10^6/uL (3.50-5.40); RED CELL DISTRIBUTION WIDTH 15.7 % (11.5-14.5); WHITE BLOOD COUNT 14.4 x10^3/uL (4.0-11.0)
[2019-12-12 05:38] LABS: CALCIUM 8.8 mg/dL (8.5-10.1); CREATININE 0.7 mg/dL (0.6-1.0); GFR 104.7; POTASSIUM 3.6 mmol/L (3.5-5.1)
[2019-12-12 07:00] VITALS: BP 121/73
[2019-12-12] MEDS: INSULIN LISPRO 300 UNITS/3 ML VIAL. SQ SCH ×2 (07:30→11:30)
[2019-12-12] MEDS: IPRATRPIUM/ALBUTEROL 0.5/2.5MG 3 ML NEBU. NEB SCH ×2 (07:34→11:35)
[2019-12-12] MEDS: IV NORMAL SALINE 1000ML BAG 1,000 ML IV SCH (08:39)
[2019-12-12] MEDS: ASPIRIN ENTERIC COATED 81 MG TABLET.DR. PO SCH (08:45)
[2019-12-12] MEDS: CETIRIZINE HCL 10 MG TABLET. PO SCH (08:45)
[2019-12-12] MEDS: glyBURIDE 5 MG TABLET PO SCH (08:45)
[2019-12-12] MEDS: ACETAMINOPHEN 325 MG TABLET. PO SCH (08:45)
[2019-12-12] MEDS: predniSONE 10 MG TABLET PO SCH (08:45)
[2019-12-12] MEDS: ISOSORBIDE MONONITRATE ER 30 MG TAB.ER.24H PO SCH (08:45)
[2019-12-12] MEDS: hydrOXYzine 25 MG TABLET PO SCH (08:46)
[2019-12-12] MEDS: hydroCHLOROthiazide 25 MG TABLET PO SCH (08:46)
[2019-12-12] MEDS: POLYETHYLENE GLYCOL 3350 17 GM PACKET. PO SCH (08:46)
[2019-12-12] MEDS: POTASSIUM CHLORIDE 20 MEQ TABLET.ER. PO SCH (08:46)
[2019-12-12] MEDS: TRIAMTERENE/HCTZ 37.5/25MG TABLET. PO SCH (08:46)
[2019-12-12] MEDS: CARVEDILOL 12.5 MG TABLET. PO SCH (08:46)
--- NOTE | 2019-12-12 09:45 | PDOC ---
PULMONARY PROGRESS NOTES DATE: 12/12/19 TIME: 09:43 Subjective ext 12/08, denies sob, has cough, had hst 3 yrs ago, has gianna, doesnt have cpap Vitals Vital Signs Date Time Temp Pulse Resp B/P (MAP) Pulse Ox O2 Delivery O2 Flow Rate FiO2 12/12/19 08:46 51 114/75 12/12/19 07:36 96 Room Air 12/12/19 07:00 97.7 16 97.7 12/11/19 10:53 1.0 Comments ros as mentioned as above other sys otherwise neg ROS: No Nausea, No Chest Pain General: Alert, Oriented X4 HEENT: Other (nc at perrl nose clear shallow oropharynx neck no lad no thyromegaly) Lungs: Clear Cardiovascular: S1, S2 Abdomen: Soft, Non-tender, Other (obese) Neuro Exam: Alert, Oriented Extremities: No Edema Skin: Warm Labs Laboratory Tests Test 12/10/19 12:33 12/11/19 00:25 12/11/19 04:30 12/11/19 18:45 Glucose (Fingerstick) 142 mg/dL (70-99) 117 mg/dL (70-99) 110 mg/dL (70-99) White Blood Count 12.9 x10^3/uL (4.0-11.0) Red Blood Count 5.27 x10^6/uL (3.50-5.40) Hemoglobin 15.4 g/dL (12.0-15.5) Hematocrit 44.9 % (36.0-47.0) Mean Corpuscular Volume 85 fL (79-100) Mean Corpuscular Hemoglobin 29 pg (25-35) Mean Corpuscular Hemoglobin Concent 34 g/dL (31-37) Red Cell Distribution Width 15.1 % (11.5-14.5) Platelet Count 156 x10^3/uL (140-400) Neutrophils (%) (Auto) 79 % (31-73) Lymphocytes (%) (Auto) 15 % (24-48) Monocytes (%) (Auto) 6 % (0-9) Eosinophils (%) (Auto) 0 % (0-3) Basophils (%) (Auto) 0 % (0-3) Neutrophils # (Auto) 10.2 x10^3/uL (1.8-7.7) Lymphocytes # (Auto) 1.9 x10^3/uL (1.0-4.8) Monocytes # (Auto) 0.7 x10^3/uL (0.0-1.1) Eosinophils # (Auto) 0.0 x10^3/uL (0.0-0.7) Basophils # (Auto) 0.0 x10^3/uL (0.0-0.2) Sodium Level 138 mmol/L (136-145) Potassium Level 3.9 mmol/L (3.5-5.1) Chloride Level 100 mmol/L (98-107) Carbon Dioxide Level 30 mmol/L (21-32) Anion Gap 8 (6-14) Blood Urea Nitrogen 24 mg/dL (7-20) Creatinine 1.0 mg/dL (0.6-1.0) Estimated GFR (Cockcroft-Gault) 69.4 Glucose Level 135 mg/dL (70-99) Calcium Level 9.0 mg/dL (8.5-10.1) Test 12/11/19 21:13 12/12/19 04:34 12/12/19 07:19 Glucose (Fingerstick) 106 mg/dL (70-99) 91 mg/dL (70-99) White Blood Count 14.4 x10^3/uL (4.0-11.0) Red Blood Count 5.69 x10^6/uL (3.50-5.40) Hemoglobin 16.4 g/dL (12.0-15.5) Hematocrit 48.8 % (36.0-47.0) Mean Corpuscular Volume 86 fL (79-100) Mean Corpuscular Hemoglobin 29 pg (25-35) Mean Corpuscular Hemoglobin Concent 34 g/dL (31-37) Red Cell Distribution Width 15.7 % (11.5-14.5) Platelet Count 148 x10^3/uL (140-400) Neutrophils (%) (Auto) 56 % (31-73) Lymphocytes (%) (Auto) 34 % (24-48) Monocytes (%) (Auto) 9 % (0-9) Eosinophils (%) (Auto) 0 % (0-3) Basophils (%) (Auto) 0 % (0-3) Neutrophils # (Auto) 8.1 x10^3/uL (1.8-7.7) Lymphocytes # (Auto) 5.0 x10^3/uL (1.0-4.8) Monocytes # (Auto) 1.3 x10^3/uL (0.0-1.1) Eosinophils # (Auto) 0.0 x10^3/uL (0.0-0.7) Basophils # (Auto) 0.1 x10^3/uL (0.0-0.2) Sodium Level 135 mmol/L (136-145) Potassium Level 3.6 mmol/L (3.5-5.1) Chloride Level 101 mmol/L (98-107) Carbon Dioxide Level 27 mmol/L (21-32) Anion Gap 7 (6-14) Blood Urea Nitrogen 26 mg/dL (7-20) Creatinine 0.7 mg/dL (0.6-1.0) Estimated GFR (Cockcroft-Gault) 104.7 Glucose Level 86 mg/dL (70-99) Calcium Level 8.8 mg/dL (8.5-10.1) Laboratory Tests Test 12/11/19 18:45 12/11/19 21:13 12/12/19 04:34 12/12/19 07:19 Glucose (Fingerstick) 110 mg/dL (70-99) 106 mg/dL (70-99) 91 mg/dL (70-99) White Blood Count 14.4 x10^3/uL (4.0-11.0) Red Blood Count 5.69 x10^6/uL (3.50-5.40) Hemoglobin 16.4 g/dL (12.0-15.5) Hematocrit 48.8 % (36.0-47.0) Mean Corpuscular Volume 86 fL (79-100) Mean Corpuscular Hemoglobin 29 pg (25-35) Mean Corpuscular Hemoglobin Concent 34 g/dL (31-37) Red Cell Distribution Width 15.7 % (11.5-14.5) Platelet Count 148 x10^3/uL (140-400) Neutrophils (%) (Auto) 56 % (31-73) Lymphocytes (%) (Auto) 34 % (24-48) Monocytes (%) (Auto) 9 % (0-9) Eosinophils (%) (Auto) 0 % (0-3) Basophils (%) (Auto) 0 % (0-3) Neutrophils # (Auto) 8.1 x10^3/uL (1.8-7.7) Lymphocytes # (Auto) 5.0 x10^3/uL (1.0-4.8) Monocytes # (Auto) 1.3 x10^3/uL (0.0-1.1) Eosinophils # (Auto) 0.0 x10^3/uL (0.0-0.7) Basophils # (Auto) 0.1 x10^3/uL (0.0-0.2) Sodium Level 135 mmol/L (136-145) Potassium Level 3.6 mmol/L (3.5-5.1) Chloride Level 101 mmol/L (98-107) Carbon Dioxide Level 27 mmol/L (21-32) Anion Gap 7 (6-14) Blood Urea Nitrogen 26 mg/dL (7-20) Creatinine 0.7 mg/dL (0.6-1.0) Estimated GFR (Cockcroft-Gault) 104.7 Glucose Level 86 mg/dL (70-99) Calcium Level 8.8 mg/dL (8.5-10.1) Medications Active Scripts Medications Dose Route/Sig Max Daily Dose Days Date Category Dose Instructions Zofran (Ondansetron Hcl) 4 Mg Tablet 1 Tab PO PRN Q6-8HRS 03/17/19 Rx Xarelto (Rivaroxaban) 20 Mg Tablet 20 Mg PO DAILY 30 08/12/18 Rx Start daily with food after 21 days of 15mg BID dosing Xarelto (Rivaroxaban) 15 Mg Tablet 15 Mg PO BIDWMEALS 21 08/12/18 Rx Ranitidine Hcl 300 Mg Tablet 300 Mg PO PRN DAILY PRN 06/06/18 Reported Duoneb 0.5-3(2.5) Mg/3 Ml (Albuterol/Ipratropium) 3 Ml Ampul.neb 3 Ml INH [id number] 06/06/18 Reported Lo-Dose Aspirin Ec (Aspirin) 81 Mg Tablet.dr 81 Mg PO DAILY 06/06/18 Reported Hydrochlorothiazide 25 Mg Tablet 1 Tab PO DAILY 06/06/18 Reported Alprazolam 2 Mg Tablet 1 Tab PO PRN Q8HRS PRN 06/06/18 Reported Temazepam 30 Mg Capsule 1 Tab PO HS 06/06/18 Reported Oxycodone-Acetaminophen 10-325 (Oxycodone Hcl/Acetaminophen) 1 Each Tablet 1 Tab PO PRN Q6HRS PRN 06/06/18 Reported Acetaminophen 325 Mg Capsule 325 Mg PO QID 5 01/28/17 Rx Triamterene-Hctz 37.5-25 Mg Tb (Triamterene/Hydrochlorothiazid) 1 Each Tablet 1 Tab PO DAILY 01/23/17 Reported Cyclobenzaprine Hcl 10 Mg Tablet 1 Tab PO TID PRN 01/23/17 Reported Hydroxyzine Hcl 25 Mg Tablet 1 Tab PO BID 01/23/17 Reported Isosorbide Mononitrate Er (Isosorbide Mononitrate) 30 Mg Tab.er.24h 1 Tab PO DAILY 01/23/17 Reported Loratadine 10 Mg Tablet 1 Tab PO DAILY 01/23/17 Reported Carvedilol 25 Mg Tablet 1 Tab PO DAILY 01/23/17 Reported Hydrochlorothiazide Tablet (Hydrochlorothiazide) 25 Mg Tablet 1 Tab PO DAILY 01/23/17 Reported Simvastatin 20 Mg Tablet 1 Tab PO QHS 01/23/17 Reported Glyburide 5 Mg Tablet 1 Tab PO BID 01/23/17 Reported Potassium Chloride (Potassium Chloride) 20 Meq Tablet.er 20 Meq PO DAILY 01/23/17 Reported Montelukast Sodium Tablet (Montelukast Sodium) 10 Mg Tablet 1 Tab PO DAILY 01/23/17 Reported Comments cxr 12/07 IMPRESSION: Minimal bibasilar lung airspace opacities slightly improved since prior exam. Impression . 1. Acute hypoxic and hypercapnic respiratory failure secondary to angioedema of unclear etiology. She has allergy to shellfish, but she did not ingest shrimps herself, but instead gave it to her dog and she began to have symptoms immediately after that when she got some shellfish. The patient is not on any JABIER inhibitor. 2. History of coronary artery disease, stent and mild congestive heart failure. 3. History of tobacco use, suspect underlying chronic obstructive pulmonary disease. 4. Morbid obesity. gianna 5. History of liver cancer, details of which not available. 6. leukocytosis- improving Plan . 02 titration IS repeat sleep study as out pt prednisone 30 mg w taper by 10 q 2d cont pepcid, dc Benadryl Levaquin,change to po, for total abx of 5 days Bronchodilators DVT and stress ulcer prophylaxis. advised to quit smoking for ever pfts as outpt ok with dc home discussed w pt, rn SIMON REYES MD Dec 12, 2019 09:45
[2019-12-12 11:00] VITALS: BP 129/73
--- NOTE | 2019-12-12 11:24 | NUR ---
SS following up with discharge planning. SS reviewed pt chart and discussed with pt RN. Pt is currently on room air. Discharge order on the chart for home with self care.
--- NOTE | 2019-12-12 11:28 | PDOC ---
[facility] PROGRESS NOTE Date of Service DOS: DATE: 12/12/19 TIME: 11:23 Chief Complaint Chief Complaint Acute respiratory failure Allergic angioedema History of Present Illness History of Present Illness 12/12/19 Patient was seen and examined. Patient appears at baseline Patient is awake, eating/drinking, but voice remains hoarse Chart reviewed 12/11/19 Patient seen and examined Patient was extubated 12/08 Patient is awake, eating/drinking, but voice remains hoarse Home meds were restarted Discussed with RN Chart reviewed 12/10/19 Patient seen and examined in ICU Chart reviewed Discussed with RN Patient has been extubated Patient was able to speak, her voice sounds a little hoarse Home meds were restarted 12/09/19 Patient seen and examined in ICU Chart reviewed Discussed with RN Air leak present on cuff deflation test Patient much better today and awake PEEP: 5 12/08/19 Patient seen and examined in ICU Chart reviewed Discussed with RN Patient opened her eyes when she heard us come into the room Vent is currently set at spontaneous respirations with 10 of pressure support 30% FiO2 Air leak present today AC/20/450/40% PEEP: 5 12/07/19 Patient seen and examined in ICU Chart reviewed Discussed with RN Patient doing better today Air leak present today around cuff, yesterday there was no leak AC/20/450/40% PEEP: 5 12/06/19 Patient seen and examined in ICU Chart reviewed Discussed with RN Patient seems to be doing a little worse today AC 20/450/40% PEEP: 5 Vitals/I&O Vitals/I&O: Vital Signs Date Time Temp Pulse Resp B/P (MAP) Pulse Ox O2 Delivery O2 Flow Rate FiO2 12/12/19 08:46 51 114/75 12/12/19 07:36 96 Room Air 12/12/19 07:00 97.7 16 97.7 12/11/19 10:53 1.0 I & O 12/11/19 12/11/19 12/12/19 15:00 23:00 07:00 Intake Total 300 ml 1600 ml Output Total 1500 ml 600 ml Balance -1200 ml 1000 ml Physical Exam General: Alert, Oriented X3, Cooperative, No acute distress Heart: Regular rate Lungs: Clear Abdomen: Normal bowel sounds, No tenderness, No hepatosplenomegaly Extremities: No clubbing, No cyanosis, Normal pulses Skin: No rashes, No breakdown, No significant lesion Labs Labs: Laboratory Tests Test 12/11/19 18:45 12/11/19 21:13 12/12/19 04:34 12/12/19 07:19 Glucose (Fingerstick) 110 mg/dL (70-99) 106 mg/dL (70-99) 91 mg/dL (70-99) White Blood Count 14.4 x10^3/uL (4.0-11.0) Red Blood Count 5.69 x10^6/uL (3.50-5.40) Hemoglobin 16.4 g/dL (12.0-15.5) Hematocrit 48.8 % (36.0-47.0) Mean Corpuscular Volume 86 fL (79-100) Mean Corpuscular Hemoglobin 29 pg (25-35) Mean Corpuscular Hemoglobin Concent 34 g/dL (31-37) Red Cell Distribution Width 15.7 % (11.5-14.5) Platelet Count 148 x10^3/uL (140-400) Neutrophils (%) (Auto) 56 % (31-73) Lymphocytes (%) (Auto) 34 % (24-48) Monocytes (%) (Auto) 9 % (0-9) Eosinophils (%) (Auto) 0 % (0-3) Basophils (%) (Auto) 0 % (0-3) Neutrophils # (Auto) 8.1 x10^3/uL (1.8-7.7) Lymphocytes # (Auto) 5.0 x10^3/uL (1.0-4.8) Monocytes # (Auto) 1.3 x10^3/uL (0.0-1.1) Eosinophils # (Auto) 0.0 x10^3/uL (0.0-0.7) Basophils # (Auto) 0.1 x10^3/uL (0.0-0.2) Sodium Level 135 mmol/L (136-145) Potassium Level 3.6 mmol/L (3.5-5.1) Chloride Level 101 mmol/L (98-107) Carbon Dioxide Level 27 mmol/L (21-32) Anion Gap 7 (6-14) Blood Urea Nitrogen 26 mg/dL (7-20) Creatinine 0.7 mg/dL (0.6-1.0) Estimated GFR (Cockcroft-Gault) 104.7 Glucose Level 86 mg/dL (70-99) Calcium Level 8.8 mg/dL (8.5-10.1) Review of Systems Review of Systems: Patient denies pain. Patient denies weakness. Assessment and Plan Assessmemt and Plan ASSESSMENT Acute respiratory failure Allergic angioedema PLAN Discharge disposition pending Discharge with PO: Prednisone, Benadryl, Pepsid. Problems Medical Problems: (1) Acute respiratory failure, unspecified whether with hypoxia or hypercapnia Status: Acute (2) Allergic angioedema due to seafood Status: Acute Comment Review of Relevant I have reviewed the following items geovany (where applicable) has been applied. Justicifation of Admission Dx: Justifications for Admission: Justification of Admission Dx: Yes Respiratory Failure: Airway Obstruction ANDREA NAVARRO III DO Dec 12, 2019 11:28
[2019-12-12] MEDS ORDERED: ANTI-COAG MONITOR BY PHARMACY. MC PRN (11:30)
--- NOTE | 2019-12-15 20:20 | DS ---
DATE OF DISCHARGE: 12/12/2019 ADMISSION DIAGNOSES: Severe angioedema secondary to allergic reaction to SHELLFISH (she only touched the shellfish. She never really ate it, she states). DISCHARGE DIAGNOSIS: Resolving angioedema. HOSPITAL COURSE: The patient is a pleasant middle-aged female who was cutting up some shrimp to feed her dog and I guess she had transdermal absorption of the shrimp interstitial fluid. Basically, she presented with severe angioedema and had to be intubated. We gave her IV steroids and IV Benadryl, IV Pepcid. Over the next few days, she did better. We got her extubated to get there back, but on the day of discharge, she looked great. We discharged to home with close outpatient followup with instructions to stay away from fish and we gave her prescriptions for Medrol Dosepak and [id number] Benadryl and Pepcid. DISPOSITION: Home. ACTIVITY: As tolerated. DIET: Low sodium. MEDICATIONS: Please see the MRAD. TOTAL TIME: 32 minutes. ANDREA NAVARRO DO DR: ROBBIN/maggy JOB#: [id number] / [id number]
== END 2019-12-12 13:33 | disposition home or self-care (01) | DRG 207 ==
LOC: ER 01:38 → 1 WEST ICU 04:27 → 2 NORTH 12-10 20:48
PROVIDERS: ADMIT Family Medicine; ATTEND Family Medicine
PROC: 5A1955Z Respiratory Ventilation, Greater than 96 Consecutive Hours (ICD-10-PCS; principal; 2019-12-05)
PROC: 0BH17EZ Insertion of Endotracheal Airway into Trachea, Via Natural or Artificial Opening (ICD-10-PCS; 2019-12-05)
DX: J96.02 Acute respiratory failure with hypercapnia (principal); Z68.41 Body mass index [BMI] 40.0-44.9, adult; T78.3XXA Angioneurotic edema, initial encounter; J96.01 Acute respiratory failure with hypoxia; E11.9 Type 2 diabetes mellitus without complications; E66.01 Morbid (severe) obesity due to excess calories; F17.200 Nicotine dependence, unspecified, uncomplicated; F41.9 Anxiety disorder, unspecified; G47.33 Obstructive sleep apnea (adult) (pediatric); I11.0 Hypertensive heart disease with heart failure; I25.10 Atherosclerotic heart disease of native coronary artery without angina pectoris; I50.9 Heart failure, unspecified; J44.9 Chronic obstructive pulmonary disease, unspecified; K21.9 Gastro-esophageal reflux disease without esophagitis; T78.1XXA Other adverse food reactions, not elsewhere classified, initial encounter; Z82.49 Family history of ischemic heart disease and other diseases of the circulatory system; Z85.05 Personal history of malignant neoplasm of liver; Z86.73 Personal history of transient ischemic attack (TIA), and cerebral infarction without residual deficits; Z91.013 Allergy to seafood; Z95.5 Presence of coronary angioplasty implant and graft; Z88.8 Allergy status to other drugs, medicaments and biological substances; Z88.0 Allergy status to penicillin
CPT/HCPCS: 31500; 36415; 36600; 51702; 71045; 80048; 80053; 82805; 82962; 85007; 85025; 85027; 94002; 94003; 94640; 94760; 96372; 96374; 96375; 99291; 99406; G0238; J0171; J0360; J0461; J1100; J1200; J1650; J1815; J1940; J1956; J2250; J2405; J2704; J2920; J2930; J3010; J3480; J3490; J7030; J7512; 92610-GN; G0378

== ENCOUNTER 2020-02-19 16:06 | Observation (INO) | payer OTHER ==
[~2020-02-19] VITALS: Ht 157.5 cm; Wt 107.5 kg
--- NOTE | 2020-02-19 16:41 | RAD ---
Chest AP portable at 1623: Reason for examination: Chest pain. Comparison is made to previous study dated 12/08/2019. The heart size is normal. Mediastinum is unremarkable. Lung ritter are clear except for small calcifications at the right lung base consistent with calcified granuloma. No acute bony abnormalities are seen. Impression: No acute cardiopulmonary disease. Electronically signed by: Lucy Ram MD (02/19/2020 4:38 PM) [id number]
[2020-02-19 16:59] LABS: BASO % 1 % (0-3); EOS # 0.2 x10^3/uL (0.0-0.7); EOS % 3 % (0-3); HEMATOCRIT 41.3 % (36.0-47.0); HEMOGLOBIN 14.3 g/dL (12.0-15.5); LYMPH % 48 % (24-48); MEAN CORPUSCULAR HEMOGLOBIN 30 pg (25-35); MEAN CORPUSCULAR HGB CONC 35 g/dL (31-37); MEAN CORPUSCULAR VOLUME 87 fL (79-100); MONO # 0.4 x10^3/uL (0.0-1.1); MONO % 6 % (0-9); NEUT # 2.7 x10^3/uL (1.8-7.7); NEUT % 43 % (31-73); PLATELET COUNT 176 x10^3/uL (140-400); RED BLOOD COUNT 4.77 x10^6/uL (3.50-5.40); RED CELL DISTRIBUTION WIDTH 15.3 % (11.5-14.5); WHITE BLOOD COUNT 6.3 x10^3/uL (4.0-11.0)
[2020-02-19 17:12] LABS: PROTHROMBIN TIME PATIENT 16.1 SEC (11.7-14.0)
--- NOTE | 2020-02-19 17:15 | PHYS DOC ---
Past Medical History Past Medical History: Asthma, Bronchitis, Cancer, CHF, COPD, CVA, Diabetes-Type II, GERD, Heart Disease, Hypertension, PA, Pancreatitis, Pneumonia, Other Additional Past Medical Histor: Liver Cancer treated with medication Past Surgical History: Angioplasty, Tubal ligation, Other Additional Past Surgical Histo: CARDIAC STENT Smoking Status: Current Every Day Smoker Alcohol Use: None Drug Use: None General Adult EDM: Chief Complaint: CHEST PAIN HPI: HPI: Patient is a 54 year old female who presented to ER for evaluation chest pain started this morning. Patient also complained of left scapular pain, symptoms started last night, the chest pain and scapular pain got worse with deep breathing or cough. Patient denies any cough or fever. Patient denies any abdominal pain, no nausea vomiting. Review of Systems: Review of Systems: Constitutional: Denies fever or chills. [] Eyes: Denies change in visual acuity. [] HENT: Denies nasal congestion or sore throat. [] Respiratory: Denies cough or shortness of breath. [] Cardiovascular: Positive for chest pain, no edema. GI: Denies abdominal pain, nausea, vomiting, bloody stools or diarrhea. [] : Denies dysuria. [] Musculoskeletal: Denies back pain or joint pain. [] Integument: Denies rash. [] Neurologic: Denies headache, focal weakness or sensory changes. [] Endocrine: Denies polyuria or polydipsia. [] Lymphatic: Denies swollen glands. [] Psychiatric: Denies depression or anxiety. [] Heart Score: HEART Score for Chest Pain: HEART Score for Chest Pain Response (Comments) Value History Moderately Suspicious 1 ECG Nonspecific Repolarizatio 1 Age < 45 0 Risk Factors >3 Risk Factors or Hx CAD 2 Troponin < Normal Limit 0 Total 4 Risk Factors: Risk Factors: DM, Current or recent (<one month) smoker, HTN, HLP, family history of CAD, obesity. Risk Scores: Score 0 - 3: 2.5% MACE over next 6 weeks - Discharge Home Score 4 - 6: 20.3% MACE over next 6 weeks - Admit for Clinical Observation Score 7 - 10: 72.7% MACE over next 6 weeks - Early Invasive Strategies Allergies: Allergies: Allergies Coded Allergies Type Severity Reaction Last Updated Verified Penicillins Allergy Severe 01/28/17 Yes amoxicillin Allergy Severe anaphylaxis 09/19/13 Yes iodine Allergy Severe Anaphylaxis 09/19/13 Yes shellfish derived Allergy Severe Anaphylaxis 04/09/14 Yes Physical Exam: PE: Constitutional: Well developed, well nourished, no acute distress, non-toxic appearance. [] HENT: Normocephalic, atraumatic, bilateral external ears normal, oropharynx moist, no oral exudates, nose normal. [] Eyes: PERRLA, EOMI, conjunctiva normal, no discharge. [] Neck: Normal range of motion, no tenderness, supple, no stridor. [] Cardiovascular:Heart rate regular rhythm, no murmur [] Lungs & Thorax: Bilateral breath sounds clear to auscultation [] Abdomen: Bowel sounds normal, soft, no tenderness, no masses, no pulsatile masses. [] Skin: Warm, dry, no erythema, no rash. [] Back: No tenderness, no CVA tenderness. [] Extremities: No tenderness, no cyanosis, no clubbing, ROM intact, no edema. [] Neurologic: Alert and oriented X 3, normal motor function, normal sensory function, no focal deficits noted. [] Psychologic: Affect normal, judgement normal, mood normal. [] Current Patient Data: Labs: Laboratory Tests Test 02/19/20 16:45 White Blood Count 6.3 x10^3/uL (4.0-11.0) Red Blood Count 4.77 x10^6/uL (3.50-5.40) Hemoglobin 14.3 g/dL (12.0-15.5) Hematocrit 41.3 % (36.0-47.0) Mean Corpuscular Volume 87 fL (79-100) Mean Corpuscular Hemoglobin 30 pg (25-35) Mean Corpuscular Hemoglobin Concent 35 g/dL (31-37) Red Cell Distribution Width 15.3 % (11.5-14.5) H Platelet Count 176 x10^3/uL (140-400) Neutrophils (%) (Auto) 43 % (31-73) Lymphocytes (%) (Auto) 48 % (24-48) Monocytes (%) (Auto) 6 % (0-9) Eosinophils (%) (Auto) 3 % (0-3) Basophils (%) (Auto) 1 % (0-3) Neutrophils # (Auto) 2.7 x10^3/uL (1.8-7.7) Lymphocytes # (Auto) 3.0 x10^3/uL (1.0-4.8) Monocytes # (Auto) 0.4 x10^3/uL (0.0-1.1) Eosinophils # (Auto) 0.2 x10^3/uL (0.0-0.7) Basophils # (Auto) 0.0 x10^3/uL (0.0-0.2) Laboratory Tests 02/19/20 16:45 Vital Signs: Vital Signs Date Time Temp Pulse Resp B/P (MAP) Pulse Ox O2 Delivery O2 Flow Rate FiO2 02/19/20 16:19 98.7 85 20 139/77 (97) 99 Room Air 98.7 EKG: EKG: EKG was done at 1616, heart rate of 76 bpm, sinus rhythm, no ST segment elevation. Radiology/Procedures: Radiology/Procedures: [][facility] [address] [place] [address] IMAGING REPORT Signed PATIENT: SAVAGE MONSIVAIS ACCOUNT: [id number] : 1965 LOCATION: ER AGE: 54 SEX: F EXAM STATUS: PRE ER ORD. PHYSICIAN: PARMINDER GONZALEZ DO REASON: chest pain PROCEDURE: PORTABLE CHEST 1V Chest AP portable at 1623: Reason for examination: Chest pain. Comparison is made to previous study dated 12/08/2019. The heart size is normal. Mediastinum is unremarkable. Lung ritter are clear except for small calcifications at the right lung base consistent with calcified granuloma. No acute bony abnormalities are seen. Impression: No acute cardiopulmonary disease. Electronically signed by: Lucy Okeefe MD (02/19/2020 4:38 PM) [id number] DICTATED and SIGNED BY: LUCY OKEEFE MD DATE: 02/19/20 1638 Course & Med Decision Making: Course & Med Decision Making Pertinent Labs and Imaging studies reviewed. (See chart for details) Patient is a 54-year-old female who presented to ER due to chest pain, her lab work and EKG came back negative so far. Due to her risk factorS patient will be admitted for observation Dragon Disclaimer: Dragon Disclaimer: This electronic medical record was generated, in whole or in part, using a voice recognition dictation system. Departure Departure Impression: Primary Impression: Chest pain Disposition: 09 ADMITTED INPT THIS HOSP Admitting Physician: TIM (DR. OVALLES) Referrals: ANETTE WELCH (PCP) PARMINDER GONZALEZ DO Feb 19, 2020 17:14
[2020-02-19 17:20] LABS: CALCIUM 9.2 mg/dL (8.5-10.1); GFR 69.4; POTASSIUM 3.8 mmol/L (3.5-5.1)
[2020-02-19 17:26] LABS: ALBUMIN 3.7 g/dL (3.4-5.0); ALBUMIN/GLOBULIN RATIO 1.2 (1.0-1.7); MAGNESIUM 2.1 mg/dL (1.8-2.4); TOTAL BILIRUBIN 0.4 mg/dL (0.2-1.0); TOTAL PROTEIN 6.8 g/dL (6.4-8.2)
--- NOTE | 2020-02-19 17:56 | PDOC1 ---
History and Physical Date of Service: DOS: DATE: 02/19/20 TIME: 17:54 Chief Complaint: Chief Complain: Chest pain concerning for unstable angina/NSTEMI versus STEMI BAYRON = EKG showing Troponin Continue aspirin, consider Plavix if intermediate risk will defer this to cardiology Cardiology consulted for predischarge stress testing or left heart cath Continue nitroglycerin as needed for pain Continue beta-kate if blood pressures allow Continue high intensity statins IV morphine as needed Consider Lovenox Maintain O2 sats between 88 to 95% Trend troponins Repeat EKG in the a.m. Continue telemetry monitoring Monitor for electrolyte abnormalities Avoid NSAIDs History of Present Illness: HPI: 54 year old female who presented to ER for evaluation chest pain started this morning. Patient also complained of left scapular pain, symptoms started last night, the chest pain and scapular pain got worse with deep breathing or cough. Patient denies any cough or fever. Patient denies any abdominal pain, no nausea vomiting. chest pain Past Medical/Surgical History: PMH/PSH: Past Medical History: Asthma, Bronchitis, Cancer, CHF, COPD, CVA, Diabetes-Type II, GERD, Heart Disease, Hypertension, [place], Pancreatitis, Pneumonia, Liver Canc er? Past Surgical History: Angioplasty, Tubal ligation, CARDIAC STENT Allergies: Allergies: Coded Allergies: Penicillins (Verified Allergy, Severe, 01/28/17) amoxicillin (Verified Allergy, Severe, anaphylaxis, 09/19/13) iodine (Verified Allergy, Severe, Anaphylaxis, 09/19/13) Patient allergic to Seafood shellfish derived (Verified Allergy, Severe, Anaphylaxis, 04/09/14) Family History: Family History: Positive for heart disease in multiple family members Social History: Social History: Smoking Status: Current Every Day Smoker Alcohol Use: None Drug Use: None Current Medications: Current Medications Active Scripts Active Zofran (Ondansetron Hcl) 4 Mg Tablet 1 Tab PO PRN Q6-8HRS Xarelto (Rivaroxaban) 20 Mg Tablet 20 Mg PO DAILY 30 Days Start daily with food after 21 days of 15mg BID dosing Xarelto (Rivaroxaban) 15 Mg Tablet 15 Mg PO BIDWMEALS 21 Days Acetaminophen 325 Mg Capsule 325 Mg PO QID 5 Days Reported Ranitidine Hcl 300 Mg Tablet 300 Mg PO PRN DAILY PRN Duoneb 0.5-3(2.5) Mg/3 Ml (Albuterol/Ipratropium) 3 Ml Ampul.neb 3 Ml INH [id number] Lo-Dose Aspirin Ec (Aspirin) 81 Mg Tablet.dr 81 Mg PO DAILY Hydrochlorothiazide 25 Mg Tablet 1 Tab PO DAILY Alprazolam 2 Mg Tablet 1 Tab PO PRN Q8HRS PRN Temazepam 30 Mg Capsule 1 Tab PO HS Oxycodone-Acetaminophen 10-325 (Oxycodone Hcl/Acetaminophen) 1 Each Tablet 1 Tab PO PRN Q6HRS PRN Triamterene-Hctz 37.5-25 Mg Tb (Triamterene/Hydrochlorothiazid) 1 Each Tablet 1 Tab PO DAILY Cyclobenzaprine Hcl 10 Mg Tablet 1 Tab PO TID PRN Hydroxyzine Hcl 25 Mg Tablet 1 Tab PO BID Isosorbide Mononitrate Er (Isosorbide Mononitrate) 30 Mg Tab.er.24h 1 Tab PO DAILY Loratadine 10 Mg Tablet 1 Tab PO DAILY Carvedilol 25 Mg Tablet 1 Tab PO DAILY Hydrochlorothiazide Tablet (Hydrochlorothiazide) 25 Mg Tablet 1 Tab PO DAILY Simvastatin 20 Mg Tablet 1 Tab PO QHS Glyburide 5 Mg Tablet 1 Tab PO BID Potassium Chloride (Potassium Chloride) 20 Meq Tablet.er 20 Meq PO DAILY Montelukast Sodium Tablet (Montelukast Sodium) 10 Mg Tablet 1 Tab PO DAILY ROS: Review of Systems Review of System REVIEW OF SYSTEMS: GENERAL: Denies weakness SKIN: No bruising, hair changes or rashes. EYES: No blurred, double or loss of vision. NOSE AND THROAT: No history of nosebleeds, hoarseness or sore throat. HEART: No history of palpitations, chest pain or shortness of breath on exertion. LUNGS: Denies cough, hemoptysis, wheezing or shortness of breath. GASTROINTESTINAL: Denies changes in appetite, nausea, vomiting, diarrhea or constipation. GENITOURINARY: No history of frequency, urgency, hesitancy or nocturia. NEUROLOGIC: Denies history of numbness, tingling, or tremor. PSYCHIATRIC: No history of panic, anxiety or depression. ENDOCRINE: No history of heat or cold intolerance, polyuria or polydipsia. EXTREMITIES: Denies joint pain, pain on walking or stiffness. Physical Exam: Vital Signs: Vital Signs Date Time Temp Pulse Resp B/P (MAP) Pulse Ox O2 Delivery O2 Flow Rate FiO2 10/25/20 16:19 98.7 85 20 139/77 (97) 99 Room Air 98.7 Physcial Exam: GEN: No apparent distress. Alert and oriented HEENT: Normal cephalic, atraumatic, external auditory canals are patent EYES: Extraocular muscles are intact, pupil are equally round and reactive to light and accommodation MUSCULOSKELETAL: Well developed , well nourished, good range of motion ENDOCRINE: No thyromegaly was palpated LYMPHATICS: No cervical chain or axillary nodes were noted HEMATOPOIETIC: No bruising NECK: Supple, no JVD, no thyromegaly was noted LUNGS: Clear to auscultation in all lung ritter without rhonchi or wheezing HEART: RRR, S!, S2 present. Peripheral pulses intact, no obvious murmurs noted ABDOMEN: Soft, nontender. Positive bowel sounds, no organomegaly, normal bowel sounds EXTREMITIES: Without clubbing, cyanosis, or edema. Pedal pulses intact. N egative Homans sign NEUROLOGIC: Normal speech and tone. A&O x 3, moves all extremities, no obvious focal deficits PSYCHIATRIC: Normal affect, normal mood. Stable SKIN: No ulcerations or rashes, good skin turgor, no jaundice VASCULAR: Good capillary refill, neurovascular bundle appears to be intact Labs: Labs: Laboratory Tests Test 02/19/20 16:45 White Blood Count 6.3 x10^3/uL (4.0-11.0) Red Blood Count 4.77 x10^6/uL (3.50-5.40) Hemoglobin 14.3 g/dL (12.0-15.5) Hematocrit 41.3 % (36.0-47.0) Mean Corpuscular Volume 87 fL (79-100) Mean Corpuscular Hemoglobin 30 pg (25-35) Mean Corpuscular Hemoglobin Concent 35 g/dL (31-37) Red Cell Distribution Width 15.3 % (11.5-14.5) Platelet Count 176 x10^3/uL (140-400) Neutrophils (%) (Auto) 43 % (31-73) Lymphocytes (%) (Auto) 48 % (24-48) Monocytes (%) (Auto) 6 % (0-9) Eosinophils (%) (Auto) 3 % (0-3) Basophils (%) (Auto) 1 % (0-3) Neutrophils # (Auto) 2.7 x10^3/uL (1.8-7.7) Lymphocytes # (Auto) 3.0 x10^3/uL (1.0-4.8) Monocytes # (Auto) 0.4 x10^3/uL (0.0-1.1) Eosinophils # (Auto) 0.2 x10^3/uL (0.0-0.7) Basophils # (Auto) 0.0 x10^3/uL (0.0-0.2) Prothrombin Time 16.1 SEC (11.7-14.0) Prothromb Time International Ratio 1.3 (0.8-1.1) Activated Partial Thromboplast Time 35 SEC (24-38) Sodium Level 143 mmol/L (136-145) Potassium Level 3.8 mmol/L (3.5-5.1) Chloride Level 106 mmol/L (98-107) Carbon Dioxide Level 29 mmol/L (21-32) Anion Gap 8 (6-14) Blood Urea Nitrogen 14 mg/dL (7-20) Creatinine 1.0 mg/dL (0.6-1.0) Estimated GFR (Cockcroft-Gault) 69.4 BUN/Creatinine Ratio 14 (6-20) Glucose Level 136 mg/dL (70-99) Calcium Level 9.2 mg/dL (8.5-10.1) Magnesium Level 2.1 mg/dL (1.8-2.4) Total Bilirubin 0.4 mg/dL (0.2-1.0) Aspartate Amino Transf (AST/SGOT) 21 U/L (15-37) Alanine Aminotransferase (ALT/SGPT) 23 U/L (14-59) Alkaline Phosphatase 115 U/L (46-116) Troponin I Quantitative < 0.017 ng/mL (0.000-0.055) QM-Mpc-S-Type Natriuretic Peptide 38 pg/mL (0-124) Total Protein 6.8 g/dL (6.4-8.2) Albumin 3.7 g/dL (3.4-5.0) Albumin/Globulin Ratio 1.2 (1.0-1.7) Lipase 104 U/L (73-393) Laboratory Tests Test 02/19/20 16:45 White Blood Count 6.3 x10^3/uL (4.0-11.0) Red Blood Count 4.77 x10^6/uL (3.50-5.40) Hemoglobin 14.3 g/dL (12.0-15.5) Hematocrit 41.3 % (36.0-47.0) Mean Corpuscular Volume 87 fL (79-100) Mean Corpuscular Hemoglobin 30 pg (25-35) Mean Corpuscular Hemoglobin Concent 35 g/dL (31-37) Red Cell Distribution Width 15.3 % (11.5-14.5) Platelet Count 176 x10^3/uL (140-400) Neutrophils (%) (Auto) 43 % (31-73) Lymphocytes (%) (Auto) 48 % (24-48) Monocytes (%) (Auto) 6 % (0-9) Eosinophils (%) (Auto) 3 % (0-3) Basophils (%) (Auto) 1 % (0-3) Neutrophils # (Auto) 2.7 x10^3/uL (1.8-7.7) Lymphocytes # (Auto) 3.0 x10^3/uL (1.0-4.8) Monocytes # (Auto) 0.4 x10^3/uL (0.0-1.1) Eosinophils # (Auto) 0.2 x10^3/uL (0.0-0.7) Basophils # (Auto) 0.0 x10^3/uL (0.0-0.2) Prothrombin Time 16.1 SEC (11.7-14.0) Prothromb Time International Ratio 1.3 (0.8-1.1) Activated Partial Thromboplast Time 35 SEC (24-38) Sodium Level 143 mmol/L (136-145) Potassium Level 3.8 mmol/L (3.5-5.1) Chloride Level 106 mmol/L (98-107) Carbon Dioxide Level 29 mmol/L (21-32) Anion Gap 8 (6-14) Blood Urea Nitrogen 14 mg/dL (7-20) Creatinine 1.0 mg/dL (0.6-1.0) Estimated GFR (Cockcroft-Gault) 69.4 BUN/Creatinine Ratio 14 (6-20) Glucose Level 136 mg/dL (70-99) Calcium Level 9.2 mg/dL (8.5-10.1) Magnesium Level 2.1 mg/dL (1.8-2.4) Total Bilirubin 0.4 mg/dL (0.2-1.0) Aspartate Amino Transf (AST/SGOT) 21 U/L (15-37) Alanine Aminotransferase (ALT/SGPT) 23 U/L (14-59) Alkaline Phosphatase 115 U/L (46-116) Troponin I Quantitative < 0.017 ng/mL (0.000-0.055) ZN-Bns-Y-Type Natriuretic Peptide 38 pg/mL (0-124) Total Protein 6.8 g/dL (6.4-8.2) Albumin 3.7 g/dL (3.4-5.0) Albumin/Globulin Ratio 1.2 (1.0-1.7) Lipase 104 U/L (73-393) Images: Images Impression: No acute cardiopulmonary disease. Assessment/Plan Assessment/Plan Chest pain concerning for unstable angina/NSTEMI, more likely due to costochondritis Multiple morbidities and cardiac risk factors Morbid obesity History of cannabinoid use Admit to medicine for further management Heart score of 6 EKG sinus rhythm with no ST elevations Troponin negative Continue aspirin, Cardiology consulted for predischarge stress testing or left heart cath Continue nitroglycerin as needed for pain Continue beta-kate if blood pressures allow Continue high intensity statins IV morphine as needed Maintain O2 sats between 88 to 95% Trend troponins Repeat EKG in the a.m. Continue telemetry monitoring Monitor for electrolyte abnormalities Avoid NSAIDs Continue Xarelto for DVT prophylaxis Protonix GI prophylaxis ADA/cardiac diet Full code Discussed with RN and SW Disposition pending cardiac evaluation Surrogate decision maker is Abdullahi Handy Jr. Smoking cessation: Total time spent was > 12 minutes in face to face counseling. Patient has agreed to consider nicotine patches/gum or to start on Varnicline when discharged Justifications for Admission Other Justification LEWIS OVALLES MD Feb 19, 2020 17:56
[2020-02-19] MEDS ORDERED: CYCLOBENZAPRINE 10 MG TABLET. PO PRN (19:15)
[2020-02-19] MEDS ORDERED: oxyCODONE/APAP 10/325 1 TAB TABLET PO PRN (19:15)
[2020-02-19] MEDS ORDERED: ELECTROLYTE (NON-ICU) PROTOCOL. MC PRN (19:15)
[2020-02-19] MEDS ORDERED: LORazepam 0.5 MG TABLET PO PRN (19:30)
[2020-02-19] MEDS ORDERED: DEXTROSE 50% 25 GM / 50ML DISP.SYRIN. IV PRN (19:30)
[2020-02-19] MEDS ORDERED: MORPHINE SULFATE 4 MG/ML VIAL. IV PRN (19:30)
[2020-02-19] MEDS ORDERED: DOCUSATE SODIUM 100 MG CAPSULE. PO PRN (19:30)
[2020-02-19] MEDS ORDERED: ACETAMINOPHEN 325 MG TABLET. PO PRN (19:30)
[2020-02-19] MEDS ORDERED: IV NORMAL SALINE 1000ML BAG 1,000 ML IV SCH (19:30)
[2020-02-19] MEDS ORDERED: ONDANSETRON PF 4 MG/2 ML VIAL. IVP PRN (19:30)
[2020-02-19] MEDS ORDERED: MORPHINE SULFATE 2 MG/ML VIAL. IV PRN (19:30)
[2020-02-19] MEDS ORDERED: SENNOSIDES 8.6 MG TABLET PO PRN (19:30)
[2020-02-19] MEDS ORDERED: RIVAROXABAN 10 MG TABLET. PO SCH (20:15)
[2020-02-19] MEDS ORDERED: hydrOXYzine 25 MG TABLET PO SCH (21:00)
[2020-02-19] MEDS ORDERED: SIMVASTATIN 20 MG TABLET PO SCH (21:00)
[2020-02-19] MEDS ORDERED: TEMAZEPAM 15 MG CAPSULE PO SCH ×2 (21:00→22:00)
[2020-02-19] MEDS ORDERED: TEMAZEPAM 15 MG CAPSULE PO PRN (21:30)
[2020-02-19 22:52] VITALS: BP 145/73
[2020-02-20 03:09] VITALS: BP 102/45
[2020-02-20 06:39] VITALS: BP 156/63
--- NOTE | 2020-02-20 07:50 | PDOC ---
[facility] PROGRESS NOTE Date of Service DOS: DATE: 02/20/20 TIME: 07:46 Chief Complaint Chief Complaint Chest pain concerning for unstable angina/NSTEMI, more likely due to c ostochondritis Multiple morbidities and cardiac risk factors Morbid obesity History of cannabinoid use Plan: Admit to medicine for further management Heart score of 6 EKG sinus rhythm with no ST elevations Troponin negative Continue aspirin, Cardiology consulted for predischarge stress testing or left heart cath Continue nitroglycerin as needed for pain Continue beta-kate if blood pressures allow Continue high intensity statins IV morphine as needed Maintain O2 sats between 88 to 95% Trend troponins Repeat EKG in the a.m. Continue telemetry monitoring Monitor for electrolyte abnormalities Avoid NSAIDs Continue Xarelto for DVT prophylaxis Protonix GI prophylaxis ADA/cardiac diet Full code Discussed with RN and SW Disposition pending cardiac evaluation Surrogate decision maker is Abdullahi Handy Jr. History of Present Illness History of Present Illness 54 year old female who presented to ER for evaluation chest pain started this morning. Patient also complained of left scapular pain, symptoms started last night, the chest pain and scapular pain got worse with deep breathing or cough. Patient denies any cough or fever. Patient denies any abdominal pain, no nausea vomiting. chest pain. 02/19: Vitals/I&O Vitals/I&O: Vital Signs Date Time Temp Pulse Resp B/P (MAP) Pulse Ox O2 Delivery O2 Flow Rate FiO2 02/20/20 06:39 97.8 73 18 156/63 (94) 98 Room Air 97.8 I & O 02/19/20 02/19/20 02/20/20 15:00 23:00 07:00 Intake Total 0 ml Balance 0 ml Physical Exam General: Alert, No acute distress Heart: Regular rate Lungs: Clear Abdomen: No tenderness Extremities: No cyanosis Skin: No rashes Labs Labs: Laboratory Tests Test 02/19/20 16:45 02/19/20 18:47 02/19/20 22:28 White Blood Count 6.3 x10^3/uL (4.0-11.0) Red Blood Count 4.77 x10^6/uL (3.50-5.40) Hemoglobin 14.3 g/dL (12.0-15.5) Hematocrit 41.3 % (36.0-47.0) Mean Corpuscular Volume 87 fL (79-100) Mean Corpuscular Hemoglobin 30 pg (25-35) Mean Corpuscular Hemoglobin Concent 35 g/dL (31-37) Red Cell Distribution Width 15.3 % (11.5-14.5) Platelet Count 176 x10^3/uL (140-400) Neutrophils (%) (Auto) 43 % (31-73) Lymphocytes (%) (Auto) 48 % (24-48) Monocytes (%) (Auto) 6 % (0-9) Eosinophils (%) (Auto) 3 % (0-3) Basophils (%) (Auto) 1 % (0-3) Neutrophils # (Auto) 2.7 x10^3/uL (1.8-7.7) Lymphocytes # (Auto) 3.0 x10^3/uL (1.0-4.8) Monocytes # (Auto) 0.4 x10^3/uL (0.0-1.1) Eosinophils # (Auto) 0.2 x10^3/uL (0.0-0.7) Basophils # (Auto) 0.0 x10^3/uL (0.0-0.2) Prothrombin Time 16.1 SEC (11.7-14.0) Prothromb Time International Ratio 1.3 (0.8-1.1) Activated Partial Thromboplast Time 35 SEC (24-38) Sodium Level 143 mmol/L (136-145) Potassium Level 3.8 mmol/L (3.5-5.1) Chloride Level 106 mmol/L (98-107) Carbon Dioxide Level 29 mmol/L (21-32) Anion Gap 8 (6-14) Blood Urea Nitrogen 14 mg/dL (7-20) Creatinine 1.0 mg/dL (0.6-1.0) Estimated GFR (Cockcroft-Gault) 69.4 BUN/Creatinine Ratio 14 (6-20) Glucose Level 136 mg/dL (70-99) Calcium Level 9.2 mg/dL (8.5-10.1) Magnesium Level 2.1 mg/dL (1.8-2.4) Total Bilirubin 0.4 mg/dL (0.2-1.0) Aspartate Amino Transf (AST/SGOT) 21 U/L (15-37) Alanine Aminotransferase (ALT/SGPT) 23 U/L (14-59) Alkaline Phosphatase 115 U/L (46-116) Troponin I Quantitative < 0.017 ng/mL (0.000-0.055) < 0.017 ng/mL (0.000-0.055) < 0.017 ng/mL (0.000-0.055) CJ-Whm-N-Type Natriuretic Peptide 38 pg/mL (0-124) Total Protein 6.8 g/dL (6.4-8.2) Albumin 3.7 g/dL (3.4-5.0) Albumin/Globulin Ratio 1.2 (1.0-1.7) Lipase 104 U/L (73-393) Review of Systems Review of Systems: Michael SOB, denies fever, denies vomiting. Assessment and Plan Problems: (1) Chest pain Comment Review of Relevant I have reviewed the following items geovany (where applicable) has been applied. Medications: Current Medications Medications (Trade) Dose Ordered Sig/Luz Maria Route PRN Reason Start Time Stop Time Status Last Admin Dose Admin Hydroxyzine HCl (Atarax) 25 mg BID PO 02/19/20 21:00 02/19/20 21:47 Simvastatin (Zocor) 20 mg QHS PO 02/19/20 21:00 02/19/20 21:48 Sodium Chloride 1,000 ml @ 100 mls/hr Q10H IV 02/19/20 19:30 02/19/20 21:40 Temazepam (Restoril) 15 mg HS PO 02/19/20 22:00 02/19/20 21:46 Justifications for Admission Other Justification OH HGUHES MD Feb 20, 2020 07:50
[2020-02-20] MEDS ORDERED: INSULIN LISPRO 300 UNITS/3 ML VIAL. SQ SCH (08:00)
[2020-02-20] MEDS ORDERED: RIVAROXABAN 15 MG TABLET. PO SCH (08:00)
[2020-02-20] MEDS ORDERED: CARVEDILOL 12.5 MG TABLET. PO SCH (08:00)
[2020-02-20] MEDS ORDERED: ASPIRIN ENTERIC COATED 81 MG TABLET.DR. PO SCH ×2 (08:00→09:00)
--- NOTE | 2020-02-20 08:50 | NUR ---
Patient refused assessment, wanted her meds. This RN offered her blood pressure meds and to contact the doctor for some IV pain meds, (NPO this am). Patient refused. Patient was educated on why she was admitted, and signs and symptoms of heart attacks. Patient stated, "I didn't have a heart attack, I am fine. I am not having a heart attack. Not having one now. " Pt refused to wait for her hide and well as for anything else. Security was too busy to come down. Only 2 officers, and unable to leave. Pt refused to wait. Joyce HYATT took off telemonitor and IV. THis RN walked patient to ER entrance, where she exited, informed security. Pt walked out to parking lot.
[2020-02-20] MEDS ORDERED: RIVAROXABAN 10 MG TABLET. PO SCH (09:00)
[2020-02-20] MEDS ORDERED: hydroCHLOROthiazide 25 MG TABLET PO SCH (09:00)
[2020-02-20] MEDS ORDERED: ISOSORBIDE MONONITRATE ER 30 MG TAB.ER.24H PO SCH (09:00)
[2020-02-20] MEDS ORDERED: MONTELUKAST SODIUM 10 MG TABLET. PO SCH (09:00)
--- NOTE | 2020-02-20 12:07 | PDOC2 ---
CARDIAC CONSULT CURRENT MEDICATIONS CURRENT MEDICATIONS Current Medications Medications (Trade) Dose Ordered Sig/Luz Maria Route PRN Reason Start Time Stop Time Status Last Admin Dose Admin Hydroxyzine HCl (Atarax) 25 mg BID PO 02/19/20 21:00 02/19/20 21:47 Simvastatin (Zocor) 20 mg QHS PO 02/19/20 21:00 02/19/20 21:48 Sodium Chloride 1,000 ml @ 100 mls/hr Q10H IV 02/19/20 19:30 02/19/20 21:40 Temazepam (Restoril) 15 mg HS PO 02/19/20 22:00 02/19/20 21:46 ALLERGIES ALLERGIES: Coded Allergies: Penicillins (Verified Allergy, Severe, 01/28/17) amoxicillin (Verified Allergy, Severe, anaphylaxis, 09/19/13) iodine (Verified Allergy, Severe, Anaphylaxis, 09/19/13) Patient allergic to Seafood peanut (Verified Allergy, Severe, 02/19/20) shellfish derived (Verified Allergy, Severe, Anaphylaxis, 04/09/14) VITALS/I&O VITALS/I&O: Vital Signs Date Time Temp Pulse Resp B/P (MAP) Pulse Ox O2 Delivery O2 Flow Rate FiO2 02/20/20 06:39 97.8 73 18 156/63 (94) 98 Room Air 97.8 I & O 02/19/20 02/19/20 02/20/20 15:00 23:00 07:00 Intake Total 0 ml Balance 0 ml LABS Lab: Laboratory Tests Test 02/19/20 16:45 02/19/20 18:47 02/19/20 22:28 02/20/20 08:09 White Blood Count 6.3 x10^3/uL (4.0-11.0) Red Blood Count 4.77 x10^6/uL (3.50-5.40) Hemoglobin 14.3 g/dL (12.0-15.5) Hematocrit 41.3 % (36.0-47.0) Mean Corpuscular Volume 87 fL (79-100) Mean Corpuscular Hemoglobin 30 pg (25-35) Mean Corpuscular Hemoglobin Concent 35 g/dL (31-37) Red Cell Distribution Width 15.3 % (11.5-14.5) H Platelet Count 176 x10^3/uL (140-400) Neutrophils (%) (Auto) 43 % (31-73) Lymphocytes (%) (Auto) 48 % (24-48) Monocytes (%) (Auto) 6 % (0-9) Eosinophils (%) (Auto) 3 % (0-3) Basophils (%) (Auto) 1 % (0-3) Neutrophils # (Auto) 2.7 x10^3/uL (1.8-7.7) Lymphocytes # (Auto) 3.0 x10^3/uL (1.0-4.8) Monocytes # (Auto) 0.4 x10^3/uL (0.0-1.1) Eosinophils # (Auto) 0.2 x10^3/uL (0.0-0.7) Basophils # (Auto) 0.0 x10^3/uL (0.0-0.2) Prothrombin Time 16.1 SEC (11.7-14.0) H Prothrombin Time INR 1.3 (0.8-1.1) H Activated Partial Thromboplast Time 35 SEC (24-38) Sodium Level 143 mmol/L (136-145) Potassium Level 3.8 mmol/L (3.5-5.1) Chloride Level 106 mmol/L (98-107) Carbon Dioxide Level 29 mmol/L (21-32) Anion Gap 8 (6-14) Blood Urea Nitrogen 14 mg/dL (7-20) Creatinine 1.0 mg/dL (0.6-1.0) Estimated GFR (Cockcroft-Gault) 69.4 BUN/Creatinine Ratio 14 (6-20) Glucose Level 136 mg/dL (70-99) H Calcium Level 9.2 mg/dL (8.5-10.1) Magnesium Level 2.1 mg/dL (1.8-2.4) Total Bilirubin 0.4 mg/dL (0.2-1.0) Aspartate Amino Transferase (AST) 21 U/L (15-37) Alanine Aminotransferase (ALT) 23 U/L (14-59) Alkaline Phosphatase 115 U/L (46-116) Troponin I Quantitative < 0.017 ng/mL (0.000-0.055) < 0.017 ng/mL (0.000-0.055) < 0.017 ng/mL (0.000-0.055) RX-Zbc-E-Type Natriuretic Peptide 38 pg/mL (0-124) Total Protein 6.8 g/dL (6.4-8.2) Albumin 3.7 g/dL (3.4-5.0) Albumin/Globulin Ratio 1.2 (1.0-1.7) Lipase 104 U/L (73-393) Glucose (Fingerstick) 109 mg/dL (70-99) H Laboratory Tests 02/19/20 16:45 Laboratory Tests 02/19/20 16:45 ECHOCARDIOGRAM ECHOCARDIOGRAM <Conclusion> The left ventricular systolic function is normal and the ejection fraction is within normal range. The Ejection Fraction is >55%. There is normal LV segmental wall motion. Technically difficult study. DATE: 08/12/18 1607 STRESS TEST STRESS TEST Conclusion 1. No evidence of stress induced EKG changes. 2. Normal perfusion at stress. Rest images not obtained. 3. Normal EF at > 61% 4. Low risk study DATE: 06/07/18 1521 HEART CATH HEART CATH SELECTIVE CORONARY ARTERIOGRAM: Left main: The left main coronary artery arises normally from the left coronary sinus. The left main artery is patent with no significant disease. Distally, the left main artery trifurcates into a left circumflex artery, the ramus intermedius, and a left anterior descending artery. Left anterior descending: The left anterior descending artery arises normally from the left main. The left anterior descending artery shows no significant disease in its proximal, mid or distal part. It gives off a high diagonal branch which is patent. This is followed by small other diagonal branches which all appear to be patent. Ramus intermedius. This is a large vessel which arises directly from the left main. It bifurcates soon after its origin. The ramus intermedius appears to be patent with no significant disease. Left circumflex artery: The left circumflex artery arises normally from the left main. The left circumflex artery appears to be a codominant-type vessel. It shows no significant disease. It gives off 2 obtuse marginal branches, both of which appear to be patent with no significant disease. These branches appear to be quite distal. Right coronary artery: This appears to be a small, codominant vessel, arising from close to the left coronary sinus. It also has a kind of an anterior or igin. The right coronary artery appears to be patent with no significant disease. Small posterolateral posterior descending arterial branches are patent. FINAL IMPRESSION: A codominant right and left system with no significant coronary artery disease. Normal left ventricular function. No evidence of any significant mitral regurgitation. Normal left ventricular end-diastolic pressures. No evidence of any significant gradient across the aortic valve. RECOMMENDATION: Continue optimized medical treatment. [facility] DATE: 12/30/2012 1:41 PM FELICITAS LEAL APRN Feb 20, 2020 12:07
== END 2020-02-20 08:50 | disposition left against medical advice (07) ==
LOC: ER 16:06 → 2 SOUTH 19:06 → ED HOLD 19:41 → 2 SOUTH 22:06
PROVIDERS: ADMIT Internal Medicine; ATTEND Internal Medicine
DX: R07.89 Other chest pain (principal); I11.0 Hypertensive heart disease with heart failure; I50.9 Heart failure, unspecified; J44.9 Chronic obstructive pulmonary disease, unspecified; E66.01 Morbid (severe) obesity due to excess calories; F14.10 Cocaine abuse, uncomplicated; E11.9 Type 2 diabetes mellitus without complications; K21.9 Gastro-esophageal reflux disease without esophagitis; I25.2 Old myocardial infarction; J18.9 Pneumonia, unspecified organism; F17.200 Nicotine dependence, unspecified, uncomplicated; Z79.82 Long term (current) use of aspirin; Z79.01 Long term (current) use of anticoagulants; Z98.51 Tubal ligation status; Z95.1 Presence of aortocoronary bypass graft; Z68.41 Body mass index [BMI] 40.0-44.9, adult
CPT/HCPCS: 36415; 71045; 80053; 82962; 83690; 83735; 83880; 84484; 85025; 85610; 85730; 96360; 96361; 99285; G0378; J7030; G0379

== ENCOUNTER 2020-03-14 14:24 | Emergency (ER) | payer OTHER ==
[~2020-03-14] VITALS: Ht 157.5 cm; Wt 110.0 kg
[2020-03-14 15:13] VITALS: BP 187/107
--- NOTE | 2020-03-14 16:12 | EKG ---
[facility] [address] [place] [address] Test Date: 2020-03-14 Test Time: 15:15:21 Pat Name: SAVAGE MONSIVAIS Department: Room: Gender: F Vp Construction: : 1965 Requested By: NARCISA REVELES Order Number: [id number] Reading MD: Measurements Intervals [place] Rate: 73 P: 57 RI: 160 QRS: 23 QRSD: 74 T: 27 QT: 382 QTc: 424 Interpretive Statements SINUS RHYTHM LEFT ATRIAL ABNORMALITY ABNORMAL ECG RI6.01 No previous ECG available for comparison
[2020-03-14] MEDS ORDERED: fentaNYL PF VIAL 100 MCG/2 ML VIAL IVP ONE (16:15)
[2020-03-14] MEDS ORDERED: IV NORMAL SALINE 500ML BAG 500 ML IV ONE (16:15)
--- NOTE | 2020-03-14 16:16 | ED.ADGEN ---
Past Medical History Past Medical History: CHF, Diabetes-Type II, GERD, Hypertension, [place], Pancreatitis Additional Past Medical Histor: LUPUS Past Surgical History: Other Additional Past Surgical Histo: CARDIAC STENT Smoking Status: Current Every Day Smoker Alcohol Use: None Drug Use: None General Adult EDM: Chief Complaint: HYPERTENSION HPI: HPI: Patient is a 54 year old 54-year-old female coming in for numerous complaints including epigastric pain that she says is her "pancreatitis". Patient also is concerned she has pneumonia. States she had a fall about 3 days ago and she hit her back and her head, no loss of consciousness. Patient has had a nonproductive cough denies any fevers. No vomiting or diarrhea. Has a history of lupus is concerned she is having a "flare". Had some diarrhea a few days ago but states that is her normal with her IBS. Review of Systems: Review of Systems: Constitutional: Denies fever but states she has had chills. [] Eyes: Denies change in visual acuity. [] HENT: Denies nasal congestion or sore throat. [] Respiratory: Nonproductive cough Cardiovascular: Denies chest pain or edema. [] GI: Gastric abdominal pain and nausea, no vomiting or diarrhea, no blood in stools : Denies dysuria. [] Musculoskeletal: Left flank pain Integument: Denies rash. [] Neurologic: Denies headache, focal weakness or sensory changes. [] Endocrine: Denies polyuria or polydipsia. [] Lymphatic: Denies swollen glands. [] Psychiatric: Denies depression or anxiety. [] Current Medications: Current Medications Medications (Trade) Dose Ordered Sig/Luz Maria Start Time Stop Time Status Last Admin Dose Admin Fentanyl Citrate (Fentanyl 2ml Vial) 75 mcg 1X ONCE 03/14/20 16:15 03/14/20 16:16 DC 03/14/20 16:27 75 MCG Sodium Chloride 500 ml @ 500 mls/hr 1X ONCE 03/14/20 16:15 03/14/20 17:14 DC 03/14/20 16:29 500 MLS/HR Allergies: Allergies: Allergies Coded Allergies Type Severity Reaction Last Updated Verified Penicillins Allergy Severe 01/28/17 Yes amoxicillin Allergy Severe anaphylaxis 09/19/13 Yes iodine Allergy Severe Anaphylaxis 09/19/13 Yes peanut Allergy Severe 02/19/20 Yes shellfish derived Allergy Severe Anaphylaxis 04/09/14 Yes Physical Exam: PE: Constitutional: Well developed, well nourished, no acute distress, non-toxic appearance. [] HENT: Normocephalic, atraumatic, bilateral external ears normal, oropharynx moist, no oral exudates, nose normal. [] Eyes: PERRLA, EOMI, conjunctiva normal, no discharge. [] Neck: Normal range of motion, no tenderness, supple, no stridor. [] Cardiovascular:Heart rate regular rhythm, no murmur [] Lungs & Thorax: Bilateral breath sounds clear to auscultation [] rhonchi left lower lung Abdomen: Bowel sounds normal, soft, no tenderness, no masses, no pulsatile masses. [] Skin: Warm, dry, no erythema, no rash. [] Back: No tenderness, no CVA tenderness. [] Extremities: No tenderness, no cyanosis, no clubbing, ROM intact, no edema. [] Neurologic: Alert and oriented X 3, normal motor function, normal sensory function, no focal deficits noted. [] Psychologic: Affect normal, judgement normal, mood normal. [] Current Patient Data: Labs: Laboratory Tests Test 03/14/20 15:25 03/14/20 16:20 White Blood Count 6.8 x10^3/uL (4.0-11.0) Red Blood Count 4.49 x10^6/uL (3.50-5.40) Hemoglobin 12.9 g/dL (12.0-15.5) Hematocrit 38.6 % (36.0-47.0) Mean Corpuscular Volume 86 fL (79-100) Mean Corpuscular Hemoglobin 29 pg (25-35) Mean Corpuscular Hemoglobin Concent 34 g/dL (31-37) Red Cell Distribution Width 15.2 % (11.5-14.5) H Platelet Count 160 x10^3/uL (140-400) Neutrophils (%) (Auto) 47 % (31-73) Lymphocytes (%) (Auto) 45 % (24-48) Monocytes (%) (Auto) 6 % (0-9) Eosinophils (%) (Auto) 2 % (0-3) Basophils (%) (Auto) 1 % (0-3) Neutrophils # (Auto) 3.2 x10^3/uL (1.8-7.7) Lymphocytes # (Auto) 3.0 x10^3/uL (1.0-4.8) Monocytes # (Auto) 0.4 x10^3/uL (0.0-1.1) Eosinophils # (Auto) 0.1 x10^3/uL (0.0-0.7) Basophils # (Auto) 0.1 x10^3/uL (0.0-0.2) D-Dimer (Nalini) 0.73 ug/mlFEU (0.00-0.50) H Sodium Level 140 mmol/L (136-145) Potassium Level 3.5 mmol/L (3.5-5.1) Chloride Level 106 mmol/L (98-107) Carbon Dioxide Level 27 mmol/L (21-32) Anion Gap 7 (6-14) Blood Urea Nitrogen 13 mg/dL (7-20) Creatinine 0.6 mg/dL (0.6-1.0) Estimated GFR (Cockcroft-Gault) 125.1 BUN/Creatinine Ratio 22 (6-20) H Glucose Level 95 mg/dL (70-99) Calcium Level 8.9 mg/dL (8.5-10.1) Total Bilirubin 0.4 mg/dL (0.2-1.0) Aspartate Amino Transferase (AST) 13 U/L (15-37) L Alanine Aminotransferase (ALT) 19 U/L (14-59) Alkaline Phosphatase 97 U/L (46-116) Myoglobin 21 ng/mL (9-82) Troponin I Quantitative < 0.017 ng/mL (0.000-0.055) C-Reactive Protein, Quantitative 1.5 mg/L (0-3.3) Total Protein 6.4 g/dL (6.4-8.2) Albumin 3.4 g/dL (3.4-5.0) Albumin/Globulin Ratio 1.1 (1.0-1.7) Lipase 78 U/L (73-393) Urine Collection Type Unknown Urine Color Yellow Urine Clarity Clear Urine pH 6.0 (<5.0-8.0) Urine Specific [place] 1.015 (1.000-1.030) Urine Protein Negative mg/dL (NEG-TRACE) Urine Glucose (UA) Negative mg/dL (NEG) Urine Ketones (Stick) Negative mg/dL (NEG) Urine Blood Negative (NEG) Urine Nitrite Negative (NEG) Urine Bilirubin Negative (NEG) Urine Urobilinogen Dipstick 0.2 mg/dL (0.2 mg/dL) Urine Leukocyte Esterase Negative (NEG) Urine RBC 0 /HPF (0-2) Urine WBC Rare /HPF (0-4) Urine Squamous Epithelial Cells Mod /LPF Urine Bacteria Moderate /HPF (0-FEW) Urine Opiates Screen Neg (NEG) Urine Methadone Screen Neg (NEG) Urine Barbiturates Neg (NEG) Urine Phencyclidine Screen Neg (NEG) Urine Amphetamine/Methamphetamine Neg (NEG) Urine Benzodiazepines Screen Pos (NEG) Urine Cocaine Screen Neg (NEG) Urine Cannabinoids Screen Neg (NEG) Urine Ethyl Alcohol Neg (NEG) Laboratory Tests 03/14/20 15:25 Laboratory Tests 03/14/20 15:25 Vital Signs: Vital Signs Date Time Temp Pulse Resp B/P (MAP) Pulse Ox O2 Delivery O2 Flow Rate FiO2 03/14/20 16:27 20 03/14/20 15:13 97.8 78 187/107 (133) 98 Room Air 97.8 EKG: EKG: Normal sinus rhythm, heart rate 73, normal axis, no ST elevation or depression, no ectopy, normal intervals, T waves unremarkable [] Heart Score: Risk Factors: Risk Factors: DM, Current or recent (<one month) smoker, HTN, HLP, family history of CAD, obesity. Risk Scores: Score 0 - 3: 2.5% MACE over next 6 weeks - Discharge Home Score 4 - 6: 20.3% MACE over next 6 weeks - Admit for Clinical Observation Score 7 - 10: 72.7% MACE over next 6 weeks - Early Invasive Strategies Radiology/Procedures: Radiology/Procedures: History: Reason: lll pna / Spl. Instructions: / History: Comparison: 02/19/2020. Findings: Frontal and lateral views of the chest were obtained. The cardiomediastinal silhouette is normal. Pulmonary vasculature is normal. Minimal left basilar linear discoid atelectasis is present laterally.. Calcified granulomas are present. No significant pleural effusion or pneumothorax is seen. Costophrenic angles are not fully included on the lateral view limiting assessment. There is no acute bone abnormality. IMPRESSION: No infiltrate. Linear atelectasis at the left lung base is minimal. No dense consolidation. [] Impression: All amount of possible early infiltrate on chest x-ray Course & Med Decision Making: Course & Med Decision Making Pertinent Labs and Imaging studies reviewed. (See chart for details) [] Anabel Disclaimer: Anabel Disclaimer: This electronic medical record was generated, in whole or in part, using a voice recognition dictation system. Departure Departure Impression: Primary Impression: CAP (community acquired pneumonia) Disposition: 01 DC HOME SELF CARE/HOMELESS Condition: STABLE Referrals: ANETTE WELCH (PCP) Patient Instructions: Pneumonia, Adult Scripts Prednisone (PREDNISONE) 50 Mg Tablet 1 TAB PO DAILY, #5 TAB Prov: NARCISA REVELES MD 03/14/20 Azithromycin (ZITHROMAX) 250 Mg Tablet 1 PKG PO UD, #6 TAB Prov: NARCISA REVELES MD 03/14/20 NARCISA REVELES MD Mar 14, 2020 16:16
[2020-03-14 16:20] LABS: BASO # 0.1 x10^3/uL (0.0-0.2); BASO % 1 % (0-3); EOS # 0.1 x10^3/uL (0.0-0.7); EOS % 2 % (0-3); HEMATOCRIT 38.6 % (36.0-47.0); HEMOGLOBIN 12.9 g/dL (12.0-15.5); LYMPH % 45 % (24-48); MEAN CORPUSCULAR HEMOGLOBIN 29 pg (25-35); MEAN CORPUSCULAR HGB CONC 34 g/dL (31-37); MEAN CORPUSCULAR VOLUME 86 fL (79-100); MONO # 0.4 x10^3/uL (0.0-1.1); MONO % 6 % (0-9); NEUT # 3.2 x10^3/uL (1.8-7.7); NEUT % 47 % (31-73); PLATELET COUNT 160 x10^3/uL (140-400); RED BLOOD COUNT 4.49 x10^6/uL (3.50-5.40); RED CELL DISTRIBUTION WIDTH 15.2 % (11.5-14.5); WHITE BLOOD COUNT 6.8 x10^3/uL (4.0-11.0)
[2020-03-14 16:28] LABS: CALCIUM 8.9 mg/dL (8.5-10.1); CREATININE 0.6 mg/dL (0.6-1.0); GFR 125.1; POTASSIUM 3.5 mmol/L (3.5-5.1)
[2020-03-14 16:40] LABS: ALBUMIN 3.4 g/dL (3.4-5.0); ALBUMIN/GLOBULIN RATIO 1.1 (1.0-1.7); C-REACTIVE PROTEIN 1.5 mg/L (0-3.3); TOTAL BILIRUBIN 0.4 mg/dL (0.2-1.0); TOTAL PROTEIN 6.4 g/dL (6.4-8.2)
[2020-03-14 16:41] LABS: BILIRUBIN,URINE NEGATIVE (NEG); CLARITY,URINE CLEAR; COLOR,URINE YELLOW; NITRITE,URINE NEGATIVE (NEG); PROTEIN,URINE NEGATIVE (NEG-TRACE); UROBILINOGEN,URINE 0.2 mg/dL (0.2 mg/dL)
[2020-03-14 16:53] LABS: BARBITURATES NEG (NEG); BENZODIAZEPINES POS (NEG); CANNABINOIDS NEG (NEG); COCAINE NEG (NEG); METHADONE NEG (NEG); OPIATES NEG (NEG); PHENCYCLIDINE NEG (NEG)
[2020-03-14 16:54] LABS: AMPHETAMINE/METHAMPHETAMINE NEG (NEG)
[2020-03-14 17:08] LABS: BACTERIA,URINE MODERATE /HPF (0-FEW)
[2020-03-14 17:09] LABS: RBC,URINE 0 /HPF (0-2); WBC,URINE RARE /HPF (0-4)
[2020-03-14] MEDS ORDERED: AZIT250T PO (18:24)
[2020-03-14] MEDS ORDERED: PRED50TA PO (18:24)
--- NOTE | 2020-03-14 18:29 | RAD ---
CHEST PA LATERAL History: Reason: lll pna / Spl. Instructions: / History: Comparison: 02/19/2020. Findings: Frontal and lateral views of the chest were obtained. The cardiomediastinal silhouette is normal. Pulmonary vasculature is normal. Minimal left basilar linear discoid atelectasis is present laterally.. Calcified granulomas are present. No significant pleural effusion or pneumothorax is seen. Costophrenic angles are not fully included on the lateral view limiting assessment. There is no acute bone abnormality. IMPRESSION: No infiltrate. Linear atelectasis at the left lung base is minimal. No dense consolidation. Electronically signed by: Mert Kennedy MD (03/14/2020 6:25 PM) [facility]
== END 2020-03-14 18:51 | disposition home or self-care (01) ==
LOC: ER 14:24
DX: J18.9 Pneumonia, unspecified organism (principal); I11.0 Hypertensive heart disease with heart failure; I50.9 Heart failure, unspecified; E11.9 Type 2 diabetes mellitus without complications; K21.9 Gastro-esophageal reflux disease without esophagitis; R19.7 Diarrhea, unspecified; I25.2 Old myocardial infarction; K86.1 Other chronic pancreatitis; F17.200 Nicotine dependence, unspecified, uncomplicated; Z98.890 Other specified postprocedural states; Z88.0 Allergy status to penicillin; Z88.1 Allergy status to other antibiotic agents; Z91.013 Allergy to seafood; Z91.010 Allergy to peanuts; Z91.040 Latex allergy status
CPT/HCPCS: 36415; 71046; 80053; 80307; 81001; 83690; 83874; 84484; 85025; 85379; 86140; 87086; 93005; 96361; 96374; 99285; J3010; J7040

== ENCOUNTER 2020-07-12 18:05 | Emergency (ER) | payer OTHER ==
[~2020-07-12] VITALS: Ht 157.5 cm; Wt 105.5 kg
[~2020-07-12 18:05] MED LIST changes: +AZIT250T PO; -ISOS30TA4 PO; +ISOS30TA68 PO; +PRED50TA PO
--- NOTE | 2020-07-12 19:16 | PHYS DOC ---
Past Medical History Past Medical History: CHF, Diabetes-Type II, GERD, Hypertension, [place], Panc reatitis Additional Past Medical Histor: LUPUS Past Surgical History: Other Additional Past Surgical Histo: CARDIAC STENT Smoking Status: Current Every Day Smoker Alcohol Use: None Drug Use: None General Adult EDM: Chief Complaint: MULTIPLE COMPLAINTS HPI: HPI: Patient is a 54 year old female with past medical history of lupus presents with a chief complaint of cough with sputum production congestion in the chest diffuse muscle aches. Symptoms been ongoing for 1 week progressively becoming worse. Patient denies any fevers or chest pain. Review of Systems: Review of Systems: Review of systems: Constitutional symptoms- No fever, no chills. Eyes- No Discharge, No Visual Loss Respiratory symptoms- Positive shortness of breath, No wheezing, No Dyspnea on Exertion positive cough Cardiovascular Systems; No chest pain, No Palpitations, No syncope Gastrointestinal symptoms: NO abdominal pain, no nausea, no vomiting or diarrhea. Genitourinary symptoms: No dysuria. Musculoskeletal symptoms: No back pain No extremity pain. Positive myalgias NEUROLOGICAL Symptoms: No headache, no generalized weakness; No focal Weakness Heart Score: C/O Chest Pain: No Risk Factors: Risk Factors: DM, Current or recent (<one month) smoker, HTN, HLP, family history of CAD, obesity. Risk Scores: Score 0 - 3: 2.5% MACE over next 6 weeks - Discharge Home Score 4 - 6: 20.3% MACE over next 6 weeks - Admit for Clinical Observation Score 7 - 10: 72.7% MACE over next 6 weeks - Early Invasive Strategies Allergies: Allergies: Allergies Coded Allergies Type Severity Reaction Last Updated Verified Penicillins Allergy Severe 01/28/17 Yes amoxicillin Allergy Severe anaphylaxis 09/19/13 Yes iodine Allergy Severe Anaphylaxis 09/19/13 Yes peanut Allergy Severe 02/19/20 Yes shellfish derived Allergy Severe Anaphylaxis 04/09/14 Yes Physical Exam: PE: General: alert, no acute distress. Skin: warm, dry and intact. Head:: Normocephalic, atraumatic. Neck: Trachea midline. Eyes: EOMI, Normal conjunctiva, No drainage CARDIOVASCULAR: Regular rate and rhythm RESPIRATORY: No respiratory distress Back: Full range of motion. MUSCULOSKELETAL: Full range of motion of bilateral upper and lower extremities. GASTROINTESTINAL: Abdomen soft without rebound or guarding. NEUROLOGICAL: Alert and noted to person, place and time. No neurological deficits observed Psychiatric: Cooperative. Normal judgment EKG: EKG: [] Radiology/Procedures: Radiology/Procedures: [] Impression: X-ray wet read no acute fractures dislocations no focal infiltrate INDINGS: The heart is not enlarged. Mediastinal and hilar contours are normal. No focal parenchymal airspace opacity. No pleural effusion or pneumothorax. IMPRESSION: 1. No radiographic evidence for acute cardiopulmonary process. Electronically signed by: Malcolm Hernandez MD (07/12/2020 8:35 PM) [facility] Course & Med Decision Making: Course & Med Decision Making Pertinent Labs and Imaging studies reviewed. (See chart for details) [] Patient was evaluated for chief complaint. Work-up consisted of laboratory analysis and radiologic imaging. Results reviewed and discussed with patient. Influenza negative without acute abnormalities. Chest x-ray wet read negative for large infiltrate. Advised patient to continue Tylenol and Motrin as needed for pain. She may continue to use her Mucinex. Will prescribe patient Zithromax. Patient's Covid test obtained and pending. Anabel Disclaimer: Anabel Disclaimer: This electronic medical record was generated, in whole or in part, using a voice recognition dictation system. Departure Departure Impression: Primary Impression: Viral syndrome Additional Impression: Bronchitis Disposition: 01 DC HOME SELF CARE/HOMELESS Condition: STABLE Referrals: ANETTE WELCH (PCP) Patient Instructions: Acute Bronchitis, Viral Syndrome Additional Instructions: You have been tested for or diagnosed with COVID-19. It is an infection caused by a new type of coronavirus. COVID-19 will cause cold-like or mild flu symptoms in most. It can cause more severe symptoms like problems breathing in some. There is no treatment for COVID-19. The body will clear the infection over time. Self-care will help to ease discomfort. Steps to Take: Self-Care Rest as needed. Healthy habits may help you feel better. Steps include: Choose healthy foods including fruits and vegetables. Drink water throughout the day. Get plenty of sleep each night. If you smoke, try to quit. It may ease breathing. Avoid alcohol. Keep Others Healthy The virus can spread to others. Droplets are released every time you sneeze or cough. The droplets can get into the mouth, nose, or eyes of people near you and lead to infection. To lower the chances of spreading COVID-19 to others: Stay at home until your doctor has said it is safe to leave. If you tested positive this will mean staying isolated until both of the following are true: At least 7 days have passed since the start of illness. You are free of fever for at least 72 hours without the use of medicine. During this time: - Avoid public areas, events, or transportation. Do not return to work or school until your doctor has said it is safe to do so. - Call ahead if you need to go to a medical center. Let them know you may have COVID-19. It will help them guide you where to go. They may also ask you to wear a facemask when you come to the office. - If you call for emergency medical services, let them know you may have COVID- 19. While at home: - Try to avoid close contact with others. Stay about 6 feet away. - If possible, spend most of your time in a separate room from others. - Use a face mask if you will be in close contact with others such as sharing a room or vehicle. - Have someone wipe down common surfaces in the home. Use household pyroglazer every day on areas like doorknobs, counters, or sinks. - Cough or sneeze into a tissue. Throw the tissue away right after use. If a tissue is not available, cough or sneeze into your elbow. - Wash your hands often. Wash them after sneezing or coughing. Use soap and water and wash for at least 20 seconds. Alcohol based hand alley cleaner can be used if soap and water is not available. - Do not prepare food for others. Avoid sharing personal items like forks, spoons, or toothbrushes. - Avoid close contact with pets while you are sick. There is no evidence of the virus passing to pets. This is a safety step until more is known about this virus. Isolation can be frustrating. Social interaction can help. Keep in touch with friends and family through phone and tech options. You can still interact with others in your home, just keep a safe distance of about 6 feet. Follow-up: Your doctors office will check in with you to see if there are any changes in your health. You may be asked to keep track of symptoms to share with them. They will also let you know when you are clear to be in public again. Problems to Look Out For: Contact your doctor if your recovery is not going as you expect. Get emergency care if you have problems such as: - Trouble breathing - Nonstop chest pain or pressure - Changes in awareness, confusion, or problems waking - Lips or face have bluish color - Worsening of symptoms If you think you have an emergency, call for emergency medical services right away. As taken from [facility] Health Scripts Azithromycin (ZITHROMAX) 250 Mg Tablet 1 PKG PO UD, #6 TAB Prov: TIFFANY HAMILTON I DO 07/12/20 TIFFANY HAMILTON I DO Jul 12, 2020 19:16
[2020-07-12 19:58] LABS: BASO % 1 % (0-3); EOS # 0.2 x10^3/uL (0.0-0.7); EOS % 3 % (0-3); HEMATOCRIT 41.3 % (36.0-47.0); HEMOGLOBIN 13.9 g/dL (12.0-15.5); LYMPH # 2.7 x10^3/uL (1.0-4.8); LYMPH % 40 % (24-48); MEAN CORPUSCULAR HEMOGLOBIN 29 pg (25-35); MEAN CORPUSCULAR HGB CONC 34 g/dL (31-37); MEAN CORPUSCULAR VOLUME 85 fL (79-100); MONO # 0.6 x10^3/uL (0.0-1.1); MONO % 9 % (0-9); NEUT # 3.1 x10^3/uL (1.8-7.7); NEUT % 48 % (31-73); PLATELET COUNT 161 x10^3/uL (140-400); RED BLOOD COUNT 4.85 x10^6/uL (3.50-5.40); WHITE BLOOD COUNT 6.6 x10^3/uL (4.0-11.0)
[2020-07-12 20:07] LABS: CALCIUM 8.8 mg/dL (8.5-10.1); CREATININE 0.9 mg/dL (0.6-1.0); GFR 78.4; POTASSIUM 3.6 mmol/L (3.5-5.1)
[2020-07-12 20:11] LABS: INFLUENZA A PATIENT NEGATIVE (NEGATIVE); INFLUENZA B PATIENT NEGATIVE (NEGATIVE)
[2020-07-12 20:13] LABS: ALBUMIN 3.4 g/dL (3.4-5.0); ALBUMIN/GLOBULIN RATIO 1.1 (1.0-1.7); TOTAL BILIRUBIN 0.4 mg/dL (0.2-1.0); TOTAL PROTEIN 6.6 g/dL (6.4-8.2)
[2020-07-12] MEDS ORDERED: AZIT250T PO (20:37)
--- NOTE | 2020-07-12 20:37 | RAD ---
EXAM: AP View of the chest DATE: 07/12/2020 8:02 PM INDICATION: Reason: cough / Spl. Instructions: / History: COMPARISON: No Prior FINDINGS: The heart is not enlarged. Mediastinal and hilar contours are normal. No focal parenchymal airspace opacity. No pleural effusion or pneumothorax. IMPRESSION: 1. No radiographic evidence for acute cardiopulmonary process. Electronically signed by: Malcolm Hernandez MD (07/12/2020 8:35 PM) [facility]
[2020-07-12 21:13] VITALS: BP 172/89
== END 2020-07-12 21:30 | disposition home or self-care (01) ==
LOC: ER 18:05
DX: B34.9 Viral infection, unspecified (principal); Z20.822 Contact with and (suspected) exposure to COVID-19; J40 Bronchitis, not specified as acute or chronic; R05 Cough; R09.81 Nasal congestion; I11.0 Hypertensive heart disease with heart failure; I50.9 Heart failure, unspecified; E11.9 Type 2 diabetes mellitus without complications; K21.9 Gastro-esophageal reflux disease without esophagitis; K86.1 Other chronic pancreatitis; I25.2 Old myocardial infarction; F17.200 Nicotine dependence, unspecified, uncomplicated; Z98.890 Other specified postprocedural states; Z88.0 Allergy status to penicillin; Z88.1 Allergy status to other antibiotic agents; Z91.010 Allergy to peanuts; Z91.041 Radiographic dye allergy status; Z91.013 Allergy to seafood
CPT/HCPCS: 36415; 71045; 80053; 85025; 87804; 99285; U0003; C9803

== ENCOUNTER 2020-08-13 01:47 | Emergency (ER) | payer OTHER ==
[~2020-08-13] VITALS: Ht 157.5 cm; Wt 106.8 kg
[2020-08-13] MEDS ORDERED: IV NORMAL SALINE 1000ML BAG 1,000 ML IV SCH (02:45)
[2020-08-13 02:57] LABS: BASO # 0.1 x10^3/uL (0.0-0.2); BASO % 1 % (0-3); EOS # 0.2 x10^3/uL (0.0-0.7); EOS % 2 % (0-3); HEMATOCRIT 41.8 % (36.0-47.0); HEMOGLOBIN 14.4 g/dL (12.0-15.5); LYMPH # 3.7 x10^3/uL (1.0-4.8); LYMPH % 40 % (24-48); MEAN CORPUSCULAR HEMOGLOBIN 29 pg (25-35); MEAN CORPUSCULAR HGB CONC 34 g/dL (31-37); MEAN CORPUSCULAR VOLUME 85 fL (79-100); MONO # 0.6 x10^3/uL (0.0-1.1); MONO % 7 % (0-9); NEUT # 4.7 x10^3/uL (1.8-7.7); NEUT % 50 % (31-73); PLATELET COUNT 181 x10^3/uL (140-400); RED BLOOD COUNT 4.93 x10^6/uL (3.50-5.40); RED CELL DISTRIBUTION WIDTH 15.1 % (11.5-14.5); WHITE BLOOD COUNT 9.3 x10^3/uL (4.0-11.0)
[2020-08-13 03:10] LABS: CALCIUM 9.1 mg/dL (8.5-10.1); CREATININE 0.8 mg/dL (0.6-1.0); GFR 89.8; POTASSIUM 3.6 mmol/L (3.5-5.1)
[2020-08-13 03:15] LABS: ALBUMIN 3.8 g/dL (3.4-5.0); ALBUMIN/GLOBULIN RATIO 1.2 (1.0-1.7); MAGNESIUM 2.1 mg/dL (1.8-2.4); TOTAL BILIRUBIN 0.4 mg/dL (0.2-1.0); TOTAL PROTEIN 7.1 g/dL (6.4-8.2)
--- NOTE | 2020-08-13 03:36 | RAD ---
Study: XR CHEST 1V Indication: Chest pain. Comparison: 07/12/2020 Findings: The cardiomediastinal silhouette and yg are unremarkable/unchanged. Probable mild basilar volume loss. No confluent airspace infiltrate, layering effusion or pneumothora x. Impression: No acute radiographic abnormality of the chest. Electronically signed by: BASIA ACEVEDO MD (08/13/2020 3:34 AM) [facility]
[2020-08-13] MEDS ORDERED: ONDANSETRON PF 4 MG/2 ML VIAL. IVP ONE (03:45)
[2020-08-13] MEDS ORDERED: MORPHINE SULFATE 4 MG/ML VIAL. IV ONE (03:45)
--- NOTE | 2020-08-13 03:50 | EKG ---
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
--- NOTE | 2020-08-13 03:50 | EKG ---
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
--- NOTE | 2020-08-13 03:52 | PHYS DOC ---
Past Medical History Past Medical History: Asthma, Bronchitis, Cancer, CHF, Diabetes-Type II, GERD, High Cholesterol, Hypertension, [place], Pancreatitis Additional Past Medical Histor: Lupus and ADÁN Past Surgical History: Other Additional Past Surgical Histo: CARDIAC STENT Smoking Status: Current Every Day Smoker Alcohol Use: None Drug Use: None Adult General Chief Complaint Chief Complaint: MULTIPLE COMPLAINTS HPI HPI Patient is a 54 year old female with a past medical history of hypertension, hyperlipidemia, diabetes, CHF now presenting emergency department complaint of new onset of headache. Patient states that for the last 2 days she developed worsening sensation of right-sided facial neck pain. Patient states this then radiating to the chest and she is noted some aching of the right anterior chest. Patient also states that during this time she is been feeling fatigued with generalized body aches. Denies any fevers, chills, nausea or vomiting. Denies any dizziness or lightheadedness Review of Systems Review of Systems Constitutional: Denies fever or chills [] Eyes: Denies change in visual acuity, redness, or eye pain [] HENT: Denies nasal congestion or sore throat [] Respiratory: Denies cough or shortness of breath [] Cardiovascular: No additional information not addressed in HPI [] GI: Denies abdominal pain, nausea, vomiting, bloody stools or diarrhea [] : Denies dysuria or hematuria [] Musculoskeletal: Denies back pain or joint pain [] Integument: Denies rash or skin lesions [] Neurologic: Denies headache, focal weakness or sensory changes [] Endocrine: Denies polyuria or polydipsia [] All other systems were reviewed and found to be within normal limits, except as documented in this note. Current Medications Current Medications Current Medications Medications (Trade) Dose Ordered Sig/Luz Maria Start Time Stop Time Status Last Admin Dose Admin Sodium Chloride 1,000 ml @ 1,000 mls/hr Q1H 08/13/20 02:45 08/13/20 03:44 08/13/20 03:04 1,000 MLS/HR Allergies Allergies Allergies Coded Allergies Type Severity Reaction Last Updated Verified Penicillins Allergy Severe 01/28/17 Yes amoxicillin Allergy Severe anaphylaxis 09/19/13 Yes iodine Allergy Severe Anaphylaxis 09/19/13 Yes peanut Allergy Severe 02/19/20 Yes shellfish derived Allergy Severe Anaphylaxis 04/09/14 Yes Physical Exam Physical Exam Constitutional: Well developed, well nourished, no acute distress, non-toxic appearance. [] HENT: Normocephalic, atraumatic, bilateral external ears normal, oropharynx moist, no oral exudates, nose normal. [] Eyes: PERRLA, EOMI, conjunctiva normal, no discharge. [] Neck: Normal range of motion, no tenderness, supple, no stridor. [] Cardiovascular:Heart rate regular rhythm, no murmur [] Lungs & Thorax: Bilateral breath sounds clear to auscultation [] Abdomen: Bowel sounds normal, soft, no tenderness, no masses, no pulsatile masses. [] Skin: Warm, dry, no erythema, no rash. [] Back: No tenderness, no CVA tenderness. [] Extremities: No tenderness, no cyanosis, no clubbing, ROM intact, no edema. [] Neurologic: Alert and oriented X 3, normal motor function, normal sensory function, no focal deficits noted. [] Psychologic: Affect normal, judgement normal, mood normal. [] Current Patient Data Vital Signs Vital Signs Date Time Temp Pulse Resp B/P (MAP) Pulse Ox O2 Delivery O2 Flow Rate FiO2 08/13/20 01:50 97.9 86 18 151/97 (115) 97 Room Air 97.9 Lab Values Laboratory Tests Test 08/13/20 02:45 White Blood Count 9.3 x10^3/uL (4.0-11.0) Red Blood Count 4.93 x10^6/uL (3.50-5.40) Hemoglobin 14.4 g/dL (12.0-15.5) Hematocrit 41.8 % (36.0-47.0) Mean Corpuscular Volume 85 fL (79-100) Mean Corpuscular Hemoglobin 29 pg (25-35) Mean Corpuscular Hemoglobin Concent 34 g/dL (31-37) Red Cell Distribution Width 15.1 % (11.5-14.5) H Platelet Count 181 x10^3/uL (140-400) Neutrophils (%) (Auto) 50 % (31-73) Lymphocytes (%) (Auto) 40 % (24-48) Monocytes (%) (Auto) 7 % (0-9) Eosinophils (%) (Auto) 2 % (0-3) Basophils (%) (Auto) 1 % (0-3) Neutrophils # (Auto) 4.7 x10^3/uL (1.8-7.7) Lymphocytes # (Auto) 3.7 x10^3/uL (1.0-4.8) Monocytes # (Auto) 0.6 x10^3/uL (0.0-1.1) Eosinophils # (Auto) 0.2 x10^3/uL (0.0-0.7) Basophils # (Auto) 0.1 x10^3/uL (0.0-0.2) Sodium Level 143 mmol/L (136-145) Potassium Level 3.6 mmol/L (3.5-5.1) Chloride Level 106 mmol/L (98-107) Carbon Dioxide Level 29 mmol/L (21-32) Anion Gap 8 (6-14) Blood Urea Nitrogen 12 mg/dL (7-20) Creatinine 0.8 mg/dL (0.6-1.0) Estimated GFR (Cockcroft-Gault) 89.8 BUN/Creatinine Ratio 15 (6-20) Glucose Level 109 mg/dL (70-99) H Calcium Level 9.1 mg/dL (8.5-10.1) Magnesium Level 2.1 mg/dL (1.8-2.4) Total Bilirubin 0.4 mg/dL (0.2-1.0) Aspartate Amino Transferase (AST) 19 U/L (15-37) Alanine Aminotransferase (ALT) 21 U/L (14-59) Alkaline Phosphatase 109 U/L (46-116) Troponin I Quantitative < 0.017 ng/mL (0.000-0.055) SL-Bda-O-Type Natriuretic Peptide 32 pg/mL (0-124) Total Protein 7.1 g/dL (6.4-8.2) Albumin 3.8 g/dL (3.4-5.0) Albumin/Globulin Ratio 1.2 (1.0-1.7) Lipase 457 U/L (73-393) H Laboratory Tests 08/13/20 02:45 Laboratory Tests 08/13/20 02:45 EKG EKG [] Radiology/Procedures Radiology/Procedures [] Course & Med Decision Making Course & Med Decision Making Pertinent Labs and Imaging studies reviewed. (See chart for details) 54-year-old female presented emergency department new onset of flulike illness consisting of facial pain, headaches and chest discomfort. Because of the patient's history will obtain ACS work-up to make sure there is no significant underlying etiology. Because is going on for 2 days I feel the initial work-up with a negative troponin and normal EKG rhythm are present for sure rule out acute coronary syndrome and the patient can be safely discharged home. Dragon Disclaimer Dragon Disclaimer This electronic medical record was generated, in whole or in part, using a voice recognition dictation system. Departure Departure Impression: Primary Impression: Viral syndrome Disposition: HOME / SELF CARE / HOMELESS Condition: GOOD Referrals: ANETTE WELCH (PCP) Patient Instructions: Viral Syndrome Additional Instructions: EMERGENCY DEPARTMENT GENERAL DISCHARGE INSTRUCTIONS Thank you for coming to [facility] Emergency Department (ED) today and trusting us with you care. We trust that you had a positive experience in our Emergency Department. If you wish to speak to the department management, you may call the Director at [phone]. YOUR FOLLOW UP INSTRUCTIONS ARE FOLLOWS: 1. Do you have a private Doctor? If you do not have a private doctor, please ask for a resource list of physicians or clinics that may be able to assist you with follow up care. 2. The Emergency Physicain has interpreted your x-rays. The X-Ray specialist will also review them. If there is a change in the findings, you will be notified in 48 hours when at all possible. 3. A lab test or culture has been done, your results will be reviewed and you will be notified if you need a change in treatment. ADDITIONAL INSTRUCTIONS AND INFORMATION: 1. Your care today has been supervised by a physician who is specially trained in emergency care. Many problems require more than one evaluation for a complete diagnosis and treatment. We recommend that you schedule your follow up appointment as recommended to ensure complete treatment of you illness or injury. If you are unable to obtain follow up care and continue to have a problem, or if your condition worsens, we recommend that you return to the ED. 2. We are not able to safely determine your condition over the phone nor are we able to give sound medical advice over the phone. For these safety reasons, if you call for medical advice we will ask you to come to the ED for further evaluation. 3. If you have any questions regarding these discharge instructions please call the ED at [phone]. SAFETY INFORMATION: In the interest of safety, wellness, and injury prevention; we encourage you to wear your sealbelt, if you smoke; quite smoking, and we encourage family to use a protective helmet for bicycling and other sporting events that present an increased risk for head injury. IF YOUR SYMPTOMS WORSEN OR NEW SYMPTOMS DEVELOP, OR YOU HAVE CONCERNS ABOUT YOUR CONDITION; OR IF YOUR CONDITION WORSENS WHILE YOU ARE WAITING FOR YOUR FOLLOW UP APPOINTMENT; EITHER CONTACT YOUR PRIMARY CARE DOCTOR, THE PHYSICIAN WHOSE NAME AND NUMBER YOU WERE GIVEN, OR RETURN TO THE ED IMMEDIATELY. NOEMY LUCAS MD Aug 13, 2020 03:52
[2020-08-13 04:00] VITALS: BP 100/53
== END 2020-08-13 04:05 | disposition home or self-care (01) ==
LOC: ER 01:47
DX: B34.9 Viral infection, unspecified (principal); R51.9 Headache, unspecified; M54.2 Cervicalgia; R20.2 Paresthesia of skin; J45.909 Unspecified asthma, uncomplicated; I11.0 Hypertensive heart disease with heart failure; I50.9 Heart failure, unspecified; E11.9 Type 2 diabetes mellitus without complications; K21.9 Gastro-esophageal reflux disease without esophagitis; I25.2 Old myocardial infarction; K86.1 Other chronic pancreatitis; E78.00 Pure hypercholesterolemia, unspecified; F17.200 Nicotine dependence, unspecified, uncomplicated; Z98.890 Other specified postprocedural states; Z88.0 Allergy status to penicillin; Z88.1 Allergy status to other antibiotic agents; Z91.010 Allergy to peanuts; Z91.013 Allergy to seafood; Z91.041 Radiographic dye allergy status
CPT/HCPCS: 36415; 71045; 80053; 83690; 83735; 83880; 84484; 85025; 93005; 96361; 96374; 96375; 99285; J2270; J2405; J7030

== ENCOUNTER 2020-09-17 18:26 | Emergency (ER) | payer OTHER ==
[2020-09-17 19:40] VITALS: BP 185/113
[2020-09-17] MEDS ORDERED: AZIT500T4 PO (23:45)
== END 2020-09-17 19:45 | disposition left against medical advice (07) ==
LOC: ER 18:26
DX: J02.9 Acute pharyngitis, unspecified (principal); Z53.21 Procedure and treatment not carried out due to patient leaving prior to being seen by health care provider

== ENCOUNTER 2020-09-17 21:57 | Emergency (ER) | payer OTHER ==
[~2020-09-17] VITALS: Ht 157.5 cm; Wt 104.5 kg
[2020-09-17 23:00] VITALS: BP 179/98
[2020-09-17] MEDS ORDERED: AZIT500T4 PO (23:45)
--- NOTE | 2020-09-17 23:46 | PHYS DOC ---
Past Medical History Past Medical History: Asthma, Bronchitis, Cancer, CHF, Diabetes-Type II, GERD, High Cholesterol, Hypertension, [place], Pancreatitis Additional Past Medical Histor: Lupus and ADÁN Past Surgical History: Other Additional Past Surgical Histo: CARDIAC STENT Smoking Status: Current Every Day Smoker Alcohol Use: None Drug Use: None General Adult EDM: Chief Complaint: SORE THROAT HPI: HPI: Patient is a 54 year old female presents with a chief complaint of sore throat. Patient states she has had sore throat since this a.m. Patient states pain with swallowing and eating. She denies any fevers or chills chest pain or shortness of breath. Patient denies any associated cough. Patient is fully immunized. Patient is concerned that she might have strep. Review of Systems: Review of Systems: Review of systems: Constitutional symptoms- No fever, no chills. Eyes- No Discharge, No Visual Loss Respiratory symptoms- No shortness of breath, No wheezing, No Dyspnea on Exertion Cardiovascular Systems; No chest pain, No Palpitations, No syncope Gastrointestinal symptoms: NO abdominal pain, no nausea, no vomiting or diarrhea. Genitourinary symptoms: No dysuria. Musculoskeletal symptoms: No back pain No extremity pain. NEUROLOGICAL Symptoms: No headache, no generalized weakness; No focal Weakness ENT positive sore throat Heart Score: C/O Chest Pain: N/A Risk Factors: Risk Factors: DM, Current or recent (<one month) smoker, HTN, HLP, family history of CAD, obesity. Risk Scores: Score 0 - 3: 2.5% MACE over next 6 weeks - Discharge Home Score 4 - 6: 20.3% MACE over next 6 weeks - Admit for Clinical Observation Score 7 - 10: 72.7% MACE over next 6 weeks - Early Invasive Strategies Allergies: Allergies: Allergies Coded Allergies Type Severity Reaction Last Updated Verified Penicillins Allergy Severe 01/28/17 Yes amoxicillin Allergy Severe anaphylaxis 09/19/13 Yes iodine Allergy Severe Anaphylaxis 09/19/13 Yes peanut Allergy Severe 02/19/20 Yes shellfish derived Allergy Severe Anaphylaxis 04/09/14 Yes Physical Exam: PE: General: alert, no acute distress. Skin: warm, dry and intact. Head:: Normocephalic, atraumatic. Neck: Trachea midline. Eyes: EOMI, Normal conjunctiva, No drainage CARDIOVASCULAR: Regular rate and rhythm RESPIRATORY: No respiratory distress Back: Full range of motion. MUSCULOSKELETAL: Full range of motion of bilateral upper and lower extremities. GASTROINTESTINAL: Abdomen soft without rebound or guarding. NEUROLOGICAL: Alert and noted to person, place and time. No neurological deficits observed Psychiatric: Cooperative. Normal judgment ENT-pharyngeal erythema no exudate EKG: EKG: [] Radiology/Procedures: Radiology/Procedures: [] Course & Med Decision Making: Course & Med Decision Making Pertinent Labs and Imaging studies reviewed. (See chart for details) [] Dragon Disclaimer: Dragon Disclaimer: This electronic medical record was generated, in whole or in part, using a voice recognition dictation system. Departure Departure Impression: Primary Impression: Sore throat Disposition: HOME / SELF CARE / HOMELESS Condition: STABLE Referrals: ANETTE WELCH (PCP) Patient Instructions: Sore Throat Scripts Azithromycin (AZITHROMYCIN TABLET) 500 Mg Tablet 1 TAB PO DAILY for 5 Days, #5 TAB 0 Refills Prov: TIFFANY HAMILTON DO 09/17/20 TIFFANY HAMILTON DO September 17, 2020 23:46
== END 2020-09-18 00:25 | disposition home or self-care (01) ==
LOC: ER 21:57
DX: J02.9 Acute pharyngitis, unspecified (principal); K21.9 Gastro-esophageal reflux disease without esophagitis; E78.00 Pure hypercholesterolemia, unspecified; I11.0 Hypertensive heart disease with heart failure; I50.9 Heart failure, unspecified; E11.9 Type 2 diabetes mellitus without complications; J45.909 Unspecified asthma, uncomplicated; I25.2 Old myocardial infarction; F17.200 Nicotine dependence, unspecified, uncomplicated; Z95.5 Presence of coronary angioplasty implant and graft; Z88.0 Allergy status to penicillin; Z88.1 Allergy status to other antibiotic agents; Z91.018 Allergy to other foods; Z88.8 Allergy status to other drugs, medicaments and biological substances
CPT/HCPCS: 99283

== ENCOUNTER 2020-12-07 11:44 | Emergency (ER) | payer OTHER ==
[~2020-12-07] VITALS: Ht 157.5 cm; Wt 113.6 kg
[~2020-12-07 11:44] MED LIST changes: +AZIT500T4 PO
[2020-12-07 12:29] LABS: BASO % 0 % (0-3); EOS # 0.1 x10^3/uL (0.0-0.7); EOS % 2 % (0-3); HEMATOCRIT 42.1 % (36.0-47.0); HEMOGLOBIN 14.4 g/dL (12.0-15.5); LYMPH # 2.8 x10^3/uL (1.0-4.8); LYMPH % 39 % (24-48); MEAN CORPUSCULAR HEMOGLOBIN 29 pg (25-35); MEAN CORPUSCULAR HGB CONC 34 g/dL (31-37); MEAN CORPUSCULAR VOLUME 85 fL (79-100); MONO # 0.5 x10^3/uL (0.0-1.1); MONO % 7 % (0-9); NEUT # 3.8 x10^3/uL (1.8-7.7); NEUT % 53 % (31-73); PLATELET COUNT 165 x10^3/uL (140-400); RED BLOOD COUNT 4.95 x10^6/uL (3.50-5.40); RED CELL DISTRIBUTION WIDTH 14.2 % (11.5-14.5); WHITE BLOOD COUNT 7.3 x10^3/uL (4.0-11.0)
[2020-12-07 12:42] LABS: CALCIUM 9.1 mg/dL (8.5-10.1); CREATININE 0.9 mg/dL (0.6-1.0); GFR 78.1; POTASSIUM 3.4 mmol/L (3.5-5.1)
[2020-12-07 12:49] LABS: ALBUMIN 3.7 g/dL (3.4-5.0); ALBUMIN/GLOBULIN RATIO 1.3 (1.0-1.7); MAGNESIUM 2.1 mg/dL (1.8-2.4); TOTAL BILIRUBIN 0.5 mg/dL (0.2-1.0); TOTAL PROTEIN 6.5 g/dL (6.4-8.2)
--- NOTE | 2020-12-07 13:03 | RAD ---
Exam Date: 12/07/2020 12:26 PM XR CHEST 1V Indication: Reason: dizziness, chest pain / Spl. Instructions: / History: . Comparison: August 13, 2020 FINDINGS/ IMPRESSION: The cardiac silhouette is borderline enlarged. Bibasilar lung opacities may represent edema, atelect asis, and/or infiltrates, right worse than left. There is no appreciable pleural effusion or pneumothorax. The visualized osseous structures are intact. Electronically signed by: Tariq Clay MD (12/07/2020 1:00 PM) [id number]
[2020-12-07] MEDS ORDERED: ASPIRIN 325 MG TABLET PO ONE (13:30)
--- NOTE | 2020-12-07 13:31 | RAD ---
EXAM: CT HEAD WITHOUT CONTRAST. HISTORY: Dizziness. TECHNIQUE: Computed tomography of the head was performed without intravenous contrast. One or more of the following individualized dose reduction techniques were utilized for this examination: 1. Automated exposure control. 2. Adjustment of the mA and/or kV according to patient size. 3. Use of iterative reconstruction technique. COMPARISON: 07/27/2018. FINDINGS: There is no intracranial hemorrhage. Garvin-white differentiation is preserved. The ventricle s are normal in size and position. The visualized paranasal sinuses appear clear. The orbits are unremarkable. The temporal bones are un remarkable. The calvarium reveals no suspicious lesions. IMPRESSION: 1. No acute intracranial findings. Electronically signed by: Todd Crisostomo MD (12/07/2020 1:28 PM) [id number]
--- NOTE | 2020-12-07 13:39 | PHYS DOC ---
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 Patient's friend states over the last 2 to 3 days of the speech is gotten worse. Patient's friend also states that the patient has seems like she is on balance and she is stumbling more than usual. Patient states that she has been dizzy and she does have a left sided headache that was intermittent but is now more continuous. She st ates that for the last 30 days she has been out of all of her medications. She states her medications are too expensive for her to buy. She has been off feeling off balance for the last 4 to 6 weeks. Patient states she took her last blood pressure pill that she had this morning. Patient states that she saw her aviculturist yesterday and told her that she had blood clot behind the left eye, neck and in her long. Patient states that she is known about this and it is not a new finding. Patient is supposed to be taking Xarelto but cannot afford it. Patient has not taken any medication given her blood thinner since a month. Patient states that she began having heaviness and left-sided chest pain that started yesterday. She did state that she went to an eye doctor a month ago which found the clot behind the left eye. She states she also has glaucoma and she thinks that her vision is more blurred than usual. She states she usually has to wear glasses and she is not currently wearing them. Patient complaints are left-sided chest pain, shortness of air, dizziness, sweating off and on, headache has been intermittent for the last 2 months but more continuous. Her physicians are all at [facility]. She is brought here today by her friend because this is where the patient wanted to go the patient states that we have her medications on file here. Patient is rating her discomfort at a 7 out of 10. Review of Systems: Review of Systems: Constitutional: Denies fever or chills. [] Eyes: Denies change in visual acuity. [] HENT: Denies nasal congestion or sore throat. [] Respiratory: Denies cough or +shortness of breath. [] Cardiovascular: + chest pain or edema. [] GI: Denies abdominal pain, nausea, vomiting, bloody stools or diarrhea. [] : Denies dysuria. [] Musculoskeletal: Denies back pain or joint pain. + Stumbling [] Integument: Denies rash. [] Neurologic: +headache, denies focal weakness or sensory changes. + Slurred speech, + dizziness [] Endocrine: Denies polyuria or polydipsia. [] Lymphatic: Denies swollen glands. [] Psychiatric: Denies depression or anxiety. [] Heart Score: C/O Chest Pain: Yes HEART Score for Chest Pain: HEART Score for Chest Pain Response (Comments) Value History Moderately Suspicious 1 ECG Nonspecific Repolarizatio 1 Age >45 - < 65 1 Risk Factors >3 Risk Factors or Hx CAD 2 Troponin < Normal Limit 0 Total 5 Risk Factors: Risk Factors: DM, Current or recent (<one month) smoker, HTN, HLP, family history of CAD, obesity. Risk Scores: Score 0 - 3: 2.5% MACE over next 6 weeks - Discharge Home Score 4 - 6: 20.3% MACE over next 6 weeks - Admit for Clinical Observation Score 7 - 10: 72.7% MACE over next 6 weeks - Early Invasive Strategies Allergies: Allergies: Allergies Coded Allergies Type Severity Reaction Last Updated Verified Penicillins Allergy Severe 01/28/17 Yes amoxicillin Allergy Severe anaphylaxis 09/19/13 Yes iodine Allergy Severe Anaphylaxis 09/19/13 Yes peanut Allergy Severe 02/19/20 Yes shellfish derived Allergy Severe Anaphylaxis 04/09/14 Yes Physical Exam: PE: Constitutional: Well developed, well nourished, no acute distress, non-toxic appearance. [] HENT: Normocephalic, atraumatic, bilateral external ears normal, oropharynx moist, no oral exudates, nose normal. [] Eyes: PERRLA, EOMI, conjunctiva normal, no discharge. [] Neck: Normal range of motion, no tenderness, supple, no stridor. [] Cardiovascular:Heart rate regular rhythm, no murmur [] Lungs & Thorax: Bilateral upper breath sounds clear lower diminished to auscultation [] Abdomen: Bowel sounds normal, soft, no tenderness, no masses, no pulsatile masses. [] Skin: Warm, dry, no erythema, no rash. [] Back: No tenderness, no CVA tenderness. [] Extremities: No tenderness, no cyanosis, no clubbing, ROM intact, no edema. [] Neurologic: Alert and oriented X 3, normal motor function, normal sensory function, no focal deficits noted. [] Psychologic: Affect normal, judgement normal, mood normal. [] Current Patient Data: Labs: Laboratory Tests Test 12/07/20 11:55 12/07/20 11:57 White Blood Count 7.3 x10^3/uL (4.0-11.0) Red Blood Count 4.95 x10^6/uL (3.50-5.40) Hemoglobin 14.4 g/dL (12.0-15.5) Hematocrit 42.1 % (36.0-47.0) Mean Corpuscular Volume 85 fL (79-100) Mean Corpuscular Hemoglobin 29 pg (25-35) Mean Corpuscular Hemoglobin Concent 34 g/dL (31-37) Red Cell Distribution Width 14.2 % (11.5-14.5) Platelet Count 165 x10^3/uL (140-400) Neutrophils (%) (Auto) 53 % (31-73) Lymphocytes (%) (Auto) 39 % (24-48) Monocytes (%) (Auto) 7 % (0-9) Eosinophils (%) (Auto) 2 % (0-3) Basophils (%) (Auto) 0 % (0-3) Neutrophils # (Auto) 3.8 x10^3/uL (1.8-7.7) Lymphocytes # (Auto) 2.8 x10^3/uL (1.0-4.8) Monocytes # (Auto) 0.5 x10^3/uL (0.0-1.1) Eosinophils # (Auto) 0.1 x10^3/uL (0.0-0.7) Basophils # (Auto) 0.0 x10^3/uL (0.0-0.2) Sodium Level 144 mmol/L (136-145) Potassium Level 3.4 mmol/L (3.5-5.1) L Chloride Level 105 mmol/L (98-107) Carbon Dioxide Level 32 mmol/L (21-32) Anion Gap 7 (6-14) Blood Urea Nitrogen 10 mg/dL (7-20) Creatinine 0.9 mg/dL (0.6-1.0) Estimated GFR (Cockcroft-Gault) 78.1 BUN/Creatinine Ratio 11 (6-20) Glucose Level 101 mg/dL (70-99) H Calcium Level 9.1 mg/dL (8.5-10.1) Magnesium Level 2.1 mg/dL (1.8-2.4) Total Bilirubin 0.5 mg/dL (0.2-1.0) Aspartate Amino Transferase (AST) 20 U/L (15-37) Alanine Aminotransferase (ALT) 28 U/L (14-59) Alkaline Phosphatase 124 U/L (46-116) H Troponin I Quantitative < 0.017 ng/mL (0.000-0.055) PQ-Vqi-X-Type Natriuretic Peptide 24 pg/mL (0-124) Total Protein 6.5 g/dL (6.4-8.2) Albumin 3.7 g/dL (3.4-5.0) Albumin/Globulin Ratio 1.3 (1.0-1.7) Lipase 72 U/L (73-393) L Glucose (Fingerstick) 114 mg/dL (70-99) H Laboratory Tests 12/07/20 11:55 Laboratory Tests 12/07/20 11:55 Vital Signs: Vital Signs Date Time Temp Pulse Resp B/P (MAP) Pulse Ox O2 Delivery O2 Flow Rate FiO2 12/07/20 12:07 98.2 69 18 137/75 (125) 98 Room Air 98.2 EKG: EK and read by Dr. Santos as a sinus rhythm no STEMI Radiology/Procedures: Radiology/Procedures: [] Impression: [facility] [address] [place] [address] IMAGING REPORT Signed PATIENT: SAVAGE MONSIVAIS ACCOUNT: [id number] : 1965 LOCATION: ER AGE: 55 SEX: F EXAM STATUS: PRE ER ORD. PHYSICIAN: MANNY HOWARD APRN REASON: dizziness, chest pain PROCEDURE: PORTABLE CHEST 1V Exam Date: 12/07/2020 12:26 PM XR CHEST 1V Indication: Reason: dizziness, chest pain / Spl. Instructions: / History: . Comparison: August 13, 2020 FINDINGS/ IMPRESSION: The cardiac silhouette is borderline enlarged. Bibasilar lung opacities may represent edema, atelectasis, and/or infiltrates, right worse than left. There is no appreciable pleural effusion or pneumothorax. The visualized osseous structures are intact. Electronically signed by: Rodrigo Clay MD (12/07/2020 1:00 PM) [id number] DICTATED and SIGNED BY: RODRIGO CLAY MD DATE: 12/07/20 [id number] [address] [id number] IMAGING REPORT Signed PATIENT: SAVAGE MONSIVAIS ACCOUNT: [id number] : 1965 LOCATION: ER AGE: 55 SEX: F EXAM STATUS: PRE ER ORD. PHYSICIAN: MANNY HOWARD APRN REASON: TENDERNESS TO LEG, SWELLING PROCEDURE: VENOUS LOWER EXTREMITY LEFT EXAM: Left lower extremity venous Doppler. HISTORY: Left lower extremity pain/swelling. COMPARISON: None. FINDINGS: Grayscale and Doppler analysis of the left lower extremity deep venous system was performed with graded compression and augmentation. The common femoral, greater saphenous, superficial femoral, popliteal and calf veins were assessed. There is no evidence of deep venous thrombosis. IMPRESSION: 1. No evidence of deep venous thrombosis. Electronically signed by: Todd Crisostomo MD (12/07/2020 2:14 PM) [id number] DICTATED and SIGNED BY: AKANKSHA CRISOSTOMO MD DATE: 12/07/20 [id number] [id number] [place], [place] [id number] IMAGING REPORT Signed PATIENT: SAVAGE MONSIVAIS ACCOUNT: [id number] : 1965 LOCATION: ER AGE: 55 SEX: F EXAM STATUS: PRE ER ORD. PHYSICIAN: MANNY HOWARD APRN REASON: dizziness, chest pain/ PT unable to take off artifact metal PROCEDURE: CT HEAD WO CONTRAST EXAM: CT HEAD WITHOUT CONTRAST. HISTORY: Dizziness. TECHNIQUE: Computed tomography of the head was performed without intravenous contrast. One or more of the following individualized dose reduction techniques were utilized for this examination: 1. Automated exposure control. 2. Adjustment of the mA and/or kV according to patient size. 3. Use of iterative reconstruction technique. COMPARISON: 07/27/2018. FINDINGS: There is no intracranial hemorrhage. Garvin-white differentiation is preserved. The ventricles are normal in size and position. The visualized paranasal sinuses appear clear. The orbits are unremarkable. The temporal bones are unremarkable. The calvarium reveals no suspicious lesions. IMPRESSION: 1. No acute intracranial findings. Electronically signed by: Todd Crisostomo MD (12/07/2020 1:28 PM) [id number] DICTATED and SIGNED BY: AKANKSHA CRISOSTOMO MD DATE: 12/07/20 [id number] 0 Course & Med Decision Making: Course & Med Decision Making Pertinent Labs and Imaging studies reviewed. (See chart for details) COVID-19 CRITERIA: The patient was evaluated during the global COVID-19 pandemic, and that diagnosis was suspected/considered upon their initial presentation. Their evaluation, treatment and testing was consistent with current guidelines for patients who present with complaints or symptoms that may be related to COVID-19. See HPI. Patient seems very drowsy but easily awakens and answers my questions. She does have some slurred speech but I can understand her. She does speak in full clear sentences. She states she does have some tingling in her bilateral fingers but that has been going on for several months. Alert and oriented x4. Follows all commands appropriately. NIH 1. Patient complains of left leg tenderness to the calf when I palpate and more so in the lateral aspect. Patient states that leg is also more swollen than usual. Her extremities do not look edematous but the left leg does look slightly more swollen than the other. Skin is pink warm and dry. Pedal pulses are strong and present. Patient states she is unable to take the Covid vaccines because she has to have an EpiPen. Lungs are clear in upper lobes but diminished in lower lobes. Vital signs are within normal limits. Rapid Covid is positive. Patient admitted to hospitalist. 1546: Patient states that she was tested for Covid a month ago and it was negative so there is no way that she is Covid positive today. Is explained to patient that she could have caught Covid between then and today but she is now positive and she has pneumonia. Patient states "that is fine she can just go home and what ever happens happens." "Patient states that pneumonia is normal for her and that she always has pneumonia". "Patient states that she does not care that she has been out of all of her medications." It was explained the patient that she could go home and , worsen or have a disability from a health event. Patient states " I understand that. I will be at home with my old man. I am not staying here and if I I ." Patient is going to sign out AMA. [] Anabel Disclaimer: Anabel Disclaimer: This electronic medical record was generated, in whole or in part, using a voice recognition dictation system. NIHSS Stroke Scale NIH Stroke Scale: NIH Stroke Scale Response (Comments) Value Level of Consciousness: 0 Alert/Responsive 0 LOC Questions: 0 Answers both correctly 0 LOC Commands: 0 Performs both tasks 0 Best Gaze: 0 Normal 0 Visual: 0 No visual loss 0 Facial Palsy: 0 Normal, symmetrical 0 Motor - Left Arm 0 No drift 0 Motor - Right Arm 0 No drift 0 Motor - Left Leg 0 No drift 0 Motor: Right Leg 0 No drift 0 Limb Ataxia: 0 Absent 0 Sensory: 0 No loss 0 Best Language: 1 Mild to mod aphasia 1 Dysathria: 0 Normal 0 Extinction and Inattention: 0 Normal 0 Total 1 COVID-19 Patient Risks: Age 65 or older: No Sign of co-morbidity: Yes Exp to person + for COVID: Yes Exp to PUI: No Travel from affected area: No Lower respiratory symptoms: Yes Fever: No Other: Yes PPE Use: Full PPE with N95 mask or PAPR: Yes Departure Departure Impression: Primary Impression: Pneumonia due to 2019 novel coronavirus Disposition: LEFT AGAINST MEDICAL ADVICE Condition: STABLE Referrals: ANETTE WELCH (PCP) MANNY HOWARD AQUATICS SPECIALIST Dec 07, 2020 13:39
[2020-12-07 14:11] VITALS: BP 122/61
--- NOTE | 2020-12-07 14:16 | RAD ---
EXAM: Left lower extremity venous Doppler. HISTORY: Left lower extremity pain/swelling. COMPARISON: None. FINDINGS: Grayscale and Doppler analysis of the left lower extremity deep venous system was performed with graded compression and augmentation. The common femoral, greater saphenous, superficial femoral , popliteal and calf veins were assessed. There is no evidence of deep venous thrombosis. IMPRESSION: 1. No evidence of deep venous thrombosis. Electronically signed by: Todd Crisostomo MD (12/07/2020 2:14 PM) [id number]
[2020-12-07] MEDS ORDERED: DEXAMETHASONE SOD PHOS 4 MG/ML VIAL IVP ONE (15:00)
[2020-12-07] MEDS ORDERED: DOXYCYCLINE HYCLATE 100 MG in IV DEXTROSE 5% 100ML 100 ML IV ONE (15:00)
[2020-12-07 16:28] LABS: PROTHROMBIN TIME PATIENT 13.6 SEC (11.7-14.0)
--- NOTE | 2020-12-07 17:45 | EKG ---
[facility] [address] [place] [address] Test Date: 2020-12-07 Test Time: 11:52:07 Pat Name: SAVAGE MONSIVAIS Department: Room: Gender: F Medicaid Plan Compliance Director: : 1965 Requested By: MANNY HOWARD Order Number: [id number] Reading MD: Measurements Intervals [place] Rate: 70 P: 109 CA: 168 QRS: 141 QRSD: 174 T: 150 QT: 410 QTc: 446 Interpretive Statements SINUS RHYTHM COMPLEX(ES) WITH ABERRANT INTRAVENTRICULAR CONDUCTION ABNORMAL RIGHT AXIS DEVIATION NON SPECIFIC INTRAVENTRICULAR BLOCK QRS(T) CONTOUR ABNORMALITY CONSIDER ANTEROLATERAL MYOCARDIAL DAMAGE ABNORMAL ECG RI6.01 No previous ECG available for comparison
== END 2020-12-07 16:22 | disposition left against medical advice (07) ==
LOC: ER 11:44
DX: U07.1 COVID-19 (principal); J12.82 Pneumonia due to coronavirus disease 2019; R07.89 Other chest pain; J45.909 Unspecified asthma, uncomplicated; I11.0 Hypertensive heart disease with heart failure; I50.9 Heart failure, unspecified; E11.9 Type 2 diabetes mellitus without complications; K21.9 Gastro-esophageal reflux disease without esophagitis; E78.00 Pure hypercholesterolemia, unspecified; I25.2 Old myocardial infarction; F17.200 Nicotine dependence, unspecified, uncomplicated; Z88.0 Allergy status to penicillin; Z88.1 Allergy status to other antibiotic agents; Z88.8 Allergy status to other drugs, medicaments and biological substances; Z91.013 Allergy to seafood; Z91.010 Allergy to peanuts
CPT/HCPCS: 36415; 70450; 71045; 80053; 82962; 83605; 83690; 83735; 83880; 84484; 85025; 85610; 87040; 87426; 93005; 93971; 96374; 99285; J1100; U0003; U0005